=== PATIENT | female | born 1960 | race American Indian/Alaskan Native ===

== ENCOUNTER 2016-11-14 09:27 | Inpatient (IN) | payer BC, OTHER ==
--- NOTE | 2016-11-14 09:46 | Emergency Department Report ---
Addendum entered and electronically signed by RADHA BATISTA PA 11/14/16 10:12 : Blank Doc - Documentation Documentation: Vital Signs 11/14/16 09:53 Temperature 98.3 F Pulse Rate 102 H Respiratory 18 Rate Blood Pressure 227/137 O2 Sat by Pulse 100 Oximetry Original Note: Stated Complaint: BP/LT HAND HURT CHEST PAIN Time Seen by Provider: 11/14/16 09:40 - HPI History of Present Illness: Patient here reports that she's having left-sided chest pain radiating to her left arm and some shortness of breath. She has a history of coronary artery disease with stent placement. He she is also diabetic and she is on Plavix. He also has a history of angina and she's on Ranexa and BIDIL. She is on insulin for her diabetes as well as other medication. - ROS Review of Systems: All systems are negative unless stated in HPI above. - Exam Physical Exam: General: This is a 56-year-old female well-nourished well-developed in no acute distress. Cardiovascular: S1, S2. Regular rate and rhythm. MSE screening note: Focused history and physical exam performed. Due to findings the following was ordered:see mdm ED Medical Decision Making - Medical Decision Making Medical decision making: Patient seen by provider in triage area. Appropriate protocol activated and patient to main ED to be seen by physician. ED Disposition for MSE Condition: Stable
[2016-11-14] MEDS ORDERED: CATAPRES PO ONE (10:11)
[2016-11-14 10:32] LABS: Basophils % (Auto) 0.5 % (0.0-1.8); Eosinophils % (Auto) 3.3 % (0.0-4.3); Hematocrit 39.3 % (30.3-42.9); Mean Corpuscular HGB Conc 33 % (30-34); Mean Corpuscular Hemoglobin 28 pg (28-32); Mean Corpuscular Volume 85 fl (79-97); Platelet Count 246 K/mm3 (140-440); Red Blood Count 4.61 M/mm3 (3.65-5.03); Red Cell Distribution Width 13.3 % (13.2-15.2); White Blood Count 5.7 K/mm3 (4.5-11.0)
[2016-11-14 10:42] LABS: INR 0.9 (0.87-1.13); Partial Thromboplastin Time 27.4 Sec. (24.2-36.6)
[2016-11-14 10:54] LABS: Creatine Kinase MB 2.1 ng/mL (0.0-4.0)
[2016-11-14 10:55] LABS: Anion Gap 19 mmol/L; BUN/Creatinine Ratio 14.44; Blood Urea Nitrogen 13 mg/dL (7-17); Calcium 9.7 mg/dL (8.4-10.2); Carbon Dioxide 26 mmol/L (22-30); Chloride 98.6 mmol/L (98-107); Creatine Kinase 73 units/L (30-135); Glucose 247 mg/dL (65-100); Potassium 4.3 mmol/L (3.6-5.0); Sodium 139 mmol/L (137-145)
[2016-11-14] MEDS ORDERED: NITRO-BID 2% TP ONE (11:24)
[2016-11-14] MEDS ORDERED: ZOFRAN IV ONE (11:24)
[2016-11-14] MEDS ORDERED: MORPHINE IV ONE (11:24)
[2016-11-14] MEDS ORDERED: ASPIRIN PO ONE (11:25)
--- NOTE | 2016-11-14 11:29 | Admit Criteria Form ---
Admission Criteria Documentation: HYPERTENSION Clinical Indications for Admission to Inpatient Care ( Place "X" for any and all applicable criteria): Admission is indicated for ANY ONE of the following(1)(2)(3)(4): [ ]I. Hypertensive emergency, with evidence of acute and progressing target organ disease as indicated by ANY ONE of the following: [ ]a) Hypertensive encephalopathy (eg, confusion, altered mental status) [ ]b) Cerebral infarction [ ]c) Intracranial hemorrhage [ ]d) Myocardial ischemia or infarction [ ]e) Pulmonary edema [ ]f) Aortic dissection [ ]g) Seizure [ ]h) Acute renal insufficiency [ ]i) Papilledema [ ]j) Microangiopathic hemolytic anemia [ ]II. Adrenergic crisis (eg, severe hypertension due to pheochromocytoma crisis, cocaine or amphetamine intoxication, or clonidine withdrawal) [X ]III. Severe hypertension (SBP greater than 180 mmHg or DBP greater than 110 mmHg or greater than the 95th percentile for age, gender, and height in pediatric patients) that cannot be controlled (eg, to SBP less than 160 mmHg and DBP less than 100 mmHg in adults) by treatment with oral medication in emergency department or observation care Extended stay beyond goal length of stay may be needed for(11)(12)(13): [ ]a) Persistent hypertensive encephalopathy [ ]b) Continuation of pulmonary edema [ ]c) Recurring or persistent severe hypertension [ ]d) Target organ damage (eg, angina, stroke, aortic dissection) [ ]e) Associated renal insufficiency The original [employer] content created by [employer] has been revised. The portions of the content which have been revised are identified through the use of italic text or in bold, and [facility] has neither reviewed nor approved the modified material. All other unmodified content is copyright [employer] [email or web address]. Please see references footnoted in the original [employer] [email or web address] edition 2016 Admission Criteria Met: Yes
--- NOTE | 2016-11-14 11:30 | Emergency Department Report ---
HPI - General Chief Complaint: High BP Time Seen by Provider: 11/14/16 09:40 - HPI HPI: Room 3 The patient is a 56-year-old female presenting with a chief complaint of chest pain. Patient states her symptoms began last night after noticing her blood pressure was elevated. The patient states she developed left-sided chest pain described as pressure. The patient states her left upper extremity became heavy. She does admit to shortness of breath but denies nausea/vomiting or diaphoresis. The patient states she took her blood pressure medication as prescribed (clonidine, lisinopril, metoprolol, Norvasc) and went to sleep. The patient states when she awakened this morning she felt her blood pressure was still elevated and her chest pressure was persistent. Patient currently gives her chest pressure a score of 7/10. Patient believes her last cardiac catheterization occurred August 2015. The patient had a cardiac stent placed May 2015 Location: Left chest Duration: Constant since last night Quality: Pressure Severity: 7/10 Modifying factors: [see above] Context: [see above] Mode of transportation: Unknown ED Past Medical Hx - Past Medical History Previous Medical History?: Yes Hx Hypertension: Yes Hx Congestive Heart Failure: Yes Hx Diabetes: Yes Hx Asthma: Yes Additional medical history: high cholesterol. CAD. 2 Stents 05/2015 here - Surgical History Past Surgical History?: Yes Hx Coronary Stent: Yes Additional Surgical History: Hysterectomy. RIGHT KNEE SURGERY - Family History Family history: no significant - Social History Smoking Status: Never Smoker Substance Use Type: None (denies illicit drug use), Non Opiate Pain, Prescribed - Medications Home Medications: Home Medications Medication Instructions Recorded Confirmed Last Taken Type Nitroglycerin [Nitrostat] 0.4 mg SL .Q5MIN PRN #30 tab 06/16/15 04/21/16 1 Day Ago Rx Insulin NPH/Regular [NovoLIN 70/30] 30 units SQ QAM 09/01/15 04/21/16 1 Day Ago History AtorvaSTATin [Lipitor] 40 mg PO QHS #30 tablet 09/03/15 04/21/16 1 Day Ago Rx Insulin Aspart Prot/Aspart 30 units SQ QPM 12/09/15 04/21/16 1 Day Ago History [NovoLOG Mix 70/30 VIAL] Isosorb Dinit/Hydralazine HCl 1 tab PO BID 12/09/15 04/21/16 1 Day Ago History [Bidil Tablet] cloNIDine [Catapres] 0.1 mg PO TID 12/09/15 04/21/16 1 Day Ago History Aspirin EC [Aspirin Enteric Coated 81 mg PO QDAY #30 tablet 12/13/15 04/21/16 1 Day Ago Rx TAB] Clopidogrel [Plavix] 75 mg PO QDAY #30 tablet 12/13/15 04/21/16 1 Day Ago Rx Lisinopril [Zestril TAB] 40 mg PO QDAY #30 tablet 12/13/15 04/21/16 1 Day Ago Rx Metoprolol [Lopressor TAB] 50 mg PO BID #60 tablet 04/22/16 Unknown Rx Ranolazine [Ranexa] 1,000 mg PO BID #60 tab.er.12h 04/23/16 Unknown Rx ED Review of Systems ROS: Stated complaint: BP/LT HAND HURT CHEST PAIN Other details as noted in HPI Comment: All other systems reviewed and negative Constitutional: denies: chills, fever Eyes: denies: eye pain, eye discharge, vision change ENT: denies: ear pain, throat pain Respiratory: shortness of breath Cardiovascular: chest pain Endocrine: no symptoms reported Gastrointestinal: denies: abdominal pain, nausea, diarrhea Genitourinary: denies: urgency, dysuria, discharge Musculoskeletal: denies: back pain, joint swelling, arthralgia Skin: denies: rash, lesions Neurological: as per HPI Psychiatric: denies: anxiety, depression Hematological/Lymphatic: denies: easy bleeding, easy bruising Physical Exam - Physical Exam Vital Signs: Vital Signs 11/14/16 11/14/16 09:53 11:03 Temperature 98.3 F Pulse Rate 102 H 102 H Respiratory 18 Rate Blood Pressure 227/137 193/115 O2 Sat by Pulse 100 Oximetry Physical Exam: GENERAL: The patient is well-developed well-nourished female standing in room not appearing to be in acute distress. [] HEENT: Normocephalic. Atraumatic. Extraocular motions are intact. Patient has moist mucous membranes. NECK: Supple. Trachea midline CHEST/LUNGS: Clear to auscultation. There is no respiratory distress noted. HEART/CARDIOVASCULAR: Regular. There is no tachycardia. There is no gallop rub or murmur. ABDOMEN: Abdomen is soft, nontender. Patient has normal bowel sounds. There is no abdominal distention. SKIN: There is no rash. There is no diaphoresis. NEURO: The patient is awake, alert, and oriented. The patient is cooperative. The patient has normal speech MUSCULOSKELETAL: There is no evidence of acute injury. ED Course Vital Signs 11/14/16 11/14/16 09:53 11:03 Temperature 98.3 F Pulse Rate 102 H 102 H Respiratory 18 Rate Blood Pressure 227/137 193/115 O2 Sat by Pulse 100 Oximetry ED Medical Decision Making - Lab Data Result diagrams: 11/14/16 10:19 11/14/16 10:19 Laboratory Tests 11/14/16 11/14/16 11/14/16 10:19 10:19 10:19 WBC 5.7 RBC 4.61 Hgb 13.0 Hct 39.3 MCV 85 MCH 28 MCHC 33 RDW 13.3 Plt Count 246 Lymph % (Auto) 22.4 Ritchie % (Auto) 6.4 Eos % (Auto) 3.3 Baso % (Auto) 0.5 Lymph # 1.3 Ritchie # 0.4 Eos # 0.2 Baso # 0.0 Seg Neutrophils % 67.4 Seg Neutrophils # 3.9 PT 12.1 L INR 0.90 APTT 27.4 Sodium 139 Potassium 4.3 Chloride 98.6 Carbon Dioxide 26 Anion Gap 19 BUN 13 Creatinine 0.9 Estimated GFR > 60 BUN/Creatinine Ratio 14.44 Glucose 247 H Calcium 9.7 Total Creatine Kinase 73 CK-MB (CK-2) 2.1 CK-MB (CK-2) Rel Index 2.8 Troponin T < 0.010 - EKG Data -: EKG Interpreted by Vt EKG shows normal: sinus rhythm Rate: normal - EKG Data When compared to previous EKG there are: previous EKG unavailable Interpretation: normal EKG - Radiology Data Radiology results: image reviewed (chest x-ray) - Differential Diagnosis ACS, hypertensive urgency, pericarditis, GERD Critical care attestation.: If time is entered above; I have spent that time in minutes in the direct care of this critically ill patient, excluding procedure time. ED Disposition Clinical Impression: Chest pain, Hypertensive urgency Disposition: OP ADMITTED IP TO THIS HOSP Is pt being admited?: Yes Does the pt Need Aspirin: Yes Condition: Fair Instructions: Chest Pain (ED) Referrals: PRIMARY CARE, [Primary Care Provider] - 3-5 Days Time of Disposition: 12:16 (hospitalist notified)
--- NOTE | 2016-11-14 12:06 | XRay Report ---
PORTABLE CHEST INDICATION: Chest pain. COMPARISON: 04/21/2016 FINDINGS: Portable, frontal chest radiograph demonstrates stable cardiomediastinal silhouette and mild bibasilar scarring. No pleural effusions or CHF. EKG leads. Unremarkable bones. CONCLUSION: No acute chest process or significant interval change, as described. Thank you for the opportunity to participate in this patient's care.
[2016-11-14] MEDS ORDERED: SODIUM CHLORIDE FLUSH SYRINGE 10 ML IV PRN (13:31)
[2016-11-14] MEDS ORDERED: NITROSTAT SL PRN (13:31)
[2016-11-14] MEDS ORDERED: MORPHINE IV PRN (13:31)
--- NOTE | 2016-11-14 14:21 | History and Physical Report ---
History of Present Illness Date of examination: 11/14/16 Date of admission: 11/14/16 12:29 Chief complaint: chest pain since last night History of present illness: MIss Amaya is a 56 yo F who presented to the ER with LT sided chest pressure radiating down the LT arm; squeezing in nature; 6/10; sob with palpitations; nausea but no vomiting; Has h/o CAD with stent placed and completed 1 year of plavix Past History Past Medical History: CAD ( stent placed in 2014), diabetes, hypertension Past Surgical History: hysterectomy, Other (knee, rotator cuff sx) Social history: full code. denies: smoking, alcohol abuse, prescription drug abuse, IV drug use Family history: diabetes, hypertension Medications and Allergies Allergies Allergy/AdvReac Type Severity Reaction Status Date / Time No Known Allergies Allergy Verified 04/21/16 10:32 Home Medications Medication Instructions Recorded Confirmed Last Taken Type Nitroglycerin [Nitrostat] 0.4 mg SL .Q5MIN PRN #30 tab 06/16/15 11/14/16 1 Day Ago Rx Insulin NPH/Regular [NovoLIN 70/30] 30 units SQ QAM 09/01/15 11/14/16 1 Day Ago History Insulin Aspart Prot/Aspart 30 units SQ QPM 12/09/15 11/14/16 1 Day Ago History [NovoLOG Mix 70/30 VIAL] Aspirin EC [Aspirin Enteric Coated 81 mg PO QDAY #30 tablet 12/13/15 11/14/16 1 Day Ago Rx TAB] Clopidogrel [Plavix] 75 mg PO QDAY #30 tablet 12/13/15 11/14/16 1 Day Ago Rx Lisinopril [Zestril TAB] 40 mg PO QDAY #30 tablet 12/13/15 11/14/16 1 Day Ago Rx Metoprolol [Lopressor TAB] 50 mg PO BID #60 tablet 04/22/16 11/14/16 Unknown Rx Ranolazine [Ranexa] 1,000 mg PO BID #60 tab.er.12h 04/23/16 11/14/16 Unknown Rx Active Meds: Active Medications Aspirin (Ecotrin) 325 mg PO QDAY ROEL Atorvastatin Calcium (Lipitor) 40 mg PO QHS ROEL Clonidine HCl (Catapres) 0.1 mg PO TID ROEL Clopidogrel Bisulfate (Plavix) 75 mg PO QDAY ROEL Famotidine (Pepcid) 20 mg PO BID [facility] Insulin Human Isoph/Insulin Regular (Novolin 70/30) 30 unit SUB-Q QAMDIAB [facility] Isosorbide Dinitrate/Hydralazine (Bidil 20/37.5mg) 1 each PO BID [facility] Lisinopril (Zestril) 40 mg PO QDAY [facility] Metoprolol Tartrate (Lopressor) 50 mg PO BID [facility] Miscellaneous Medication (Insulin Aspart Prot/Aspart) 30 units SQ QPM [facility] Miscellaneous Medication (Ranolazine [Ranexa]) 1,000 mg PO BID [facility] Morphine Sulfate (Morphine) 2 mg IV Q5MIN PRN PRN Reason: Chest Pain Nitroglycerin (Nitrostat) 0.4 mg SL Q5M PRN PRN Reason: Chest Pain Ranolazine (Ranexa Er) 1,000 mg PO BID [facility] Sodium Chloride (Sodium Chloride Flush Syringe 10 Ml) 10 ml IV PRN PRN PRN Reason: LINE FLUSH Review of Systems All systems: negative Constitutional: no weight loss, no weight gain, no fever, no chills Ears, nose, mouth and throat: no ear pain, no ear discharge, no tinnitis, no decreased hearing Breasts: normal Cardiovascular: other (as in the [facility]) Respiratory: no cough, no cough with sputum, no excessive sputum, no hemoptysis Gastrointestinal: nausea, no abdominal pain, no vomiting, no diarrhea, no constipation Genitourinary Female: no dysuria, no urinary frequency, no urgency Rectal: no pain, no incontinence Musculoskeletal: no neck stiffness, no neck pain, no shooting arm pain Integumentary: no rash, no pruritis, no redness, no sores Neurological: no head injury, no transient paralysis, no paralysis, no weakness Psychiatric: no anxiety, no memory loss, no change in sleep habits, no sleep disturbances Endocrine: no cold intolerance, no heat intolerance, no polyphagia, no excessive thirst Hematologic/Lymphatic: no easy bruising, no easy bleeding Allergic/Immunologic: no urticaria, no allergic rhinitis Exam - Constitutional Vitals: Temp Pulse Resp BP Pulse Ox 98.3 F 76 12 93/63 93 11/14/16 09:53 11/14/16 13:00 11/14/16 13:00 11/14/16 13:00 11/14/16 12:27 General appearance: Present: no acute distress, well-nourished - EENT Eyes: Present: PERRL, EOM intact. Absent: scleral icterus, conjunctival injection ENT: hearing intact, clear oral mucosa, no oropharyngeal erythema, no poor dentition - Neck Neck: Present: supple, normal ROM. Absent: enlarged thyroid, masses or JVD - Respiratory Respiratory effort: normal, other (mild chest wall tenderness) Respiratory: bilateral: diminished, negative: rales, rhonchi, wheezing - Cardiovascular Rhythm: regular Heart Sounds: Present: S1 & S2. Absent: gallop - Extremities Extremities: no ischemia, pulses intact, pulses symmetrical, No edema Peripheral Pulses: within normal limits - Abdominal General gastrointestinal: Present: soft, non-tender, non-distended, normal bowel sounds Female genitourinary: Present: deferred - Rectal Rectal Exam: deferred - Musculoskeletal Musculoskeletal: strength equal bilaterally - Psychiatric Psychiatric: appropriate mood/affect, intact judgment & insight, cooperative - Neurologic Neurologic: CNII-XII intact, moves all extremities Results - Labs CBC & Chem 7: 11/14/16 10:19 11/14/16 10:19 - Imaging and Cardiology Chest x-ray: report reviewed (no abn ) Assessment and Plan 1. Atypical chest pain - possible angina with CAD post stent 2014- will admit as an inpatient as more than 2 MN are required for treatment; serial CE; lipid panel; ECHO; stress test in the a.m; consult cardiology; ASA; metoprolol; statin as per home meds 2. DM 2- cardiac consistent carb; monitor accuchecks; scale insulin 3. Benign hypertension-restart home medications, adjust as needed 4.DVT prophylaxis-Lovenox
[2016-11-14] MEDS ORDERED: NON-FORMULARY (Insulin Aspart Prot/Aspart 30 UNITS) SQ SCH (18:00)
[2016-11-14] MEDS ORDERED: LOPRESSOR PO SCH (22:00)
[2016-11-14] MEDS ORDERED: NON-FORMULARY (Ranolazine [Ranexa] 1,000 MG) PO SCH (22:00)
[2016-11-14] MEDS: CATAPRES PO SCH (22:10)
[2016-11-14] MEDS: RANEXA ER PO SCH (23:07)
[2016-11-14] MEDS: BIDIL 20/37.5MG PO SCH (23:08)
[2016-11-14] MEDS: LOPRESSOR PO SCH (23:08)
[2016-11-14] MEDS: PEPCID PO SCH (23:08)
[2016-11-15] MEDS: CATAPRES PO SCH ×2 (08:37→14:08)
[2016-11-15] MEDS ORDERED: PLAVIX PO SCH (10:00)
[2016-11-15] MEDS ORDERED: ZESTRIL PO SCH (10:00)
[2016-11-15] MEDS ORDERED: HALFPRIN EC PO SCH (10:00)
[2016-11-15] MEDS ORDERED: ECOTRIN PO SCH (10:00)
[2016-11-15] MEDS ORDERED: LEXISCAN IV ONE (10:52)
--- NOTE | 2016-11-15 12:28 | Discharge Summary ---
Providers - Providers Date of Admission: 11/14/16 12:29 Attending physician: ANKIT CALLAWAY MD 11/14/16 14:26 Consult to Physician [CONS] Routine Consulting Provider: HAIDER MARI Reason For Exam: chest pain; cad Place consult to:: georgette Notified:: yes Was contact made?: Yes Primary care physician: GUI DEVELOPER Hospitalization Condition: Fair Hospital course: 56F with pmh of CAD who presented with Chest pain, she went on to have nuclear stress test which was negative. her medications were optimized and she was found to have elevated LDL for which she was placed on a statin. She was continued on her chronic meds for htn, and DM, along with SSI while in hospital. DC Diagnosis 1. Chest Pain 2. CAD 3. Hyperlipidemia 4. DM 5. HTN Disposition: DISCHARGED TO HOME OR SELFCARE Time spent for discharge: 35 minutes Core Measure Documentation - Palliative Care Palliative Care/ Comfort Measures: Not Applicable - Core Measures Any of the following diagnoses?: none Exam - Constitutional Vitals: Temp Pulse Resp BP Pulse Ox 98.2 F 91 H 18 109/67 98 11/15/16 08:00 11/15/16 11:35 11/15/16 08:00 11/15/16 11:35 11/15/16 09:12 General appearance: Present: no acute distress, well-nourished - EENT Eyes: Present: PERRL ENT: hearing intact, clear oral mucosa - Neck Neck: Present: supple, normal ROM - Respiratory Respiratory effort: normal Respiratory: bilateral: CTA - Cardiovascular Heart Sounds: Present: S1 & S2. Absent: rub, click - Extremities Extremities: pulses symmetrical, No edema Peripheral Pulses: within normal limits - Abdominal General gastrointestinal: Present: soft, non-tender, non-distended, normal bowel sounds Female genitourinary: Present: normal - Integumentary Integumentary: Present: clear, warm, dry - Musculoskeletal Musculoskeletal: gait normal, strength equal bilaterally - Psychiatric Psychiatric: appropriate mood/affect, intact judgment & insight - Neurologic Neurologic: CNII-XII intact, moves all extremities Plan Follow up with: PRIMARY CARE, [Primary Care Provider] - 3-5 Days Prescriptions: Rosuvastatin Calcium [Crestor] 40 mg PO QHS #30 tablet Isosorb Dinit/Hydralazine [Bidil 20/37.5MG] 1 each PO BID #60 tablet cloNIDine [Catapres] 0.1 mg PO TID #90 tablet
[2016-11-15] MEDS: LOPRESSOR PO SCH (12:41)
[2016-11-15] MEDS: BIDIL 20/37.5MG PO SCH (12:41)
[2016-11-15] MEDS: PEPCID PO SCH (12:41)
[2016-11-15] MEDS: RANEXA ER PO SCH (12:41)
--- NOTE | 2016-11-15 13:13 | Echocardiography Report ---
Transthoracic Echocardiogram Indication: CHEST PAIN BP: 122/70 HR: 77 Findings Procedure Info: The study quality is fair. Left Ventricle: The left ventricular chamber size is normal. Moderate concentric left ventricular hypertrophy is observed. Global left ventricular systolic function is at the lower limits of normal. The estimated ejection fraction is 45-50%. Left Atrium: The left atrial chamber size is normal. Right Ventricle: The right ventricular cavity size is normal. The right ventricular global systolic function is normal. Right Atrium: The right atrial cavity size is normal. Aortic Valve: The aortic valve is trileaflet. The aortic valve leaflets are mildly thickened. There is no evidence of aortic regurgitation. There is no evidence of aortic stenosis. Mitral Valve: The mitral valve leaflets appear myxomatous. The mitral valve leaflets are mildly thickened. There is trace of mitral regurgitation. There is no evidence of mitral stenosis. Tricuspid Valve: The tricuspid valve is not well visualized. There is trace tricuspid regurgitation. No pulmonary hypertension is noted. Pulmonic Valve: The pulmonic valve is not well visualized. There is trace pulmonic regurgitation. There is no pulmonic stenosis. Pericardium: There is no pericardial effusion. No pleural effusion is present. Aorta: There is no dilatation of the ascending aorta. There is no dilatation of the aortic root. Pulmonary Artery: The main pulmonary artery is not well visualized. Measurements Chambers MM Name Value Normal Range IVSd (MM) 1.63 cm (0.6 - 1.1) LVPWd (MM) 1.21 cm (0.6 - 1.1) IVS:LVPW ratio 1.35 ratio - LVIDd (MM) 3.37 cm (3.7 - 5.6) LVIDs (MM) 2.72 cm (2 - 2.8) LV FS (Teichholz) (MM) 19.3 % - LV FS (cube) (MM) 19.3 % - EF Teichholz (MM) 40.7 % - Ao root diameter (MM) 2.6 cm (2 - 3.7) LA dimension (AP) MM 3.7 cm (1.9 - 4) LA:Ao ratio (MM) 1.42 ratio - AV cusp separation (MM) 1.4 cm (1.5 - 2.6) Chambers 2D Name Value Normal Range IVSd (2D) 1.36 cm (0.6 - 1.1) LVPWd (2D) 1.23 cm (0.6 - 1.1) IVS:LVPW ratio (2D) 1.11 ratio - LVIDd (2D) 3.1 cm (3.7 - 5.6) LVIDs (2D) 2.56 cm (2 - 3.8) LV FS (Teichholz) (2D) 17.4 % - LV FS (cube) (2D) 17.4 % - EF Teichholz (2D) 37.5 % - LA dimension 3 cm - Ao root diameter (2D) 2.7 cm (2 - 3.7) LA dimension (AP) 2D 3 cm (1.9 - 4) LA:Ao ratio (2D) 1.11 ratio - Volumes/Mass Name Value Normal Range LA ESV SP 4CH (MOD) 28 ml - LV EDV SP 4CH (MOD) 65 ml - LV ESV SP 4CH (MOD) 26 ml - EF SP 4CH (MOD) 60 % - LV EDV SP 2CH (MOD) 50 ml - LV ESV SP 2CH (MOD) 21 ml - EF SP 2CH (MOD) 58 % - LV EDV BP 58 ml - LV ESV BP 24 ml - BP EF (MOD) 59 % - Diastolic/Systolic Function Name Value Normal Range MV E-wave Vmax 0.9 m/sec - MV deceleration time 268 msec - MV A-wave Vmax 0.76 m/sec - MV E:A ratio 1.2 ratio - LV septal e' Vmax 0.06 m/sec - LV lateral e' Vmax 0.05 m/sec - LV E:e' septal ratio 15 ratio - LV E:e' lateral ratio 18.7 ratio - Aortic Valve Name Value Normal Range AV Vmax 1.48 m/sec - AV peak gradient 9 mmHg - LVOT diameter 1.9 cm - LVOT Vmax 0.82 m/sec - LVOT peak gradient 3 mmHg - VIDAL (continuity Vmax) 1.57 cm2 - Tricuspid Valve Name Value Normal Range TR Vmax 1.75 m/sec - TR peak gradient 12 mmHg - Pulmonic Valve/Qp:Qs Name Value Normal Range PV Vmax 0.52 m/sec - PV peak gradient 1 mmHg - AZ end-diastolic Vmax 0.81 m/sec - PV acceleration time 113 msec -
[2016-11-15 13:18] VITALS: BP 134/74
--- NOTE | 2016-11-15 13:51 | Consultation ---
History of Present Illness Consult date: 11/15/16 Consult reason: chest pain History of present illness: The patient's a 56-year-old woman who is admitted with nonexertional chest pain and uncontrolled hypertension. Blood pressure was 227 on presentation, and with medical therapy it is now within the normal range. Cardiac consultation was requested and a thallium stress test was ordered by the medical team. Patient has an extensive cardiac history of coronary artery disease. Her last cardiac catheterization was in November 2015, which revealed wide patency of the previous circumflex artery stent, with mild nonobstructive disease of the right coronary system. The LAD was without significant disease. Intravascular systolic function was normal, ejection fraction 50-55%. On her current presentation, her chest pain is atypical, ECG is normal, cardiac enzymes are normal. She underwent a Persantine thallium stress test, which was also normal. Echocardiogram report reports left ventricle systolic function at the lower limits of normal, ejection fraction 45-50%. Past History Past Medical History: CAD ( stent placed in 2014), diabetes, hypertension Past Surgical History: hysterectomy, Other (knee, rotator cuff sx) Social history: full code. denies: smoking, alcohol abuse, prescription drug abuse, IV drug use Family history: diabetes, hypertension Medications and Allergies Allergies Allergy/AdvReac Type Severity Reaction Status Date / Time No Known Allergies Allergy Verified 04/21/16 10:32 Home Medications Medication Instructions Recorded Confirmed Last Taken Type Nitroglycerin [Nitrostat] 0.4 mg SL .Q5MIN PRN #30 tab 06/16/15 11/14/16 1 Day Ago Rx Insulin NPH/Regular [NovoLIN 70/30] 30 units SQ QAM 09/01/15 11/14/16 1 Day Ago History Insulin Aspart Prot/Aspart 30 units SQ QPM 12/09/15 11/14/16 1 Day Ago History [NovoLOG Mix 70/30 VIAL] Aspirin EC [Aspirin Enteric Coated 81 mg PO QDAY #30 tablet 12/13/15 11/14/16 1 Day Ago Rx TAB] Clopidogrel [Plavix] 75 mg PO QDAY #30 tablet 12/13/15 11/14/16 1 Day Ago Rx Lisinopril [Zestril TAB] 40 mg PO QDAY #30 tablet 12/13/15 11/14/16 1 Day Ago Rx Metoprolol [Lopressor TAB] 50 mg PO BID #60 tablet 04/22/16 11/14/16 Unknown Rx Ranolazine [Ranexa] 1,000 mg PO BID #60 tab.er.12h 04/23/16 11/14/16 Unknown Rx Isosorb Dinit/Hydralazine [Bidil 1 each PO BID #60 tablet 11/15/16 Unknown Rx 20/37.5MG] Rosuvastatin Calcium [Crestor] 40 mg PO QHS #30 tablet 11/15/16 Unknown Rx cloNIDine [Catapres] 0.1 mg PO TID #90 tablet 11/15/16 Unknown Rx Active Meds: Active Medications Aspirin (Ecotrin) 325 mg PO QDAY [facility] Last Admin: 11/15/16 12:41 Dose: 325 mg Atorvastatin Calcium (Lipitor) 40 mg PO QHS [facility] Last Admin: 11/14/16 23:07 Dose: 40 mg Clonidine HCl (Catapres) 0.1 mg PO TID [facility] Last Admin: 11/15/16 08:37 Dose: Not Given Clopidogrel Bisulfate (Plavix) 75 mg PO QDAY [facility] Last Admin: 11/15/16 12:41 Dose: 75 mg Famotidine (Pepcid) 20 mg PO BID [facility] Last Admin: 11/15/16 12:41 Dose: 20 mg Insulin Human Isoph/Insulin Regular (Novolin 70/30) 30 unit SUB-Q QAMDIAB [facility] Last Admin: 11/15/16 08:37 Dose: Not Given Insulin Human Isoph/Insulin Regular (Novolin 70/30) 30 unit SUB-Q QPMDIAB [facility] Last Admin: 11/14/16 16:56 Dose: 30 unit Isosorbide Dinitrate/Hydralazine (Bidil 20/37.5mg) 1 each PO BID [facility] Last Admin: 11/15/16 12:41 Dose: 1 each Lisinopril (Zestril) 40 mg PO QDAY [facility] Last Admin: 11/15/16 12:41 Dose: 40 mg Metoprolol Tartrate (Lopressor) 50 mg PO BID [facility] Last Admin: 11/15/16 12:41 Dose: 50 mg Morphine Sulfate (Morphine) 2 mg IV Q5MIN PRN PRN Reason: Chest Pain Nitroglycerin (Nitrostat) 0.4 mg SL Q5M PRN PRN Reason: Chest Pain Ranolazine (Ranexa Er) 1,000 mg PO BID [facility] Last Admin: 11/15/16 12:41 Dose: 1,000 mg Sodium Chloride (Sodium Chloride Flush Syringe 10 Ml) 10 ml IV PRN PRN PRN Reason: LINE FLUSH Review of Systems Cardiovascular: chest pain, shortness of breath, no orthopnea, no palpitations, no rapid/irregular heart beat, no edema, no syncope, no lightheadedness Physical Examination Vital Signs Temp Pulse Resp BP Pulse Ox 98.3 F 102 H 18 227/137 100 11/14/16 09:53 11/14/16 09:53 11/14/16 09:53 11/14/16 09:53 11/14/16 09:53 General appearance: no acute distress HEENT: Positive: PERRL Neck: Positive: neck supple Cardiac: Positive: Reg Rate and Rhythm Lungs: Positive: clear to auscultation Neuro: Positive: Grossly Intact Abdomen: Positive: Soft Female genitourinary: deferred Skin: Positive: Clear Extremities: Absent: edema Results 11/14/16 10:19 11/14/16 10:19 Lipids 11/14/16 Range/Units 13:44 Triglycerides 122 (2-149) mg/dL Cholesterol 239 H (50-199) mg/dL HDL Cholesterol 34 L (40-59) mg/dL Cholesterol/HDL Ratio 7.02 % EKG interpretations - Telemetry EKG Rhythm: Sinus Rhythm Assessment and Plan - Patient Problems (1) Chest pain Current Visit: Yes Status: Acute Plan to address problem: On her current presentation, her chest pain is atypical, ECG is normal, cardiac enzymes are normal. She underwent a Persantine thallium stress test, which was also normal. Echocardiogram report reports left ventricle systolic function at the lower limits of normal, ejection fraction 45-50%. Cardiac status is stable for discharge, continue routine medical therapy and oral antiplatelet therapy for coronary artery disease. (2) Hypertensive urgency Current Visit: Yes Status: Acute Plan to address problem: Optimal medical therapy for hypertension. Salt restricted diet.
--- NOTE | 2016-11-15 14:07 | Treadmill Report ---
THALLIUM STRESS TEST LEFT VENTRICLE: Left ventricular chamber size is within normal. Perfusion study demonstrates homogeneous uptake of the tracer in all segments, no significant defects identified. Gated analysis demonstrates normal left ventricular systolic function, ejection fraction 59%. CONCLUSION: Normal myocardial perfusion study. JOB# [id number] CA/NTS
== END 2016-11-15 14:33 | disposition home or self-care (01) | DRG 313 ==
LOC: ED 09:27 → 4A 12:29
PROVIDERS: ADMIT Hospitalist; ATTEND Internal Medicine
PROC: 4A02XM4 Measurement of Cardiac Total Activity, External Approach (ICD-10-PCS; principal; 2016-11-14)
DX: R07.89 Other chest pain (principal); I25.10 Atherosclerotic heart disease of native coronary artery without angina pectoris; I10 Essential (primary) hypertension; E11.9 Type 2 diabetes mellitus without complications; I16.0 Hypertensive urgency; E78.5 Hyperlipidemia, unspecified; Z90.710 Acquired absence of both cervix and uterus; Z98.61 Coronary angioplasty status; Z83.3 Family history of diabetes mellitus; Z82.49 Family history of ischemic heart disease and other diseases of the circulatory system
CPT/HCPCS: 36415; 71010; 78452; 80048; 80061; 82550; 82553; 82962; 84484; 85025; 85610; 85730; 93005; 93010; 93017; 93306; 96372; 96374; 96375; A9270-GY; A9502; J1815; J2270; J2405; J2785

== ENCOUNTER 2017-10-10 11:13 | Emergency (ER) | payer SELFPAY ==
[2017-10-10] MEDS ORDERED: NITROSTAT SL ONE (11:56)
[2017-10-10] MEDS ORDERED: BABY ASPIRIN PO ONE (11:56)
--- NOTE | 2017-10-10 12:01 | Emergency Department Report ---
ED Chest Pain HPI - General Chief Complaint: Chest Pain Stated Complaint: CHEST PRESSURE/ABISAI Time Seen by Provider: 10/10/17 11:51 Source: patient Mode of arrival: Ambulatory Limitations: No Limitations - History of Present Illness Initial Comments: Patient is 57 years old female history of coronary artery disease, hypertension , diabetes, noncompliant with medication, presented to the ER with a chief complaint of left sided chest pain, pressure radiating to the left upper extremity associated with shortness of breath. Patient denied any cough or fever, no nausea no vomiting. Patient stated that she is out of all her medication for the last few month because she lost her insurance. MD Complaint: chest pain -: Last night Onset: during rest, during exertion Pain Location: left chest Pain Radiation: LUE Quality: pressure Consistency: constant - Related Data Home Medications Medication Instructions Recorded Confirmed Last Taken Insulin Aspart Prot/Aspart(Nf) 0 unit SC ACHS 10/10/17 10/10/17 Unknown [NovoLOG Mix 70/30 VIAL] Insulin Aspart Prot/Aspart(Nf) 35 units SC BID 10/10/17 10/10/17 Unknown [NovoLOG Mix 70/30 VIAL] Lisinopril [Zestril TAB] 40 mg PO QDAY 10/10/17 10/10/17 Unknown cloNIDine [Catapres] 0.2 mg PO QHS 10/10/17 10/10/17 Unknown Previous Rx's Medication Instructions Recorded Last Taken Type Insulin Aspart Prot/Aspart(Nf) 35 units SQ BID #1 vial 10/10/17 Unknown Rx [NovoLOG Mix 70/30 VIAL] Lisinopril [Zestril TAB] 40 mg PO QDAY #14 tablet 10/10/17 Unknown Rx cloNIDine [Catapres] 0.2 mg PO QHS #14 tablet 10/10/17 Unknown Rx Allergies Allergy/AdvReac Type Severity Reaction Status Date / Time No Known Allergies Allergy Verified 04/21/16 10:32 Heart Score - HEART Score History: Moderately suspicious EKG: Non-specific Age: 45-65 Risk factors: > 3 risk factors or hx of atherosclerotic disease Troponin: < normal limit HEART Score: 5 - Critical Actions Critical Actions: 4-6 pts:12-16.6% risk of adverse cardiac event. Should be admitted ED Review of Systems ROS: Stated complaint: CHEST PRESSURE/ABISAI Other details as noted in HPI Comment: All other systems reviewed and negative Constitutional: denies: chills, fever Respiratory: orthopnea, shortness of breath, SOB with exertion, SOB at rest. denies: cough, wheezing Cardiovascular: chest pain. denies: palpitations, dyspnea on exertion Gastrointestinal: denies: abdominal pain, nausea, vomiting, diarrhea, constipation, hematemesis, melena, hematochezia Genitourinary: denies: urgency, dysuria, frequency, hematuria Musculoskeletal: denies: back pain, joint swelling Neurological: denies: headache, weakness, numbness, paresthesias, confusion ED Past Medical Hx - Past Medical History Hx Hypertension: Yes Hx Heart Attack/AMI: Yes Hx Congestive Heart Failure: Yes Hx Diabetes: Yes Hx Asthma: No Hx COPD: No Additional medical history: high cholesterol. CAD. 2 Stents 05/2015 here - Surgical History Hx Coronary Stent: Yes Additional Surgical History: Hysterectomy. RIGHT KNEE SURGERY - Social History Smoking Status: Never Smoker - Medications Home Medications: Home Medications Medication Instructions Recorded Confirmed Last Taken Type Insulin Aspart Prot/Aspart(Nf) 0 unit SC ACHS 10/10/17 10/10/17 Unknown History [NovoLOG Mix 70/30 VIAL] Insulin Aspart Prot/Aspart(Nf) 35 units SC BID 10/10/17 10/10/17 Unknown History [NovoLOG Mix 70/30 VIAL] Insulin Aspart Prot/Aspart(Nf) 35 units SQ BID #1 vial 10/10/17 Unknown Rx [NovoLOG Mix 70/30 VIAL] Lisinopril [Zestril TAB] 40 mg PO QDAY 10/10/17 10/10/17 Unknown History Lisinopril [Zestril TAB] 40 mg PO QDAY #14 tablet 10/10/17 Unknown Rx cloNIDine [Catapres] 0.2 mg PO QHS 10/10/17 10/10/17 Unknown History cloNIDine [Catapres] 0.2 mg PO QHS #14 tablet 10/10/17 Unknown Rx ED Physical Exam - General Limitations: No Limitations General appearance: alert, in no apparent distress - Head Head exam: Present: atraumatic, normocephalic - Eye Eye exam: Present: normal appearance, PERRL - ENT ENT exam: Present: normal exam, normal orophraynx, mucous membranes moist - Neck Neck exam: Present: normal inspection, full ROM. Absent: meningismus, lymphadenopathy - Respiratory Respiratory exam: Present: normal lung sounds bilaterally. Absent: respiratory distress, wheezes, rales, rhonchi, chest wall tenderness, accessory muscle use, decreased breath sounds, prolonged expiratory - Cardiovascular Cardiovascular Exam: Present: regular rate, normal rhythm, normal heart sounds - GI/Abdominal GI/Abdominal exam: Present: soft, normal bowel sounds. Absent: distended, tenderness, guarding, rebound, rigid, organomegaly, mass, bruit, pulsatile mass , hernia - Back Exam Back exam: Present: normal inspection. Absent: CVA tenderness (R), CVA tenderness (L) - Neurological Exam Neurological exam: Present: alert, oriented X3, CN II-XII intact, normal gait - Skin Skin exam: Present: warm, intact, normal color. Absent: cyanosis, diaphoretic, erythema ED Course Vital Signs 10/10/17 10/10/17 10/10/17 11:26 11:35 12:10 Temperature 98.2 F Pulse Rate 106 H 97 H Respiratory 18 17 15 Rate Blood Pressure 228/126 Blood Pressure 231/132 [Left] O2 Sat by Pulse 95 99 99 Oximetry 10/10/17 10/10/17 10/10/17 12:40 12:45 13:00 Temperature Pulse Rate 97 H 102 H 98 H Respiratory 11 L 12 Rate Blood Pressure 231/132 149/91 153/97 Blood Pressure [Left] O2 Sat by Pulse 95 96 Oximetry 10/10/17 10/10/17 10/10/17 13:30 13:45 14:00 Temperature Pulse Rate 103 H 98 H 93 H Respiratory 13 9 L 11 L Rate Blood Pressure 183/114 153/103 163/100 Blood Pressure [Left] O2 Sat by Pulse 98 97 95 Oximetry 10/10/17 10/10/17 10/10/17 14:15 14:30 14:45 Temperature Pulse Rate 93 H 94 H 90 Respiratory 13 16 13 Rate Blood Pressure 186/117 180/112 202/118 Blood Pressure [Left] O2 Sat by Pulse 98 98 96 Oximetry 10/10/17 10/10/17 10/10/17 15:00 15:15 15:30 Temperature Pulse Rate 89 90 90 Respiratory 12 14 Rate Blood Pressure 199/120 215/126 215/126 Blood Pressure [Left] O2 Sat by Pulse 96 97 Oximetry 10/10/17 17:23 Temperature Pulse Rate 83 Respiratory 13 Rate Blood Pressure Blood Pressure 134/75 [Left] O2 Sat by Pulse 96 Oximetry DEVI score - Devi Score Age > 65: (0) No Aspirin use within the Past 7 Days: (0) No 3 or more CAD Risk Factors: (1) Yes 2 or more Angina events in past 24 hrs: (1) Yes Known CAD with more than 50% Stenosis: (0) No Elevated Cardiac Markers: (0) No ST Deviation Greater than 0.5mm: (0) No DEVI Score: 2 ED Medical Decision Making - Lab Data Result diagrams: 10/10/17 11:57 10/10/17 11:57 - EKG Data -: EKG Interpreted by Me EKG shows normal: sinus rhythm Rate: normal - EKG Data Interpretation: no acute changes - Radiology Data Radiology results: report reviewed Chest x-ray no acute findings - Medical Decision Making Discussed with Dr. Polanco, I presented the patient to him, he agreed to admit the patient to his service. Critical care attestation.: If time is entered above; I have spent that time in minutes in the direct care of this critically ill patient, excluding procedure time. ED Disposition Clinical Impression: Chest pain, Malignant hypertension, Hyperglycemia due to type 2 diabetes mellitus Disposition: OP ADMIT IP TO THIS HOSP Is pt being admited?: Yes Condition: Stable Instructions: Chest Pain (ED), Hypertension (ED), Diabetes Mellitus Type 2 in Adults (ED) Prescriptions: cloNIDine [Catapres] 0.2 mg PO QHS #14 tablet Insulin Aspart Prot/Aspart(Nf) [NovoLOG Mix 70/30 VIAL] 35 units SQ BID #1 vial Lisinopril [Zestril TAB] 40 mg PO QDAY #14 tablet Referrals: LYNNE AUGUSTINE MD [Primary Care Provider] - 3-5 Days Forms: Work/School Release Form(ED)
[2017-10-10 12:26] LABS: Basophils % (Auto) 0.7 % (0.0-1.8); Eosinophils % (Auto) 3.6 % (0.0-4.3); Hematocrit 42.8 % (30.3-42.9); Hemoglobin 14.4 gm/dl (10.1-14.3); Mean Corpuscular HGB Conc 34 % (30-34); Mean Corpuscular Hemoglobin 29 pg (28-32); Mean Corpuscular Volume 86 fl (79-97); Platelet Count 262 K/mm3 (140-440); Red Blood Count 4.99 M/mm3 (3.65-5.03); Red Cell Distribution Width 12.9 % (13.2-15.2); White Blood Count 5.6 K/mm3 (4.5-11.0)
--- NOTE | 2017-10-10 12:31 | XRay Report ---
AP CHEST: HISTORY: chest pain AP view of the chest demonstrates a normal mediastinal and cardiac contour with clear lungs and normal bony and soft tissue structures. IMPRESSION: Unremarkable AP chest.
[2017-10-10 12:43] LABS: Anion Gap 20 mmol/L; BUN/Creatinine Ratio 12; Blood Urea Nitrogen 13 mg/dL (7-17); Calcium 9.6 mg/dL (8.4-10.2); Carbon Dioxide 23 mmol/L (22-30); Chloride 100.3 mmol/L (98-107); Glucose 469 mg/dL (65-100); Potassium 3.8 mmol/L (3.6-5.0); Sodium 139 mmol/L (137-145)
[2017-10-10] MEDS ORDERED: CATAPRES PO ONE (15:18)
[2017-10-10] MEDS ORDERED: ZESTRIL PO ONE (15:18)
--- NOTE | 2017-10-10 17:16 | History and Physical Report ---
History of Present Illness Chief complaint: My chest hurt History of present illness: 57 YO Female with CAD, HTN, DM noncompliant with medication, presented to the ER with a chief complaint of left sided chest pain, pressure radiating to the left upper extremity associated with shortness of breath. Patient denied any cough or fever, no nausea no vomiting. Patient stated that she is out of all her medication for the last few month because she lost her insurance. Pt seen and evaluated in ED, cardiac enzymes, ekg, and telemetry monitoring, d dimer wore normal. Pt medically optimized and back to usual state of health. Pt discharged home and instructed to f/u pcp 1wk, cardiology prn for f/u care. Past History Past Medical History: CAD, diabetes, hypertension Past Surgical History: hysterectomy, Other (Knee surgery) Social history: single Family history: diabetes, hypertension Medications and Allergies Allergies Allergy/AdvReac Type Severity Reaction Status Date / Time No Known Allergies Allergy Verified 04/21/16 10:32 Home Medications Medication Instructions Recorded Confirmed Last Taken Type Insulin Aspart Prot/Aspart(Nf) 0 unit SC ACHS 10/10/17 10/10/17 Unknown History [NovoLOG Mix 70/30 VIAL] Insulin Aspart Prot/Aspart(Nf) 35 units SC BID 10/10/17 10/10/17 Unknown History [NovoLOG Mix 70/30 VIAL] Insulin Aspart Prot/Aspart(Nf) 35 units SQ BID #1 vial 10/10/17 Unknown Rx [NovoLOG Mix 70/30 VIAL] Lisinopril [Zestril TAB] 40 mg PO QDAY 10/10/17 10/10/17 Unknown History Lisinopril [Zestril TAB] 40 mg PO QDAY #14 tablet 10/10/17 Unknown Rx cloNIDine [Catapres] 0.2 mg PO QHS 10/10/17 10/10/17 Unknown History cloNIDine [Catapres] 0.2 mg PO QHS #14 tablet 10/10/17 Unknown Rx Review of Systems Constitutional: no weight loss, no weight gain, no fever Ears, nose, mouth and throat: no ear pain, no ear discharge, no tinnitis, no decreased hearing Breasts: no change in shape, no swelling, no mass Cardiovascular: chest pain, no orthopnea, no palpitations, no rapid/irregular heart beat Respiratory: no cough, no cough with sputum, no excessive sputum Gastrointestinal: no nausea, no vomiting, no diarrhea Genitourinary Female: no pelvic pain, no flank pain, no menorrhagia Rectal: no pain, no incontinence, no bleeding Musculoskeletal: no neck stiffness, no neck pain, no shooting arm pain, no arm numbness/tingling Integumentary: no rash, no pruritis, no redness, no sores Neurological: no paralysis, no weakness, no parathesias, no numbness Psychiatric: no memory loss, no change in sleep habits, no sleep disturbances, no insomnia Endocrine: no cold intolerance, no heat intolerance, no polyphagia, no excessive thirst Hematologic/Lymphatic: no easy bruising, no easy bleeding Allergic/Immunologic: no urticaria, no allergic rhinitis, no wheezing Exam - Constitutional Vitals: Temp Pulse Resp BP Pulse Ox 98.2 F 90 14 215/126 97 10/10/17 11:26 10/10/17 15:30 10/10/17 15:15 10/10/17 15:30 10/10/17 15:15 General appearance: Present: no acute distress, well-nourished - EENT Eyes: Present: PERRL ENT: hearing intact, clear oral mucosa - Neck Neck: Present: supple, normal ROM - Respiratory Respiratory effort: normal Respiratory: bilateral: CTA - Cardiovascular Heart Sounds: Present: S1 & S2. Absent: rub, click - Extremities Extremities: pulses symmetrical, No edema Peripheral Pulses: within normal limits - Abdominal General gastrointestinal: Present: soft, non-tender, non-distended, normal bowel sounds Female genitourinary: Present: normal - Integumentary Integumentary: Present: clear, warm, dry - Musculoskeletal Musculoskeletal: gait normal, strength equal bilaterally - Psychiatric Psychiatric: appropriate mood/affect, intact judgment & insight - Neurologic Neurologic: CNII-XII intact, moves all extremities Results - Labs CBC & Chem 7: 10/10/17 11:57 10/10/17 11:57 Labs: Abnormal lab results 10/10/17 10/10/17 10/10/17 Range/Units 11:37 11:57 11:57 Hgb 14.4 H (10.1-14.3) gm/dl RDW 12.9 L (13.2-15.2) % Glucose 469 H (65-100) mg/dL POC Glucose 441 H (70-105) 10/10/17 10/10/17 Range/Units 12:43 16:32 Hgb (10.1-14.3) gm/dl RDW (13.2-15.2) % Glucose (65-100) mg/dL POC Glucose 418 H 268 H (70-105) Assessment and Plan - Patient Problems (1) Atypical chest pain Status: Acute Plan to address problem: Cardiac workup negative. Pt acknowledges that her reason for ed visit was to get refill on her medication. PT denies chest pain. Pt counseled regarding medication noncompliance and instructed to f/u pcp 3-5 days with blood pressure and blood glucose log, and f/u cardiology prn. (2) Noncompliance Status: Acute Plan to address problem: Pt counseled.
[2017-10-10 17:24] VITALS: BP 134/75
== END 2017-10-10 17:45 | disposition admitted as inpatient to this hospital (09) ==
LOC: ED 11:13
DX: I11.0 Hypertensive heart disease with heart failure (principal); I50.9 Heart failure, unspecified; E11.65 Type 2 diabetes mellitus with hyperglycemia; I25.2 Old myocardial infarction; I25.10 Atherosclerotic heart disease of native coronary artery without angina pectoris; E78.00 Pure hypercholesterolemia, unspecified; Z91.040 Latex allergy status; Z95.818 Presence of other cardiac implants and grafts
CPT/HCPCS: 36415; 71010; 80048; 82805; 82962; 83880; 84484; 85025; 85379; 93005; 93010; 96374; J1815

== ENCOUNTER 2017-12-14 01:50 | Emergency (ER) | payer SELFPAY ==
[2017-12-14 03:22] VITALS: BP 212/100
[2017-12-14] MEDS ORDERED: ASPIRIN PO ONE (03:23)
[2017-12-14 04:07] LABS: Basophils # (Auto) 0.1 K/mm3 (0.0-0.1); Basophils % (Auto) 0.8 % (0.0-1.8); Eosinophils # (Auto) 0.3 K/mm3 (0.0-0.4); Eosinophils % (Auto) 4.2 % (0.0-4.3); Hematocrit 39.8 % (30.3-42.9); Hemoglobin 13.5 gm/dl (10.1-14.3); Lymphocytes # (Auto) 1.7 K/mm3 (1.2-5.4); Lymphocytes % (Auto) 26.8 % (13.4-35.0); Mean Corpuscular HGB Conc 34 % (30-34); Mean Corpuscular Hemoglobin 29 pg (28-32); Mean Corpuscular Volume 85 fl (79-97); Monocytes # (Auto) 0.4 K/mm3 (0.0-0.8); Monocytes % (Auto) 5.7 % (0.0-7.3); Platelet Count 257 K/mm3 (140-440); Red Blood Count 4.66 M/mm3 (3.65-5.03); Red Cell Distribution Width 13.6 % (13.2-15.2)
[2017-12-14 04:21] LABS: BUN/Creatinine Ratio 14; Blood Urea Nitrogen 17 mg/dL (7-17); Calcium 9.8 mg/dL (8.4-10.2); Hemolysis Index 4
== END 2017-12-14 03:43 | disposition left against medical advice (07) ==
LOC: ED 01:50
DX: R09.89 Other specified symptoms and signs involving the circulatory and respiratory systems (principal); E11.9 Type 2 diabetes mellitus without complications; Z53.21 Procedure and treatment not carried out due to patient leaving prior to being seen by health care provider
CPT/HCPCS: 36415; 80048; 82805; 82962; 84484; 85025; 93005; 93010

== ENCOUNTER 2018-01-23 23:49 | Inpatient (IN) | payer OTHER ==
[2018-01-24] MEDS ORDERED: LASIX IV ONE (01:27)
[2018-01-24] MEDS ORDERED: NORMODYNE IV ONE ×2 (01:27→03:48)
[2018-01-24 01:44] LABS: Bacteria,Urine 1+ /HPF (Negative); Bilirubin,Urine NEG (Negative); Blood,Urine NEG (Negative); Color,Urine Yellow (Yellow); Mucus,Urine FEW /HPF; Urobilinogen,Urine < 2.0 mg/dL (<2.0)
--- NOTE | 2018-01-24 01:55 | XRay Report ---
FINAL REPORT EXAM: XR CHEST 1V AP HISTORY: Dyspnea TECHNIQUE: Single AP portable radiograph of the chest was obtained. PRIORS: None. FINDINGS: There is moderate enlargement of the cardiac silhouette. Bibasilar opacities which are most significant involving the right lung base. Additional suggested mild blunting of the right costophrenic angle. The pulmonary vascularity appears prominent with suggested cephalization. Mild atherosclerotic vascular calcifications of the aortic arch. No acute osseous abnormality. IMPRESSION: 1. Bibasilar opacities, most significant involving the right lower lung. 2. Moderate cardiac enlargement, mild prominence of the central pulmonary vascularity and suggested small right pleural effusion. Alternatively, right basilar findings may represent atelectasis or alveolar edema with pulmonary venous congestion/congestive heart failure. NOTE: Correlation with clinical history is requested.
[2018-01-24 01:56] LABS: Basophils # (Auto) 0.1 K/mm3 (0.0-0.1); Basophils % (Auto) 0.9 % (0.0-1.8); Eosinophils # (Auto) 0.3 K/mm3 (0.0-0.4); Eosinophils % (Auto) 5.5 % (0.0-4.3); Hematocrit 36.4 % (30.3-42.9); Hemoglobin 12.6 gm/dl (10.1-14.3); Lymphocytes # (Auto) 1.7 K/mm3 (1.2-5.4); Lymphocytes % (Auto) 27.7 % (13.4-35.0); Mean Corpuscular HGB Conc 35 % (30-34); Mean Corpuscular Hemoglobin 30 pg (28-32); Mean Corpuscular Volume 86 fl (79-97); Monocytes # (Auto) 0.4 K/mm3 (0.0-0.8); Monocytes % (Auto) 6.4 % (0.0-7.3); Platelet Count 274 K/mm3 (140-440); Red Blood Count 4.25 M/mm3 (3.65-5.03); Red Cell Distribution Width 14.1 % (13.2-15.2)
[2018-01-24 01:58] LABS: Protein,Urine >500 mg/dL (Negative)
[2018-01-24 02:29] LABS: Alanine Aminotransferase 12 units/L (7-56); Albumin 3.7 g/dL (3.9-5); BUN/Creatinine Ratio 15; Blood Urea Nitrogen 16 mg/dL (7-17); Hemolysis Index 6
[2018-01-24] MEDS ORDERED: HEPARIN IV ONE (03:57)
[2018-01-24] MEDS ORDERED: HEPARIN 25,000 UNIT in D5W 497.5 ML IV SCH (04:00)
--- NOTE | 2018-01-24 04:05 | Emergency Department Report ---
ED Shortness of Breath HPI - General Chief Complaint: Abdominal Pain Stated Complaint: BILATERAL LEG EDEMA; SOB Time Seen by Provider: 01/24/18 01:20 Source: patient Mode of arrival: Ambulatory Limitations: No Limitations - History of Present Illness Initial Comments: Patient is a 57-year-old asthmatic female with a past medical history of hypertension diabetes and congestive heart failure who is presenting with shortness of breath and leg swelling. Patient states that for the past 2 days she's had some increased swelling in her legs and abdomen with shortness of breath. Patient states that when she is walking she states the shortness of breath gets worse. Patient states that some mild chest tightness as well associated with exertion. Patient states she's been taking her medications as prescribed. Patient takes Catapres and lisinopril for hypertension. Patient is denying any nausea vomiting diarrhea or abdominal pain at this time. Pain Scale: 4 Consistency: intermittent Associated Symptoms: chest pain - Related Data Home Medications Medication Instructions Recorded Confirmed Last Taken Insulin Aspart Prot/Aspart(Nf) 0 unit SC ACHS 10/10/17 10/10/17 Unknown [NovoLOG Mix 70/30 VIAL] Insulin Aspart Prot/Aspart(Nf) 35 units SC BID 10/10/17 10/10/17 Unknown [NovoLOG Mix 70/30 VIAL] Lisinopril [Zestril TAB] 40 mg PO QDAY 10/10/17 10/10/17 Unknown cloNIDine [Catapres] 0.2 mg PO QHS 10/10/17 10/10/17 Unknown Previous Rx's Medication Instructions Recorded Last Taken Type Insulin Aspart Prot/Aspart(Nf) 35 units SQ BID #1 vial 10/10/17 Unknown Rx [NovoLOG Mix 70/30 VIAL] Lisinopril [Zestril TAB] 40 mg PO QDAY #14 tablet 10/10/17 Unknown Rx cloNIDine [Catapres] 0.2 mg PO QHS #14 tablet 10/10/17 Unknown Rx Allergies Allergy/AdvReac Type Severity Reaction Status Date / Time No Known Allergies Allergy Verified 04/21/16 10:32 ED Review of Systems ROS: Stated complaint: BILATERAL LEG EDEMA; SOB Other details as noted in HPI Comment: All other systems reviewed and negative ED Past Medical Hx - Past Medical History Previous Medical History?: Yes Hx Hypertension: Yes Hx Heart Attack/AMI: Yes Hx Congestive Heart Failure: No Hx Diabetes: Yes (insulin dependent) Hx Asthma: No Hx COPD: No Additional medical history: high cholesterol. CAD. 2 Stents 05/2015 here - Surgical History Past Surgical History?: Yes Hx Coronary Stent: Yes (X1 in 2016) Additional Surgical History: Hysterectomy. RIGHT KNEE SURGERY - Social History Smoking Status: Never Smoker Substance Use Type: None - Medications Home Medications: Home Medications Medication Instructions Recorded Confirmed Last Taken Type Insulin Aspart Prot/Aspart(Nf) 0 unit SC ACHS 10/10/17 10/10/17 Unknown History [NovoLOG Mix 70/30 VIAL] Insulin Aspart Prot/Aspart(Nf) 35 units SC BID 10/10/17 10/10/17 Unknown History [NovoLOG Mix 70/30 VIAL] Insulin Aspart Prot/Aspart(Nf) 35 units SQ BID #1 vial 10/10/17 Unknown Rx [NovoLOG Mix 70/30 VIAL] Lisinopril [Zestril TAB] 40 mg PO QDAY 10/10/17 10/10/17 Unknown History Lisinopril [Zestril TAB] 40 mg PO QDAY #14 tablet 10/10/17 Unknown Rx cloNIDine [Catapres] 0.2 mg PO QHS 10/10/17 10/10/17 Unknown History cloNIDine [Catapres] 0.2 mg PO QHS #14 tablet 10/10/17 Unknown Rx ED Physical Exam - General Limitations: No Limitations General appearance: alert, in no apparent distress - Head Head exam: Present: atraumatic, normocephalic - Eye Eye exam: Present: normal appearance - ENT ENT exam: Present: mucous membranes moist - Neck Neck exam: Present: normal inspection - Respiratory Respiratory exam: Present: normal lung sounds bilaterally, rales (mild), other ( 1+ bilateral edema up to the level of the ankles). Absent: respiratory distress , wheezes, rhonchi, stridor - Cardiovascular Cardiovascular Exam: Present: regular rate, normal rhythm. Absent: systolic murmur, diastolic murmur, rubs, gallop - GI/Abdominal GI/Abdominal exam: Present: soft, normal bowel sounds. Absent: distended, tenderness, guarding, rebound - Extremities Exam Extremities exam: Present: normal inspection - Back Exam Back exam: Present: normal inspection - Neurological Exam Neurological exam: Present: alert, oriented X3 - Psychiatric Psychiatric exam: Present: normal affect, normal mood - Skin Skin exam: Present: warm, dry, intact, normal color. Absent: rash ED Course Vital Signs 01/24/18 01/24/18 01/24/18 00:58 01:40 01:50 Temperature 99.1 F Pulse Rate 99 H 84 Respiratory 18 16 18 Rate Blood Pressure 204/121 Blood Pressure 206/115 [Left] O2 Sat by Pulse 99 98 87 Oximetry 01/24/18 01/24/18 01/24/18 01:51 02:19 03:44 Temperature Pulse Rate 84 87 87 Respiratory 18 18 Rate Blood Pressure 206/115 Blood Pressure 147/86 181/100 [Left] O2 Sat by Pulse 97 100 Oximetry ED Medical Decision Making - Lab Data Result diagrams: 01/24/18 01:36 01/24/18 01:36 Lab Results 01/24/18 01/24/18 01/24/18 Range/Units 01:36 01:36 01:36 WBC 6.1 (4.5-11.0) K/mm3 RBC 4.25 (3.65-5.03) M/mm3 Hgb 12.6 (10.1-14.3) gm/dl Hct 36.4 (30.3-42.9) % MCV 86 (79-97) fl MCH 30 (28-32) pg MCHC 35 H (30-34) % RDW 14.1 (13.2-15.2) % Plt Count 274 (140-440) K/mm3 Lymph % (Auto) 27.7 (13.4-35.0) % Sibley % (Auto) 6.4 (0.0-7.3) % Eos % (Auto) 5.5 H (0.0-4.3) % Baso % (Auto) 0.9 (0.0-1.8) % Lymph # 1.7 (1.2-5.4) K/mm3 Sibley # 0.4 (0.0-0.8) K/mm3 Eos # 0.3 (0.0-0.4) K/mm3 Baso # 0.1 (0.0-0.1) K/mm3 Seg Neutrophils % 59.5 (40.0-70.0) % Seg Neutrophils # 3.6 (1.8-7.7) K/mm3 Sodium 138 (137-145) mmol/L Potassium 3.8 (3.6-5.0) mmol/L Chloride 100.6 (98-107) mmol/L Carbon Dioxide 25 (22-30) mmol/L Anion Gap 16 mmol/L BUN 16 (7-17) mg/dL Creatinine 1.1 (0.7-1.2) mg/dL Estimated GFR > 60 ml/min BUN/Creatinine Ratio 15 % Glucose 197 H (65-100) mg/dL Calcium 9.0 (8.4-10.2) mg/dL Total Bilirubin 0.20 (0.1-1.2) mg/dL AST 13 (5-40) units/L ALT 12 (7-56) units/L Alkaline Phosphatase 92 (35-129) units/L Troponin T < 0.010 (0.00-0.029) ng/mL NT-Pro-B Natriuret Pep 434.8 (0-900) pg/mL Total Protein 6.4 (6.3-8.2) g/dL Albumin 3.7 L (3.9-5) g/dL Albumin/Globulin Ratio 1.4 % Urine Color (Yellow) Urine Turbidity (Clear) Urine pH (5.0-7.0) Ur Specific Benton (1.003-1.030) Urine Protein (Negative) mg/dL Urine Glucose (UA) (Negative) mg/dL Urine Ketones (Negative) mg/dL Urine Blood (Negative) Urine Nitrite (Negative) Urine Bilirubin (Negative) Urine Urobilinogen (<2.0) mg/dL Ur Leukocyte Esterase (Negative) Urine WBC (Auto) (0.0-6.0) /HPF Urine RBC (Auto) (0.0-6.0) /HPF U Epithel Cells (Auto) (0-13.0) /HPF Urine Bacteria (Auto) (Negative) /HPF Ur Transition Epith Cell /HPF Urine Mucus /HPF 01/24/18 Range/Units Unknown WBC (4.5-11.0) K/mm3 RBC (3.65-5.03) M/mm3 Hgb (10.1-14.3) gm/dl Hct (30.3-42.9) % MCV (79-97) fl MCH (28-32) pg MCHC (30-34) % RDW (13.2-15.2) % Plt Count (140-440) K/mm3 Lymph % (Auto) (13.4-35.0) % Sibley % (Auto) (0.0-7.3) % Eos % (Auto) (0.0-4.3) % Baso % (Auto) (0.0-1.8) % Lymph # (1.2-5.4) K/mm3 Sibley # (0.0-0.8) K/mm3 Eos # (0.0-0.4) K/mm3 Baso # (0.0-0.1) K/mm3 Seg Neutrophils % (40.0-70.0) % Seg Neutrophils # (1.8-7.7) K/mm3 Sodium (137-145) mmol/L Potassium (3.6-5.0) mmol/L Chloride (98-107) mmol/L Carbon Dioxide (22-30) mmol/L Anion Gap mmol/L BUN (7-17) mg/dL Creatinine (0.7-1.2) mg/dL Estimated GFR ml/min BUN/Creatinine Ratio % Glucose (65-100) mg/dL Calcium (8.4-10.2) mg/dL Total Bilirubin (0.1-1.2) mg/dL AST (5-40) units/L ALT (7-56) units/L Alkaline Phosphatase (35-129) units/L Troponin T (0.00-0.029) ng/mL NT-Pro-B Natriuret Pep (0-900) pg/mL Total Protein (6.3-8.2) g/dL Albumin (3.9-5) g/dL Albumin/Globulin Ratio % Urine Color Yellow (Yellow) Urine Turbidity Clear (Clear) Urine pH 6.0 (5.0-7.0) Ur Specific Benton 1.019 (1.003-1.030) Urine Protein >500 (Negative) mg/dL Urine Glucose (UA) 150 (Negative) mg/dL Urine Ketones Neg (Negative) mg/dL Urine Blood Neg (Negative) Urine Nitrite Neg (Negative) Urine Bilirubin Neg (Negative) Urine Urobilinogen < 2.0 (<2.0) mg/dL Ur Leukocyte Esterase Mod (Negative) Urine WBC (Auto) 67.0 H (0.0-6.0) /HPF Urine RBC (Auto) 11.0 (0.0-6.0) /HPF U Epithel Cells (Auto) 17.0 H (0-13.0) /HPF Urine Bacteria (Auto) 1+ (Negative) /HPF Ur Transition Epith Cell 2 /HPF Urine Mucus Few /HPF - EKG Data -: EKG Interpreted by Me - EKG Data Interpretation: other (EKG shows sinus rhythm a rate 86 no axis normal intervals and no ST segment elevations or depressions interpretation is 338) - Radiology Data Radiology results: report reviewed Patient's chest x-ray shows cardiomegaly with right-sided pleural effusion and bilateral lower lobe infiltrate is also consistent with the edema - Medical Decision Making Patient is a 57-year-old black female who is presenting with dyspnea especially with exertion. Patient doesn't history of CHF. Patient's blood pressure is markedly elevated and was initially controlled with labetalol. His started to increase again. At time of admission the patient's blood pressure was 180 systolic. Patient does state that after Lasix and several episodes of diaphoresis or shortness of breath has improved however when walking to the bathroom she now has expressive and worsening chest pressure. The patient had EKG done that did not show any STEMI. First troponin was negative as well. 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 Pack and his partner was consult. They will see the patient in the morning. Patient will be admitted to the hospitalist service at this time. Critical Care Time: Yes Critical care time in (mins) excluding proc time.: 30 Critical care attestation.: If time is entered above; I have spent that time in minutes in the direct care of this critically ill patient, excluding procedure time. ED Disposition Clinical Impression: Hypertensive emergency, Unstable angina CHF (congestive heart failure) Qualifiers: Heart failure type: unspecified Heart failure chronicity: acute on chronic Qualified Code(s): I50.9 - Heart failure, unspecified Disposition: 09 OP ADMIT IP TO THIS HOSP Is pt being admited?: Yes Does the pt Need Aspirin: Yes Condition: Stable Instructions: Abdominal Pain (ED), Hypertension (ED), Angina (ED) Referrals: LYNNE AUGUSTINE MD [Primary Care Provider] - 3-5 Days Heart Score - HEART Score History: Moderately suspicious EKG: Non-specific Age: 45-65 Risk factors: > 3 risk factors or hx of atherosclerotic disease Troponin: < normal limit HEART Score: 5
[2018-01-24] MEDS ORDERED: ASPIRIN PO ONE (04:06)
[2018-01-24] MEDS ORDERED: TYLENOL ONE (05:44)
[2018-01-24] MEDS ORDERED: TYLENOL PO ONE (06:23)
[2018-01-24] MEDS ORDERED: D50W (25GM) Syringe IV PRN ×2 (09:01→09:03)
--- NOTE | 2018-01-24 09:12 | History and Physical Report ---
History of Present Illness Date of examination: 01/24/18 Date of admission: 01/24/18 04:07 Chief complaint: elevatd BP History of present illness: Patient is a 57-year-old asthmatic female with a past medical history of hypertension diabetes and congestive heart failure who is presenting with shortness of breath and leg swelling. Patient states that for the past 2 days she's had some increased swelling in her legs and abdomen with shortness of breath. Patient states that when she is walking she states the shortness of breath gets worse. Patient states that some mild chest tightness as well associated with exertion. Patient states she's been taking her medications as prescribed. Patient takes Catapres and lisinopril for hypertension. Patient is denying any nausea vomiting diarrhea or abdominal pain at this time. CXR showed vascular congestion, with atelectesis. Alexei were normal. UA showed evidence of UTI. admission was requsted Past History Past Medical History: diabetes, heart failure, hypertension Past Surgical History: No surgical history Social history: denies: smoking, alcohol abuse Medications and Allergies Allergies Allergy/AdvReac Type Severity Reaction Status Date / Time levofloxacin [From Levaquin] Allergy Angioedema Verified 01/25/18 00:59 Home Medications Medication Instructions Recorded Confirmed Last Taken Type Insulin Aspart Prot/Aspart(Nf) 35 units SQ BID #1 vial 10/10/17 01/24/18 Unknown Rx [NovoLOG Mix 70/30 VIAL] Lisinopril [Zestril TAB] 40 mg PO QDAY #14 tablet 10/10/17 01/24/18 Unknown Rx cloNIDine [Catapres] 0.2 mg PO QHS #14 tablet 10/10/17 01/24/18 Unknown Rx Active Meds: Active Medications Dextrose (D50w (25gm) Syringe) 0 ml IV PRN PRN PRN Reason: Hypoglycemia Dextrose (D50w (25gm) Syringe) 50 ml IV PRN PRN PRN Reason: Hypoglycemia Enoxaparin Sodium (Lovenox) 40 mg SUB-Q QDAY@2200 ROEL Famotidine (Pepcid) 20 mg IV QDAY ROEL Hydralazine HCl (Apresoline) 10 mg IV Q6H PRN PRN Reason: SBP >170 Heparin Sodium (Porcine) 25, (000 unit/ Dextrose) 500 mls @ 23 mls/hr IV TITR ROEL; Protocol Last Admin: 01/24/18 05:03 Dose: 1,150 units/hr, 23 mls/hr Insulin Human Lispro (Humalog) 0 unit SUB-Q ACHS ROEL; Protocol Lisinopril (Zestril) 40 mg PO BID ROEL Nifedipine (Procardia Xl) 60 mg PO QDAY ROEL Review of Systems Constitutional: no weight loss, no weight gain Exam - Constitutional Vitals: Temp Pulse Resp BP Pulse Ox 99.1 F 84 12 175/102 93 01/24/18 00:58 01/24/18 08:00 01/24/18 08:00 01/24/18 08:00 01/24/18 08:00 General appearance: Present: no acute distress, well-nourished - EENT Eyes: Present: PERRL - Neck Neck: Present: supple, normal ROM - Respiratory Respiratory effort: normal Respiratory: bilateral: diminished - Cardiovascular Heart Sounds: Present: S1 & S2. Absent: rub, click - Extremities Extremities: pulses symmetrical, No edema Peripheral Pulses: within normal limits - Abdominal General gastrointestinal: Present: soft, non-tender, non-distended, normal bowel sounds - Integumentary Integumentary: Present: clear, warm, dry - Musculoskeletal Musculoskeletal: gait normal, strength equal bilaterally - Psychiatric Psychiatric: appropriate mood/affect, intact judgment & insight - Neurologic Neurologic: CNII-XII intact, moves all extremities Results - Labs CBC & Chem 7: 01/25/18 05:36 01/25/18 05:36 Labs: Abnormal lab results 01/24/18 01/24/18 01/24/18 Range/Units 01:36 01:36 Unknown MCHC 35 H (30-34) % Eos % (Auto) 5.5 H (0.0-4.3) % Glucose 197 H (65-100) mg/dL Albumin 3.7 L (3.9-5) g/dL Urine WBC (Auto) 67.0 H (0.0-6.0) /HPF U Epithel Cells (Auto) 17.0 H (0-13.0) /HPF Assessment and Plan Assessment Hypertensive emergency DM-11 UTI Hyperlipidemia Urine Microalbumionemia Hypomagnesemia Plan Admit tele Commence pt on Lisinopril, Nifedipine and iv hydralazine SSI, Consitent CHO diet and diabetic education Statin and ACEI Urine cx iv Levaquin commence pt on Atorvastatin Supplement Mg level DVT with Lovenox and GI with Pepcid Spend 35 min during this admission process
[2018-01-24] MEDS ORDERED: APRESOLINE ONE (09:37)
[2018-01-24] MEDS: APRESOLINE IV PRN (09:43)
[2018-01-24] MEDS ORDERED: LEVAQUIN 750MG/150ML 750 MG/150 ML BAG IV SCH (10:00)
[2018-01-24] MEDS ORDERED: COREG PO SCH (10:00)
[2018-01-24 11:04] LABS: Creatinine,Urine 160.9 mg/dL (0.1-20.0)
[2018-01-24 11:20] LABS: Microalbumin/Creatinine Ratio 2033.5 ug/mg
[2018-01-24 12:07] LABS: Chol/HDL Ratio 6.8 %
[2018-01-24] MEDS: HumaLOG SUB-Q SCH ×3 (13:00→23:33)
[2018-01-24] MEDS: PLAVIX PO SCH (15:04)
[2018-01-24] MEDS: PROCARDIA XL PO SCH (15:05)
[2018-01-24] MEDS: ZESTRIL PO SCH ×2 (15:05→23:33)
[2018-01-24] MEDS: PEPCID IV SCH (15:06)
[2018-01-24] MEDS: LASIX IV SCH (18:31)
[2018-01-24] MEDS ORDERED: MAGNESIUM SULFATE 1 GM in NACL 0.9% 50 ML IV ONE (22:24)
[2018-01-24] MEDS: COREG PO SCH (23:34)
[2018-01-24] MEDS: LOVENOX SUB-Q SCH (23:35)
[2018-01-25] MEDS ORDERED: BENADRYL IV ONE (00:39)
[2018-01-25] MEDS ORDERED: PEPCID IV ONE (00:54)
[2018-01-25] MEDS: LANTUS SUB-Q SCH ×2 (01:08→22:24)
[2018-01-25 06:37] LABS: Hematocrit 34.7 % (30.3-42.9); Hemoglobin 11.8 gm/dl (10.1-14.3); Mean Corpuscular HGB Conc 34 % (30-34); Mean Corpuscular Hemoglobin 29 pg (28-32); Mean Corpuscular Volume 86 fl (79-97); Platelet Count 257 K/mm3 (140-440); Red Blood Count 4.06 M/mm3 (3.65-5.03); Red Cell Distribution Width 13.8 % (13.2-15.2)
[2018-01-25 07:01] LABS: Albumin 3.3 g/dL (3.9-5); Calcium 9.1 mg/dL (8.4-10.2)
[2018-01-25] MEDS: HumaLOG SUB-Q SCH ×4 (08:30→22:31)
[2018-01-25] MEDS: PROCARDIA XL PO SCH (10:28)
[2018-01-25] MEDS: PLAVIX PO SCH (10:28)
[2018-01-25] MEDS: PEPCID IV SCH (10:29)
[2018-01-25] MEDS: LASIX IV SCH (10:29)
[2018-01-25] MEDS: COREG PO SCH ×2 (10:29→22:23)
[2018-01-25] MEDS: ZESTRIL PO SCH ×2 (10:29→22:23)
--- NOTE | 2018-01-25 11:13 | Progress Note ---
Assessment and Plan Assessment Hypertensive emergency DM-11 UTI Hyperlipidemia Urine Microalbumionemia Hypomagnesemia h/o Heart failure DINA likely secodnary to diuresis Gen. abdomnail discomfro Plan Commence pt on Lisinopril, Nifedipine and iv hydralazine SSI, Consitent CHO diet and diabetic education Statin and ACEI Urine cx iv Levaquin commence pt on Atorvastatin Supplement Mg level Hold diuresis b/c DINA Abdominal US DVT with Lovenox and GI with Pepcid Subjective Date of service: 01/25/18 Principal diagnosis: Hypertensive emergency Interval history: Pt seen and examined. c/o abdominal full an discomfort. None specific. No N/V no fever or diarrhea Objective - Constitutional Vitals: Vital Signs - 12hr 01/24/18 01/24/18 01/25/18 23:33 23:34 08:32 Temperature 98.4 F Pulse Rate 95 H 95 H 90 Respiratory 20 Rate Blood Pressure 172/92 172/92 149/91 O2 Sat by Pulse 95 Oximetry General appearance: Present: no acute distress, well-nourished - EENT Eyes: PERRL, EOM intact Ears: bilateral: normal - Neck Neck: supple, normal ROM - Respiratory Respiratory effort: normal Respiratory: bilateral: CTA - Breasts Breasts: normal - Cardiovascular Rhythm: regular Heart Sounds: Present: S1 & S2. Absent: gallop, rub Extremities: pulses intact, No edema, normal color, Full ROM - Gastrointestinal General gastrointestinal: Present: soft, non-tender, non-distended, normal bowel sounds - Integumentary Integumentary: clear, warm, dry - Musculoskeletal Musculoskeletal: 1, strength equal bilaterally - Neurologic Neurologic: moves all extremities - Psychiatric Psychiatric: memory intact, appropriate mood/affect, intact judgment & insight - Labs CBC & Chem 7: 01/25/18 05:36 01/25/18 05:36 Labs: Abnormal lab results 01/24/18 01/24/18 01/24/18 Range/Units 01:36 04:25 12:09 Heparin Anti-Xa Level (0.3-0.7) U.I./ml BUN (7-17) mg/dL Creatinine (0.7-1.2) mg/dL Glucose (65-100) mg/dL POC Glucose 302 H (70-105) Hemoglobin A1c 10.8 H (4-6) % Magnesium 1.60 L (1.7-2.3) mg/dL Total Protein (6.3-8.2) g/dL Albumin (3.9-5) g/dL Triglycerides 204 H (2-149) mg/dL Cholesterol 347 H (50-199) mg/dL LDL Cholesterol Direct 255 H (50-130) mg/dL Urine Microalbumin (0.1-34.0) mg/dL 01/24/18 01/24/18 01/24/18 Range/Units 12:14 15:46 22:11 Heparin Anti-Xa Level < 0.10 L (0.3-0.7) U.I./ml BUN (7-17) mg/dL Creatinine (0.7-1.2) mg/dL Glucose (65-100) mg/dL POC Glucose 273 H 343 H (70-105) Hemoglobin A1c (4-6) % Magnesium (1.7-2.3) mg/dL Total Protein (6.3-8.2) g/dL Albumin (3.9-5) g/dL Triglycerides (2-149) mg/dL Cholesterol (50-199) mg/dL LDL Cholesterol Direct (50-130) mg/dL Urine Microalbumin (0.1-34.0) mg/dL 01/24/18 01/25/18 01/25/18 Range/Units Unknown 05:35 05:36 Heparin Anti-Xa Level (0.3-0.7) U.I./ml BUN 18 H (7-17) mg/dL Creatinine 1.4 H (0.7-1.2) mg/dL Glucose 333 H (65-100) mg/dL POC Glucose 305 H (70-105) Hemoglobin A1c (4-6) % Magnesium (1.7-2.3) mg/dL Total Protein 6.0 L (6.3-8.2) g/dL Albumin 3.3 L (3.9-5) g/dL Triglycerides (2-149) mg/dL Cholesterol (50-199) mg/dL LDL Cholesterol Direct (50-130) mg/dL Urine Microalbumin 327.2 H (0.1-34.0) mg/dL
[2018-01-25 11:24] LABS: Total Cells Counted 100
[2018-01-25 11:25] LABS: Anisocytosis 1+; Basophils % (Manual) 0 % (0.0-1.8); Eosinophils % (Manual) 0 % (0.0-4.3)
[2018-01-25 11:26] LABS: Platelet Estimate Consistent w Auto
--- NOTE | 2018-01-25 18:32 | Cat Scan Report ---
FINAL REPORT EXAM: CT ABDOMEN PELVIS WO CON HISTORY: abdominal distention, pain TECHNIQUE: Unenhanced CT of the abdomen and pelvis at 2.5 millimeter axial increments. Coronal and sagittal reconstruction was also performed. PRIORS: None. FINDINGS: There are numerous bilateral nonobstructing renal calculi. The largest is in the lower pole of the right kidney measuring 10.4 x 8.6 mm. No evidence for ureteral calculus, bladder calculus, or hydronephrosis is present. Otherwise, within the limits of a noncontrast exam, the liver, spleen, pancreas, gallbladder, and adrenal glands are unremarkable. The stomach is distended and filled with food debris. Depending on the patient's last time of eating, this could signify gastroparesis. No evidence for retroperitoneal or pelvic lymphadenopathy is seen. The bowel loops have normal caliber. No fluid collection, inflammatory change, or free air is seen within the abdomen or pelvis. The appendix is normal. Within the pelvis, the uterus has been surgically removed. There is a 1.1 x 1.5 cm rounded hyperdense focus along the right side of the vaginal cuff (axial image 146) which may be associated with the ovary, a possible hemorrhagic cyst. It could also be calcification possibly postsurgical. Images through the upper abdomen include the lung bases which demonstrate linear bibasilar atelectasis bilaterally. Bony structures show no focal abnormalities. IMPRESSION: 1. Numerous bilateral nonobstructing renal calculi. No evidence for renal obstruction. 2. Distended stomach filled with food debris. This can be associated with gastroparesis depending on when the patient last 8. 3. Rounded hyperdense focus along the right-sided vaginal cuff. Ultrasound is recommended. 4. Linear bibasilar atelectasis
[2018-01-25] MEDS: LOVENOX SUB-Q SCH (22:22)
[2018-01-26 06:43] LABS: Basophils % (Auto) 0.3 % (0.0-1.8); Eosinophils # (Auto) 0.1 K/mm3 (0.0-0.4); Eosinophils % (Auto) 0.6 % (0.0-4.3); Hematocrit 31.6 % (30.3-42.9); Lymphocytes # (Auto) 1.5 K/mm3 (1.2-5.4); Lymphocytes % (Auto) 17.6 % (13.4-35.0); Mean Corpuscular HGB Conc 35 % (30-34); Mean Corpuscular Hemoglobin 30 pg (28-32); Mean Corpuscular Volume 85 fl (79-97); Monocytes # (Auto) 0.6 K/mm3 (0.0-0.8); Platelet Count 244 K/mm3 (140-440); Red Blood Count 3.71 M/mm3 (3.65-5.03); Red Cell Distribution Width 13.8 % (13.2-15.2)
[2018-01-26] MEDS: HumaLOG SUB-Q SCH ×4 (09:22→21:53)
--- NOTE | 2018-01-26 09:34 | Ultrasound Report ---
ULTRASOUND ABDOMEN COMPLETE: TECHNIQUE: Transabdominal ultrasound with color Doppler interrogation. HISTORY: Generalized abdominal pain. COMPARISON: CT abdomen pelvis without contrast performed 01/25/18. FINDINGS: LIVER: Normal. BILIARY SYSTEM: Normal. PANCREAS: Normal. SPLEEN: Normal. KIDNEYS: Bilateral nonobstructing renal calyceal stones are identified. The largest stone measures 1.3 cm at the inferior pole the right kidney. A few scattered simple renal cysts are identified. AORTA/IVC: Normal. ASCITES: None. IMPRESSION: Bilateral nephrolithiasis, nonobstructing.
[2018-01-26 10:23] LABS: Basophils % (Auto) 0.4 % (0.0-1.8); Eosinophils # (Auto) 0.1 K/mm3 (0.0-0.4); Eosinophils % (Auto) 1.3 % (0.0-4.3); Hematocrit 34.3 % (30.3-42.9); Hemoglobin 11.5 gm/dl (10.1-14.3); Lymphocytes # (Auto) 1.7 K/mm3 (1.2-5.4); Lymphocytes % (Auto) 22.1 % (13.4-35.0); Mean Corpuscular HGB Conc 33 % (30-34); Mean Corpuscular Hemoglobin 29 pg (28-32); Mean Corpuscular Volume 87 fl (79-97); Monocytes # (Auto) 0.4 K/mm3 (0.0-0.8); Monocytes % (Auto) 5.6 % (0.0-7.3); Platelet Count 255 K/mm3 (140-440); Red Blood Count 3.93 M/mm3 (3.65-5.03); Red Cell Distribution Width 13.7 % (13.2-15.2)
[2018-01-26] MEDS: PROCARDIA XL PO SCH (11:15)
[2018-01-26] MEDS: COREG PO SCH ×2 (11:15→21:52)
[2018-01-26] MEDS: PEPCID PO SCH (11:15)
[2018-01-26] MEDS: PLAVIX PO SCH (11:15)
[2018-01-26] MEDS: ZESTRIL PO SCH (11:16)
[2018-01-26] MEDS ORDERED: HumuLIN R SUB-Q ONE (14:12)
[2018-01-26 15:16] LABS: Calcium 9.5 mg/dL (8.4-10.2)
[2018-01-26] MEDS ORDERED: NACL 0.9% 1000 ML 1,000 ML IV ONE (16:26)
[2018-01-26] MEDS: LOVENOX SUB-Q SCH (21:38)
[2018-01-26] MEDS: LANTUS SUB-Q SCH (21:54)
[2018-01-27 08:58] LABS: Basophils % (Auto) 0.6 % (0.0-1.8); Eosinophils # (Auto) 0.2 K/mm3 (0.0-0.4); Eosinophils % (Auto) 4.7 % (0.0-4.3); Lymphocytes # (Auto) 1.4 K/mm3 (1.2-5.4); Lymphocytes % (Auto) 31.6 % (13.4-35.0); Mean Corpuscular HGB Conc 34 % (30-34); Mean Corpuscular Hemoglobin 29 pg (28-32); Mean Corpuscular Volume 87 fl (79-97); Monocytes # (Auto) 0.3 K/mm3 (0.0-0.8); Monocytes % (Auto) 6.7 % (0.0-7.3); Platelet Count 184 K/mm3 (140-440); Red Blood Count 2.82 M/mm3 (3.65-5.03); Red Cell Distribution Width 13.6 % (13.2-15.2)
--- NOTE | 2018-01-27 08:58 | Progress Note ---
Assessment and Plan Lab Results 01/27/18 01/27/18 01/26/18 Range/Units 08:17 06:33 21:37 WBC 4.4 L (4.5-11.0) K/mm3 RBC 2.82 L (3.65-5.03) M/mm3 Hgb Pending (10.1-14.3) gm/dl Hct Pending (30.3-42.9) % MCV 87 (79-97) fl MCH 29 (28-32) pg MCHC 34 (30-34) % RDW 13.6 (13.2-15.2) % Plt Count 184 (140-440) K/mm3 Lymph % (Auto) 31.6 (13.4-35.0) % [place] % (Auto) 6.7 (0.0-7.3) % Eos % (Auto) 4.7 H (0.0-4.3) % Baso % (Auto) 0.6 (0.0-1.8) % Lymph # 1.4 (1.2-5.4) K/mm3 [place] # 0.3 (0.0-0.8) K/mm3 Eos # 0.2 (0.0-0.4) K/mm3 Baso # 0.0 (0.0-0.1) K/mm3 Seg Neutrophils % 56.4 (40.0-70.0) % Seg Neutrophils # 2.5 (1.8-7.7) K/mm3 Sodium (137-145) mmol/L Potassium (3.6-5.0) mmol/L Chloride (98-107) mmol/L Carbon Dioxide (22-30) mmol/L Anion Gap mmol/L BUN (7-17) mg/dL Creatinine (0.7-1.2) mg/dL Estimated GFR ml/min BUN/Creatinine Ratio % Glucose (65-100) mg/dL POC Glucose 218 H 164 H (70-105) Calcium (8.4-10.2) mg/dL 01/26/18 01/26/18 01/26/18 Range/Units 16:43 14:22 12:02 WBC (4.5-11.0) K/mm3 RBC (3.65-5.03) M/mm3 Hgb (10.1-14.3) gm/dl Hct (30.3-42.9) % MCV (79-97) fl MCH (28-32) pg MCHC (30-34) % RDW (13.2-15.2) % Plt Count (140-440) K/mm3 Lymph % (Auto) (13.4-35.0) % [place] % (Auto) (0.0-7.3) % Eos % (Auto) (0.0-4.3) % Baso % (Auto) (0.0-1.8) % Lymph # (1.2-5.4) K/mm3 [place] # (0.0-0.8) K/mm3 Eos # (0.0-0.4) K/mm3 Baso # (0.0-0.1) K/mm3 Seg Neutrophils % (40.0-70.0) % Seg Neutrophils # (1.8-7.7) K/mm3 Sodium 142 (137-145) mmol/L Potassium 4.0 (3.6-5.0) mmol/L Chloride 103.1 (98-107) mmol/L Carbon Dioxide 25 (22-30) mmol/L Anion Gap 18 mmol/L BUN 27 H (7-17) mg/dL Creatinine 1.5 H (0.7-1.2) mg/dL Estimated GFR 44 ml/min BUN/Creatinine Ratio 18 % Glucose 200 H (65-100) mg/dL POC Glucose 99 376 H (70-105) Calcium 9.5 (8.4-10.2) mg/dL 01/26/18 Range/Units 10:16 WBC 7.8 (4.5-11.0) K/mm3 RBC 3.93 (3.65-5.03) M/mm3 Hgb 11.5 (10.1-14.3) gm/dl Hct 34.3 (30.3-42.9) % MCV 87 (79-97) fl MCH 29 (28-32) pg MCHC 33 (30-34) % RDW 13.7 (13.2-15.2) % Plt Count 255 (140-440) K/mm3 Lymph % (Auto) 22.1 (13.4-35.0) % [place] % (Auto) 5.6 (0.0-7.3) % Eos % (Auto) 1.3 (0.0-4.3) % Baso % (Auto) 0.4 (0.0-1.8) % Lymph # 1.7 (1.2-5.4) K/mm3 [place] # 0.4 (0.0-0.8) K/mm3 Eos # 0.1 (0.0-0.4) K/mm3 Baso # 0.0 (0.0-0.1) K/mm3 Seg Neutrophils % 70.6 H (40.0-70.0) % Seg Neutrophils # 5.5 (1.8-7.7) K/mm3 Sodium (137-145) mmol/L Potassium (3.6-5.0) mmol/L Chloride (98-107) mmol/L Carbon Dioxide (22-30) mmol/L Anion Gap mmol/L BUN (7-17) mg/dL Creatinine (0.7-1.2) mg/dL Estimated GFR ml/min BUN/Creatinine Ratio % Glucose (65-100) mg/dL POC Glucose (70-105) Calcium (8.4-10.2) mg/dL Assessment Hypertensive emergency -controlled DM-11 UTI Hyperlipidemia Urine Microalbumionemia Hypomagnesemia h/o Heart failure DINA likely secodnary to diuresis - improved Gen. abdomnail discomfro Nephrolithiasis Plan D/c Lisinopril b/c DINA Continue with Nifedipine and prn Hydralazine SSI, Consitent CHO diet and diabetic education Statin and ACEI Urine cx d/c iv Levaquin commence pt on Atorvastatin Supplement Mg level Hold diuresis b/c DINA CT abdomen and pelvis without contrast showed nephrolithiasis Abdominal US - showed nephrolithiasis without obstruction DVT with Lovenox and GI with Pepcid Subjective Date of service: 01/26/18 Principal diagnosis: Hypertensive emergency Interval history: Pt seen and examined. c/o abdominal full an discomfort. None specific. No N/V, no fever or diarrhea Objective - Constitutional Vitals: Vital Signs - 12hr 01/26/18 01/26/18 01/26/18 21:52 22:00 22:58 Temperature 98.6 F Pulse Rate 80 82 Respiratory 18 18 Rate Blood Pressure 120/70 Blood Pressure 144/85 [Left] Blood Pressure [Right] O2 Sat by Pulse 97 Oximetry 01/27/18 04:00 Temperature 99.0 F Pulse Rate 81 Respiratory 18 Rate Blood Pressure Blood Pressure [Left] Blood Pressure 138/74 [Right] O2 Sat by Pulse 93 Oximetry General appearance: Present: no acute distress, well-nourished - EENT Eyes: PERRL, EOM intact - Neck Neck: supple, normal ROM - Respiratory Respiratory effort: normal Respiratory: bilateral: CTA - Cardiovascular Rhythm: regular Heart Sounds: Present: S1 & S2. Absent: gallop, rub Extremities: pulses intact, No edema, normal color, Full ROM - Gastrointestinal General gastrointestinal: Present: soft, non-tender, non-distended, normal bowel sounds - Integumentary Integumentary: clear, warm, dry - Musculoskeletal Musculoskeletal: 1, strength equal bilaterally - Neurologic Neurologic: moves all extremities - Psychiatric Psychiatric: memory intact, appropriate mood/affect, intact judgment & insight - Labs CBC & Chem 7: 01/27/18 13:45 01/28/18 06:09 Labs: Abnormal lab results 01/26/18 01/26/18 01/26/18 Range/Units 10:16 12:02 14:22 Seg Neutrophils % 70.6 H (40.0-70.0) % BUN 27 H (7-17) mg/dL Creatinine 1.5 H (0.7-1.2) mg/dL Glucose 200 H (65-100) mg/dL POC Glucose 376 H (70-105) 01/26/18 01/27/18 Range/Units 21:37 06:33 Seg Neutrophils % (40.0-70.0) % BUN (7-17) mg/dL Creatinine (0.7-1.2) mg/dL Glucose (65-100) mg/dL POC Glucose 164 H 218 H (70-105)
[2018-01-27] MEDS: HumaLOG SUB-Q SCH ×3 (09:04→17:02)
[2018-01-27 09:30] LABS: Hemoglobin TNR gm/dl (10.1-14.3)
[2018-01-27 09:31] LABS: Hematocrit TNR % (30.3-42.9)
[2018-01-27 10:10] LABS: Calcium 8.8 mg/dL (8.4-10.2)
[2018-01-27] MEDS: COREG PO SCH (10:57)
[2018-01-27] MEDS: PEPCID PO SCH (10:57)
[2018-01-27] MEDS: PLAVIX PO SCH (10:57)
[2018-01-27] MEDS: PROCARDIA XL PO SCH (10:58)
--- NOTE | 2018-01-27 12:17 | Consultation ---
History of Present Illness - Reason for Consult Consult date: 01/27/18 acute renal failure Requesting physician: ALEXSANDER GUADARRAMA - History of Present Illness This is a 57yo F with with a past medical history of long standing Type 2 DM > 10 years, on insulin, hypertension, congestive heart failure who initially presented with shortness of breath and leg swelling. Patient states that for 2 days [employer] she noticed worsening b/l LE and increased abdominal girth with shortness of breath and dyspnea on exertion. Patient states she's been taking her medications as prescribed. Patient takes Catapres and lisinopril for hypertension. Patient is denying any nausea vomiting diarrhea, fever, chills, dysuria, CP, palpitation, rash, or abdominal pain at this time. CXR showed pulmonary vascular congestion. UA showed evidence of UTI, glucosuria and signficant proteinuria >300. labs also showed worsening renal function with BUN/ C rising to 27/1.5mg/dl from admission BUN/Cr of 16/1.1mg/dl for which renal consult is requested. Past History Past Medical History: diabetes, heart failure, hypertension Past Surgical History: No surgical history Social history: denies: smoking, alcohol abuse Medications and Allergies Allergies Allergy/AdvReac Type Severity Reaction Status Date / Time levofloxacin [From Levaquin] Allergy Angioedema Verified 01/25/18 00:59 Home Medications Medication Instructions Recorded Confirmed Last Taken Type Insulin Aspart Prot/Aspart(Nf) 35 units SQ BID #1 vial 10/10/17 01/24/18 Unknown Rx [NovoLOG Mix 70/30 VIAL] Lisinopril [Zestril TAB] 40 mg PO QDAY #14 tablet 10/10/17 01/24/18 Unknown Rx cloNIDine [Catapres] 0.2 mg PO QHS #14 tablet 10/10/17 01/24/18 Unknown Rx Active Meds: Active Medications Atorvastatin Calcium (Lipitor) 40 mg PO QHS [facility] Last Admin: 01/26/18 21:51 Dose: 40 mg Carvedilol (Coreg) 25 mg PO BID [facility] Last Admin: 01/27/18 10:57 Dose: 25 mg Clopidogrel Bisulfate (Plavix) 75 mg PO QDAY [facility] Last Admin: 01/27/18 10:57 Dose: 75 mg Dextrose (D50w (25gm) Syringe) 0 ml IV PRN PRN PRN Reason: Hypoglycemia Enoxaparin Sodium (Lovenox) 40 mg SUB-Q QDAY@2200 [facility] Last Admin: 01/26/18 21:38 Dose: 40 mg Famotidine (Pepcid) 20 mg PO DAILY [facility] Last Admin: 01/27/18 10:57 Dose: 20 mg Hydralazine HCl (Apresoline) 10 mg IV Q6H PRN PRN Reason: SBP >170 Last Admin: 01/24/18 09:43 Dose: 10 mg Magnesium Sulfate 1 gm/ Sodium (Chloride) 52 mls @ 52 mls/hr IV ONCE ONE Stop: 01/27/18 13:59 Insulin Glargine (Lantus) 20 units SUB-Q QHS [facility] Last Admin: 01/26/18 21:54 Dose: 20 units Insulin Human Lispro (Humalog) 0 unit SUB-Q ACHS [facility]; Protocol Last Admin: 01/27/18 09:04 Dose: 4 unit Insulin Human Regular (Humulin R) 10 units SUB-Q TIDWM [facility] Nifedipine (Procardia Xl) 60 mg PO QDAY [facility] Last Admin: 01/27/18 10:58 Dose: 60 mg Review of Systems All systems: negative Constitutional: weakness Cardiovascular: shortness of breath, dyspnea on exertion, leg edema Exam - Vital Signs Vital signs: Vital Signs Temp Pulse Resp BP Pulse Ox 99.1 F 99 H 18 204/121 99 01/24/18 00:58 01/24/18 00:58 01/24/18 00:58 01/24/18 00:58 01/24/18 00:58 - General Appearance General appearance: well-developed, well-nourished, appears stated age EENT: ATNC, PERRL, mucous membranes moist Neck: Present: neck supple Respiratory: Decreased Breath Sounds Heart: regular, S1S2 Gastrointestinal: Present: normoactive bowel sounds, obese Integumentary: no rash, other (2+ b/l LE edema ) Neurologic: no focal deficit, alert and oriented x3, strength 5/5 Psychiatric: mood/affect appropriate, cooperative Results - Lab Results 01/27/18 13:45 01/27/18 09:40 Most recent lab results Calcium 8.8 mg/dL (8.4-10.2) 01/27/18 09:40 Phosphorus 3.70 mg/dL (2.5-4.5) 01/24/18 04:25 Magnesium 1.60 mg/dL (1.7-2.3) L 01/27/18 09:40 Urine Creatinine 160.9 mg/dL (0.1-20.0) H 01/24/18 Unknown Laboratory Tests 01/24/18 01/24/18 01/24/18 01:36 01:36 04:25 NT-Pro-B Natriuret Pep 434.8 Total Protein 6.4 Albumin 3.7 L Albumin/Globulin Ratio 1.4 Cholesterol 347 H LDL Cholesterol Direct 255 H HDL Cholesterol 51 Cholesterol/HDL Ratio 6.80 Urine Color Urine Turbidity Urine pH Ur Specific [place] Urine Protein Urine Glucose (UA) Urine Ketones Urine Blood Urine Nitrite Urine Bilirubin Urine Urobilinogen Ur Leukocyte Esterase Urine WBC (Auto) Urine RBC (Auto) Urine Bacteria (Auto) Ur Transition Epith Cell Urine Creatinine Urine Microalbumin Microalb/Creat Ratio 01/24/18 01/24/18 Unknown Unknown NT-Pro-B Natriuret Pep Total Protein Albumin Albumin/Globulin Ratio Cholesterol LDL Cholesterol Direct HDL Cholesterol Cholesterol/HDL Ratio Urine Color Yellow Urine Turbidity Clear Urine pH 6.0 Ur Specific [place] 1.019 Urine Protein >500 Urine Glucose (UA) 150 Urine Ketones Neg Urine Blood Neg Urine Nitrite Neg Urine Bilirubin Neg Urine Urobilinogen < 2.0 Ur Leukocyte Esterase Mod Urine WBC (Auto) 67.0 H Urine RBC (Auto) 11.0 Urine Bacteria (Auto) 1+ Ur Transition Epith Cell 2 Urine Creatinine 160.9 H Urine Microalbumin 327.2 H Microalb/Creat Ratio 2033.5 Assessment and Plan - Patient Problems (1) Acute kidney injury Current Visit: Yes Status: Acute Plan to address problem: acute kidney injury is most likely due to pre-renal azotemia in the setting of uncontrolled glucose, glucosuria leading to osmotic diuresis. pt s/p IV NS bolus. check urine protein/cr ratio, if significant nephrotic range proteinuria noted along with worsening renal function will need for consider renal biopsy. Supportive care for DINA avoid nephrotoxins, NSAIDs, IV contrast. will monitor lytes, renal fxn closely and make further recommendations. (2) Poorly controlled diabetes mellitus Current Visit: No Status: Chronic Plan to address problem: glucose control as per primary attending (3) Hyperglycemia Current Visit: No Status: Chronic Plan to address problem: glucose control as per primary attending (4) Proteinuria Current Visit: Yes Status: Chronic Plan to address problem: checl urine protein/cr ratio for quantification. if nephrotic range proteinuria seen along with worsening renal function, will consider renal biopsy (5) Essential (primary) hypertension Current Visit: Yes Status: Acute Plan to address problem: BP controlled. cont QUENTIN-I once renal function is in steady state
[2018-01-27] MEDS ORDERED: MAGNESIUM SULFATE 1 GM in NACL 0.9% 50 ML IV ONE (13:00)
[2018-01-27] MEDS: HumuLIN R SUB-Q SCH ×2 (13:18→17:02)
[2018-01-27 14:03] LABS: Hematocrit 34.1 % (30.3-42.9); Hemoglobin 11.2 gm/dl (10.1-14.3); Mean Corpuscular HGB Conc 33 % (30-34); Mean Corpuscular Hemoglobin 29 pg (28-32); Mean Corpuscular Volume 88 fl (79-97); Platelet Count 263 K/mm3 (140-440); Red Blood Count 3.86 M/mm3 (3.65-5.03); Red Cell Distribution Width 13.8 % (13.2-15.2)
--- NOTE | 2018-01-27 15:15 | Progress Note ---
Assessment and Plan Assessment and plan: Hypertensive emergency -Blood pressure currently controlled on meds IDDM-11 with Hyperglycemia -Insulin regimen adjusted. Possible UTI -Off antibiotic. Hypomagnesemia -We'll replete and monitor level. DINA -Creatinine level is improving, we'll monitor -CT abdomen and pelvis negative for hydronephrosis. -Nephrology following. Disposition: for possible discharge in 2448 hrs if clinically stable. History Interval history: Patient is a 57-year-old female admitted for hypertensive emergency and acute kidney injury. She has no new complaints today. Hospitalist Physical - Constitutional Vitals: Temp Pulse Resp BP Pulse Ox 97.8 F 82 20 117/63 94 01/27/18 07:30 01/27/18 10:57 01/27/18 07:30 01/27/18 10:57 01/27/18 07:30 General appearance: Present: no acute distress, well-nourished - EENT Eyes: Present: PERRL, EOM intact ENT: hearing intact - Neck Neck: Present: supple - Respiratory Respiratory effort: normal Respiratory: bilateral: CTA - Cardiovascular Rhythm: regular Heart Sounds: Present: S1 & S2 - Extremities Extremities: No edema - Abdominal General gastrointestinal: soft, non-tender, normal bowel sounds - Neurologic Neurologic: CNII-XII intact Results - Labs CBC & Chem 7: 01/27/18 13:45 01/27/18 09:40 Labs: Laboratory Last Values WBC 6.0 K/mm3 (4.5-11.0) 01/27/18 13:45 RBC 3.86 M/mm3 (3.65-5.03) 01/27/18 13:45 Hgb 11.2 gm/dl (10.1-14.3) 01/27/18 13:45 Hct 34.1 % (30.3-42.9) 01/27/18 13:45 MCV 88 fl (79-97) 01/27/18 13:45 MCH 29 pg (28-32) 01/27/18 13:45 MCHC 33 % (30-34) 01/27/18 13:45 RDW 13.8 % (13.2-15.2) 01/27/18 13:45 Plt Count 263 K/mm3 (140-440) 01/27/18 13:45 Lymph % (Auto) 31.6 % (13.4-35.0) 01/27/18 08:17 [place] % (Auto) 6.7 % (0.0-7.3) 01/27/18 08:17 Eos % (Auto) 4.7 % (0.0-4.3) H 01/27/18 08:17 Baso % (Auto) 0.6 % (0.0-1.8) 01/27/18 08:17 Lymph # 1.4 K/mm3 (1.2-5.4) 01/27/18 08:17 [place] # 0.3 K/mm3 (0.0-0.8) 01/27/18 08:17 Eos # 0.2 K/mm3 (0.0-0.4) 01/27/18 08:17 Baso # 0.0 K/mm3 (0.0-0.1) 01/27/18 08:17 Add Manual Diff Complete 01/25/18 05:36 Total Counted 100 01/25/18 05:36 Seg Neutrophils % 56.4 % (40.0-70.0) 01/27/18 08:17 Seg Neuts % (Manual) 91.0 % (40.0-70.0) H 01/25/18 05:36 Band Neutrophils % 0 % 01/25/18 05:36 Lymphocytes % (Manual) 8.0 % (13.4-35.0) L 01/25/18 05:36 Reactive Lymphs % (Man) 0 % 01/25/18 05:36 Monocytes % (Manual) 1.0 % (0.0-7.3) 01/25/18 05:36 Eosinophils % (Manual) 0 % (0.0-4.3) 01/25/18 05:36 Basophils % (Manual) 0 % (0.0-1.8) 01/25/18 05:36 Metamyelocytes % 0 % 01/25/18 05:36 Myelocytes % 0 % 01/25/18 05:36 Promyelocytes % 0 % 01/25/18 05:36 Blast Cells % 0 % 01/25/18 05:36 Nucleated RBC % Not Reportable 01/25/18 05:36 Seg Neutrophils # 2.5 K/mm3 (1.8-7.7) 01/27/18 08:17 Seg Neutrophils # Man 5.4 K/mm3 (1.8-7.7) 01/25/18 05:36 Band Neutrophils # 0.0 K/mm3 01/25/18 05:36 Lymphocytes # (Manual) 0.5 K/mm3 (1.2-5.4) L 01/25/18 05:36 Abs React Lymphs (Man) 0.0 K/mm3 01/25/18 05:36 Monocytes # (Manual) 0.1 K/mm3 (0.0-0.8) 01/25/18 05:36 Eosinophils # (Manual) 0.0 K/mm3 (0.0-0.4) 01/25/18 05:36 Basophils # (Manual) 0.0 K/mm3 (0.0-0.1) 01/25/18 05:36 Metamyelocytes # 0.0 K/mm3 01/25/18 05:36 Myelocytes # 0.0 K/mm3 01/25/18 05:36 Promyelocytes # 0.0 K/mm3 01/25/18 05:36 Blast Cells # 0.0 K/mm3 01/25/18 05:36 WBC Morphology Not Reportable 01/25/18 05:36 Hypersegmented Neuts Not Reportable 01/25/18 05:36 Hyposegmented Neuts Not Reportable 01/25/18 05:36 Hypogranular Neuts Not Reportable 01/25/18 05:36 Smudge Cells Not Reportable 01/25/18 05:36 Toxic Granulation Not Reportable 01/25/18 05:36 Toxic Vacuolation Not Reportable 01/25/18 05:36 Dohle Bodies Not Reportable 01/25/18 05:36 Pelger-Huet Anomaly Not Reportable 01/25/18 05:36 Franky Rods Not Reportable 01/25/18 05:36 Platelet Estimate Consistent w auto 01/25/18 05:36 Clumped Platelets Not Reportable 01/25/18 05:36 Plt Clumps, EDTA Not Reportable 01/25/18 05:36 Large Platelets Not Reportable 01/25/18 05:36 Giant Platelets Not Reportable 01/25/18 05:36 Platelet Satelliting Not Reportable 01/25/18 05:36 Plt Morphology Comment Not Reportable 01/25/18 05:36 RBC Morphology Not Reportable 01/25/18 05:36 Dimorphic RBCs Not Reportable 01/25/18 05:36 Polychromasia Not Reportable 01/25/18 05:36 Hypochromasia Not Reportable 01/25/18 05:36 Poikilocytosis Not Reportable 01/25/18 05:36 Anisocytosis 1+ 01/25/18 05:36 Microcytosis Not Reportable 01/25/18 05:36 Macrocytosis Not Reportable 01/25/18 05:36 Spherocytes Not Reportable 01/25/18 05:36 Pappenheimer Bodies Not Reportable 01/25/18 05:36 Sickle Cells Not Reportable 01/25/18 05:36 Target Cells Not Reportable 01/25/18 05:36 Tear Drop Cells Not Reportable 01/25/18 05:36 Ovalocytes Not Reportable 01/25/18 05:36 Helmet Cells Not Reportable 01/25/18 05:36 Sanchez-Orlovista Bodies Not Reportable 01/25/18 05:36 [place] Rings Not Reportable 01/25/18 05:36 [place] Cells Not Reportable 01/25/18 05:36 Bite Cells Not Reportable 01/25/18 05:36 Crenated Cell Not Reportable 01/25/18 05:36 Elliptocytes Not Reportable 01/25/18 05:36 Acanthocytes (Spur) Not Reportable 01/25/18 05:36 Rouleaux Not Reportable 01/25/18 05:36 Hemoglobin C Crystals Not Reportable 01/25/18 05:36 Schistocytes Not Reportable 01/25/18 05:36 Malaria parasites Not Reportable 01/25/18 05:36 Brian Bodies Not Reportable 01/25/18 05:36 Hem Pathologist Commnt No 01/25/18 05:36 Heparin Anti-Xa Level < 0.10 U.I./ml (0.3-0.7) L 01/24/18 12:14 Sodium 142 mmol/L (137-145) 01/27/18 09:40 Potassium 4.0 mmol/L (3.6-5.0) 01/27/18 09:40 Chloride 104.9 mmol/L (98-107) 01/27/18 09:40 Carbon Dioxide 25 mmol/L (22-30) 01/27/18 09:40 Anion Gap 16 mmol/L 01/27/18 09:40 BUN 24 mg/dL (7-17) H 01/27/18 09:40 Creatinine 1.3 mg/dL (0.7-1.2) H 01/27/18 09:40 Estimated GFR 51 ml/min 01/27/18 09:40 BUN/Creatinine Ratio 18 % 01/27/18 09:40 Glucose 296 mg/dL (65-100) H 01/27/18 09:40 POC Glucose 289 (70-105) H 01/27/18 14:52 Hemoglobin A1c 10.8 % (4-6) H 01/24/18 01:36 Calcium 8.8 mg/dL (8.4-10.2) 01/27/18 09:40 Phosphorus 3.70 mg/dL (2.5-4.5) 01/24/18 04:25 Magnesium 1.60 mg/dL (1.7-2.3) L 01/27/18 09:40 Total Bilirubin 0.30 mg/dL (0.1-1.2) 01/25/18 05:36 AST 12 units/L (5-40) 01/25/18 05:36 ALT 11 units/L (7-56) 01/25/18 05:36 Alkaline Phosphatase 80 units/L (35-129) 01/25/18 05:36 Troponin T < 0.010 ng/mL (0.00-0.029) 01/24/18 04:25 NT-Pro-B Natriuret Pep 434.8 pg/mL (0-900) 01/24/18 01:36 Total Protein 6.0 g/dL (6.3-8.2) L 01/25/18 05:36 Albumin 3.3 g/dL (3.9-5) L 01/25/18 05:36 Albumin/Globulin Ratio 1.2 % 01/25/18 05:36 Triglycerides 204 mg/dL (2-149) H 01/24/18 04:25 Cholesterol 347 mg/dL (50-199) H 01/24/18 04:25 LDL Cholesterol Direct 255 mg/dL (50-130) H 01/24/18 04:25 HDL Cholesterol 51 mg/dL (40-59) 01/24/18 04:25 Cholesterol/HDL Ratio 6.80 % 01/24/18 04:25 Urine Color Yellow (Yellow) 01/24/18 Unknown Urine Turbidity Clear (Clear) 01/24/18 Unknown Urine pH 6.0 (5.0-7.0) 01/24/18 Unknown Ur Specific [place] 1.019 (1.003-1.030) 01/24/18 Unknown Urine Protein >500 mg/dL (Negative) 01/24/18 Unknown Urine Glucose (UA) 150 mg/dL (Negative) 01/24/18 Unknown Urine Ketones Neg mg/dL (Negative) 01/24/18 Unknown Urine Blood Neg (Negative) 01/24/18 Unknown Urine Nitrite Neg (Negative) 01/24/18 Unknown Urine Bilirubin Neg (Negative) 01/24/18 Unknown Urine Urobilinogen < 2.0 mg/dL (<2.0) 01/24/18 Unknown Ur Leukocyte Esterase Mod (Negative) 01/24/18 Unknown Urine WBC (Auto) 67.0 /HPF (0.0-6.0) H 01/24/18 Unknown Urine RBC (Auto) 11.0 /HPF (0.0-6.0) 01/24/18 Unknown U Epithel Cells (Auto) 17.0 /HPF (0-13.0) H 01/24/18 Unknown Urine Bacteria (Auto) 1+ /HPF (Negative) 01/24/18 Unknown Ur Transition Epith Cell 2 /HPF 01/24/18 Unknown Urine Mucus Few /HPF 01/24/18 Unknown Urine Creatinine 160.9 mg/dL (0.1-20.0) H 01/24/18 Unknown Urine Microalbumin 327.2 mg/dL (0.1-34.0) H 01/24/18 Unknown Microalb/Creat Ratio 2033.5 ug/mg 01/24/18 Unknown
[2018-01-27] MEDS ORDERED: NACL 0.9% 1000 ML 1,000 ML IV SCH (21:00)
[2018-01-28] MEDS: COREG PO SCH ×3 (01:05→21:44)
[2018-01-28] MEDS: LANTUS SUB-Q SCH ×2 (01:07→21:50)
[2018-01-28] MEDS: LOVENOX SUB-Q SCH ×2 (01:08→21:52)
[2018-01-28 06:54] LABS: Alanine Aminotransferase 24 units/L (7-56); BUN/Creatinine Ratio 18; Blood Urea Nitrogen 24 mg/dL (7-17); Calcium 8.6 mg/dL (8.4-10.2); Hemolysis Index 7
--- NOTE | 2018-01-28 07:49 | Progress Note ---
Assessment and Plan Lab Results 01/27/18 01/27/18 01/26/18 Range/Units 08:17 06:33 21:37 WBC 4.4 L (4.5-11.0) K/mm3 RBC 2.82 L (3.65-5.03) M/mm3 Hgb Pending (10.1-14.3) gm/dl Hct Pending (30.3-42.9) % MCV 87 (79-97) fl MCH 29 (28-32) pg MCHC 34 (30-34) % RDW 13.6 (13.2-15.2) % Plt Count 184 (140-440) K/mm3 Lymph % (Auto) 31.6 (13.4-35.0) % [place] % (Auto) 6.7 (0.0-7.3) % Eos % (Auto) 4.7 H (0.0-4.3) % Baso % (Auto) 0.6 (0.0-1.8) % Lymph # 1.4 (1.2-5.4) K/mm3 [place] # 0.3 (0.0-0.8) K/mm3 Eos # 0.2 (0.0-0.4) K/mm3 Baso # 0.0 (0.0-0.1) K/mm3 Seg Neutrophils % 56.4 (40.0-70.0) % Seg Neutrophils # 2.5 (1.8-7.7) K/mm3 Sodium (137-145) mmol/L Potassium (3.6-5.0) mmol/L Chloride (98-107) mmol/L Carbon Dioxide (22-30) mmol/L Anion Gap mmol/L BUN (7-17) mg/dL Creatinine (0.7-1.2) mg/dL Estimated GFR ml/min BUN/Creatinine Ratio % Glucose (65-100) mg/dL POC Glucose 218 H 164 H (70-105) Calcium (8.4-10.2) mg/dL 01/26/18 01/26/18 01/26/18 Range/Units 16:43 14:22 12:02 WBC (4.5-11.0) K/mm3 RBC (3.65-5.03) M/mm3 Hgb (10.1-14.3) gm/dl Hct (30.3-42.9) % MCV (79-97) fl MCH (28-32) pg MCHC (30-34) % RDW (13.2-15.2) % Plt Count (140-440) K/mm3 Lymph % (Auto) (13.4-35.0) % [place] % (Auto) (0.0-7.3) % Eos % (Auto) (0.0-4.3) % Baso % (Auto) (0.0-1.8) % Lymph # (1.2-5.4) K/mm3 [place] # (0.0-0.8) K/mm3 Eos # (0.0-0.4) K/mm3 Baso # (0.0-0.1) K/mm3 Seg Neutrophils % (40.0-70.0) % Seg Neutrophils # (1.8-7.7) K/mm3 Sodium 142 (137-145) mmol/L Potassium 4.0 (3.6-5.0) mmol/L Chloride 103.1 (98-107) mmol/L Carbon Dioxide 25 (22-30) mmol/L Anion Gap 18 mmol/L BUN 27 H (7-17) mg/dL Creatinine 1.5 H (0.7-1.2) mg/dL Estimated GFR 44 ml/min BUN/Creatinine Ratio 18 % Glucose 200 H (65-100) mg/dL POC Glucose 99 376 H (70-105) Calcium 9.5 (8.4-10.2) mg/dL 01/26/18 Range/Units 10:16 WBC 7.8 (4.5-11.0) K/mm3 RBC 3.93 (3.65-5.03) M/mm3 Hgb 11.5 (10.1-14.3) gm/dl Hct 34.3 (30.3-42.9) % MCV 87 (79-97) fl MCH 29 (28-32) pg MCHC 33 (30-34) % RDW 13.7 (13.2-15.2) % Plt Count 255 (140-440) K/mm3 Lymph % (Auto) 22.1 (13.4-35.0) % [place] % (Auto) 5.6 (0.0-7.3) % Eos % (Auto) 1.3 (0.0-4.3) % Baso % (Auto) 0.4 (0.0-1.8) % Lymph # 1.7 (1.2-5.4) K/mm3 [place] # 0.4 (0.0-0.8) K/mm3 Eos # 0.1 (0.0-0.4) K/mm3 Baso # 0.0 (0.0-0.1) K/mm3 Seg Neutrophils % 70.6 H (40.0-70.0) % Seg Neutrophils # 5.5 (1.8-7.7) K/mm3 Sodium (137-145) mmol/L Potassium (3.6-5.0) mmol/L Chloride (98-107) mmol/L Carbon Dioxide (22-30) mmol/L Anion Gap mmol/L BUN (7-17) mg/dL Creatinine (0.7-1.2) mg/dL Estimated GFR ml/min BUN/Creatinine Ratio % Glucose (65-100) mg/dL POC Glucose (70-105) Calcium (8.4-10.2) mg/dL Assessment Hypertensive emergency -controlled DM-11 UTI Hyperlipidemia Urine Microalbumionemia Hypomagnesemia h/o Heart failure DINA likely secodnary to diabetic nephropathy - improving MIcroalbuninuria Gen. abdomnail discomfort Nephrolithiasis Plan D/c Lisinopril b/c DINA Continue with Nifedipine and prn Hydralazine SSI, Consitent CHO diet and diabetic education Statin and ACEI Urine cx d/c iv Levaquin b/c DINA iv hydration cautiously commence pt on Atorvastatin Supplement Mg level Hold diuresis b/c DINA CT abdomen and pelvis without contrast showed nephrolithiasis Abdominal US - showed nephrolithiasis without obstruction DVT with Lovenox and GI with Pepcid Subjective Date of service: 01/28/18 Principal diagnosis: Hypertensive emergency Interval history: Pt seen and examined. c/o abdominal fulness and discomfort that is resolving. None specific. No N/V, fever or diarrhea. Stillhas elevated BUN and creatinine from diabetic nephropathy Objective - Constitutional Vitals: Vital Signs - 12hr 01/27/18 01/28/18 01/28/18 20:00 01:05 01:59 Temperature 99.2 F 98.9 F Pulse Rate 80 80 82 Respiratory 18 18 Rate Blood Pressure 115/68 Blood Pressure 115/68 123/69 [Right] O2 Sat by Pulse 96 95 Oximetry 01/28/18 04:00 Temperature 98 F Pulse Rate 69 Respiratory 18 Rate Blood Pressure Blood Pressure 97/69 [Right] O2 Sat by Pulse 98 Oximetry General appearance: Present: no acute distress, well-nourished - EENT Eyes: PERRL, EOM intact - Neck Neck: supple, normal ROM - Respiratory Respiratory effort: normal Respiratory: bilateral: CTA - Cardiovascular Rhythm: regular Heart Sounds: Present: S1 & S2. Absent: gallop, rub Extremities: pulses intact, No edema, normal color, Full ROM - Gastrointestinal General gastrointestinal: Present: soft, non-tender, non-distended, normal bowel sounds - Integumentary Integumentary: clear, warm, dry - Musculoskeletal Musculoskeletal: 1, strength equal bilaterally - Neurologic Neurologic: moves all extremities - Psychiatric Psychiatric: memory intact, appropriate mood/affect, intact judgment & insight - Labs CBC & Chem 7: 01/27/18 13:45 01/28/18 06:09 Labs: Abnormal lab results 01/27/18 01/27/18 01/27/18 Range/Units 08:17 09:40 09:40 WBC 4.4 L (4.5-11.0) K/mm3 RBC 2.82 L (3.65-5.03) M/mm3 Eos % (Auto) 4.7 H (0.0-4.3) % [place] (98-107) mmol/L BUN 24 H (7-17) mg/dL Creatinine 1.3 H (0.7-1.2) mg/dL Glucose 296 H (65-100) mg/dL POC Glucose (70-105) Magnesium 1.60 L (1.7-2.3) mg/dL Total Protein (6.3-8.2) g/dL Albumin (3.9-5) g/dL 01/27/18 01/27/18 01/27/18 Range/Units 11:50 14:52 16:47 WBC (4.5-11.0) K/mm3 RBC (3.65-5.03) M/mm3 Eos % (Auto) (0.0-4.3) % [place]lor[place] (98-107) mmol/L BUN (7-17) mg/dL Creatinine (0.7-1.2) mg/dL Glucose (65-100) mg/dL POC Glucose 277 H 289 H 183 H (70-105) Magnesium (1.7-2.3) mg/dL Total Protein (6.3-8.2) g/dL Albumin (3.9-5) g/dL 01/27/18 01/28/18 01/28/18 Range/Units 21:33 06:05 06:09 WBC (4.5-11.0) K/mm3 RBC (3.65-5.03) M/mm3 Eos % (Auto) (0.0-4.3) % [place] 107.7 H (98-107) mmol/L BUN 24 H (7-17) mg/dL Creatinine 1.3 H (0.7-1.2) mg/dL Glucose 176 H (65-100) mg/dL POC Glucose 137 H 193 H (70-105) Magnesium (1.7-2.3) mg/dL Total Protein 5.5 L (6.3-8.2) g/dL Albumin 3.0 L (3.9-5) g/dL
[2018-01-28] MEDS: HumaLOG SUB-Q SCH ×5 (08:34→21:50)
[2018-01-28] MEDS: PROCARDIA XL PO SCH (09:08)
[2018-01-28] MEDS: PEPCID PO SCH (09:08)
[2018-01-28] MEDS: HumuLIN R SUB-Q SCH ×3 (09:08→18:15)
[2018-01-28] MEDS: PLAVIX PO SCH (09:08)
[2018-01-28 13:47] LABS: Creatinine,Urine 258.5 mg/dL (0.1-20.0)
--- NOTE | 2018-01-28 13:52 | Progress Note ---
Assessment and Plan - Patient Problems (1) Acute kidney injury Current Visit: Yes Status: Acute Plan to address problem: acute kidney injury is most likely due to pre-renal azotemia in the setting of uncontrolled glucose, glucosuria leading to osmotic diuresis. pt s/p IV NS bolus now with improved renal function check urine protein/cr ratio, if significant nephrotic range proteinuria noted along with worsening renal function will need to consider renal biopsy, which can be done as outpatient Supportive care for DINA avoid nephrotoxins, NSAIDs, IV contrast. will monitor lytes, renal fxn closely and make further recommendations. (2) Poorly controlled diabetes mellitus Current Visit: No Status: Chronic Plan to address problem: glucose control as per primary attending (3) Hyperglycemia Current Visit: No Status: Chronic Plan to address problem: glucose control as per primary attending (4) Proteinuria Current Visit: Yes Status: Chronic Plan to address problem: checl urine protein/cr ratio for quantification. if nephrotic range proteinuria seen along with worsening renal function, will consider renal biopsy (5) Essential (primary) hypertension Current Visit: Yes Status: Acute Plan to address problem: BP controlled. cont QUENTIN-I once renal function is in steady state Subjective Date of service: 01/28/18 Principal diagnosis: Hypertensive emergency Interval history: Patient awake, alert, in NAD Objective - Vital Signs Vital signs: Vital Signs - 12hr 01/28/18 01/28/18 01/28/18 01:59 04:00 08:00 Temperature 98.9 F 98 F 98.4 F Pulse Rate 82 69 77 Respiratory 18 18 18 Rate Blood Pressure Blood Pressure 123/69 97/69 125/74 [Right] O2 Sat by Pulse 95 98 97 Oximetry 01/28/18 01/28/18 09:08 12:00 Temperature 98.6 F Pulse Rate 79 Respiratory 18 Rate Blood Pressure 125/74 Blood Pressure 126/77 [Right] O2 Sat by Pulse 98 Oximetry - General Appearance General appearance: well-developed, well-nourished, appears stated age EENT: ATNC, PERRL, mucous membranes moist Neck: no JVD Respiratory: Present: Clear to Ascultation Cardiology: regular, S1S2 Gastrointestinal: normoactive bowel sounds Integumentary: no rash, other (trace edema b/l LE ) Neurologic: no focal deficit, alert and oriented x3, strength 5/5, CN 3-12 intact Psychiatric: mood/affect appropriate, cooperative - Lab 04/02/18 13:45 01/28/18 06:09 Most recent lab results Calcium 8.6 mg/dL (8.4-10.2) 01/28/18 06:09 Phosphorus 3.70 mg/dL (2.5-4.5) 01/24/18 04:25 Magnesium 1.80 mg/dL (1.7-2.3) 01/28/18 06:09 Urine Creatinine 258.5 mg/dL (0.1-20.0) H 01/28/18 Unknown
[2018-01-28] MEDS ORDERED: PERCOCET 5/325 PO PRN (22:13)
[2018-01-29 06:29] LABS: Calcium 8.7 mg/dL (8.4-10.2)
--- NOTE | 2018-01-29 10:05 | Progress Note ---
Assessment and Plan - Patient Problems (1) Acute kidney injury Current Visit: Yes Status: Acute Plan to address problem: acute kidney injury is most likely due to pre-renal azotemia in the setting of uncontrolled glucose, glucosuria leading to osmotic diuresis. pt s/p IV NS bolus now with improved renal function urine protein/cr ratio ~1g/g, stable renal function noted. no acute need for renal biopsy. Supportive care for DINA avoid nephrotoxins, NSAIDs, IV contrast. otherwise stable for discharge from renal stand point with outpatient follow up for CKD/diabetic nephropathy . (2) Poorly controlled diabetes mellitus Current Visit: No Status: Chronic Plan to address problem: glucose control as per primary attending (3) Hyperglycemia Current Visit: No Status: Chronic Plan to address problem: glucose control as per primary attending (4) Proteinuria Current Visit: Yes Status: Chronic Plan to address problem: moderate protein diet, will start Jarod-I/ARB once eGFR is in steady state as outpatient. (5) Essential (primary) hypertension Current Visit: Yes Status: Acute Plan to address problem: BP controlled. cont JAROD-I once renal function is in steady state Subjective Date of service: 01/29/18 Principal diagnosis: Hypertensive emergency Interval history: Patient awake, alert, in NAD Objective - Vital Signs Vital signs: Vital Signs - 12hr 01/29/18 01/29/18 01/29/18 00:01 01:05 04:41 Temperature 98.5 F 98.0 F Pulse Rate 89 76 Respiratory 18 20 16 Rate Blood Pressure 128/65 113/60 Blood Pressure [Right] O2 Sat by Pulse 97 96 Oximetry 01/29/18 01/29/18 07:42 08:38 Temperature 98.2 F 98.2 F Pulse Rate 78 78 Respiratory 20 19 Rate Blood Pressure 137/81 Blood Pressure 137/81 [Right] O2 Sat by Pulse 97 97 Oximetry - General Appearance General appearance: well-developed, well-nourished, appears stated age EENT: ATNC, PERRL, mucous membranes moist Neck: no JVD Respiratory: Present: Clear to Ascultation Cardiology: regular, S1S2 Gastrointestinal: normoactive bowel sounds Integumentary: no rash, other (no edema ) Neurologic: no focal deficit, alert and oriented x3, strength 5/5, CN 3-12 intact Psychiatric: mood/affect appropriate, cooperative - Lab 01/27/18 13:45 01/29/18 05:01 Most recent lab results Calcium 8.7 mg/dL (8.4-10.2) 01/29/18 05:01 Phosphorus 3.70 mg/dL (2.5-4.5) 01/24/18 04:25 Magnesium 1.80 mg/dL (1.7-2.3) 01/28/18 06:09 Urine Creatinine 258.5 mg/dL (0.1-20.0) H 01/28/18 Unknown Urine Total Protein 257 mg/dL (5-11.8) H 01/28/18 Unknown
[2018-01-29] MEDS: COREG PO SCH (10:25)
[2018-01-29] MEDS: HumaLOG SUB-Q SCH ×3 (10:26→16:40)
[2018-01-29] MEDS: PEPCID PO SCH (10:26)
[2018-01-29] MEDS: PLAVIX PO SCH (10:26)
[2018-01-29] MEDS: PROCARDIA XL PO SCH (10:26)
[2018-01-29] MEDS: HumuLIN R SUB-Q SCH ×3 (10:28→18:15)
--- NOTE | 2018-01-29 16:48 | Discharge Summary ---
Providers - Providers Date of Admission: 01/24/18 04:07 Date of discharge: 01/29/18 Attending physician: ALEXSANDER GUADARRAMA 01/24/18 09:01 Consult to Dietitian/Nutrition [CONS] Routine Physician Instructions: Reason For Exam: DKA Reason for Consult: Nutrition Recommendations Reason for Consult: Diet education 01/26/18 16:34 Consult to Physician [CONS] Routine Comment: Consulting Provider: AZIZA REECE Physician Instructions: Reason For Exam: DINA Primary care physician: LYNNE AUGUSTINE Hospitalization Reason for admission: Patient is a 57-year-old asthmatic female with a past medical history of hy Condition: Stable Pertinent studies: CT shows numerous bilateral non obstructing renal calculi. Bilateral non- obstructing nephrolithiasis confirmed by abd ultrasound. Procedures: none Hospital course: Patient is a 57-year-old asthmatic female with a past medical history of hypertension, diabetes and congestive heart failure who is presenting with shortness of breath and leg swelling. Patient reported that she's had some increased swelling in her legs and abdomen with shortness of breath for the past 2 days. and when she is walking, the shortness of breath gets worse. She's been taking her medications as prescribed per pt. On admission CXR showed vascular congestion with atelectesis. UA showed evidence of UTI. Abd CT showed numerous bilateral non obstructing renal calculi. Ultrasound was then obtained showed bilateral nephrolithiasis. Renal got consulted. Patient was commenced on Nifedipine, Iv hydralazine, statin, uc cx, and IV levaquin (later d/c recommendation from renal). Pt is afebrile, VS wnl, denies any pain, sob or nausea. Bilateral lower extremity edema has resolved. Pt is stable and is to be discharged home with outpatient follow up for CKD/diabetic nephropathy and PCP in 3-5 days. Disposition: - TO HOME OR SELFCARE Time spent for discharge: 33 mins - Discharge Diagnoses (1) Acute kidney injury Status: Acute (2) Essential (primary) hypertension Status: Chronic (3) Hypertensive emergency Status: Acute (4) Accelerated hypertension Status: Acute (5) Proteinuria Status: Chronic Core Measure Documentation - Palliative Care Palliative Care/ Comfort Measures: Not Applicable - Core Measures Any of the following diagnoses?: none Exam - Physical Exam Narrative exam: pt seen and examined. c/o abd fullness and discomfort that is resolving. Toño N /V/D. Still has elevated BUN and creatinine from diabetic nephropathy. - Constitutional Vitals: Temp Pulse Resp BP Pulse Ox 98.2 F 78 19 137/81 97 01/29/18 08:38 01/29/18 08:38 01/29/18 08:38 01/29/18 10:25 01/29/18 08:38 General appearance: Present: no acute distress - EENT Eyes: Present: PERRL, EOM intact ENT: hearing intact - Neck Neck: Present: supple, normal ROM - Respiratory Respiratory effort: normal Respiratory: bilateral: CTA - Cardiovascular Rhythm: regular - Extremities Extremities: No edema - Abdominal General gastrointestinal: Present: soft - Musculoskeletal Musculoskeletal: strength equal bilaterally - Psychiatric Psychiatric: appropriate mood/affect Plan Activity: no restrictions Weight Bearing Status: Weight Bear as Tolerated Diet: diabetic, renal Special Instructions: record blood sugar diary Follow up with: AZIZA REECE MD [Staff Physician] - 3 Days LYNNE AUGUSTINE MD [Primary Care Provider] - 10 Days Forms: Work/School Release Form Prescriptions: AtorvaSTATin [Lipitor] 40 mg PO QHS #30 tablet Carvedilol [Coreg] 25 mg PO BID #30 tablet Clopidogrel [Plavix] 75 mg PO QDAY #30 tablet Insulin Glargine [Lantus VIAL] 30 units SUB-Q QHS #1 units Lispro Insulin [Humalog] 4 unit SUB-Q ACHS #300 units NIFEdipine XL [Procardia Xl] 60 mg PO QDAY #30 tablet
[2018-01-29] MEDS: APRESOLINE IV PRN (18:14)
[2018-01-29 20:34] VITALS: BP 184/102
== END 2018-01-29 21:20 | disposition home or self-care (01) | DRG 689 ==
LOC: ED 23:49 → 4A 01-24 04:07 → 3A 01-24 09:33
PROVIDERS: ADMIT Internal Medicine Geriatric Medicine; ATTEND Family Medicine
DX: N39.0 Urinary tract infection, site not specified (principal); N17.0 Acute kidney failure with tubular necrosis; I16.1 Hypertensive emergency; I50.9 Heart failure, unspecified; I11.0 Hypertensive heart disease with heart failure; I25.10 Atherosclerotic heart disease of native coronary artery without angina pectoris; E83.42 Hypomagnesemia; N20.0 Calculus of kidney; E11.65 Type 2 diabetes mellitus with hyperglycemia; Z79.4 Long term (current) use of insulin; Z79.1 Long term (current) use of non-steroidal anti-inflammatories (NSAID); I25.2 Old myocardial infarction; Z90.710 Acquired absence of both cervix and uterus; Z95.818 Presence of other cardiac implants and grafts; Z88.1 Allergy status to other antibiotic agents
CPT/HCPCS: 36415; 71045; 74176; 76700; 80048; 80053; 80061; 81001; 82043; 82570; 82962; 83036; 83735; 83880; 84100; 84156; 84484; 85007; 85025; 85027; 85520; 87086; 93005; 93010; 99291; A9270-GY; J0360; J1200; J1644; J1650; J1815; J1940; J1956; J2930; J3475; J7030; J7060

== ENCOUNTER 2018-02-05 22:44 | Emergency (ER) | payer OTHER ==
[2018-02-05 23:36] LABS: Basophils % (Auto) 0.7 % (0.0-1.8); Eosinophils # (Auto) 0.3 K/mm3 (0.0-0.4); Eosinophils % (Auto) 4.9 % (0.0-4.3); Hematocrit 34.9 % (30.3-42.9); Hemoglobin 11.7 gm/dl (10.1-14.3); Lymphocytes # (Auto) 1.6 K/mm3 (1.2-5.4); Lymphocytes % (Auto) 24.6 % (13.4-35.0); Mean Corpuscular HGB Conc 34 % (30-34); Mean Corpuscular Hemoglobin 29 pg (28-32); Mean Corpuscular Volume 88 fl (79-97); Monocytes # (Auto) 0.5 K/mm3 (0.0-0.8); Monocytes % (Auto) 7.4 % (0.0-7.3); Platelet Count 307 K/mm3 (140-440); Red Blood Count 3.97 M/mm3 (3.65-5.03)
[2018-02-05 23:50] LABS: BUN/Creatinine Ratio 16; Blood Urea Nitrogen 24 mg/dL (7-17); Calcium 9.2 mg/dL (8.4-10.2); Hemolysis Index 7
--- NOTE | 2018-02-05 23:53 | XRay Report ---
FINAL REPORT PROCEDURE: XR CHEST ROUTINE 2V TECHNIQUE: PA and lateral chest radiographs were obtained. CPT 83784 HISTORY: Shortness of breath COMPARISON: 01/24/2018 FINDINGS: Subsegmental atelectatic changes are noted involving bilateral lower lungs. There are no mass lesions. Pleural spaces are clear. There is mild cardiomegaly. IMPRESSION: Subsegmental atelectatic changes are noted in bilateral lung bases. Any superimposed early infiltrates cannot be excluded. There are no obvious consolidations..
[2018-02-06] MEDS ORDERED: LASIX IV ONE (02:18)
--- NOTE | 2018-02-06 03:10 | Emergency Department Report ---
ED General Adult HPI - General Chief complaint: Dyspnea/Respdistress Stated complaint: SWELLING Time Seen by Provider: 02/06/18 02:11 Source: patient Mode of arrival: Ambulatory Limitations: No Limitations - History of Present Illness Initial comments: Patient is a 57-year-old female who is presenting with body swelling. Patient states that she's had some swelling in her legs with pitting edema for approximately a week. Patient was hospitalized last week for same. Patient was discharged home after swelling was decreased and told that she needed to follow-up with a attenuator. Patient states that she has mild shortness of breath and some abdominal distention as well. Patient is denying chest pain fevers chills nausea vomiting at this time. On review of the patient's urinalysis there was greater than 500 protein in her urine suggestive of possible nephrotic syndrome. Patient's creatinine on her last visit was 1.4. - Related Data Previous Rx's Medication Instructions Recorded Last Taken Type Insulin Aspart Prot/Aspart(Nf) 35 units SQ BID #1 vial 10/10/17 Unknown Rx [NovoLOG Mix 70/30 VIAL] Lisinopril [Zestril TAB] 40 mg PO QDAY #14 tablet 10/10/17 Unknown Rx cloNIDine [Catapres] 0.2 mg PO QHS #14 tablet 10/10/17 Unknown Rx AtorvaSTATin [Lipitor] 40 mg PO QHS #30 tablet 01/29/18 Unknown Rx Carvedilol [Coreg] 25 mg PO BID #30 tablet 01/29/18 Unknown Rx Clopidogrel [Plavix] 75 mg PO QDAY #30 tablet 01/29/18 Unknown Rx Insulin Glargine [Lantus VIAL] 30 units SUB-Q QHS #1 units 01/29/18 Unknown Rx Lispro Insulin [Humalog] 4 unit SUB-Q ACHS #300 units 01/29/18 Unknown Rx NIFEdipine XL [Procardia Xl] 60 mg PO QDAY #30 tablet 01/29/18 Unknown Rx Furosemide [Lasix] 20 mg PO QDAY #10 tablet 02/06/18 Unknown Rx Potassium Chloride [K-Dur] 10 meq PO QDAY #10 tablet 02/06/18 Unknown Rx Allergies Allergy/AdvReac Type Severity Reaction Status Date / Time levofloxacin [From Levaquin] Allergy Angioedema Verified 01/25/18 00:59 ED Review of Systems ROS: Stated complaint: SWELLING Other details as noted in HPI Comment: All other systems reviewed and negative ED Past Medical Hx - Past Medical History Hx Hypertension: Yes Hx Heart Attack/AMI: Yes Hx Congestive Heart Failure: Yes Hx Diabetes: Yes Hx Deep Vein Thrombosis: No Hx Renal Disease: Yes Hx Arthritis: Yes Hx Asthma: No Hx COPD: No Additional medical history: high cholesterol. CAD. 2 Stents 05/2015 here - Surgical History Hx Coronary Stent: Yes Additional Surgical History: Hysterectomy. RIGHT KNEE SURGERY - Social History Smoking Status: Never Smoker Substance Use Type: None - Medications Home Medications: Home Medications Medication Instructions Recorded Confirmed Last Taken Type Insulin Aspart Prot/Aspart(Nf) 35 units SQ BID #1 vial 10/10/17 01/24/18 Unknown Rx [NovoLOG Mix 70/30 VIAL] Lisinopril [Zestril TAB] 40 mg PO QDAY #14 tablet 10/10/17 01/24/18 Unknown Rx cloNIDine [Catapres] 0.2 mg PO QHS #14 tablet 10/10/17 01/24/18 Unknown Rx AtorvaSTATin [Lipitor] 40 mg PO QHS #30 tablet 01/29/18 Unknown Rx Carvedilol [Coreg] 25 mg PO BID #30 tablet 01/29/18 Unknown Rx Clopidogrel [Plavix] 75 mg PO QDAY #30 tablet 01/29/18 Unknown Rx Insulin Glargine [Lantus VIAL] 30 units SUB-Q QHS #1 units 01/29/18 Unknown Rx Lispro Insulin [Humalog] 4 unit SUB-Q ACHS #300 units 01/29/18 Unknown Rx NIFEdipine XL [Procardia Xl] 60 mg PO QDAY #30 tablet 01/29/18 Unknown Rx Furosemide [Lasix] 20 mg PO QDAY #10 tablet 02/06/18 Unknown Rx Potassium Chloride [K-Dur] 10 meq PO QDAY #10 tablet 02/06/18 Unknown Rx ED Physical Exam - General Limitations: No Limitations General appearance: alert, in no apparent distress - Head Head exam: Present: atraumatic, normocephalic - Eye Eye exam: Present: normal appearance - ENT ENT exam: Present: mucous membranes moist - Neck Neck exam: Present: normal inspection - Respiratory Respiratory exam: Present: normal lung sounds bilaterally. Absent: respiratory distress, wheezes, rales, rhonchi - Cardiovascular Cardiovascular Exam: Present: regular rate, normal rhythm. Absent: systolic murmur, diastolic murmur, rubs, gallop - GI/Abdominal GI/Abdominal exam: Present: soft, normal bowel sounds. Absent: distended, tenderness, guarding, rebound, rigid - Extremities Exam Extremities exam: Present: normal inspection, pedal edema (patient has 2+ edema to the bilateral lower extremities up to the midcalf) - Back Exam Back exam: Present: normal inspection - Neurological Exam Neurological exam: Present: alert, oriented X3 - Psychiatric Psychiatric exam: Present: normal affect, normal mood - Skin Skin exam: Present: warm, dry, intact, normal color. Absent: rash ED Course Vital Signs 02/05/18 02/06/18 02/06/18 22:57 02:16 02:33 Temperature 98.6 F Pulse Rate 93 H Respiratory 16 18 Rate Blood Pressure 140/83 177/93 O2 Sat by Pulse 95 94 99 Oximetry ED Medical Decision Making - Lab Data Result diagrams: 02/05/18 23:23 02/05/18 23:23 Lab Results 02/05/18 02/05/18 Range/Units 23:23 23:23 WBC 6.7 (4.5-11.0) K/mm3 RBC 3.97 (3.65-5.03) M/mm3 Hgb 11.7 (10.1-14.3) gm/dl Hct 34.9 (30.3-42.9) % MCV 88 (79-97) fl MCH 29 (28-32) pg MCHC 34 (30-34) % RDW 14.0 (13.2-15.2) % Plt Count 307 (140-440) K/mm3 Lymph % (Auto) 24.6 (13.4-35.0) % [place] % (Auto) 7.4 H (0.0-7.3) % Eos % (Auto) 4.9 H (0.0-4.3) % Baso % (Auto) 0.7 (0.0-1.8) % Lymph # 1.6 (1.2-5.4) K/mm3 [place] # 0.5 (0.0-0.8) K/mm3 Eos # 0.3 (0.0-0.4) K/mm3 Baso # 0.0 (0.0-0.1) K/mm3 Seg Neutrophils % 62.4 (40.0-70.0) % Seg Neutrophils # 4.2 (1.8-7.7) K/mm3 Sodium 146 H (137-145) mmol/L Potassium 4.5 (3.6-5.0) mmol/L Chloride 104.9 (98-107) mmol/L Carbon Dioxide 28 (22-30) mmol/L Anion Gap 18 mmol/L BUN 24 H (7-17) mg/dL Creatinine 1.5 H (0.7-1.2) mg/dL Estimated GFR 44 ml/min BUN/Creatinine Ratio 16 % Glucose 225 H (65-100) mg/dL Calcium 9.2 (8.4-10.2) mg/dL Troponin T < 0.010 (0.00-0.029) ng/mL NT-Pro-B Natriuret Pep 138.8 (0-900) pg/mL - EKG Data -: EKG Interpreted by Oh - EKG Data Interpretation: other (EKG shows sinus rhythm rate 88 normal axis normal intervals and no ST segment elevations or depressions time of dictation 2321 is interpreted as normal EKG) - Radiology Data Radiology results: report reviewed Chest x-ray shows bilateral atelectasis at the base - Medical Decision Making Patient 57-year-old female who is presenting with some swelling. Patient has been referred to nephrology for further testing. Patient possibly has a nephrotic syndrome. Patient has greater than 500 and her protein. Patient's BNP is within normal limits and there is no pulmonary edema her chest x-ray. The patient states when she received Lasix in the hospital on her last admission she did feel better but this was not continued to palpation. Patient given 40 Lasix U numbers department was given a low-dose of Lasix 20 mg daily to control her symptoms until she is able to see the attenuator. Critical care attestation.: If time is entered above; I have spent that time in minutes in the direct care of this critically ill patient, excluding procedure time. ED Disposition Clinical Impression: Edema Qualifiers: Edema type: unspecified Qualified Code(s): R60.9 - Edema, unspecified Proteinuria Qualifiers: Proteinuria type: unspecified Qualified Code(s): R80.9 - Proteinuria, unspecified Disposition: TO HOME OR SELFCARE Is pt being admited?: No Does the pt Need Aspirin: No Condition: Stable Instructions: Leg Edema (ED) Additional Instructions: Please ensure that she follow with the nephrologists. You may have a kidney issue that is causing her swelling Prescriptions: Furosemide [Lasix] 20 mg PO QDAY #10 tablet Potassium Chloride [K-Dur] 10 meq PO QDAY #10 tablet
[2018-02-06] MEDS ORDERED: MOTRIN ONE (03:27)
[2018-02-06 03:35] VITALS: BP 152/76
== END 2018-02-06 03:48 | disposition home or self-care (01) ==
LOC: ED 22:44
DX: R60.9 Edema, unspecified (principal); R80.9 Proteinuria, unspecified; I11.0 Hypertensive heart disease with heart failure; I50.9 Heart failure, unspecified; E11.9 Type 2 diabetes mellitus without complications; I25.2 Old myocardial infarction; M19.90 Unspecified osteoarthritis, unspecified site; Z90.710 Acquired absence of both cervix and uterus; Z79.4 Long term (current) use of insulin; Z88.1 Allergy status to other antibiotic agents
CPT/HCPCS: 36415; 71046; 80048; 83880; 84484; 85025; 93005; 93010; 96374; 99284; J1940

== ENCOUNTER 2018-05-04 10:33 | Inpatient (IN) | payer OTHER ==
--- NOTE | 2018-05-04 11:26 | Emergency Department Report ---
ED Chest Pain HPI - General Chief Complaint: Upper Respiratory Infection Stated Complaint: WALKING PNEUMONIA Time Seen by Provider: 05/04/18 11:09 Source: patient Mode of arrival: Ambulatory Limitations: No Limitations - History of Present Illness Initial Comments: 57-year-old female who presents to emergency room with chest pain and shortness of breath 1 day. Patient states she's had upper respiratory infection and cough and congestion for 2 weeks and has not seen anybody for it. Patient states that the sputum is a thick white sputum. Patient denies fever and chills. Patient denies abdominal pain and diaphoresis. MD Complaint: chest pain -: Sudden Onset: during rest, during exertion Pain Location: substernal, left chest Pain Radiation: none Severity: moderate Severity scale (0 -10): 5 Quality: heaviness Consistency: constant Improves With: rest Worsens With: inspiration, movement Context: recent illness re: dyspnea. denies: nausea, vomting, diaphoresis, sense of impending doom Other Symptoms: cough. denies: fever, syncope, rash, acid taste in mouth, leg swelling, palpitations, burping Treatments Prior to Arrival: none Aspirin use within the Past 7 Days: (1) Yes - Related Data On Oral Contraceptives: No Home Medications Medication Instructions Recorded Confirmed Last Taken Insulin Aspart [NovoLOG Flexpen] 0 units SQ AC 05/04/18 05/04/18 Unknown Insulin Degludec/Liraglutide 3 ml SQ QDAY 05/04/18 05/04/18 Unknown [Xultophy 100 Unit-3.6MG/ml Pen] Previous Rx's Medication Instructions Recorded Last Taken Type Lisinopril [Zestril TAB] 40 mg PO QDAY #14 tablet 10/10/17 Unknown Rx cloNIDine [Catapres] 0.2 mg PO QHS #14 tablet 10/10/17 Unknown Rx AtorvaSTATin [Lipitor] 40 mg PO QHS #30 tablet 01/29/18 Unknown Rx Carvedilol [Coreg] 25 mg PO BID #30 tablet 01/29/18 Unknown Rx Clopidogrel [Plavix] 75 mg PO QDAY #30 tablet 01/29/18 Unknown Rx Lispro Insulin [Humalog] 4 unit SUB-Q ACHS #300 units 01/29/18 Unknown Rx NIFEdipine XL [Procardia Xl] 60 mg PO QDAY #30 tablet 01/29/18 Unknown Rx Furosemide [Lasix] 20 mg PO QDAY #10 tablet 02/06/18 Unknown Rx Potassium Chloride [K-Dur] 10 meq PO QDAY #10 tablet 02/06/18 Unknown Rx Allergies Allergy/AdvReac Type Severity Reaction Status Date / Time levofloxacin [From Levaquin] Allergy Angioedema Verified 05/04/18 10:33 Heart Score - HEART Score History: Slightly suspicious EKG: Non-specific Age: 45-65 Risk factors: > 3 risk factors or hx of atherosclerotic disease Troponin: < normal limit HEART Score: 4 ED Review of Systems ROS: Stated complaint: WALKING PNEUMONIA Other details as noted in HPI Constitutional: denies: chills, fever Eyes: denies: eye pain, eye discharge, vision change ENT: denies: ear pain, throat pain Respiratory: cough, shortness of breath. denies: wheezing Cardiovascular: chest pain. denies: palpitations Endocrine: no symptoms reported Gastrointestinal: denies: abdominal pain, nausea, diarrhea Genitourinary: denies: urgency, dysuria, discharge Musculoskeletal: denies: back pain, joint swelling, arthralgia Skin: denies: rash, lesions Neurological: denies: headache, weakness, paresthesias Psychiatric: denies: anxiety, depression Hematological/Lymphatic: denies: easy bleeding, easy bruising ED Past Medical Hx - Past Medical History Previous Medical History?: Yes Hx Hypertension: Yes Hx Heart Attack/AMI: Yes Hx Congestive Heart Failure: Yes Hx Diabetes: Yes Hx Deep Vein Thrombosis: No Hx Renal Disease: Yes Hx Arthritis: Yes Hx Asthma: No Hx COPD: No Additional medical history: high cholesterol. CAD. 2 Stents 05/2015 here - Surgical History Past Surgical History?: Yes Hx Coronary Stent: Yes Additional Surgical History: Hysterectomy. RIGHT KNEE SURGERY - Family History Family history: hypertension - Social History Smoking Status: Never Smoker Substance Use Type: None - Medications Home Medications: Home Medications Medication Instructions Recorded Confirmed Last Taken Type Lisinopril [Zestril TAB] 40 mg PO QDAY #14 tablet 10/10/17 05/04/18 Unknown Rx cloNIDine [Catapres] 0.2 mg PO QHS #14 tablet 10/10/17 05/04/18 Unknown Rx AtorvaSTATin [Lipitor] 40 mg PO QHS #30 tablet 01/29/18 05/04/18 Unknown Rx Carvedilol [Coreg] 25 mg PO BID #30 tablet 01/29/18 05/04/18 Unknown Rx Clopidogrel [Plavix] 75 mg PO QDAY #30 tablet 01/29/18 05/04/18 Unknown Rx Lispro Insulin [Humalog] 4 unit SUB-Q ACHS #300 units 01/29/18 05/04/18 Unknown Rx NIFEdipine XL [Procardia Xl] 60 mg PO QDAY #30 tablet 01/29/18 05/04/18 Unknown Rx Furosemide [Lasix] 20 mg PO QDAY #10 tablet 02/06/18 05/04/18 Unknown Rx Potassium Chloride [K-Dur] 10 meq PO QDAY #10 tablet 02/06/18 05/04/18 Unknown Rx Insulin Aspart [NovoLOG Flexpen] 0 units SQ AC 05/04/18 05/04/18 Unknown History Insulin Degludec/Liraglutide 3 ml SQ QDAY 05/04/18 05/04/18 Unknown History [Xultophy 100 Unit-3.6MG/ml Pen] ED Physical Exam - General Limitations: No Limitations General appearance: alert, in no apparent distress - Head Head exam: Present: atraumatic, normocephalic - Eye Eye exam: Present: normal appearance - ENT ENT exam: Present: mucous membranes moist - Neck Neck exam: Present: normal inspection - Respiratory Respiratory exam: Present: normal lung sounds bilaterally. Absent: respiratory distress - Cardiovascular Cardiovascular Exam: Present: regular rate, normal rhythm. Absent: systolic murmur, diastolic murmur, rubs, gallop - GI/Abdominal GI/Abdominal exam: Present: soft, normal bowel sounds - Extremities Exam Extremities exam: Present: normal inspection - Back Exam Back exam: Present: normal inspection - Neurological Exam Neurological exam: Present: alert, oriented X3 - Psychiatric Psychiatric exam: Present: normal affect, normal mood - Skin Skin exam: Present: warm, dry, intact, normal color. Absent: rash ED Course Vital Signs 05/04/18 05/04/18 05/04/18 10:33 11:26 12:00 Temperature 98.1 F Pulse Rate 89 84 84 Respiratory 16 16 Rate Blood Pressure 234/120 205/102 Blood Pressure 223/126 [Left] O2 Sat by Pulse 100 99 Oximetry 05/04/18 05/04/18 05/04/18 12:15 12:30 12:45 Temperature Pulse Rate 78 77 81 Respiratory 12 11 L 13 Rate Blood Pressure 202/98 205/103 199/96 Blood Pressure [Left] O2 Sat by Pulse 99 98 97 Oximetry 05/04/18 05/04/18 05/04/18 13:00 13:15 13:43 Temperature Pulse Rate 76 78 79 Respiratory 13 11 L Rate Blood Pressure 194/93 195/96 198/99 Blood Pressure [Left] O2 Sat by Pulse 97 99 Oximetry 05/04/18 05/04/18 13:45 14:00 Temperature Pulse Rate 83 84 Respiratory 13 13 Rate Blood Pressure 162/79 Blood Pressure 169/81 [Left] O2 Sat by Pulse 100 100 Oximetry DEVI score - Devi Score Age > 65: (0) No Aspirin use within the Past 7 Days: (1) Yes 3 or more CAD Risk Factors: (1) Yes 2 or more Angina events in past 24 hrs: (1) Yes Known CAD with more than 50% Stenosis: (0) No Elevated Cardiac Markers: (0) No ST Deviation Greater than 0.5mm: (0) No DEVI Score: 3 ED Medical Decision Making - Lab Data Result diagrams: 05/04/18 11:55 05/04/18 11:55 - EKG Data -: EKG Interpreted by Ms EKG shows normal: sinus rhythm, axis, intervals, QRS complexes Rate: normal - EKG Data Interpretation: nonspecific ST-T wave rosmery, LVH - Radiology Data Radiology results: report reviewed - Medical Decision Making Patient is a 57-year-old female that presents emergency room with chest pain and shortness of breath. - Differential Diagnosis cp. sob. uri. chf. acs. Critical care attestation.: If time is entered above; I have spent that time in minutes in the direct care of this critically ill patient, excluding procedure time. ED Disposition Clinical Impression: Hyperglycemia, Shortness of breath, Hypertensive urgency Chest pain Qualifiers: Chest pain type: unspecified Qualified Code(s): R07.9 - Chest pain, unspecified Hypertension Qualifiers: Hypertension type: essential hypertension Qualified Code(s): I10 - Essential ( primary) hypertension Disposition: OP ADMIT IP TO THIS HOSP Is pt being admited?: Yes Does the pt Need Aspirin: No Condition: Serious Time of Disposition: 14:23
[2018-05-04] MEDS ORDERED: LOPRESSOR IV ONE ×2 (11:29→12:50)
[2018-05-04] MEDS ORDERED: ASPIRIN PO ONE (11:29)
[2018-05-04 12:18] LABS: Basophils # (Auto) 0.1 K/mm3 (0.0-0.1); Eosinophils # (Auto) 0.3 K/mm3 (0.0-0.4); Eosinophils % (Auto) 5.5 % (0.0-4.3); Hematocrit 34.5 % (30.3-42.9); Hemoglobin 11.9 gm/dl (10.1-14.3); Lymphocytes # (Auto) 1.5 K/mm3 (1.2-5.4); Lymphocytes % (Auto) 26.2 % (13.4-35.0); Mean Corpuscular HGB Conc 35 % (30-34); Mean Corpuscular Hemoglobin 29 pg (28-32); Mean Corpuscular Volume 85 fl (79-97); Monocytes # (Auto) 0.3 K/mm3 (0.0-0.8); Monocytes % (Auto) 4.7 % (0.0-7.3); Platelet Count 248 K/mm3 (140-440); Red Blood Count 4.05 M/mm3 (3.65-5.03); Red Cell Distribution Width 13.4 % (13.2-15.2)
[2018-05-04 12:34] LABS: Alanine Aminotransferase 15 units/L (7-56); Albumin 4.4 g/dL (3.9-5); BUN/Creatinine Ratio 20; Blood Urea Nitrogen 28 mg/dL (7-17); Hemolysis Index 4
--- NOTE | 2018-05-04 12:34 | XRay Report ---
FINAL REPORT EXAM: XR CHEST ROUTINE 2V HISTORY: Chest Pain TECHNIQUE: Two views of the chest Comparison: 02/05/2018, 01/24/2018 FINDINGS: Heart size is upper limits normal. There is improved subsegmental bilateral basal atelectasis with mild residual left basal scar or atelectasis and slight increased density projecting over the left posterior 8th and 9th ribs in the left lateral lung base. No pleural effusion. IMPRESSION: Improved aeration of the lung bases with mild persistent left basal scar or atelectasis. Heart size upper limits normal. Stable mild increased density projecting over the lateral left lung base 8th and 9th ribs. There may be scar in this location.
[2018-05-04] MEDS ORDERED: APRESOLINE IV ONE (12:52)
[2018-05-04] MEDS ORDERED: TYLENOL PO PRN (18:00)
[2018-05-04] MEDS ORDERED: MORPHINE IV PRN (18:00)
[2018-05-04] MEDS ORDERED: ZOFRAN IV PRN (18:00)
[2018-05-04] MEDS ORDERED: D50W (25GM) Syringe IV PRN (18:00)
[2018-05-04] MEDS ORDERED: SODIUM CHLORIDE FLUSH SYRINGE 10 ML IV PRN (18:00)
[2018-05-04] MEDS: PERCOCET 5/325 PO PRN (18:09)
--- NOTE | 2018-05-04 18:13 | History and Physical Report ---
History of Present Illness Date of examination: 05/04/18 Date of admission: 05/04/18 Chief complaint: CC Chest pain for 1 day Increasing SOB for 1 day Couigh for 2 weeks History of present illness: History of Present Illness: 57-year-old female with pmh of HTN HLD IDDM and chf presents to emergency room with chest pain and shortness of breath 1 day. Patient states she's had upper respiratory infection and cough and congestion for 2 weeks and has not seen anybody for it.Has been coughing a lot and feels that it is chest soreness from coughing . Patient states that the sputum is a thick white sputum. Patient denies fever and chills. Patient denies abdominal pain and diaphoresis. Cough is the exacerbating factor.Relieved by not coughing. Chest pian is anterior and 5/10.No diaphoresis or palpitations. Moved from [place] 2 months ago. Past Medical History Previous Medical History?: Yes Hx Hypertension: Yes Hx Heart Attack/AMI: Yes Hx Congestive Heart Failure: Yes Hx Diabetes: Yes Hx Renal Disease: Yes Hx Arthritis: Yes Additional medical history: high cholesterol. CAD. 2 Stents 05/2015 here Surgical History Past Surgical History?: Yes Hx Coronary Stent: Yes Additional Surgical History: Hysterectomy. RIGHT KNEE SURGERY Family History Family history: hypertension Social History Smoking Status: Never Smoker Substance Use Type: None Medications Home Medications: Home Medications Medication Instructions Recorded Confirmed Last Taken Type Lisinopril [Zestril TAB] 40 mg PO QDAY #14 tablet 10/10/17 05/04/18 Unknown Rx cloNIDine [Catapres] 0.2 mg PO QHS #14 tablet 10/10/17 05/04/18 Unknown Rx AtorvaSTATin [Lipitor] 40 mg PO QHS #30 tablet 01/29/18 05/04/18 Unknown Rx Carvedilol [Coreg] 25 mg PO BID #30 tablet 01/29/18 05/04/18 Unknown Rx Clopidogrel [Plavix] 75 mg PO QDAY #30 tablet 01/29/18 05/04/18 Unknown Rx Lispro Insulin [Humalog] 4 unit SUB-Q ACHS #300 units 01/29/18 05/04/18 Unknown Rx NIFEdipine XL [Procardia Xl] 60 mg PO QDAY #30 tablet 01/29/18 05/04/18 Unknown Rx Furosemide [Lasix] 20 mg PO QDAY #10 tablet 02/06/18 05/04/18 Unknown Rx Potassium Chloride [K-Dur] 10 meq PO QDAY #10 tablet 02/06/18 05/04/18 Unknown Rx Insulin Aspart [NovoLOG Flexpen] 0 units SQ AC 05/04/18 05/04/18 Unknown History Insulin Degludec/Liraglutide 3 ml SQ QDAY 05/04/18 05/04/18 Unknown History [Xultophy 100 Unit-3.6MG/ml Pen] Review of Systems ROS: Stated complaint: WALKING PNEUMONIA Other details as noted in HPI Constitutional: denies: chills, fever Eyes: denies: eye pain, eye discharge, vision change ENT: denies: ear pain, throat pain Respiratory: cough, shortness of breath. denies: wheezing Cardiovascular: chest pain. denies: palpitations Endocrine: no symptoms reported Gastrointestinal: denies: abdominal pain, nausea, diarrhea Genitourinary: denies: urgency, dysuria, discharge Musculoskeletal: denies: back pain, joint swelling, arthralgia Skin: denies: rash, lesions Neurological: denies: headache, weakness, paresthesias Psychiatric: denies: anxiety, depression Hematological/Lymphatic: denies: easy bleeding, easy bruising Medications and Allergies Allergies Allergy/AdvReac Type Severity Reaction Status Date / Time levofloxacin [From Levuin] Allergy Angioedema Verified 05/04/18 10:33 Home Medications Medication Instructions Recorded Confirmed Last Taken Type Lisinopril [Zestril TAB] 40 mg PO QDAY #14 tablet 10/10/17 05/04/18 Unknown Rx cloNIDine [Catapres] 0.2 mg PO QHS #14 tablet 10/10/17 05/04/18 Unknown Rx AtorvaSTATin [Lipitor] 40 mg PO QHS #30 tablet 01/29/18 05/04/18 Unknown Rx Carvedilol [Coreg] 25 mg PO BID #30 tablet 01/29/18 05/04/18 Unknown Rx Clopidogrel [Plavix] 75 mg PO QDAY #30 tablet 01/29/18 05/04/18 Unknown Rx Lispro Insulin [Humalog] 4 unit SUB-Q ACHS #300 units 01/29/18 05/04/18 Unknown Rx NIFEdipine XL [Procardia Xl] 60 mg PO QDAY #30 tablet 01/29/18 05/04/18 Unknown Rx Furosemide [Lasix] 20 mg PO QDAY #10 tablet 02/06/18 05/04/18 Unknown Rx Potassium Chloride [K-Dur] 10 meq PO QDAY #10 tablet 02/06/18 05/04/18 Unknown Rx Insulin Aspart [NovoLOG Flexpen] 0 units SQ AC 05/04/18 05/04/18 Unknown History Insulin Degludec/Liraglutide 3 ml SQ QDAY 05/04/18 05/04/18 Unknown History [Xultophy 100 Unit-3.6MG/ml Pen] Active Meds: Active Medications Acetaminophen (Tylenol) 650 mg PO Q4H PRN PRN Reason: Pain MILD(1-3)/Fever >100.5/CARVAJAL Atorvastatin Calcium (Lipitor) 40 mg PO QHS ROEL Carvedilol (Coreg) 25 mg PO BID ROEL Clonidine HCl (Catapres) 0.2 mg PO QHS ROEL Clopidogrel Bisulfate (Plavix) 75 mg PO QDAY [facility] Dextrose (D50w (25gm) Syringe) 50 ml IV PRN PRN PRN Reason: Hypoglycemia Enoxaparin Sodium (Lovenox) 40 mg SUB-Q QDAY@2200 ROEL Famotidine (Pepcid) 20 mg PO BID ROEL Furosemide (Lasix) 20 mg PO QDAY ROEL Insulin Human Lispro (Humalog) 0 unit SUB-Q ONCE ONE; Protocol Stop: 05/04/18 18:05 Lisinopril (Zestril) 40 mg PO QDAY [facility] Miscellaneous Medication (Insulin Aspart [Novolog Flexpen]) 5 units SQ AC [facility] Morphine Sulfate (Morphine) 2 mg IV Q4H PRN PRN Reason: Pain, Moderate (4-6) IF NPO Nifedipine (Procardia Xl) 60 mg PO QDAY ROEL Ondansetron HCl (Zofran) 4 mg IV Q8H PRN PRN Reason: Nausea And Vomiting Oxycodone/Acetaminophen (Percocet 5/325) 1 tab PO Q6H PRN PRN Reason: Pain, Moderate (4-6) Last Admin: 05/04/18 18:09 Dose: 1 tab Potassium Chloride (K-Dur) 10 meq PO QDAY ROEL Sodium Chloride (Sodium Chloride Flush Syringe 10 Ml) 10 ml IV BID ROEL Sodium Chloride (Sodium Chloride Flush Syringe 10 Ml) 10 ml IV PRN PRN PRN Reason: LINE FLUSH Zolpidem Tartrate (Ambien) 5 mg PO QHS PRN PRN Reason: Insomnia Exam - Physical Exam Narrative exam: Lying in bed comfortably - Constitutional Vitals: Temp Pulse Resp BP Pulse Ox 98.1 F 91 H 12 164/93 99 05/04/18 10:33 05/04/18 17:00 05/04/18 17:00 05/04/18 17:00 05/04/18 17:00 General appearance: Present: no acute distress, well-nourished - EENT Eyes: Present: PERRL ENT: hearing intact, clear oral mucosa - Neck Neck: Present: supple, normal ROM - Respiratory Respiratory effort: normal Respiratory: bilateral: CTA - Cardiovascular Heart rate: 80 Rhythm: regular Heart Sounds: Present: S1 & S2. Absent: rub, click - Extremities Extremities: no ischemia, pulses intact, pulses symmetrical, No edema Peripheral Pulses: within normal limits - Abdominal General gastrointestinal: Present: soft, non-tender, non-distended, normal bowel sounds Female genitourinary: Present: normal - Integumentary Integumentary: Present: clear, warm, dry - Musculoskeletal Musculoskeletal: gait normal, strength equal bilaterally - Psychiatric Psychiatric: appropriate mood/affect, intact judgment & insight - Neurologic Neurologic: CNII-XII intact, moves all extremities Results - Labs CBC & Chem 7: 05/05/18 04:41 05/05/18 04:41 Labs: Laboratory Last Values WBC 5.7 K/mm3 (4.5-11.0) 05/04/18 11:55 RBC 4.05 M/mm3 (3.65-5.03) 05/04/18 11:55 Hgb 11.9 gm/dl (10.1-14.3) 05/04/18 11:55 Hct 34.5 % (30.3-42.9) 05/04/18 11:55 MCV 85 fl (79-97) 05/04/18 11:55 MCH 29 pg (28-32) 05/04/18 11:55 MCHC 35 % (30-34) H 05/04/18 11:55 RDW 13.4 % (13.2-15.2) 05/04/18 11:55 Plt Count 248 K/mm3 (140-440) 05/04/18 11:55 Lymph % (Auto) 26.2 % (13.4-35.0) 05/04/18 11:55 Wright % (Auto) 4.7 % (0.0-7.3) 05/04/18 11:55 Eos % (Auto) 5.5 % (0.0-4.3) H 05/04/18 11:55 Baso % (Auto) 1.0 % (0.0-1.8) 05/04/18 11:55 Lymph # 1.5 K/mm3 (1.2-5.4) 05/04/18 11:55 Wright # 0.3 K/mm3 (0.0-0.8) 05/04/18 11:55 Eos # 0.3 K/mm3 (0.0-0.4) 05/04/18 11:55 Baso # 0.1 K/mm3 (0.0-0.1) 05/04/18 11:55 Seg Neutrophils % 62.6 % (40.0-70.0) 05/04/18 11:55 Seg Neutrophils # 3.6 K/mm3 (1.8-7.7) 05/04/18 11:55 Sodium 139 mmol/L (137-145) 05/04/18 11:55 Potassium 4.2 mmol/L (3.6-5.0) 05/04/18 11:55 Chloride 101.6 mmol/L (98-107) 05/04/18 11:55 Carbon Dioxide 26 mmol/L (22-30) 05/04/18 11:55 Anion Gap 16 mmol/L 05/04/18 11:55 BUN 28 mg/dL (7-17) H 05/04/18 11:55 Creatinine 1.4 mg/dL (0.7-1.2) H 05/04/18 11:55 Estimated GFR 47 ml/min 05/04/18 11:55 BUN/Creatinine Ratio 20 % 05/04/18 11:55 Glucose 339 mg/dL (65-100) H 05/04/18 11:55 Calcium 10.0 mg/dL (8.4-10.2) 05/04/18 11:55 Total Bilirubin 0.30 mg/dL (0.1-1.2) 05/04/18 11:55 AST 19 units/L (5-40) 05/04/18 11:55 ALT 15 units/L (7-56) 05/04/18 11:55 Alkaline Phosphatase 109 units/L (35-129) 05/04/18 11:55 Troponin T < 0.010 ng/mL (0.00-0.029) 05/04/18 11:55 NT-Pro-B Natriuret Pep 78.15 pg/mL (0-900) 05/04/18 11:55 Total Protein 7.5 g/dL (6.3-8.2) 05/04/18 11:55 Albumin 4.4 g/dL (3.9-5) 05/04/18 11:55 Albumin/Globulin Ratio 1.4 % 05/04/18 11:55 - Imaging and Cardiology EKG: report reviewed (NSR 81/min) Imaging and Cardiology: CXR IMPRESSION: Improved aeration of the lung bases with mild persistent left basal scar or atelectasis. Heart size upper limits normal. Stable mild increased density projecting over the lateral left lung base 8th and 9th ribs. There may be scar in this location. Assessment and Plan Advance Directives: Yes (Full code) VTE prophylaxis?: Chemical Plan of care discussed with patient/family: Yes - Patient Problems (1) Hypertensive urgency Current Visit: Yes Status: Acute Plan to address problem: Initial BP 230/120 Trending down with meds Noncompliance?? (2) Chest pain Current Visit: Yes Status: Acute Qualifiers: Chest pain type: unspecified Qualified Code(s): R07.9 - Chest pain, unspecified Plan to address problem: Chest pain w/u Lexiscan and serial troonins Cough causing Chest wall pain in differential diagnosis (3) CHF (congestive heart failure) Current Visit: Yes Status: Acute (4) Acute kidney injury Current Visit: No Status: Acute Plan to address problem: Nephrology consulted (5) CHF (congestive heart failure) Current Visit: No Status: Chronic Qualifiers: Heart failure type: combined systolic and diastolic Heart failure chronicity: acute on chronic Qualified Code(s): I50.43 - Acute on chronic combined systolic (congestive) and diastolic (congestive) heart failure Plan to address problem: Mild Cont po Lasix (6) CAD (coronary artery disease) Current Visit: No Status: Chronic Qualifiers: Coronary Disease-Associated Artery/Lesion type: [place] artery [place] vs. transplanted heart: [place] heart Associated angina: without angina Qualified Code(s): I25.10 - Atherosclerotic heart disease of [place] coronary artery without angina pectoris Plan to address problem: Had stents in the past Cont Plavix (7) Hyperlipidemia Current Visit: No Status: Chronic Qualifiers: Hyperlipidemia type: mixed hyperlipidemia Qualified Code(s): E78.2 - Mixed hyperlipidemia Plan to address problem: Cont statins (8) Poorly controlled diabetes mellitus Current Visit: No Status: Chronic Plan to address problem: Adjust Dosages Check A1c (9) Bronchitis Current Visit: Yes Status: Acute Plan to address problem: IVlevaquin to be transitione to po Levaquin (10) DVT prophylaxis Current Visit: No Status: Chronic Plan to address problem: On Lovenox
[2018-05-04] MEDS: HumaLOG SUB-Q ONE ×2 (18:28→18:59)
[2018-05-04] MEDS ORDERED: PROCARDIA XL PO SCH (19:00)
[2018-05-04] MEDS: PLAVIX PO SCH (19:06)
[2018-05-04] MEDS: LASIX PO SCH (19:06)
[2018-05-04] MEDS: PROCARDIA XL PO SCH (19:06)
[2018-05-04] MEDS: ZESTRIL PO SCH (19:06)
[2018-05-04] MEDS ORDERED: AMBIEN PO PRN (22:00)
[2018-05-04] MEDS: LANTUS SUB-Q SCH (22:01)
[2018-05-04] MEDS: CATAPRES PO SCH (22:01)
[2018-05-04] MEDS: LOVENOX SUB-Q SCH (22:01)
[2018-05-04] MEDS: PEPCID PO SCH (22:02)
[2018-05-04] MEDS: COREG PO SCH (22:02)
[2018-05-04] MEDS: SODIUM CHLORIDE FLUSH SYRINGE 10 ML IV SCH (22:10)
[2018-05-05 05:49] LABS: Basophils % (Auto) 0.6 % (0.0-1.8); Eosinophils # (Auto) 0.3 K/mm3 (0.0-0.4); Eosinophils % (Auto) 7.2 % (0.0-4.3); Hematocrit 29.9 % (30.3-42.9); Hemoglobin 10.4 gm/dl (10.1-14.3); Lymphocytes # (Auto) 1.4 K/mm3 (1.2-5.4); Lymphocytes % (Auto) 29.9 % (13.4-35.0); Mean Corpuscular HGB Conc 35 % (30-34); Mean Corpuscular Hemoglobin 30 pg (28-32); Mean Corpuscular Volume 85 fl (79-97); Monocytes # (Auto) 0.3 K/mm3 (0.0-0.8); Monocytes % (Auto) 6.9 % (0.0-7.3); Platelet Count 250 K/mm3 (140-440); Red Cell Distribution Width 13.4 % (13.2-15.2)
[2018-05-05 06:17] LABS: Albumin 3.4 g/dL (3.9-5); Calcium 9.7 mg/dL (8.4-10.2)
[2018-05-05] MEDS ORDERED: LEVAQUIN 750MG/150ML 750 MG/150 ML BAG IV SCH (07:29)
[2018-05-05] MEDS ORDERED: NON-FORMULARY (Insulin Aspart [Novolog Flexpen] 5 UNITS) SQ SCH (07:30)
--- NOTE | 2018-05-05 07:57 | Discharge Summary ---
Providers - Providers Date of Admission: 05/04/18 14:22 Attending physician: ANKIT CALLAWAY MD 05/04/18 18:00 Consult to Physician [CONS] Routine Comment: Consulting Provider: HAIDER MARI Physician Instructions: Reason For Exam: CHF/Cp 05/05/18 07:30 Consult to Physician [CONS] Routine Comment: Consulting Provider: ARSLAN BALL Physician Instructions: Reason For Exam: DINA Primary care physician: POLLUTION CONTROL TECHNICIAN Hospitalization Condition: Serious Hospital course: 57-year-old female with pmh of HTN HLD IDDM and chf presents to emergency room with chest pain and shortness of breath 1 day. Patient states she's had upper respiratory infection and cough and congestion for 2 weeks and has not seen anybody for it.Has been coughing a lot and feels that it is chest soreness from coughing . Patient states that the sputum is a thick white sputum. Patient denies fever and chills. Patient denies abdominal pain and diaphoresis. Cough is the exacerbating factor.Relieved by not coughing. Chest pian is anterior and 5/10.No diaphoresis or palpitations. Moved from [place] 2 months ago. Past Medical History; htn, cad sp sp and stents, chf, dm, ckd, OA, hld, Hypertensive urgency: Initial BP 230/120 Trending down with meds Noncompliance?? Chest pain Lexiscan and serial troonins Cough causing Chest wall pain in differential diagnosis CHF (congestive heart failure) Current Visit: Yes Status: Acute Acute kidney injury ruled out, cr is at baseline CKD avoid nephrotoxins Nephrology consulted CHF (congestive heart failure) Mild Cont po Lasix CAD (coronary artery disease) Had stents in the past Cont Plavix Hyperlipidemia Cont statins Poorly controlled diabetes mellitus Adjust Dosages Check A1c I am not convinced of Bronchitis, obtain CT chest and PFTs -monitor off abx for now DVT prophylaxis On Lovenox Exam - Constitutional Vitals: Temp Pulse Resp BP Pulse Ox 97.8 F 73 18 96/57 96 05/05/18 05:19 05/05/18 05:19 05/05/18 05:19 05/05/18 05:19 05/05/18 05:19 Plan Follow up with: LEOBARDO CARDONA MD [Primary Care Provider] - 3-5 Days
[2018-05-05] MEDS: HumaLOG SUB-Q SCH ×6 (08:06→17:42)
--- NOTE | 2018-05-05 08:46 | Progress Note ---
Subjective Date of service: 05/05/18 Interval history: CONSULT DICTATED Objective Vital Signs Temp Pulse Resp BP BP Pulse Ox 05/05/18 07:14 97.9 F 74 18 122/68 93 05/05/18 05:19 97.8 F 73 18 96/57 96 05/05/18 04:05 74 96/57 98 05/05/18 00:36 98.6 F 81 20 155/89 99 05/04/18 22:02 78 155/84 05/04/18 22:01 78 155/84 05/04/18 21:04 78 155/84 99 05/04/18 20:30 80 13 154/87 99 05/04/18 20:16 80 12 154/87 100 05/04/18 20:00 81 11 L 154/87 98 05/04/18 19:46 80 12 158/91 99 05/04/18 19:30 85 14 158/91 99 05/04/18 19:16 81 16 158/91 100 05/04/18 19:00 97.9 F 84 10 L 158/91 158/91 99 05/04/18 18:46 86 10 L 156/88 99 05/04/18 18:30 86 15 156/88 99 05/04/18 18:16 88 11 L 156/88 99 05/04/18 18:00 87 13 156/88 98 05/04/18 17:46 90 17 164/93 99 05/04/18 17:30 88 13 164/93 100 05/04/18 17:16 89 13 164/93 100 05/04/18 17:00 91 H 12 164/93 164/93 99 05/04/18 16:46 90 13 162/85 100 05/04/18 16:30 92 H 18 162/85 98 05/04/18 16:16 90 11 L 162/85 99 05/04/18 16:00 90 14 162/85 99 05/04/18 15:46 88 13 151/92 100 05/04/18 15:30 93 H 17 163/86 99 05/04/18 15:16 92 H 15 163/86 100 05/04/18 15:00 89 14 151/92 99 05/04/18 14:15 85 13 163/86 100 05/04/18 14:00 84 13 162/79 100 05/04/18 13:45 83 13 169/81 100 05/04/18 13:43 79 198/99 05/04/18 13:15 78 11 L 195/96 99 05/04/18 13:00 76 13 194/93 97 05/04/18 12:45 81 13 199/96 97 05/04/18 12:30 77 11 L 205/103 98 05/04/18 12:15 78 12 202/98 99 05/04/18 12:00 84 205/102 05/04/18 11:26 84 16 223/126 99 05/04/18 10:33 98.1 F 89 16 234/120 100 - Labs and Meds Cardiac Enzymes 05/04/18 05/05/18 Range/Units 11:55 04:41 AST 19 13 (5-40) units/L CBC 05/04/18 05/05/18 Range/Units 11:55 04:41 WBC 5.7 4.8 (4.5-11.0) K/mm3 RBC 4.05 3.50 L (3.65-5.03) M/mm3 Hgb 11.9 10.4 (10.1-14.3) gm/dl Hct 34.5 29.9 L (30.3-42.9) % Plt Count 248 250 (140-440) K/mm3 Lymph # 1.5 1.4 (1.2-5.4) K/mm3 Pershing # 0.3 0.3 (0.0-0.8) K/mm3 Eos # 0.3 0.3 (0.0-0.4) K/mm3 Baso # 0.1 0.0 (0.0-0.1) K/mm3 Comprehensive Metabolic Panel 05/04/18 05/05/18 Range/Units 11:55 04:41 Sodium 139 140 (137-145) mmol/L Potassium 4.2 4.0 (3.6-5.0) mmol/L Chloride 101.6 102.7 (98-107) mmol/L Carbon Dioxide 26 24 (22-30) mmol/L BUN 28 H 29 H (7-17) mg/dL Creatinine 1.4 H 1.5 H (0.7-1.2) mg/dL Glucose 339 H 254 H (65-100) mg/dL Calcium 10.0 9.7 (8.4-10.2) mg/dL AST 19 13 (5-40) units/L ALT 15 12 (7-56) units/L Alkaline Phosphatase 109 87 (35-129) units/L Total Protein 7.5 6.0 L (6.3-8.2) g/dL Albumin 4.4 3.4 L (3.9-5) g/dL - Imaging and Cardiology EKG: report reviewed (NSR 81/min)
--- NOTE | 2018-05-05 09:37 | Cat Scan Report ---
CT chest without contrast: Chest pain, cough. Transverse images are obtained through the chest with coronal and sagittal 2-D reformatted images. High resolution images also included. There is no significant hilar or mediastinal adenopathy although there are some calcifications identified in what appear to be normal size lymph nodes of the posterior mediastinum and left hilum. The central airways are unremarkable with no endobronchial findings. The heart appears normal in size however there are coronary vascular calcifications. There appears to be some type of contrast in the esophagus possibly related to recent medication or food ingestion. The lungs are well aerated and fully expanded. Minimal patchy changes are identified in the periphery of the right middle lobe as well as both lower lobes being moderately worse on the left than right. There is no obvious bronchiectasis. A single small calcification is noted in the left lower lobe. There are no nodules. No pleural thickening. Impressions: 1. The clinicity of the bilateral pulmonary findings is unclear. Atelectasis as well as scarring are considerations. 2. Evidence of prior granulomatous infection.
[2018-05-05] MEDS: PEPCID PO SCH ×2 (10:13→21:40)
[2018-05-05] MEDS: COREG PO SCH ×2 (10:13→21:40)
[2018-05-05] MEDS: PLAVIX PO SCH (10:13)
[2018-05-05] MEDS: K-DUR PO SCH (10:14)
[2018-05-05] MEDS: LASIX PO SCH (10:14)
[2018-05-05] MEDS: ZESTRIL PO SCH (10:26)
[2018-05-05] MEDS: PROCARDIA XL PO SCH (10:26)
[2018-05-05] MEDS: SODIUM CHLORIDE FLUSH SYRINGE 10 ML IV SCH ×2 (10:26→21:46)
--- NOTE | 2018-05-05 10:57 | Consultation ---
HISTORY OF PRESENT ILLNESS: The patient is a 57-year-old female who has been sick for a number of weeks with symptoms that include coughing, sputum production, chest discomfort associated with coughing, which is tight and pressure like. There has been no ankle edema or angina. She does have chronic dyspnea on exertion. There is no history of smoking or lung disease. There is a history of congestive heart failure 5-6 years ago. She does not know her ejection fraction. She is known to Dr. Pack and has a history of coronary disease with stents a number of years ago. She said that she had a stress test not long ago at this hospital and has had an echo in the office. She is compliant with medications, but her blood pressure has been difficult to control. She walks fair amount at work. She follows a healthy diet. There has been no fever or chills. There has been nausea and vomiting with this illness. She did not give any history of GI disorders. There has been no strokes. Her initial blood pressure was 234/120. PAST MEDICAL HISTORY: MEDICATIONS: See the nurse's list. ALLERGIES: LEVAQUIN. SOCIAL HISTORY: Smoking: None. Alcohol: No heavy use. OPERATIONS: Hysterectomy, right knee surgery, coronary stents. FAMILY HISTORY: Hypertension. REVIEW OF SYSTEMS: She did not describe any significant GI, , dermatologic, or arthritic problems. She takes extra clonidine, sometimes for elevated blood pressures. PHYSICAL EXAMINATION: GENERAL: Well-developed, well-nourished, no acute distress. Alert, oriented and cooperative. Mental status normal. EYES, NOSE and THROAT: Remarkable for a small thyroid cyst on the anterior neck exam. NECK: Reveals no JVD or bruits. Neck is supple, no masses. LUNGS: Coarse breath sounds. No rales, rhonchi or labored respirations. HEART: Regular rhythm, S4 gallop. Grade 2 systolic murmur at the left sternal border. ABDOMEN: Soft, nontender, no masses. EXTREMITIES: No cyanosis, clubbing, edema. Peripheral pulses are intact. NEUROLOGICAL: Symmetrical. SKIN: Clear. LABORATORY DATA: EKG unremarkable. IMPRESSION: 1. Symptoms suggestive of bronchitis versus pneumonia. The chest x-ray is abnormal, this may represent scar tissue or atelectasis. 2. History of congestive heart failure: BNP is normal. Findings are so far not suggestive of congestive heart failure. The previous echocardiogram will be reviewed. 3. Probable chest wall pain secondary to extensive coughing. The patient does not describe angina, although there is a history of coronary artery disease. Previous stress test will be reviewed. 4. Accelerated hypertension: Improved. 5. Hyperlipidemia. 6. Diabetes. 7. Possible chronic kidney disease at an early stage. PLAN: Continue current therapy. Followup CAT scan that was ordered for today. JOB# [id number] GIL/NTS
--- NOTE | 2018-05-05 11:09 | Event Note ---
Date: 05/05/18 Patient is followed by .
[2018-05-05] MEDS: ZITHROMAX PO SCH (15:04)
--- NOTE | 2018-05-05 17:25 | Progress Note ---
Assessment and Plan Assessment and plan: 57-year-old female with pmh of HTN HLD IDDM and chf presents to emergency room with chest pain and shortness of breath 1 day. Patient states she's had upper respiratory infection and cough and congestion for 2 weeks and has not seen anybody for it.Has been coughing a lot and feels that it is chest soreness from coughing . Patient states that the sputum is a thick white sputum. Patient denies fever and chills. Patient denies abdominal pain and diaphoresis. Cough is the exacerbating factor.Relieved by not coughing. Chest pian is anterior and 5/10.No diaphoresis or palpitations. Moved from [place] 2 months ago. Past Medical History; htn, cad sp sp and stents, chf, dm, ckd, OA, hld, post nasal drip likely cause of the cough and choking sensation -start flonase, afrin and ocean nasal spray Hypertensive urgency: Initial BP 230/120 Trending down with meds Noncompliance?? Chest pain Lexiscan and serial troonins Cough causing Chest wall pain in differential diagnosis Acute kidney injury ruled out, cr is at baseline CKD avoid nephrotoxins Nephrology consulted CHF (congestive heart failure), systolic CHF 45% Mild Cont po Lasix CAD (coronary artery disease) Had stents in the past Cont Plavix Hyperlipidemia Cont statins Poorly controlled diabetes mellitus Adjust Dosages Check A1c I am not convinced of Bronchitis, obtain CT chest and PFTs -azithromycin DVT prophylaxis On Lovenox History Interval history: She still complaining of cough and choking-like sensation she feels like phlegm pulls up in her throat and he seems to be dripping from her sinuses Review of systems Constitutional: No fevers, no malaise, no joint pains CVS: No chest pain, no orthopnea, no dyspnea on exertion, no pedal edema GI: No abdominal pain, no diarrhea, no vomiting, no constipation Respiratory: No shortness of breath, no wheezing, complaining of cough productive of scant sputum Hospitalist Physical - Physical exam Narrative exam: General.: Appears well, no distress, nontoxic HEENT: Moist mucous membranes, extraocular muscles intact, no lymphadenopathy Neck: supple Cardiac: S1-S2 heard Lungs: clear to auscultation bilaterally Abdomen: soft , nontender, nondistended, bowel sounds positive Extremities: no edema clubbing or cyanosis Skin: no rash or lesions Neurologic: no gross focal deficits Psych: appropriate behavior, appropriate mood, corporative, judgment intact - Constitutional Vitals: Temp Pulse Resp BP Pulse Ox 98.0 F 77 20 103/59 97 05/05/18 16:01 05/05/18 16:01 05/05/18 16:01 05/05/18 16:01 05/05/18 16:01 General appearance: Present: no acute distress, well-nourished Results - Labs CBC & Chem 7: 05/05/18 04:41 05/05/18 04:41 Labs: Laboratory Last Values WBC 4.8 K/mm3 (4.5-11.0) 05/05/18 04:41 RBC 3.50 M/mm3 (3.65-5.03) L 05/05/18 04:41 Hgb 10.4 gm/dl (10.1-14.3) 05/05/18 04:41 Hct 29.9 % (30.3-42.9) L 05/05/18 04:41 MCV 85 fl (79-97) 05/05/18 04:41 MCH 30 pg (28-32) 05/05/18 04:41 MCHC 35 % (30-34) H 05/05/18 04:41 RDW 13.4 % (13.2-15.2) 05/05/18 04:41 Plt Count 250 K/mm3 (140-440) 05/05/18 04:41 Lymph % (Auto) 29.9 % (13.4-35.0) 05/05/18 04:41 Harper % (Auto) 6.9 % (0.0-7.3) 05/05/18 04:41 Eos % (Auto) 7.2 % (0.0-4.3) H 05/05/18 04:41 Baso % (Auto) 0.6 % (0.0-1.8) 05/05/18 04:41 Lymph # 1.4 K/mm3 (1.2-5.4) 05/05/18 04:41 Harper # 0.3 K/mm3 (0.0-0.8) 05/05/18 04:41 Eos # 0.3 K/mm3 (0.0-0.4) 05/05/18 04:41 Baso # 0.0 K/mm3 (0.0-0.1) 05/05/18 04:41 Seg Neutrophils % 55.4 % (40.0-70.0) 05/05/18 04:41 Seg Neutrophils # 2.7 K/mm3 (1.8-7.7) 05/05/18 04:41 Sodium 140 mmol/L (137-145) 05/05/18 04:41 Potassium 4.0 mmol/L (3.6-5.0) 05/05/18 04:41 Chloride 102.7 mmol/L (98-107) 05/05/18 04:41 Carbon Dioxide 24 mmol/L (22-30) 05/05/18 04:41 Anion Gap 17 mmol/L 05/05/18 04:41 BUN 29 mg/dL (7-17) H 05/05/18 04:41 Creatinine 1.5 mg/dL (0.7-1.2) H 05/05/18 04:41 Estimated GFR 44 ml/min 05/05/18 04:41 BUN/Creatinine Ratio 19 % 05/05/18 04:41 Glucose 254 mg/dL (65-100) H 05/05/18 04:41 POC Glucose 220 (70-105) H 05/05/18 16:14 Hemoglobin A1c 8.7 % (4-6) H 05/04/18 11:55 Calcium 9.7 mg/dL (8.4-10.2) 05/05/18 04:41 Total Bilirubin 0.20 mg/dL (0.1-1.2) 05/05/18 04:41 AST 13 units/L (5-40) 05/05/18 04:41 ALT 12 units/L (7-56) 05/05/18 04:41 Alkaline Phosphatase 87 units/L (35-129) 05/05/18 04:41 Troponin T < 0.010 ng/mL (0.00-0.029) 05/05/18 04:41 NT-Pro-B Natriuret Pep 78.15 pg/mL (0-900) 05/04/18 11:55 Total Protein 6.0 g/dL (6.3-8.2) L 05/05/18 04:41 Albumin 3.4 g/dL (3.9-5) L 05/05/18 04:41 Albumin/Globulin Ratio 1.3 % 05/05/18 04:41
[2018-05-05] MEDS: DEEP SEA NS SCH ×2 (21:14→21:38)
[2018-05-05] MEDS: FLONASE NS SCH (21:37)
[2018-05-05] MEDS: AFRIN NS SCH (21:37)
[2018-05-05] MEDS: LOVENOX SUB-Q SCH (21:39)
[2018-05-05] MEDS: LANTUS SUB-Q SCH (21:40)
[2018-05-05] MEDS: CATAPRES PO SCH (21:40)
--- NOTE | 2018-05-05 22:03 | Consultation ---
History of Present Illness - Reason for Consult Consult date: 05/05/18 chronic renal failure Requesting physician: ANKIT CALLAWAY - History of Present Illness 57-year-old lady who is well-known to our service followed by Dr. Sepulveda for stage III chronic kidney disease. This is presumably secondary to diabetic nephropathy/hypertensive nephrosclerosis. Patient was admitted on account of 1 day history of chest pain and shortness of breath. She has been having cough and congestion for 2 weeks. Cough is productive of thick whitish sputum. She feels something trickling down her throat and then sometimes this makes her vomit. She had chills at the onset but it's resolved now. No fever. She admits to a frontal headache which she describes as throbbing. The account of the symptoms which were unrelenting she came to the hospital for evaluation. Blood pressure was initially 230/120 mmHg. BUN/creatinine 29/1.5 mg/dL. Baseline creatinine is about 1.3-1.5 mg/dl. She denies any voiding difficulties except for frequency and nocturia. No urgency, dysuria or hematuria. 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 denies: smoking, alcohol abuse, prescription drug abuse, IV drug use Family history: CAD, diabetes, hypertension, stroke (mother of pneumonia she had diabetes, hypertension, heart disease and had a stroke. Father was killed in a motor vehicle accident at a young age) Medications and Allergies Allergies Allergy/AdvReac Type Severity Reaction Status Date / Time levofloxacin [From Levaquin] Allergy Angioedema Verified 05/04/18 10:33 Home Medications Medication Instructions Recorded Confirmed Last Taken Type Lisinopril [Zestril TAB] 40 mg PO QDAY #14 tablet 10/10/17 05/04/18 Unknown Rx cloNIDine [Catapres] 0.2 mg PO QHS #14 tablet 10/10/17 05/04/18 Unknown Rx AtorvaSTATin [Lipitor] 40 mg PO QHS #30 tablet 01/29/18 05/04/18 Unknown Rx Carvedilol [Coreg] 25 mg PO BID #30 tablet 01/29/18 05/04/18 Unknown Rx Clopidogrel [Plavix] 75 mg PO QDAY #30 tablet 01/29/18 05/04/18 Unknown Rx Lispro Insulin [Humalog] 4 unit SUB-Q ACHS #300 units 01/29/18 05/04/18 Unknown Rx NIFEdipine XL [Procardia Xl] 60 mg PO QDAY #30 tablet 01/29/18 05/04/18 Unknown Rx Furosemide [Lasix] 20 mg PO QDAY #10 tablet 02/06/18 05/04/18 Unknown Rx Potassium Chloride [K-Dur] 10 meq PO QDAY #10 tablet 02/06/18 05/04/18 Unknown Rx Insulin Aspart [NovoLOG Flexpen] 0 units SQ AC 05/04/18 05/04/18 Unknown History Insulin Degludec/Liraglutide 3 ml SQ QDAY 05/04/18 05/04/18 Unknown History [Xultophy 100 Unit-3.6MG/ml Pen] Active Meds: Active Medications Acetaminophen (Tylenol) 650 mg PO Q4H PRN PRN Reason: Pain MILD(1-3)/Fever >100.5/CARVAJAL Last Admin: 05/05/18 12:26 Dose: 650 mg Atorvastatin Calcium (Lipitor) 40 mg PO QHS [facility] Last Admin: 05/05/18 21:40 Dose: 40 mg Azithromycin (Zithromax) 500 mg PO QDAY [facility] Last Admin: 05/05/18 15:04 Dose: 500 mg Carvedilol (Coreg) 25 mg PO BID [facility] Last Admin: 05/05/18 21:40 Dose: 25 mg Clonidine HCl (Catapres) 0.2 mg PO QHS [facility] Last Admin: 05/05/18 21:40 Dose: 0.2 mg Clopidogrel Bisulfate (Plavix) 75 mg PO QDAY [facility] Last Admin: 05/05/18 10:13 Dose: 75 mg Dextrose (D50w (25gm) Syringe) 50 ml IV PRN PRN PRN Reason: Hypoglycemia Enoxaparin Sodium (Lovenox) 40 mg SUB-Q QDAY@2200 [facility] Last Admin: 05/05/18 21:39 Dose: 40 mg Famotidine (Pepcid) 20 mg PO BID [facility] Last Admin: 05/05/18 21:40 Dose: 20 mg Fluticasone Propionate (Flonase) 200 mcg NS QDAY [facility] Last Admin: 05/05/18 21:37 Dose: 200 mcg Furosemide (Lasix) 20 mg PO QDAY [facility] Last Admin: 05/05/18 10:14 Dose: 20 mg Insulin Glargine (Lantus) 16 units SUB-Q QHS [facility] Last Admin: 05/05/18 21:40 Dose: 16 units Insulin Human Lispro (Humalog) 5 unit SUB-Q [facility] Last Admin: 05/05/18 17:42 Dose: 5 unit Insulin Human Lispro (Humalog) 0 unit SUB-Q AC [facility]; Protocol Last Admin: 05/05/18 17:42 Dose: 3 unit Lisinopril (Zestril) 40 mg PO QDAY [facility] Last Admin: 05/05/18 10:26 Dose: Not Given Morphine Sulfate (Morphine) 2 mg IV Q4H PRN PRN Reason: Pain, Moderate (4-6) IF NPO Nifedipine (Procardia Xl) 60 mg PO QDAY [facility] Last Admin: 05/05/18 10:26 Dose: Not Given Ondansetron HCl (Zofran) 4 mg IV Q8H PRN PRN Reason: Nausea And Vomiting Last Admin: 05/05/18 17:49 Dose: 4 mg Oxycodone/Acetaminophen (Percocet 5/325) 1 tab PO Q6H PRN PRN Reason: Pain, Moderate (4-6) Last Admin: 05/04/18 18:09 Dose: 1 tab Oxymetazoline HCl (Afrin) 2 spray NS Q12H [facility] Last Admin: 05/05/18 21:37 Dose: 2 spray Potassium Chloride (K-Dur) 10 meq PO QDAY [facility] Last Admin: 05/05/18 10:14 Dose: 10 meq Sodium Chloride (Sodium Chloride Flush Syringe 10 Ml) 10 ml IV BID [facility] Last Admin: 05/05/18 21:46 Dose: 10 ml Sodium Chloride (Sodium Chloride Flush Syringe 10 Ml) 10 ml IV PRN PRN PRN Reason: LINE FLUSH Sodium Chloride (Deep Sea) 1 spray NS QID [facility] Last Admin: 05/05/18 21:38 Dose: 1 spray Zolpidem Tartrate (Ambien) 5 mg PO QHS PRN PRN Reason: Insomnia Review of Systems All systems: negative (Constitutional: no fever but she had chills. Appetite has been poor. No weight loss. HEENT: No sore throat but admits to sinus drainage no hearing or vision impairment . Cardiovascular: See history of present illness. No, palpitations, lower extremity swelling or dizziness. Respiratory: See history of present illness. No hemoptysis or wheezing. Gastrointestinal: No nausea, vomiting, diarrhea, abdominal pain, hematemesis or melena. Genitourinary: No urgency dysuria or hematuria. But admits to frequency and nocturia hematologic: No abnormal bleeding or bruising. Integumentary: Admits to itching but no rash. Neurological: Admits to left- sided headache no focal weakness or numbness, no syncope or seizures. Has numbness and tingling in her feet. Endocrine: Blood sugars being high in the 200s since she became sick Musculoskeletal: No joint pains but has stiffness in her legs and feet. Psychiatry: no anxiety or depression) Exam - Vital Signs Vital signs: Vital Signs Temp Pulse Resp BP Pulse Ox 98.1 F 89 16 234/120 100 05/04/18 10:33 05/04/18 10:33 05/04/18 10:33 05/04/18 10:33 05/04/18 10:33 - Physical Exam Narrative exam: Middle-aged -[place] female lying in bed in no acute distress HEENT: NCAT, pink oral mucous membrane Neck: Supple, no venous distention CVS: S1S2 RRR with no murmur, rub or gallop Chest: Clear to auscultation Abdomen: Protuberant, soft, nontender, no organomegaly, bowel sounds are present Extremities: No edema, no clubbing Skin: warm and dry, no rash Genitourinary deferred. Neuro: Awake, alert no focal deficits Results - Lab Results 05/05/18 04:41 05/05/18 04:41 Most recent lab results Calcium 9.7 mg/dL (8.4-10.2) 05/05/18 04:41 Assessment and Plan - Patient Problems (1) Chronic kidney disease, stage III (moderate) Current Visit: Yes Status: Acute Plan to address problem: Chronic kidney disease presumably secondary to diabetic nephropathy/ hypertensive nephrosclerosis. Kidney function is close to baseline just marginally worse. Get urine studies. Avoid potential nephrotoxins including radiocontrast and NSAIDs. Follow-up electrolytes and renal function. (2) Type 2 diabetes mellitus with diabetic nephropathy Current Visit: Yes Status: Acute Plan to address problem: Blood sugar management by primary attending. (3) Hypertensive chronic kidney disease with stage 1 through stage 4 chronic kidney disease, or unspecified chronic kidney disease Current Visit: Yes Status: Acute Plan to address problem: Blood Pressure was accelerated on presentation but has now improved. Follow blood pressure on current medications (4) Acute sinusitis Current Visit: Yes Status: Acute Plan to address problem: Management by primary attending. (5) Anemia Current Visit: Yes Status: Acute Plan to address problem: Follow-up hemoglobin. Consider anemia workup if hemoglobin decreases further
[2018-05-06] MEDS: AFRIN NS SCH (05:38)
[2018-05-06] MEDS: HumaLOG SUB-Q SCH ×4 (09:05→13:27)
[2018-05-06] MEDS: PERCOCET 5/325 PO PRN ×2 (09:35→13:33)
[2018-05-06] MEDS ORDERED: LEXISCAN IV ONE (10:00)
[2018-05-06 12:42] VITALS: BP 141/80
--- NOTE | 2018-05-06 12:53 | Progress Note ---
Assessment and Plan 1. Type 2 Diabetes Mellitus, poorly controlled Patient needs better blood glucose control, her most recent A1c was > 11 2. Hyperlipidemia, Unspecified on lipitor 3. Essential (primary) hypertension 4. Atherosclerotic Heart Disease Of [place] Coronary Artery s/p PCI to Cx with TED 05/2015 Repeat heart cath 11/2015 showing patent Cx stent with borderline disease in the RCA recommended for medical therapy 5. Chest pain, atypical Normal lexiscan MPI this admission Normal LVEF this admission Small pericardial effusion on echo without tamponade 6. Chronic renal failure Recommendations: No further cardiac work-up is needed We will sign off PLease call back if needed Subjective Date of service: 05/06/18 Principal diagnosis: Chest Pain Interval history: Patient underwent a lexiscan today without complications Objective Vital Signs Temp Pulse Resp BP BP Pulse Ox 05/06/18 12:32 81 18 141/80 98 05/06/18 12:00 98.2 F 05/06/18 10:28 89 136/71 05/06/18 10:27 88 134/72 05/06/18 10:26 90 130/69 05/06/18 10:25 89 130/71 05/06/18 10:24 89 126/67 05/06/18 10:23 87 119/69 05/06/18 10:15 75 147/83 05/06/18 08:00 97.8 F 74 18 105/65 97 05/06/18 05:16 98.2 F 74 18 129/59 97 05/06/18 04:00 82 05/06/18 00:07 98.3 F 78 18 130/67 96 05/05/18 20:57 18 05/05/18 20:00 98.5 F 83 18 123/65 98 05/05/18 16:01 98.0 F 77 20 103/59 97 - Physical Examination General: Appears Well Neck: Positive: neck supple Cardiac: Positive: Reg Rate and Rhythm Lungs: Positive: Normal Exam Abdomen: Positive: Soft Extremities: Absent: edema - Imaging and Cardiology EKG: report reviewed (NSR 81/min)
[2018-05-06] MEDS: PLAVIX PO SCH (13:26)
[2018-05-06] MEDS: PEPCID PO SCH (13:26)
[2018-05-06] MEDS: ZITHROMAX PO SCH (13:27)
[2018-05-06] MEDS: ZESTRIL PO SCH (13:27)
[2018-05-06] MEDS: COREG PO SCH (13:28)
[2018-05-06] MEDS: PROCARDIA XL PO SCH (13:28)
[2018-05-06] MEDS: LASIX PO SCH (13:28)
[2018-05-06] MEDS: DEEP SEA NS SCH ×2 (13:30→13:35)
[2018-05-06] MEDS: K-DUR PO SCH (13:30)
[2018-05-06] MEDS: FLONASE NS SCH (13:31)
[2018-05-06] MEDS: SODIUM CHLORIDE FLUSH SYRINGE 10 ML IV SCH (13:34)
--- NOTE | 2018-05-06 14:50 | Discharge Summary ---
Providers - Providers Date of Admission: 05/04/18 14:22 Attending physician: ANKIT CALLAWAY MD 05/05/18 07:30 Consult to Physician [CONS] Routine Comment: Consulting Provider: ARSLAN BALL Physician Instructions: Reason For Exam: DINA 05/05/18 17:01 Consult to Physician [CONS] Routine Comment: Consulting Provider: AZIZA REECE Physician Instructions: Reason For Exam: ckd Primary care physician: CARDROOM DRAWING RUNNER Hospitalization Condition: Serious Hospital course: 57-year-old female with pmh of HTN HLD IDDM and chf presents to emergency room with chest pain and shortness of breath 1 day. Patient states she's had upper respiratory infection and cough and congestion for 2 weeks and has not seen anybody for it.Has been coughing a lot and feels that it is chest soreness from coughing . Patient states that the sputum is a thick white sputum. She was complaining of postnasal drip which was causing her hacking cough. The postnasal drip she was giving nasal sprays with some improvement. She did have some patchy disease in her lungs, they were not consistent with pneumonia, but post nasal drip associated pneumonitis. She was given antibiotics to cover for possible pneumonitis followed by nasal drip. She had hypertensive urgency. Medications were optimized. Given chest pain and history of CAD she went on to have serial troponins that were negative, she also went on to have a stress test was negative. Creatinine was at baseline, patient was euvolemic, and not in acute heart failure. Chest pain was most likely due to chest wall pain from coughing, she also had pulmonary function tests and a bedside which only showed very mild restriction. Diagnoses post nasal drip Hypertensive urgency: Chest pain due to musculoskeletal pain from coughing CKD, DINA ruled out chronic CHF (congestive heart failure), systolic CHF 45% CAD (coronary artery disease) Hyperlipidemia Type 2 DM Allergic rhinitis/Sinusitis Pneumonitis Disposition: - TO HOME OR SELFCARE Time spent for discharge: 33 minutes Core Measure Documentation - Palliative Care Palliative Care/ Comfort Measures: Not Applicable - Core Measures Any of the following diagnoses?: none Exam - Constitutional Vitals: Temp Pulse Resp BP Pulse Ox 98.2 F 81 18 141/80 98 05/06/18 12:00 05/06/18 12:32 05/06/18 12:32 05/06/18 12:32 05/06/18 12:32 General appearance: Present: no acute distress, well-nourished - EENT Eyes: Present: PERRL ENT: hearing intact, clear oral mucosa - Neck Neck: Present: supple, normal ROM - Respiratory Respiratory effort: normal Respiratory: bilateral: CTA - Cardiovascular Heart Sounds: Present: S1 & S2. Absent: rub, click - Extremities Extremities: pulses symmetrical, No edema Peripheral Pulses: within normal limits - Abdominal General gastrointestinal: Present: soft, non-tender, non-distended, normal bowel sounds Female genitourinary: Present: normal - Integumentary Integumentary: Present: clear, warm, dry - Musculoskeletal Musculoskeletal: gait normal, strength equal bilaterally - Psychiatric Psychiatric: appropriate mood/affect, intact judgment & insight - Neurologic Neurologic: CNII-XII intact, moves all extremities Plan Follow up with: ELAINE RASHEED MD [Referring] - 7 Days PRIMARY CARE, [Primary Care Provider] - 3-5 Days Forms: Work/School Release Form Prescriptions: Azithromycin [Zithromax Z-OPAL] 0 mg PO DAILY #1 pack Carvedilol [Coreg] 25 mg PO BID #60 tablet Fluticasone [Flonase] 200 mcg NS QDAY #1 bottle Loratadine/Pseudoephedrine [Claritin-D 24Hr] 1 tab PO DAILY #30 tablet NIFEdipine XL [Procardia Xl] 60 mg PO QDAY #60 tablet Oxymetazoline 0.05% [Afrin] 2 spray NS Q12H #1 bottle Sodium Chloride 0.65% Nasal [Deep Sea NASAL SPRAY] 1 spray NS QID #1 bottle
--- NOTE | 2018-05-06 23:58 | Treadmill Report ---
INDICATION: Chest pain. ORDERING PHYSICIAN: Dr. Quiroz. FINDINGS: There is no scintigraphic evidence of myocardial ischemia. The left ventricle is normal in size and systolic function. The left ventricular ejection fraction is measured at 61%. There is normal wall motion and wall thickening. CONCLUSION: Normal perfusion scan. JOB# [id number] ESHA/BENNY
== END 2018-05-06 16:35 | disposition home or self-care (01) | DRG 152 ==
LOC: ED 10:33 → 4A 14:22
PROVIDERS: ADMIT Internal Medicine; ATTEND Internal Medicine
DX: J01.90 Acute sinusitis, unspecified (principal); J18.9 Pneumonia, unspecified organism; I50.22 Chronic systolic (congestive) heart failure; I13.0 Hypertensive heart and chronic kidney disease with heart failure and stage 1 through stage 4 chronic kidney disease, or unspecified chronic kidney disease; R09.82 Postnasal drip; I25.10 Atherosclerotic heart disease of native coronary artery without angina pectoris; J40 Bronchitis, not specified as acute or chronic; I16.0 Hypertensive urgency; E11.22 Type 2 diabetes mellitus with diabetic chronic kidney disease; E78.5 Hyperlipidemia, unspecified; J30.9 Allergic rhinitis, unspecified; N18.3 Chronic kidney disease, stage 3 (moderate); E11.21 Type 2 diabetes mellitus with diabetic nephropathy; D64.9 Anemia, unspecified; M19.90 Unspecified osteoarthritis, unspecified site; E11.65 Type 2 diabetes mellitus with hyperglycemia; Z90.710 Acquired absence of both cervix and uterus; Z95.5 Presence of coronary angioplasty implant and graft; Z82.49 Family history of ischemic heart disease and other diseases of the circulatory system; Z83.3 Family history of diabetes mellitus; Z82.3 Family history of stroke; Z79.4 Long term (current) use of insulin; Z79.899 Other long term (current) drug therapy; I25.2 Old myocardial infarction
CPT/HCPCS: 36415; 71046; 71250; 78452; 80053; 82962; 83036; 83880; 84484; 85025; 93005; 93010; 93017; 93306; 94010; 96374; 96375; A9270-GY; A9502; J0360; J1650; J1815; J2405; J2785

== ENCOUNTER 2018-06-18 11:25 | Emergency (ER) | payer OTHER ==
[2018-06-18] MEDS ORDERED: ASPIRIN PO ONE (11:34)
[2018-06-18 11:59] LABS: Basophils % (Auto) 0.5 % (0.0-1.8); Eosinophils # (Auto) 0.1 K/mm3 (0.0-0.4); Eosinophils % (Auto) 1.6 % (0.0-4.3); Hematocrit 36.5 % (30.3-42.9); Hemoglobin 12.3 gm/dl (10.1-14.3); Lymphocytes # (Auto) 0.9 K/mm3 (1.2-5.4); Lymphocytes % (Auto) 22.2 % (13.4-35.0); Mean Corpuscular HGB Conc 34 % (30-34); Mean Corpuscular Hemoglobin 30 pg (28-32); Mean Corpuscular Volume 88 fl (79-97); Monocytes # (Auto) 0.5 K/mm3 (0.0-0.8); Monocytes % (Auto) 12.8 % (0.0-7.3); Platelet Count 263 K/mm3 (140-440); Red Blood Count 4.17 M/mm3 (3.65-5.03); Red Cell Distribution Width 13.2 % (13.2-15.2)
[2018-06-18 12:35] LABS: Bacteria,Urine 1+ /HPF (Negative); Bilirubin,Urine NEG (Negative); Blood,Urine SM (Negative); Color,Urine Yellow (Yellow); Hyaline Casts,Urine 1 /LPF; Mucus,Urine FEW /HPF; Urobilinogen,Urine < 2.0 mg/dL (<2.0)
[2018-06-18 12:36] LABS: Protein,Urine >500 mg/dL (Negative)
[2018-06-18 13:04] LABS: BUN/Creatinine Ratio 12; Blood Urea Nitrogen 18 mg/dL (7-17); Calcium 9.6 mg/dL (8.4-10.2); Hemolysis Index 5
[2018-06-18 14:01] VITALS: BP 169/110
== END 2018-06-18 19:45 | disposition left against medical advice (07) ==
LOC: ED 11:25
DX: R50.9 Fever, unspecified (principal); Z53.21 Procedure and treatment not carried out due to patient leaving prior to being seen by health care provider
CPT/HCPCS: 36415; 80048; 81001; 84484; 85025; 93005; 93010

== ENCOUNTER 2018-07-17 15:27 | Inpatient (IN) | payer OTHER ==
[2018-07-17 19:11] LABS: Basophils # (Auto) 0.1 K/mm3 (0.0-0.1); Eosinophils # (Auto) 0.4 K/mm3 (0.0-0.4); Eosinophils % (Auto) 6.5 % (0.0-4.3); Hematocrit 36.2 % (30.3-42.9); Hemoglobin 12.3 gm/dl (10.1-14.3); Lymphocytes # (Auto) 1.7 K/mm3 (1.2-5.4); Lymphocytes % (Auto) 30.2 % (13.4-35.0); Mean Corpuscular HGB Conc 34 % (30-34); Mean Corpuscular Hemoglobin 30 pg (28-32); Mean Corpuscular Volume 88 fl (79-97); Monocytes # (Auto) 0.4 K/mm3 (0.0-0.8); Monocytes % (Auto) 6.5 % (0.0-7.3); Platelet Count 283 K/mm3 (140-440); Red Cell Distribution Width 13.5 % (13.2-15.2)
[2018-07-17 19:24] LABS: Calcium 9.6 mg/dL (8.4-10.2)
--- NOTE | 2018-07-17 22:59 | Emergency Department Report ---
ED Shortness of Breath HPI - General Chief Complaint: Dyspnea/Respdistress Stated Complaint: SOB/HYPERGLYCEMIA Time Seen by Provider: 07/17/18 22:40 Source: patient Mode of arrival: Ambulatory Limitations: No Limitations - History of Present Illness Initial Comments: Patient is a 57-year-old female presents emergency room with complaints of shortness of breath and dyspnea on exertion and fatigue 24 hours. Patient states that she also got bilateral lower extremity edema that has been going on for about 3 days. Patient has multiple cardiac issues. Patient states her blood sugar is running high. Patient states that the shortness of breath is worse with exertion and better with rest. Patient states that her fatigue is worsening. Patient denies chest pain or chest pressure. Patient denies abdominal pain. MD Complaint: shortness of breath -: Sudden Severity: severe Consistency: constant Improves With: rest Worsens With: lying flat, exertion Known History Of: congestive heart failure, diabetes Associated Symptoms: lower abdominal swelling, palpitations Treatments Prior to Arrival: none - Related Data Home Oxygen Therapy: No Home Medications Medication Instructions Recorded Confirmed Last Taken Insulin Aspart [NovoLOG Flexpen] 0 units SQ AC 05/04/18 05/04/18 Unknown Insulin Degludec/Liraglutide 3 ml SQ QDAY 05/04/18 05/04/18 Unknown [Xultophy 100 Unit-3.6MG/ml Pen] Previous Rx's Medication Instructions Recorded Last Taken Type Lisinopril [Zestril TAB] 40 mg PO QDAY #14 tablet 10/10/17 Unknown Rx cloNIDine [Catapres] 0.2 mg PO QHS #14 tablet 10/10/17 Unknown Rx AtorvaSTATin [Lipitor] 40 mg PO QHS #30 tablet 01/29/18 Unknown Rx Clopidogrel [Plavix] 75 mg PO QDAY #30 tablet 01/29/18 Unknown Rx Lispro Insulin [Humalog] 4 unit SUB-Q ACHS #300 units 01/29/18 Unknown Rx NIFEdipine XL [Procardia Xl] 60 mg PO QDAY #30 tablet 01/29/18 Unknown Rx Furosemide [Lasix TAB] 20 mg PO QDAY #10 tablet 02/06/18 Unknown Rx Potassium Chloride [K-Dur] 10 meq PO QDAY #10 tablet 02/06/18 Unknown Rx Azithromycin [Zithromax Z-OPAL] 0 mg PO DAILY #1 pack 05/06/18 Unknown Rx Carvedilol [Coreg] 25 mg PO BID #60 tablet 05/06/18 Unknown Rx Fluticasone [Flonase] 200 mcg NS QDAY #1 bottle 05/06/18 Unknown Rx Loratadine/Pseudoephedrine 1 tab PO DAILY #30 tablet 05/06/18 Unknown Rx [Claritin-D 24Hr] NIFEdipine XL [Procardia Xl] 60 mg PO QDAY #60 tablet 05/06/18 Unknown Rx Oxymetazoline 0.05% [Afrin] 2 spray NS Q12H #1 bottle 05/06/18 Unknown Rx Sodium Chloride 0.65% Nasal [Deep 1 spray NS QID #1 bottle 05/06/18 Unknown Rx Sea NASAL SPRAY] Allergies Allergy/AdvReac Type Severity Reaction Status Date / Time levofloxacin [From Levaquin] Allergy Angioedema Verified 05/04/18 10:33 ED Review of Systems ROS: Stated complaint: SOB/HYPERGLYCEMIA Other details as noted in HPI Constitutional: malaise. denies: chills, fever Eyes: denies: eye pain, eye discharge, vision change ENT: denies: ear pain, throat pain Respiratory: shortness of breath, SOB with exertion. denies: cough, wheezing Cardiovascular: denies: chest pain, palpitations Endocrine: no symptoms reported Gastrointestinal: denies: abdominal pain, nausea, diarrhea Genitourinary: denies: urgency, dysuria, discharge Musculoskeletal: denies: back pain, joint swelling, arthralgia Skin: denies: rash, lesions Neurological: denies: headache, weakness, paresthesias Psychiatric: denies: anxiety, depression Hematological/Lymphatic: denies: easy bleeding, easy bruising ED Past Medical Hx - Past Medical History Previous Medical History?: Yes Hx Hypertension: Yes Hx Heart Attack/AMI: Yes Hx Congestive Heart Failure: Yes Hx Diabetes: Yes Hx Deep Vein Thrombosis: No Hx Renal Disease: Yes Hx Arthritis: Yes Hx Asthma: No Hx COPD: No Additional medical history: high cholesterol. CAD. 2 Stents 05/2015 here - Surgical History Past Surgical History?: Yes Hx Coronary Stent: Yes Additional Surgical History: Hysterectomy. RIGHT KNEE SURGERY - Family History Family history: no significant - Social History Smoking Status: Never Smoker Substance Use Type: None - Medications Home Medications: Home Medications Medication Instructions Recorded Confirmed Last Taken Type Lisinopril [Zestril TAB] 40 mg PO QDAY #14 tablet 10/10/17 05/04/18 Unknown Rx cloNIDine [Catapres] 0.2 mg PO QHS #14 tablet 10/10/17 05/04/18 Unknown Rx AtorvaSTATin [Lipitor] 40 mg PO QHS #30 tablet 01/29/18 05/04/18 Unknown Rx Clopidogrel [Plavix] 75 mg PO QDAY #30 tablet 01/29/18 05/04/18 Unknown Rx Lispro Insulin [Humalog] 4 unit SUB-Q ACHS #300 units 01/29/18 05/04/18 Unknown Rx NIFEdipine XL [Procardia Xl] 60 mg PO QDAY #30 tablet 01/29/18 05/04/18 Unknown Rx Furosemide [Lasix TAB] 20 mg PO QDAY #10 tablet 02/06/18 05/04/18 Unknown Rx Potassium Chloride [K-Dur] 10 meq PO QDAY #10 tablet 02/06/18 05/04/18 Unknown Rx Insulin Aspart [NovoLOG Flexpen] 0 units SQ AC 05/04/18 05/04/18 Unknown History Insulin Degludec/Liraglutide 3 ml SQ QDAY 05/04/18 05/04/18 Unknown History [Xultophy 100 Unit-3.6MG/ml Pen] Azithromycin [Zithromax Z-OPAL] 0 mg PO DAILY #1 pack 05/06/18 Unknown Rx Carvedilol [Coreg] 25 mg PO BID #60 tablet 05/06/18 Unknown Rx Fluticasone [Flonase] 200 mcg NS QDAY #1 bottle 05/06/18 Unknown Rx Loratadine/Pseudoephedrine 1 tab PO DAILY #30 tablet 05/06/18 Unknown Rx [Claritin-D 24Hr] NIFEdipine XL [Procardia Xl] 60 mg PO QDAY #60 tablet 05/06/18 Unknown Rx Oxymetazoline 0.05% [Afrin] 2 spray NS Q12H #1 bottle 05/06/18 Unknown Rx Sodium Chloride 0.65% Nasal [Deep 1 spray NS QID #1 bottle 05/06/18 Unknown Rx Sea NASAL SPRAY] ED Physical Exam - General Limitations: No Limitations General appearance: alert, in no apparent distress - Head Head exam: Present: atraumatic, normocephalic - Eye Eye exam: Present: normal appearance - ENT ENT exam: Present: mucous membranes moist - Neck Neck exam: Present: normal inspection - Respiratory Respiratory exam: Present: rales, decreased breath sounds - Cardiovascular Cardiovascular Exam: Present: regular rate, normal rhythm. Absent: systolic murmur, diastolic murmur, rubs, gallop - GI/Abdominal GI/Abdominal exam: Present: soft, normal bowel sounds - Extremities Exam Extremities exam: Present: pedal edema. Absent: tenderness - Back Exam Back exam: Present: normal inspection - Neurological Exam Neurological exam: Present: alert, oriented X3 - Psychiatric Psychiatric exam: Present: normal affect, normal mood - Skin Skin exam: Present: warm, dry, intact, normal color. Absent: rash ED Course Vital Signs 07/17/18 07/17/18 07/17/18 15:42 22:55 23:00 Temperature 99.5 F Pulse Rate 95 H 86 Respiratory 18 17 Rate Blood Pressure 184/100 185/125 O2 Sat by Pulse 97 99 96 Oximetry 07/17/18 07/17/18 07/17/18 23:15 23:30 23:45 Temperature Pulse Rate 85 86 88 Respiratory 15 14 19 Rate Blood Pressure 146/105 209/110 199/108 O2 Sat by Pulse 99 95 96 Oximetry 07/18/18 07/18/18 07/18/18 00:01 00:15 00:28 Temperature Pulse Rate 86 85 70 Respiratory 15 13 Rate Blood Pressure 199/108 220/119 220/110 O2 Sat by Pulse 98 96 Oximetry - Reevaluation(s) Reevaluation #1: Patient's blood pressure is elevated. We'll give patient hydralazine 10 mg and Lasix due to the fact that the patient's lung sound wet. Patient appears to be volume overload and a CHF exacerbation. Discuss results with the patient. Discussed wound care measures with patient. Patient agrees to admission. 07/18/18 00:22 Patient's current blood pressure is 180/101. We'll continue to monitor blood pressure. Patient admitted to the hospital for further evaluation and treatment. 07/18/18 01:57 - Consultations Consultation #1: Hospitalist was consulted for admission. Hospitalist to admit and assume care of patient. Full report given to Dr. Chandra 07/18/18 00:46 ED Medical Decision Making - Lab Data Result diagrams: 07/17/18 18:58 07/17/18 18:58 - EKG Data -: EKG Interpreted by Me EKG shows normal: sinus rhythm, axis, intervals, QRS complexes, ST-T waves Rate: normal - Radiology Data Radiology results: image reviewed interpreted by me: nl cxr. FINAL REPORT EXAM: XR CHEST 1V AP HISTORY: sob. TECHNIQUE: AP portable view of the chest. PRIORS: None. FINDINGS: The cardiac silhouette is moderately enlarged without change. Pulmonary vascularity appears normal. The lungs are clear. The bones and soft tissues are unremarkable. IMPRESSION: Stable [id number] cardiomegaly Transcribed By: MLG Dictated By: JEFF POSADA MD Electronically Authenticated By: JEFF POSADA MD Signed Date/Time: 07/18/18 005 - Medical Decision Making She is a 57-year-old female presents to emergency room with shortness of breath and lower extremity edema. Patient has complained of dyspnea on exertion and fatigue. Patient's blood pressure was found to be normal upon arrival and admission into the ER but elevated up to 220/110. Patient was treated with hydralazine and Lasix. On exam patient was found to have crackles in bilateral lung payne and decreased breath sounds. Chest x-ray was normal. Patient will be admitted to the hospitalist service for further evaluation/treatment. - Differential Diagnosis sob. chf. volume overload. acs. ckd. Critical care attestation.: If time is entered above; I have spent that time in minutes in the direct care of this critically ill patient, excluding procedure time. ED Disposition Clinical Impression: Hyperglycemia, Hypertensive emergency, Chronic kidney disease, stage III ( moderate), SOB (shortness of breath), DHILLON (dyspnea on exertion) Hypertension Qualifiers: Hypertension type: essential hypertension Qualified Code(s): I10 - Essential ( primary) hypertension CHF (congestive heart failure) Qualifiers: Heart failure type: unspecified Heart failure chronicity: acute Qualified Code( s): I50.9 - Heart failure, unspecified CAD (coronary artery disease) Qualifiers: Coronary Disease-Associated Artery/Lesion type: unspecified vessel or lesion type [place] vs. transplanted heart: craig heart Associated angina: without angina Qualified Code(s): I25.10 - Atherosclerotic heart disease of craig coronary artery without angina pectoris Disposition: OP ADMIT IP TO THIS HOSP Is pt being admited?: Yes Does the pt Need Aspirin: No Condition: Serious Time of Disposition: 00:49
[2018-07-17 23:53] LABS: Creatine Kinase MB 2.1 ng/mL (0.0-4.0)
[2018-07-18] MEDS ORDERED: APRESOLINE IV ONE (00:20)
[2018-07-18] MEDS ORDERED: LASIX IV ONE (00:21)
--- NOTE | 2018-07-18 00:58 | XRay Report ---
FINAL REPORT EXAM: XR CHEST 1V AP HISTORY: sob. TECHNIQUE: AP portable view of the chest. PRIORS: None. FINDINGS: The cardiac silhouette is moderately enlarged without change. Pulmonary vascularity appears normal. The lungs are clear. The bones and soft tissues are unremarkable. IMPRESSION: Stable [id number] cardiomegaly
[2018-07-18 01:48] LABS: Bacteria,Urine 1+ /HPF (Negative); Bilirubin,Urine NEG (Negative); Blood,Urine NEG (Negative); Color,Urine Yellow (Yellow); Urobilinogen,Urine < 2.0 mg/dL (<2.0)
[2018-07-18 01:51] LABS: Protein,Urine >500 mg/dL (Negative)
--- NOTE | 2018-07-18 02:05 | History and Physical Report ---
History of Present Illness Date of examination: 07/18/18 Date of admission: 07/18/18 01:22 History of present illness: 57-year-old woman with a history of hypertension, diabetes, coronary artery disease, CHF, hyperlipidemia comes to the emergency room but complains of shortness of breath, swelling in her feet, orthopnea, dyspnea on exertion, no PND. Also complaining of chest pain in the epigastric area which she describes a pressure-like sensation, intermittent every 20 minutes, intensity 5/10, no radiation, cannot identify exacerbating or relieving factor. She had a stress test one month ago Review of systems Constitutional: no weight loss, chills, fever Ears, eyes, nose, mouth and throat: no nasal congestion, no nasal discharge, no sinus pressure, no vision change, no red eye. Neck: No neck pain or rigidity. Cardiovascular: no , palpitations, diaphoresis Respiratory: no cough Gastrointestinal: no abdominal pain hematochezia Genitourinary : no frequency , no hematuria Musculoskeletal: no joint swelling or muscle ache Integumentary: no rash, no pruritis Neurological: no parathesias, no numbness, no focal weakness Endocrine: no cold or heat intolerance, no polyuria or polydipsia Hematologic/Lymphatic: no easy bruising, no easy bleeding, no gland swelling Allergic/Immunologic: no urticaria, no angioedema. PAST MEDICAL HISTORY: hypertension, diabetes, coronary artery disease, CHF, hyperlipidemia PAST SURGICAL HISTORY: Hysterectomy, right knee SOCIAL HISTORY: No alcohol, no drugs, tobacco FAMILY HISTORY: Hypertension Medications and Allergies Allergies Allergy/AdvReac Type Severity Reaction Status Date / Time levofloxacin [From Levaquin] Allergy Angioedema Verified 05/04/18 10:33 Home Medications Medication Instructions Recorded Confirmed Last Taken Type Lisinopril [Zestril TAB] 40 mg PO QDAY #14 tablet 10/10/17 05/04/18 Unknown Rx cloNIDine [Catapres] 0.2 mg PO QHS #14 tablet 10/10/17 05/04/18 Unknown Rx AtorvaSTATin [Lipitor] 40 mg PO QHS #30 tablet 01/29/18 05/04/18 Unknown Rx Clopidogrel [Plavix] 75 mg PO QDAY #30 tablet 01/29/18 05/04/18 Unknown Rx Lispro Insulin [Humalog] 4 unit SUB-Q ACHS #300 units 01/29/18 05/04/18 Unknown Rx NIFEdipine XL [Procardia Xl] 60 mg PO QDAY #30 tablet 01/29/18 05/04/18 Unknown Rx Furosemide [Lasix TAB] 20 mg PO QDAY #10 tablet 02/06/18 05/04/18 Unknown Rx Potassium Chloride [K-Dur] 10 meq PO QDAY #10 tablet 02/06/18 05/04/18 Unknown Rx Insulin Aspart [NovoLOG Flexpen] 0 units SQ AC 05/04/18 05/04/18 Unknown History Insulin Degludec/Liraglutide 3 ml SQ QDAY 05/04/18 05/04/18 Unknown History [Xultophy 100 Unit-3.6MG/ml Pen] Azithromycin [Zithromax Z-OPAL] 0 mg PO DAILY #1 pack 05/06/18 Unknown Rx Carvedilol [Coreg] 25 mg PO BID #60 tablet 05/06/18 Unknown Rx Fluticasone [Flonase] 200 mcg NS QDAY #1 bottle 05/06/18 Unknown Rx Loratadine/Pseudoephedrine 1 tab PO DAILY #30 tablet 05/06/18 Unknown Rx [Claritin-D 24Hr] NIFEdipine XL [Procardia Xl] 60 mg PO QDAY #60 tablet 05/06/18 Unknown Rx Oxymetazoline 0.05% [Afrin] 2 spray NS Q12H #1 bottle 05/06/18 Unknown Rx Sodium Chloride 0.65% Nasal [Deep 1 spray NS QID #1 bottle 05/06/18 Unknown Rx Sea NASAL SPRAY] Active Meds: Active Medications Enoxaparin Sodium (Lovenox) 40 mg SUB-Q QDAY ROEL Exam - Physical Exam Narrative exam: Gen. appearance: Patient lying in bed, no apparent distress HEENT: Normocephalic, atraumatic, pupils equally round and reactive to light, extraocular movement intact, and no sclericterus,. No JVD or thyromegaly or nodule,neck supple, no carotid bruit ,mucous membranes moist, no exudate or erythema Heart: S1, S2, regular rate and rhythm Lungs: Crackles bilaterally, breathing comfortable Abdomen: Positive bowel sounds, non-tender, nondistended, no organomegaly Extremity:+edema no cyanosis, clubbing Skin: no rash, dry, warm Neuro: Oriented 3, cranial nerves II-12 intact, speech is fluent, motor and sensory intact - Constitutional Vitals: Temp Pulse Resp BP Pulse Ox 99.5 F 70 13 220/110 96 07/17/18 15:42 07/18/18 00:28 07/18/18 00:15 07/18/18 00:28 07/18/18 00:15 Results - Labs CBC & Chem 7: 07/17/18 18:58 07/17/18 18:58 Labs: Abnormal lab results 07/17/18 07/17/18 07/17/18 Range/Units 01:09 15:34 18:58 Eos % (Auto) 6.5 H (0.0-4.3) % BUN (7-17) mg/dL Creatinine (0.7-1.2) mg/dL Glucose (65-100) mg/dL POC Glucose 283 H (70-105) Urine WBC (Auto) 22.0 H (0.0-6.0) /HPF U Epithel Cells (Auto) 14.0 H (0-13.0) /HPF 07/17/18 Range/Units 18:58 Eos % (Auto) (0.0-4.3) % BUN 18 H (7-17) mg/dL Creatinine 1.5 H (0.7-1.2) mg/dL Glucose 350 H (65-100) mg/dL POC Glucose (70-105) Urine WBC (Auto) (0.0-6.0) /HPF U Epithel Cells (Auto) (0-13.0) /HPF - Imaging and Cardiology EKG: image reviewed Chest x-ray: image reviewed Assessment and Plan Assessment CHF exacerbation, diastolic dysfunction acute on chronic Unstable angina hypertension diabetes coronary artery disease hyperlipidemia Plan Admit to medicine Diurese with IV Lasix Monitor I's and O's, daily weights Check cardiac enzymes, echo Consult cardiology Continue beta erik, aspirin, QUENTIN inhibitor Check fingersticks and initiate insulin sliding scale VT prophylaxis
[2018-07-18] MEDS ORDERED: SODIUM CHLORIDE FLUSH SYRINGE 10 ML IV PRN (03:47)
[2018-07-18] MEDS ORDERED: D50W (25GM) Syringe IV PRN ×2 (03:47→05:52)
[2018-07-18] MEDS ORDERED: ZOFRAN IV PRN (03:47)
[2018-07-18] MEDS: TYLENOL PO PRN ×2 (05:53→11:55)
[2018-07-18] MEDS: LASIX IV SCH ×2 (05:53→18:42)
[2018-07-18 06:59] LABS: Creatine Kinase MB 1.7 ng/mL (0.0-4.0)
[2018-07-18] MEDS ORDERED: APRESOLINE IV PRN (08:37)
[2018-07-18] MEDS: HumaLOG SUB-Q SCH ×4 (08:44→22:38)
[2018-07-18] MEDS: LOVENOX SUB-Q SCH (09:30)
[2018-07-18] MEDS: COREG PO SCH ×2 (09:31→22:38)
[2018-07-18] MEDS: PLAVIX PO SCH (09:31)
[2018-07-18] MEDS: ZESTRIL PO SCH (09:31)
[2018-07-18] MEDS: SODIUM CHLORIDE FLUSH SYRINGE 10 ML IV SCH ×2 (09:32→22:55)
[2018-07-18 10:44] LABS: Creatine Kinase MB 1.9 ng/mL (0.0-4.0)
--- NOTE | 2018-07-18 11:22 | Consultation ---
History of Present Illness Consult date: 07/18/18 Consult reason: shortness of breath History of present illness: 57 year old female presenting with fluid retention, uncontrolled hypertension and shortness of breath with exertion. She also has a history of uncontrolled DM. She reports compliance with medical therapy. She takes coreg, lisinopril and once a day clonidine at home. ECG showing no ischemic changes and troponin is negative x 3. Past History Past Medical History: CAD, diabetes, hypertension, hyperlipidemia, renal failure Past Surgical History: hysterectomy, Other (knee surgery) Social history: no significant social history Family history: diabetes, hypertension Medications and Allergies Allergies Allergy/AdvReac Type Severity Reaction Status Date / Time levofloxacin [From Levaquin] Allergy Angioedema Verified 05/04/18 10:33 Home Medications Medication Instructions Recorded Confirmed Last Taken Type Lisinopril [Zestril TAB] 40 mg PO QDAY #14 tablet 10/10/17 07/18/18 Unknown Rx cloNIDine [Catapres] 0.2 mg PO QHS #14 tablet 10/10/17 07/18/18 Unknown Rx AtorvaSTATin [Lipitor] 40 mg PO QHS #30 tablet 01/29/18 07/18/18 Unknown Rx Clopidogrel [Plavix] 75 mg PO QDAY #30 tablet 01/29/18 07/18/18 Unknown Rx Furosemide [Lasix TAB] 20 mg PO QDAY #10 tablet 02/06/18 07/18/18 Unknown Rx Potassium Chloride [K-Dur] 10 meq PO QDAY #10 tablet 02/06/18 07/18/18 Unknown Rx Carvedilol [Coreg] 25 mg PO BID #60 tablet 05/06/18 07/18/18 Unknown Rx Fluticasone [Flonase] 200 mcg NS QDAY #1 bottle 05/06/18 07/18/18 Unknown Rx NIFEdipine XL [Procardia Xl] 60 mg PO QDAY #60 tablet 05/06/18 07/18/18 Unknown Rx Oxymetazoline 0.05% [Afrin] 2 spray NS Q12H #1 bottle 05/06/18 07/18/18 Unknown Rx Sodium Chloride 0.65% Nasal [Deep 1 spray NS QID #1 bottle 05/06/18 07/18/18 Unknown Rx Sea NASAL SPRAY] Insulin Glargine/Lixisenatide 3 ml SQ BID 07/18/18 07/18/18 Unknown History [Soliqua 100 Unit-33 Mcg/ml Pen] Active Meds: Active Medications Acetaminophen (Tylenol) 650 mg PO Q4H PRN PRN Reason: Pain MILD(1-3)/Fever >100.5/CARVAJAL Last Admin: 07/18/18 05:53 Dose: 650 mg Atorvastatin Calcium (Lipitor) 40 mg PO QHS [facility] Carvedilol (Coreg) 25 mg PO BID [facility] Last Admin: 07/18/18 09:31 Dose: 25 mg Clopidogrel Bisulfate (Plavix) 75 mg PO QDAY [facility] Last Admin: 07/18/18 09:31 Dose: 75 mg Dextrose (D50w (25gm) Syringe) 50 ml IV PRN PRN PRN Reason: Hypoglycemia Dextrose (D50w (25gm) Syringe) 50 ml IV PRN PRN PRN Reason: Hypoglycemia Enoxaparin Sodium (Lovenox) 40 mg SUB-Q QDAY [facility] Last Admin: 07/18/18 09:30 Dose: 40 mg Furosemide (Lasix) 40 mg IV BID@0600,1800 [facility] Last Admin: 07/18/18 05:53 Dose: 40 mg Hydralazine HCl (Apresoline) 10 mg IV Q4HR PRN PRN Reason: Hypertension Insulin Human Lispro (Humalog) 0 unit SUB-Q [facility]; Protocol Last Admin: 07/18/18 08:44 Dose: 8 unit Lisinopril (Zestril) 40 mg PO QDAY [facility] Last Admin: 07/18/18 09:31 Dose: 40 mg Ondansetron HCl (Zofran) 4 mg IV Q8H PRN PRN Reason: Nausea And Vomiting Sodium Chloride (Sodium Chloride Flush Syringe 10 Ml) 10 ml IV BID [facility] Last Admin: 07/18/18 09:32 Dose: 10 ml Sodium Chloride (Sodium Chloride Flush Syringe 10 Ml) 10 ml IV PRN PRN PRN Reason: LINE FLUSH Review of Systems All systems: negative Physical Examination Vital Signs Temp Pulse Resp BP Pulse Ox 99.5 F 95 H 18 184/100 97 07/17/18 15:42 07/17/18 15:42 07/17/18 15:42 07/17/18 15:42 07/17/18 15:42 General appearance: no acute distress HEENT: Positive: PERRL Neck: Positive: neck supple Cardiac: Positive: Reg Rate and Rhythm Lungs: Positive: Normal Exam Neuro: Positive: Grossly Intact Abdomen: Positive: Soft Extremities: Present: normal. Absent: edema Results 07/17/18 18:58 07/17/18 18:58 Cardiac Enzymes 07/17/18 07/18/18 07/18/18 Range/Units 22:58 04:59 10:08 CK-MB (CK-2) 2.1 1.7 1.9 (0.0-4.0) ng/mL CBC 07/17/18 Range/Units 18:58 WBC 5.8 (4.5-11.0) K/mm3 RBC 4.10 (3.65-5.03) M/mm3 Hgb 12.3 (10.1-14.3) gm/dl Hct 36.2 (30.3-42.9) % Plt Count 283 (140-440) K/mm3 Lymph # 1.7 (1.2-5.4) K/mm3 [facility] # 0.4 (0.0-0.8) K/mm3 Eos # 0.4 (0.0-0.4) K/mm3 Baso # 0.1 (0.0-0.1) K/mm3 Comprehensive Metabolic Panel 07/17/18 Range/Units 18:58 Sodium 142 (137-145) mmol/L Potassium 4.3 (3.6-5.0) mmol/L Chloride 102.9 (98-107) mmol/L Carbon Dioxide 27 (22-30) mmol/L BUN 18 H (7-17) mg/dL Creatinine 1.5 H (0.7-1.2) mg/dL Glucose 350 H (65-100) mg/dL Calcium 9.6 (8.4-10.2) mg/dL - EKG Interpretation EKG: sinus rhythm EKG interpretations - Telemetry EKG Rhythm: Sinus Rhythm Assessment and Plan 1. Type 2 Diabetes Mellitus, poorly controlled Patient needs better blood glucose control 2. Hyperlipidemia, Unspecified on lipitor 3. Essential (primary) hypertension - uncontrolled 4. 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 Shortness of breath with exertion Normal lexiscan MPI 04/2018 Normal LVEF 04/2018 Small pericardial effusion on echo without tamponade 04/2018 ECG this admission - no ECG changes Troponin negative x 3 6. Chronic renal failure Cr 1.5 this admission 7. Edema Recommendations: Shortness of breath most likely secondary to hypertensive urgency Add hydralazine for blood pressure control Resume clonidine 0.2 mg po at bedtime Gentle IV diuresis Limited echo to evaluate pericardial effusion
[2018-07-18] MEDS ORDERED: MORPHINE IV ONE (12:59)
[2018-07-18] MEDS: APRESOLINE PO SCH ×2 (14:00→22:39)
[2018-07-18 17:56] LABS: Bacteria,Urine 1+ /HPF (Negative); Bilirubin,Urine NEG (Negative); Blood,Urine NEG (Negative); Color,Urine Yellow (Yellow); Hyaline Casts,Urine 3 /LPF; Mucus,Urine FEW /HPF; Urobilinogen,Urine < 2.0 mg/dL (<2.0)
--- NOTE | 2018-07-18 18:04 | Event Note ---
Date: 07/18/18 Patient seen and examined, remains stable. although continues to complain of pain in the leg, reports chronically elevated Blood glucose in the 300 range at home. Risk factors discussed in detail about associated poor BG control
[2018-07-18] MEDS ORDERED: CATAPRES PO SCH (22:00)
[2018-07-18] MEDS ORDERED: LANTUS SUB-Q SCH (22:00)
[2018-07-19 04:38] LABS: Basophils % (Auto) 0.7 % (0.0-1.8); Eosinophils # (Auto) 0.3 K/mm3 (0.0-0.4); Eosinophils % (Auto) 7.3 % (0.0-4.3); Hematocrit 32.3 % (30.3-42.9); Hemoglobin 11.5 gm/dl (10.1-14.3); Lymphocytes # (Auto) 1.3 K/mm3 (1.2-5.4); Lymphocytes % (Auto) 30.4 % (13.4-35.0); Mean Corpuscular HGB Conc 36 % (30-34); Mean Corpuscular Hemoglobin 31 pg (28-32); Mean Corpuscular Volume 87 fl (79-97); Monocytes # (Auto) 0.3 K/mm3 (0.0-0.8); Monocytes % (Auto) 8.1 % (0.0-7.3); Platelet Count 281 K/mm3 (140-440); Red Cell Distribution Width 13.6 % (13.2-15.2)
[2018-07-19 05:06] LABS: Calcium 9.3 mg/dL (8.4-10.2)
[2018-07-19] MEDS: LASIX IV SCH (06:46)
[2018-07-19] MEDS: APRESOLINE PO SCH (06:46)
[2018-07-19] MEDS: HumaLOG SUB-Q SCH ×2 (08:24→13:14)
--- NOTE | 2018-07-19 09:23 | Discharge Summary ---
Providers - Providers Date of Admission: 07/18/18 01:22 Attending physician: MEG DAVIS MD 07/18/18 03:47 Consult to Physician [CONS] Routine Comment: Consulting Provider: CANDIDA MEMBRENO Physician Instructions: Reason For Exam: chf, cp Primary care physician: LEOBARDO CARDONA MD Hospitalization Condition: Serious Hospital course: [facility] CARDIOLOGY Disposition: DC-01 TO HOME OR SELFCARE Time spent for discharge: 35 MINS Exam - Constitutional Vitals: Temp Pulse Resp BP Pulse Ox 97.9 F 75 18 107/68 100 07/19/18 08:08 07/19/18 08:08 07/19/18 08:08 07/19/18 08:08 07/19/18 08:08 Plan Activity: advance as tolerated, fall precautions Diet: low salt Special Instructions: record daily BP diary Follow up with: LEOBARDO CARDONA MD [Primary Care Provider] - 3-5 Days CHARLI PAYNE DO [Staff Physician] - 7 Days HAIDER MARI MD [Staff Physician] - 7 Days Prescriptions: hydrALAZINE [Apresoline TAB] 50 mg PO Q8HR #90 tablet Insulin Glargine/Lixisenatide [Soliqua 100 Unit-33 Mcg/ml Pen] 3 ml SQ BID 30 Days insuln.pen traMADol [Ultram] 50 mg PO Q6HR PRN #14 tablet PRN Reason: Pain
--- NOTE | 2018-07-19 09:25 | Progress Note ---
Assessment and Plan 1. Type 2 Diabetes Mellitus, poorly controlled Patient needs better blood glucose control 2. Hyperlipidemia, Unspecified on lipitor 3. Essential (primary) hypertension - uncontrolled 4. Atherosclerotic Heart Disease Of [place] Coronary Artery s/p PCI to Cx with TED 05/2015 Repeat heart cath 11/2015 showing patent Cx stent with borderline disease in the RCA recommended for medical therapy 5. Shortness of breath with exertion Normal lexiscan MPI 04/2018 Normal LVEF 04/2018 Small pericardial effusion on echo without tamponade 04/2018 ECG this admission - no ECG changes Troponin negative x 3 6. Chronic renal failure Cr 1.5 this admission 7. Edema Recommendations: BP is better controlled Instructed patient not to take hydralazine if SBP less than or equal to 110 Follow-up with me in clinic in 1 week Subjective Date of service: 07/19/18 Principal diagnosis: Chest pain Interval history: Patient is doing well She denies chest pain or shortness of breath No events on tele Objective Vital Signs Temp Pulse Resp Resp BP Pulse Ox 07/19/18 08:08 97.9 F 75 18 107/68 100 07/19/18 06:46 76 95/56 07/19/18 04:42 97.5 F L 76 20 95/56 96 07/19/18 00:01 97.9 F 86 20 133/73 91 07/18/18 22:39 90 145/69 07/18/18 22:38 90 145/69 07/18/18 22:35 18 98 07/18/18 22:00 90 07/18/18 19:49 98.4 F 90 18 145/69 98 07/18/18 16:31 98.0 F 86 20 129/84 96 07/18/18 14:00 89 20 149/93 07/18/18 13:33 98 07/18/18 11:55 20 07/18/18 11:22 98.2 F 89 18 149/93 98 07/18/18 10:00 102 H 20 20 98 07/18/18 09:31 83 194/103 - Physical Examination HEENT: Positive: PERRL Neck: Positive: neck supple Cardiac: Positive: Reg Rate and Rhythm Lungs: Positive: Normal Exam Neuro: Positive: Grossly Intact Abdomen: Positive: Soft Extremities: Present: normal. Absent: edema - Labs and Meds Cardiac Enzymes 07/18/18 Range/Units 10:08 CK-MB (CK-2) 1.9 (0.0-4.0) ng/mL CBC 07/19/18 Range/Units 03:33 WBC 4.2 L (4.5-11.0) K/mm3 RBC 3.70 (3.65-5.03) M/mm3 Hgb 11.5 (10.1-14.3) gm/dl Hct 32.3 (30.3-42.9) % Plt Count 281 (140-440) K/mm3 Lymph # 1.3 (1.2-5.4) K/mm3 [place] # 0.3 (0.0-0.8) K/mm3 Eos # 0.3 (0.0-0.4) K/mm3 Baso # 0.0 (0.0-0.1) K/mm3 Comprehensive Metabolic Panel 07/19/18 Range/Units 03:33 Sodium 144 (137-145) mmol/L Potassium 4.0 (3.6-5.0) mmol/L Chloride 102.2 (98-107) mmol/L Carbon Dioxide 30 (22-30) mmol/L BUN 26 H (7-17) mg/dL Creatinine 1.8 H (0.7-1.2) mg/dL Glucose 199 H (65-100) mg/dL Calcium 9.3 (8.4-10.2) mg/dL - Imaging and Cardiology EKG: image reviewed
[2018-07-19] MEDS: PLAVIX PO SCH (09:47)
[2018-07-19] MEDS: LOVENOX SUB-Q SCH (09:47)
[2018-07-19] MEDS: COREG PO SCH (09:49)
[2018-07-19 09:50] VITALS: BP 127/79
[2018-07-19] MEDS: ZESTRIL PO SCH (09:50)
[2018-07-19] MEDS: SODIUM CHLORIDE FLUSH SYRINGE 10 ML IV SCH (09:50)
== END 2018-07-19 15:55 | disposition home or self-care (01) | DRG 291 ==
LOC: ED 15:27 → 4A 07-18 01:22
PROVIDERS: ADMIT Internal Medicine; ATTEND Internal Medicine
DX: I13.0 Hypertensive heart and chronic kidney disease with heart failure and stage 1 through stage 4 chronic kidney disease, or unspecified chronic kidney disease (principal); I50.33 Acute on chronic diastolic (congestive) heart failure; I16.1 Hypertensive emergency; I25.110 Atherosclerotic heart disease of native coronary artery with unstable angina pectoris; E78.5 Hyperlipidemia, unspecified; E11.65 Type 2 diabetes mellitus with hyperglycemia; E11.22 Type 2 diabetes mellitus with diabetic chronic kidney disease; R60.9 Edema, unspecified; M19.90 Unspecified osteoarthritis, unspecified site; N18.3 Chronic kidney disease, stage 3 (moderate); Z95.5 Presence of coronary angioplasty implant and graft; Z90.710 Acquired absence of both cervix and uterus; Z83.3 Family history of diabetes mellitus; Z82.49 Family history of ischemic heart disease and other diseases of the circulatory system; Z88.1 Allergy status to other antibiotic agents; Z79.899 Other long term (current) drug therapy; Z79.4 Long term (current) use of insulin; I25.2 Old myocardial infarction
CPT/HCPCS: 36415; 71045; 80048; 81001; 82550; 82553; 82805; 82962; 83880; 84484; 85025; 85379; 87116; 93005; 93010; 96374; 96375; A9270-GY; J0360; J1650; J1815; J1940; J2270

== ENCOUNTER 2019-07-13 17:33 | Emergency (ER) | payer SELFPAY ==
--- NOTE | 2019-07-13 17:51 | Event Note ---
ED Screening Note ED Screening Note: SOB chest tightness since yesterday worse with exertion PMHx CHF -on lasix, CKD, HTN, DM cardiac stents This initial assessment/diagnostic orders/clinical plan/treatment(s) is/are subject to change based on patients health status, clinical progression and re- assessment by fellow clinical providers in the ED. Further treatment and workup at subsequent clinical providers discretion. Patient/guardian urged not to elope from the ED as their condition may be serious if not clinically assessed and ma nagmaryellen. Initial orders include: CP/sob protocol
--- NOTE | 2019-07-13 18:22 | XRay Report ---
CHEST 2 VIEWS INDICATION: CP/SOB, hx of CHF. COMPARISON: 01/19/2019. FINDINGS: Support devices: None. Heart: Stable mild cardiomegaly. Lungs/Pleura: No acute air space or interstitial disease. Small left effusion. IMPRESSION: 1. Stable cardiomegaly. 2. Small left effusion. Signer Name: Osito Zelaya MD Signed: 07/13/2019 6:18 PM Workstation Name: [id number]
[2019-07-13 18:43] LABS: Hematocrit 33.7 % (30.3-42.9); Hemoglobin 11.3 gm/dl (10.1-14.3); Mean Corpuscular HGB Conc 33 % (30-34); Mean Corpuscular Volume 87 fl (79-97); Platelet Count 288 K/mm3 (140-440); Red Blood Count 3.89 M/mm3 (3.65-5.03); Red Cell Distribution Width 14.4 % (13.2-15.2)
[2019-07-13 19:09] LABS: Alanine Aminotransferase 17 units/L (7-56); Albumin 3.6 g/dL (3.9-5); BUN/Creatinine Ratio 15; Blood Urea Nitrogen 31 mg/dL (7-17); Calcium 9.4 mg/dL (8.4-10.2); Hemolysis Index 3
[2019-07-13] MEDS ORDERED: NORMODYNE IV ONE (21:12)
[2019-07-13] MEDS ORDERED: LASIX IV ONE (21:12)
[2019-07-13 21:14] LABS: Basophils % (Manual) 0 % (0.0-1.8); Ovalocytes Few; Total Cells Counted 100
[2019-07-13 21:15] LABS: Giant Platelets Few; Hypochromasia 1+
--- NOTE | 2019-07-13 21:24 | Emergency Department Report ---
ED Shortness of Breath HPI - General Chief Complaint: Chest Pain Stated Complaint: CHEST TIGHT/ABISAI/LEG/FEET Time Seen by Provider: 07/13/19 17:50 Source: patient Mode of arrival: Ambulatory Limitations: No Limitations - History of Present Illness Initial Comments: Mrs. Smith is a 58-year-old female with past medical history of CKD, CAD, CHF, "bronchitis", diabetes mellitus, TIA, dyslipidemia, who presents with shortness of breath at rest and exertion. Also has lower leg swelling. She is now under the care medical care of a new primary care physician. Restarted on furosemide. Denies chest pain. But has chest fullness due to shortness of breath. Hx of PCI with cardiac stent [employer] Dr. Osvaldo LIVE Complaint: shortness of breath, "asthma attack" -: Gradual, days(s) (2) Severity: moderate Quality: other (chest "fullness") Consistency: constant Improves With: rest Worsens With: lying flat, exertion Known History Of: congestive heart failure, other (CAD and "bronchitis") Associated Symptoms: other (BLE swelling) Treatments Prior to Arrival: none - Related Data Previous Rx's Medication Instructions Recorded Last Taken Type Lisinopril [Zestril TAB] 40 mg PO QDAY #14 tablet 10/10/17 Unknown Rx cloNIDine [Catapres] 0.2 mg PO QHS #14 tablet 10/10/17 Unknown Rx AtorvaSTATin [Lipitor] 40 mg PO QHS #30 tablet 01/29/18 Unknown Rx Clopidogrel [Plavix] 75 mg PO QDAY #30 tablet 01/29/18 Unknown Rx Furosemide [Lasix TAB] 20 mg PO QDAY #10 tablet 02/06/18 Unknown Rx Potassium Chloride [K-Dur] 10 meq PO QDAY #10 tablet 02/06/18 Unknown Rx Fluticasone [Flonase] 200 mcg NS QDAY #1 bottle 05/06/18 Unknown Rx NIFEdipine XL [Procardia Xl] 60 mg PO QDAY #60 tablet 05/06/18 Unknown Rx Oxymetazoline 0.05% [Vicks Sinex] 2 spray NS Q12H #1 bottle 05/06/18 Unknown Rx Insulin Glargine/Lixisenatide 3 ml SQ BID 30 Days insuln.pen 07/19/18 Unknown Rx [Soliqua 100 Unit-33 Mcg/ml Pen] hydrALAZINE [Apresoline TAB] 50 mg PO Q8HR #90 tablet 07/19/18 Unknown Rx traMADol [Ultram 50 MG tab] 50 mg PO Q6HR PRN #14 tablet 07/19/18 Unknown Rx Carvedilol [Coreg] 25 mg PO BID #60 tablet 09/15/18 Unknown Rx Pantoprazole [Protonix] 40 mg PO QDAY #30 tablet 09/15/18 Unknown Rx Azithromycin [Zithromax Z-OPAL] 250 mg PO DAILY 1 Days tab 01/19/19 Unknown Rx Ondansetron [Zofran Odt] 4 mg PO Q8HR PRN #14 tab.rapdis 01/19/19 Unknown Rx traMADol [Ultram 50 MG tab] 50 mg PO Q4HR PRN #14 tablet 01/19/19 Unknown Rx Allergies Allergy/AdvReac Type Severity Reaction Status Date / Time levofloxacin [From Levaquin] Allergy Angioedema Verified 05/04/18 10:33 ED Review of Systems ROS: Stated complaint: CHEST TIGHT/ABISAI/LEG/FEET Other details as noted in HPI Comment: All other systems reviewed and negative Constitutional: denies: fever, malaise Respiratory: shortness of breath Cardiovascular: chest pain, edema Neurological: denies: headache ED Past Medical Hx - Past Medical History Previous Medical History?: Yes Hx Hypertension: Yes Hx Heart Attack/AMI: Yes Hx Congestive Heart Failure: Yes Hx Diabetes: Yes Hx Deep Vein Thrombosis: No Hx Renal Disease: Yes Hx Arthritis: Yes Hx Kidney Stones: Yes Hx Asthma: No Hx COPD: No Additional medical history: high cholesterol. CAD. 2 Stents 05/2015 here - Surgical History Past Surgical History?: Yes Hx Coronary Stent: Yes Additional Surgical History: Hysterectomy. RIGHT KNEE SURGERY - Social History Smoking Status: Never Smoker Substance Use Type: None - Medications Home Medications: Home Medications Medication Instructions Recorded Confirmed Last Taken Type Lisinopril [Zestril TAB] 40 mg PO QDAY #14 tablet 10/10/17 07/18/18 Unknown Rx cloNIDine [Catapres] 0.2 mg PO QHS #14 tablet 10/10/17 07/18/18 Unknown Rx AtorvaSTATin [Lipitor] 40 mg PO QHS #30 tablet 01/29/18 07/18/18 Unknown Rx Clopidogrel [Plavix] 75 mg PO QDAY #30 tablet 01/29/18 07/18/18 Unknown Rx Furosemide [Lasix TAB] 20 mg PO QDAY #10 tablet 02/06/18 07/18/18 Unknown Rx Potassium Chloride [K-Dur] 10 meq PO QDAY #10 tablet 02/06/18 07/18/18 Unknown Rx Fluticasone [Flonase] 200 mcg NS QDAY #1 bottle 05/06/18 07/18/18 Unknown Rx NIFEdipine XL [Procardia Xl] 60 mg PO QDAY #60 tablet 05/06/18 07/18/18 Unknown Rx Oxymetazoline 0.05% [Vicks Sinex] 2 spray NS Q12H #1 bottle 05/06/18 07/18/18 Unknown Rx Insulin Glargine/Lixisenatide 3 ml SQ BID 30 Days insuln.pen 07/19/18 Unknown Rx [Soliqua 100 Unit-33 Mcg/ml Pen] hydrALAZINE [Apresoline TAB] 50 mg PO Q8HR #90 tablet 07/19/18 Unknown Rx traMADol [Ultram 50 MG tab] 50 mg PO Q6HR PRN #14 tablet 07/19/18 Unknown Rx Carvedilol [Coreg] 25 mg PO BID #60 tablet 09/15/18 Unknown Rx Pantoprazole [Protonix] 40 mg PO QDAY #30 tablet 09/15/18 Unknown Rx Azithromycin [Zithromax Z-OPAL] 250 mg PO DAILY 1 Days tab 01/19/19 Unknown Rx Ondansetron [Zofran Odt] 4 mg PO Q8HR PRN #14 tab.rapdis 01/19/19 Unknown Rx traMADol [Ultram 50 MG tab] 50 mg PO Q4HR PRN #14 tablet 01/19/19 Unknown Rx ED Physical Exam - General Limitations: No Limitations General appearance: alert, in no apparent distress, other (appears comfortable, no work of breathing) - Head Head exam: Present: atraumatic, normocephalic - Eye Eye exam: Present: normal appearance - ENT ENT exam: Present: mucous membranes moist - Neck Neck exam: Present: normal inspection, full ROM - Respiratory Respiratory exam: Present: rales. Absent: respiratory distress, wheezes, rhonchi, accessory muscle use, decreased breath sounds, prolonged expiratory - Cardiovascular Cardiovascular Exam: Present: regular rate, normal rhythm, normal heart sounds. Absent: systolic murmur, diastolic murmur, rubs, gallop - GI/Abdominal GI/Abdominal exam: Present: soft, normal bowel sounds. Absent: distended, tenderness, guarding, rebound - Extremities Exam Extremities exam: Present: pedal edema, other (2+ pitting edema) - Back Exam Back exam: Present: normal inspection, full ROM. Absent: tenderness, CVA tenderness (R), CVA tenderness (L) - Neurological Exam Neurological exam: Present: alert, oriented X3 - Psychiatric Psychiatric exam: Present: normal affect, normal mood - Skin Skin exam: Present: warm, dry, intact, normal color. Absent: rash ED Course Vital Signs 07/13/19 07/13/19 07/13/19 17:52 21:09 21:27 Temperature 98.3 F 98.2 F Pulse Rate 102 H 91 H 90 Respiratory 20 18 Rate Blood Pressure 190/101 214/116 Blood Pressure 216/116 [Left] O2 Sat by Pulse 95 97 Oximetry 07/13/19 07/13/19 07/13/19 21:43 22:28 23:04 Temperature Pulse Rate 87 84 Respiratory Rate Blood Pressure 193/107 199/108 Blood Pressure 182/96 [Left] O2 Sat by Pulse Oximetry 07/13/19 07/13/19 23:18 23:30 Temperature Pulse Rate 85 Respiratory Rate Blood Pressure 186/106 Blood Pressure 190/103 [Left] O2 Sat by Pulse Oximetry ED Medical Decision Making - Lab Data Result diagrams: 07/13/19 18:24 07/13/19 18:24 Laboratory Results - last 24 hr 07/13/19 07/13/19 07/13/19 18:24 18:24 18:24 WBC 7.9 RBC 3.89 Hgb 11.3 Hct 33.7 MCV 87 MCH 29 MCHC 33 RDW 14.4 Plt Count 288 Add Manual Diff Complete Total Counted 100 Seg Neuts % (Manual) 66.0 Band Neutrophils % 0 Lymphocytes % (Manual) 23.0 Reactive Lymphs % (Man) 0 Monocytes % (Manual) 9.0 H Eosinophils % (Manual) 2.0 Basophils % (Manual) 0 Metamyelocytes % 0 Myelocytes % 0 Promyelocytes % 0 Blast Cells % 0 Nucleated RBC % Not Reportable Seg Neutrophils # Man 5.2 Band Neutrophils # 0.0 Lymphocytes # (Manual) 1.8 Abs React Lymphs (Man) 0.0 Monocytes # (Manual) 0.7 Eosinophils # (Manual) 0.2 Basophils # (Manual) 0.0 Metamyelocytes # 0.0 Myelocytes # 0.0 Promyelocytes # 0.0 Blast Cells # 0.0 WBC Morphology Not Reportable Hypersegmented Neuts Not Reportable Hyposegmented Neuts Not Reportable Hypogranular Neuts Not Reportable Smudge Cells Not Reportable Toxic Granulation Not Reportable Toxic Vacuolation Not Reportable Dohle Bodies Not Reportable Pelger-Huet Anomaly Not Reportable Franky Rods Not Reportable Platelet Estimate Appears normal Clumped Platelets Not Reportable Plt Clumps, EDTA Not Reportable Large Platelets Not Reportable Giant Platelets Few Platelet Satelliting Not Reportable Plt Morphology Comment Not Reportable RBC Morphology Not Reportable Dimorphic RBCs Not Reportable Polychromasia Not Reportable Hypochromasia 1+ Poikilocytosis Not Reportable Anisocytosis Not Reportable Microcytosis Not Reportable Macrocytosis Not Reportable Spherocytes Not Reportable Pappenheimer Bodies Not Reportable Sickle Cells Not Reportable Target Cells Not Reportable Tear Drop Cells Not Reportable Ovalocytes Few Helmet Cells Not Reportable [place] Bodies Not Reportable [place] Rings Not Reportable [place] Cells Not Reportable Bite Cells Not Reportable Crenated Cell Not Reportable Elliptocytes Not Reportable Acanthocytes (Spur) Not Reportable Rouleaux Not Reportable Hemoglobin C Crystals Not Reportable Schistocytes Not Reportable Malaria parasites Not Reportable Brian Bodies Not Reportable Hem Pathologist Commnt No Sodium 144 Potassium 4.3 Chloride 106.0 Carbon Dioxide 25 Anion Gap 17 BUN 31 H Creatinine 2.1 H Estimated GFR 29 BUN/Creatinine Ratio 15 Glucose 299 H Calcium 9.4 Total Bilirubin < 0.20 AST 14 ALT 17 Alkaline Phosphatase 88 Troponin T 0.033 H NT-Pro-B Natriuret Pep 907.0 H Total Protein 6.3 Albumin 3.6 L Albumin/Globulin Ratio 1.3 07/13/19 07/13/19 20:16 21:46 WBC RBC Hgb Hct MCV MCH MCHC RDW Plt Count Add Manual Diff Total Counted Seg Neuts % (Manual) Band Neutrophils % Lymphocytes % (Manual) Reactive Lymphs % (Man) Monocytes % (Manual) Eosinophils % (Manual) Basophils % (Manual) Metamyelocytes % Myelocytes % Promyelocytes % Blast Cells % Nucleated RBC % Seg Neutrophils # Man Band Neutrophils # Lymphocytes # (Manual) Abs React Lymphs (Man) Monocytes # (Manual) Eosinophils # (Manual) Basophils # (Manual) Metamyelocytes # Myelocytes # Promyelocytes # Blast Cells # WBC Morphology Hypersegmented Neuts Hyposegmented Neuts Hypogranular Neuts Smudge Cells Toxic Granulation Toxic Vacuolation Dohle Bodies Pelger-Huet Anomaly Franky Rods Platelet Estimate Clumped Platelets Plt Clumps, EDTA Large Platelets Giant Platelets Platelet Satelliting Plt Morphology Comment RBC Morphology Dimorphic RBCs Polychromasia Hypochromasia Poikilocytosis Anisocytosis Microcytosis Macrocytosis Spherocytes Pappenheimer Bodies Sickle Cells Target Cells Tear Drop Cells Ovalocytes Helmet Cells Sanchez-[place] Bodies [place] Rings [place] Cells Bite Cells Crenated Cell Elliptocytes Acanthocytes (Spur) Rouleaux Hemoglobin C Crystals Schistocytes Malaria parasites Brian Bodies Hem Pathologist Commnt Sodium Potassium Chloride Carbon Dioxide Anion Gap BUN Creatinine Estimated GFR BUN/Creatinine Ratio Glucose Calcium Total Bilirubin AST ALT Alkaline Phosphatase Troponin T 0.026 0.023 NT-Pro-B Natriuret Pep Total Protein Albumin Albumin/Globulin Ratio - EKG Data 07/13/19 21:24 Sinus tachycardia rate 100 beats a minute normal axis normal intervals elevation nonspecific T wave pattern positive LVH - Radiology Data Radiology results: report reviewed AP CXR: small left pleural effusion - Medical Decision Making 1. hypertensive urgency: unclear why BP not controlled, new PCP, will need BP managed outpatient 2. Acute CHF exacerbation Improved with diuresis in the ED, BP control with Clonidine and IV labetalol 3. chest pain atypical for ACS downtrending troponin values x 3 Mrs. Smith desires discharge home. She is laying comfortable in semisupine position at this time. 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 ED Disposition Clinical Impression: Hypertensive urgency, Acute exacerbation of CHF (congestive heart failure), CKD (chronic kidney disease), Chest pain Disposition: DC TO HOME OR SELFCARE Is pt being admited?: No Does the pt Need Aspirin: No Condition: Stable Instructions: Chest Pain (ED), Hypertension (ED), Heart Failure (ED) Referrals: PRIMARY CARE, [Primary Care Provider] - 3-5 Days HAIDER MARI MD [Staff Physician] - 3-5 Days Forms: Work/School Release Form(ED)
[2019-07-13] MEDS ORDERED: CATAPRES PO ONE (23:01)
[2019-07-14 00:13] VITALS: BP 147/84
== END 2019-07-14 00:15 | disposition home or self-care (01) ==
LOC: ED 17:33
DX: I16.0 Hypertensive urgency (principal); I13.0 Hypertensive heart and chronic kidney disease with heart failure and stage 1 through stage 4 chronic kidney disease, or unspecified chronic kidney disease; N18.9 Chronic kidney disease, unspecified; I50.9 Heart failure, unspecified; E11.9 Type 2 diabetes mellitus without complications; M19.90 Unspecified osteoarthritis, unspecified site; E78.00 Pure hypercholesterolemia, unspecified; Z90.710 Acquired absence of both cervix and uterus; Z98.890 Other specified postprocedural states; Z95.5 Presence of coronary angioplasty implant and graft; Z79.899 Other long term (current) drug therapy; Z88.1 Allergy status to other antibiotic agents
CPT/HCPCS: 36415; 71046; 80053; 83880; 84484; 85007; 85025; 93005; 93010; 96374; 96375; 99284; J1940

== ENCOUNTER 2019-08-03 09:27 | Emergency (ER) | payer OTHER ==
[2019-08-03] MEDS ORDERED: NITROGLYCERIN 0.4 MG TAB SUBL SL ONE (10:10)
--- NOTE | 2019-08-03 10:14 | Event Note ---
Date of service: 08/03/19 Face to Face: This is a 58-year-old female, history of ischemic heart disease, typically follows with Dr. Zuhair Glasgow, presenting with shortness of breath, posttussive emesis, orthopnea, JVD, hypoxia, crackles. Suspect CHF versus cardiorenal syndrome. We will treat her symptoms, placed on supplemental oxygen, obtain screening laboratory studies, discussed with her drosser, and admitted to the medical service. Vital Signs 08/03/19 08/03/19 09:37 09:59 Temperature 98.5 F 98.7 F Pulse Rate 107 H 107 H Respiratory 16 18 Rate Blood Pressure 191/108 Blood Pressure 207/119 [Left] O2 Sat by Pulse 86 95 Oximetry
--- NOTE | 2019-08-03 10:27 | Emergency Department Report ---
<MIRIAM HAYES - Last Filed: 08/03/19 13:58> ED Shortness of Breath HPI - General Chief Complaint: Dyspnea/Respdistress Stated Complaint: ABISAI/VOMITING/CHEST PAIN/WEAKNESS IN LEGS Time Seen by Provider: 08/03/19 09:55 Source: patient Mode of arrival: Ambulatory Limitations: No Limitations - History of Present Illness Initial Comments: Pt is a 58-year-old female presents to emergency room with complaint of shortness of breath began yesterday. Has associated cough, left-sided chest pain, posttussive emesis. She states that her shortness of breath is worse with laying flat and worse with exertion. She is only able to take about 4-5 steps before she feels short of breath. She denies any unilateral leg swelling, hormone use, recent surgery, recent immobilization. She states he has past medical history of DM, hypertension, stage III kidney disease, CHF, cardiac stent placement. she takes approximately 20 mg of Lasix a day but states she feels like it is not working. She had a cardiac cath on [id number] which showed mild pulmonary hypertension, 2 vessel CAD, ejection fraction of 50-55% - Related Data Home Medications Medication Instructions Recorded Confirmed Last Taken Aspirin [Aspirin BABY CHEW TAB] 81 mg PO QDAY 08/03/19 08/03/19 08/02/19 Previous Rx's Medication Instructions Recorded Last Taken Type Lisinopril [Zestril TAB] 40 mg PO QDAY #14 tablet 10/10/17 08/02/19 Rx AtorvaSTATin [Lipitor] 40 mg PO QHS #30 tablet 01/29/18 08/02/19 Rx Furosemide [Lasix TAB] 20 mg PO QDAY #10 tablet 02/06/18 08/02/19 Rx Fluticasone [Flonase] 200 mcg NS QDAY #1 bottle 05/06/18 08/02/19 Rx NIFEdipine XL [Procardia Xl] 60 mg PO QDAY #60 tablet 05/06/18 08/02/19 Rx Insulin Glargine/Lixisenatide 3 ml SQ BID 30 Days insuln.pen 07/19/18 08/02/19 Rx [Soliqua 100 Unit-33 Mcg/ml Pen] hydrALAZINE [Apresoline TAB] 50 mg PO Q8HR #90 tablet 07/19/18 08/02/19 Rx Carvedilol [Coreg] 25 mg PO BID #60 tablet 09/15/18 08/02/19 Rx Azithromycin [Zithromax TAB] 500 mg PO QDAY #6 tablet 08/03/19 Unknown Rx Allergies Allergy/AdvReac Type Severity Reaction Status Date / Time levofloxacin [From Levaquin] Allergy Angioedema Verified 05/04/18 10:33 ED Review of Systems Comment: All other systems reviewed and negative ED Past Medical Hx - Past Medical History Previous Medical History?: No Hx Hypertension: Yes Hx Heart Attack/AMI: Yes Hx Congestive Heart Failure: Yes Hx Diabetes: Yes Hx Deep Vein Thrombosis: No Hx Renal Disease: Yes Hx Arthritis: Yes Hx Kidney Stones: Yes Hx Asthma: No Hx COPD: No Additional medical history: high cholesterol. CAD. 2 Stents 05/2015 here - Surgical History Past Surgical History?: No Hx Coronary Stent: Yes Additional Surgical History: Hysterectomy. RIGHT KNEE SURGERY - Social History Smoking Status: Never Smoker Substance Use Type: None - Medications Home Medications: Home Medications Medication Instructions Recorded Confirmed Last Taken Type Lisinopril [Zestril TAB] 40 mg PO QDAY #14 tablet 10/10/17 08/03/19 08/02/19 Rx AtorvaSTATin [Lipitor] 40 mg PO QHS #30 tablet 01/29/18 08/03/19 08/02/19 Rx Furosemide [Lasix TAB] 20 mg PO QDAY #10 tablet 02/06/18 08/03/19 08/02/19 Rx Fluticasone [Flonase] 200 mcg NS QDAY #1 bottle 05/06/18 08/03/19 08/02/19 Rx NIFEdipine XL [Procardia Xl] 60 mg PO QDAY #60 tablet 05/06/18 08/03/19 08/02/19 Rx Insulin Glargine/Lixisenatide 3 ml SQ BID 30 Days insuln.pen 07/19/18 08/03/19 08/02/19 Rx [Soliqua 100 Unit-33 Mcg/ml Pen] hydrALAZINE [Apresoline TAB] 50 mg PO Q8HR #90 tablet 07/19/18 08/03/19 08/02/19 Rx Carvedilol [Coreg] 25 mg PO BID #60 tablet 09/15/18 08/03/19 08/02/19 Rx Aspirin [Aspirin BABY CHEW TAB] 81 mg PO QDAY 08/03/19 08/03/19 08/02/19 History Azithromycin [Zithromax TAB] 500 mg PO QDAY #6 tablet 08/03/19 Unknown Rx ED Physical Exam - General Limitations: No Limitations General appearance: alert - Head Head exam: Present: atraumatic, normocephalic - Eye Eye exam: Present: normal appearance - ENT ENT exam: Present: mucous membranes moist - Respiratory Respiratory exam: Present: respiratory distress (moderate), rales (bilateral bases worse on the right ). Absent: wheezes, rhonchi, stridor, accessory muscle use, decreased breath sounds, prolonged expiratory - Cardiovascular Cardiovascular Exam: Present: normal rhythm, tachycardia, normal heart sounds. Absent: systolic murmur, diastolic murmur, rubs, gallop - Extremities Exam Extremities exam: Absent: pedal edema - Neurological Exam Neurological exam: Present: alert, oriented X3 - Psychiatric Psychiatric exam: Present: normal affect, normal mood - Skin Skin exam: Present: warm, dry, intact ED Course - Consultations Consultation #1: 08/03/19 12:[address] Hester, cardiology who will consult on patient Consultation #2: 08/03/19 13:[address] Polanco, who will accept and resume care of pt will admit pt to the hospital ED Medical Decision Making - Lab Data Result diagrams: 08/03/19 10:17 08/03/19 10:17 - EKG Data EKG shows normal: sinus rhythm, axis Rate: tachycardia - EKG Data 08/03/19 13:49 LVH mildly prolonged qtc at 483 LVH seems slightly more pronounced when compared to prior on 07/13/19, otherwise no change from prior 08/03/19 13:51 - Radiology Data CHEST 2 VIEWS INDICATION: Chest pain and shortness of breath. COMPARISON: 07/13/2019 FINDINGS: Support devices: None. Heart: Borderline heart size Lungs/pleura: Mild pulmonary venous congestion and trace bilateral pleural effusions have developed. No infiltrate or pneumothorax is appreciated. The bony structures are intact. Additional findings: None. IMPRESSION: Mild CHF. Signer Name: Michael Lagunas Jr, MD Signed: 08/03/2019 10:24 AM Workstation Name: [id number] Transcribed By: TTR Dictated By: MICHAEL LAGUNAS JR, MD Electronically Authenticated By: MICHAEL LAGUNAS JR, MD Signed Date/Time: 08/03/19 1024 ED Disposition Clinical Impression: Hypertensive urgency, Hypoxia, Hyperglycemia, Elevated troponin CHF exacerbation Qualifiers: Heart failure type: unspecified Qualified Code(s): I50.9 - Heart failure, unspecified CKD (chronic kidney disease) Qualifiers: Chronic kidney disease stage: unspecified stage Qualified Code(s): N18.9 - Chronic kidney disease, unspecified Disposition: -09 OP ADMIT IP TO THIS HOSP Is pt being admited?: Yes Does the pt Need Aspirin: Yes (given) Condition: Good Prescriptions: Azithromycin [Zithromax TAB] 500 mg PO QDAY #6 tablet Referrals: PRIMARY CAREMD [Primary Care Provider] - 3-5 Days Forms: Work/School Release Form(ED) <LYNNE ROSALES - Last Filed: 08/04/19 07:15> ED Review of Systems ROS: Stated complaint: ABISAI/VOMITING/CHEST PAIN/WEAKNESS IN LEGS Other details as noted in HPI ED Course Vital Signs 08/03/19 08/03/19 08/03/19 09:37 09:59 10:23 Temperature 98.5 F 98.7 F Pulse Rate 107 H 107 H 105 H Respiratory 16 18 Rate Blood Pressure 191/108 207/119 Blood Pressure 207/119 [Left] O2 Sat by Pulse 86 95 Oximetry 08/03/19 08/03/19 08/03/19 10:33 10:45 11:18 Temperature Pulse Rate 102 H 103 H Respiratory Rate Blood Pressure 173/107 189/110 Blood Pressure 173/107 [Left] O2 Sat by Pulse Oximetry 08/03/19 08/03/19 08/03/19 11:42 13:03 13:38 Temperature Pulse Rate 98 H Respiratory Rate Blood Pressure 208/111 Blood Pressure 177/102 208/122 [Left] O2 Sat by Pulse 98 Oximetry 08/03/19 08/03/19 08/03/19 14:02 14:35 15:09 Temperature Pulse Rate Respiratory Rate Blood Pressure Blood Pressure 179/100 204/114 186/93 [Left] O2 Sat by Pulse Oximetry 08/03/19 08/03/19 08/03/19 15:36 16:06 16:25 Temperature Pulse Rate Respiratory Rate Blood Pressure 188/100 Blood Pressure 184/99 163/91 [Left] O2 Sat by Pulse Oximetry 08/03/19 08/03/19 08/03/19 16:55 18:00 18:21 Temperature Pulse Rate 97 H Respiratory 20 Rate Blood Pressure 200/106 Blood Pressure 169/95 200/106 [Left] O2 Sat by Pulse 96 Oximetry 08/03/19 08/03/19 08/03/19 18:53 19:03 19:15 Temperature 98.8 F Pulse Rate 89 85 Respiratory 18 19 Rate Blood Pressure 201/106 Blood Pressure 129/69 100/57 [Left] O2 Sat by Pulse 94 93 Oximetry 08/03/19 08/03/19 08/03/19 19:31 20:01 20:31 Temperature Pulse Rate Respiratory 17 18 18 Rate Blood Pressure 104/56 128/71 111/67 Blood Pressure [Left] O2 Sat by Pulse 90 93 91 Oximetry 08/03/19 08/03/19 08/03/19 20:45 21:01 21:15 Temperature Pulse Rate Respiratory 16 18 17 Rate Blood Pressure 114/73 101/60 121/70 Blood Pressure [Left] O2 Sat by Pulse 94 97 95 Oximetry ED Medical Decision Making - Lab Data Result diagrams: 08/03/19 10:17 08/03/19 10:17 Vital Signs 08/03/19 08/03/19 08/03/19 09:37 09:59 10:23 Temperature 98.5 F 98.7 F Pulse Rate 107 H 107 H 105 H Respiratory 16 18 Rate Blood Pressure 191/108 207/119 Blood Pressure 207/119 [Left] O2 Sat by Pulse 86 95 Oximetry 08/03/19 10:33 Temperature Pulse Rate 102 H Respiratory Rate Blood Pressure Blood Pressure 173/107 [Left] O2 Sat by Pulse Oximetry Lab Results 08/03/19 Range/Units 10:17 WBC 12.2 H (4.5-11.0) K/mm3 RBC 4.43 (3.65-5.03) M/mm3 Hgb 12.5 (10.1-14.3) gm/dl Hct 38.1 (30.3-42.9) % MCV 86 (79-97) fl MCH 28 (28-32) pg MCHC 33 (30-34) % RDW 14.2 (13.2-15.2) % Plt Count 297 (140-440) K/mm3 Lymph % (Auto) 7.0 L (13.4-35.0) % [place] % (Auto) 4.5 (0.0-7.3) % Eos % (Auto) 1.1 (0.0-4.3) % Baso % (Auto) 0.7 (0.0-1.8) % Lymph # 0.9 L (1.2-5.4) K/mm3 [place] # 0.5 (0.0-0.8) K/mm3 Eos # 0.1 (0.0-0.4) K/mm3 Baso # 0.1 (0.0-0.1) K/mm3 Seg Neutrophils % 86.7 H (40.0-70.0) % Seg Neutrophils # 10.5 H (1.8-7.7) K/mm3 - EKG Data -: EKG Interpreted by Ok EKG shows normal: sinus rhythm Rate: tachycardia - Radiology Data Radiology results: report reviewed, image reviewed Print Report Referring Physician: MIRIAM HAYES Patient Name: MARQUIS NAVARRETE Date of : 1960 Sex: Female Report Date: 2019-08-03 Report Status: Finalized Findings [facility] [address] [place] [address] XRay Report Signed Patient: MARQUIS NAVARRETE MR#: [id number] : 1960 Acct:[id number] Age/Sex: 58 / F ADM Date: 08/03/19 Loc: ED Attending Dr: Ordering Physician: ADNI GRANT Date of Service: 08/03/19 Procedure(s): XR chest 1V ap Accession Number(s): [id number] cc: ADIN GRANT Fluoro Time In Minutes: CHEST 2 VIEWS INDICATION: Chest pain and shortness of breath. COMPARISON: 07/13/2019 FINDINGS: Support devices: None. Heart: Borderline heart size Lungs/pleura: Mild pulmonary venous congestion and trace bilateral pleural effusions have developed. No infiltrate or pneumothorax is appreciated. The bony structures are intact. Additional findings: None. IMPRESSION: Mild CHF. Signer Name: Michael Lagunas Jr, MD Signed: 08/03/2019 10:24 AM Workstation Name: [id number] Transcribed By: TTR Dictated By: MICHAEL LAGUNAS JR, MD Electronically Authenticated By: MICHAEL LAGUNAS JR, MD Signed Date/Time: 08/03/19 [facility] Critical care attestation.: If time is entered above; I have spent that time in minutes in the direct care of this critically ill patient, excluding procedure time.
[2019-08-03 10:31] LABS: Basophils # (Auto) 0.1 K/mm3 (0.0-0.1); Basophils % (Auto) 0.7 % (0.0-1.8); Eosinophils # (Auto) 0.1 K/mm3 (0.0-0.4); Eosinophils % (Auto) 1.1 % (0.0-4.3); Hematocrit 38.1 % (30.3-42.9); Hemoglobin 12.5 gm/dl (10.1-14.3); Lymphocytes # (Auto) 0.9 K/mm3 (1.2-5.4); Mean Corpuscular HGB Conc 33 % (30-34); Mean Corpuscular Volume 86 fl (79-97); Monocytes # (Auto) 0.5 K/mm3 (0.0-0.8); Monocytes % (Auto) 4.5 % (0.0-7.3); Platelet Count 297 K/mm3 (140-440); Red Blood Count 4.43 M/mm3 (3.65-5.03); Red Cell Distribution Width 14.2 % (13.2-15.2)
[2019-08-03] MEDS: NITROGLYCERIN 0.4 MG TAB SUBL SL PRN ×2 (10:45→11:18)
[2019-08-03 10:51] LABS: INR 1.02 (0.87-1.13)
[2019-08-03 10:52] LABS: Partial Thromboplastin Time 26.9 Sec. (24.2-36.6)
[2019-08-03 12:12] LABS: Albumin 3.5 g/dL (3.9-5); Calcium 9.3 mg/dL (8.4-10.2)
[2019-08-03] MEDS ORDERED: ASPIRIN 325 MG TAB PO ONE (12:17)
[2019-08-03] MEDS ORDERED: FUROSEMIDE 40 MG/4 ML INJ IV ONE (12:17)
[2019-08-03 12:45] LABS: Chol/HDL Ratio 8.21 %
[2019-08-03] MEDS ORDERED: hydrALAZINE 20 MG/1 ML INJ IV ONE ×2 (13:19→18:16)
[2019-08-03] MEDS ORDERED: NIFEdipine XL 60 MG TAB PO ONE (14:31)
[2019-08-03] MEDS ORDERED: LISINOPRIL 20 MG TAB PO ONE (15:56)
[2019-08-03] MEDS ORDERED: hydrALAZINE 20 MG/1 ML INJ IV PRN (15:57)
--- NOTE | 2019-08-03 17:19 | Consultation ---
History of Present Illness Consult date: 08/03/19 Consult reason: chest pain Medications and Allergies Allergies Allergy/AdvReac Type Severity Reaction Status Date / Time levofloxacin [From Levaquin] Allergy Angioedema Verified 05/04/18 10:33 Home Medications Medication Instructions Recorded Confirmed Last Taken Type Lisinopril [Zestril TAB] 40 mg PO QDAY #14 tablet 10/10/17 08/03/19 08/02/19 Rx AtorvaSTATin [Lipitor] 40 mg PO QHS #30 tablet 01/29/18 08/03/19 08/02/19 Rx Furosemide [Lasix TAB] 20 mg PO QDAY #10 tablet 02/06/18 08/03/19 08/02/19 Rx Fluticasone [Flonase] 200 mcg NS QDAY #1 bottle 05/06/18 08/03/19 08/02/19 Rx NIFEdipine XL [Procardia Xl] 60 mg PO QDAY #60 tablet 05/06/18 08/03/19 08/02/19 Rx Insulin Glargine/Lixisenatide 3 ml SQ BID 30 Days insuln.pen 07/19/18 08/03/19 08/02/19 Rx [Soliqua 100 Unit-33 Mcg/ml Pen] hydrALAZINE [Apresoline TAB] 50 mg PO Q8HR #90 tablet 07/19/18 08/03/19 08/02/19 Rx Carvedilol [Coreg] 25 mg PO BID #60 tablet 09/15/18 08/03/19 08/02/19 Rx Aspirin [Aspirin BABY CHEW TAB] 81 mg PO QDAY 08/03/19 08/03/19 08/02/19 History Active Meds: Active Medications Hydralazine HCl (Apresoline) 10 mg IV ONCE PRN PRN Reason: Hypertension Last Admin: 08/03/19 16:06 Dose: 10 mg Documented by: Nitroglycerin (Nitrostat) 0.4 mg SL .Q5MIN PRN PRN Reason: Chest Pain Last Admin: 08/03/19 11:18 Dose: 0.4 mg Documented by: Physical Examination Vital Signs Temp Pulse Resp BP Pulse Ox 98.5 F 107 H 16 191/108 86 08/03/19 09:37 08/03/19 09:37 08/03/19 09:37 08/03/19 09:37 08/03/19 09:37 Results 08/03/19 10:17 08/03/19 10:17 Cardiac Enzymes 08/03/19 Range/Units 10:17 AST 16 (5-40) units/L Coagulation 08/03/19 Range/Units 10:17 PT 13.1 (12.2-14.9) Sec. INR 1.02 (0.87-1.13) APTT 26.9 (24.2-36.6) Sec. Lipids 08/03/19 Range/Units 10:17 Triglycerides 222 H (2-149) mg/dL Cholesterol 386 H (50-199) mg/dL HDL Cholesterol 47 (40-59) mg/dL Cholesterol/HDL Ratio 8.21 % CBC 08/03/19 Range/Units 10:17 WBC 12.2 H (4.5-11.0) K/mm3 RBC 4.43 (3.65-5.03) M/mm3 Hgb 12.5 (10.1-14.3) gm/dl Hct 38.1 (30.3-42.9) % Plt Count 297 (140-440) K/mm3 Lymph # 0.9 L (1.2-5.4) K/mm3 [place] # 0.5 (0.0-0.8) K/mm3 Eos # 0.1 (0.0-0.4) K/mm3 Baso # 0.1 (0.0-0.1) K/mm3 Comprehensive Metabolic Panel 08/03/19 Range/Units 10:17 Sodium 142 (137-145) mmol/L Potassium 4.0 (3.6-5.0) mmol/L Chloride 107.6 H (98-107) mmol/L Carbon Dioxide 22 (22-30) mmol/L BUN 27 H (7-17) mg/dL Creatinine 1.9 H (0.7-1.2) mg/dL Glucose 281 H (65-100) mg/dL Calcium 9.3 (8.4-10.2) mg/dL AST 16 (5-40) units/L ALT 19 (7-56) units/L Alkaline Phosphatase 85 (35-129) units/L Total Protein 6.6 (6.3-8.2) g/dL Albumin 3.5 L (3.9-5) g/dL
--- NOTE | 2019-08-03 17:52 | Event Note ---
Date: 08/03/19 58 YO Female presents to ED for evaluation. Pt seen and evaluated in ED and found to have fluid overload secondary to noncompliance with outpatient medication, cardiac diet, as low sodium diet. Pt treated with diuresis, supportive care, and resumption of prehospital medication with resolution of symptoms. Pt medically optimized and back to usual state of health. Pt discharged home and instructed to F/U pcp 3-5 days, Cardiology 3-5 days, and to have age appropriate medical screenings. - General Limitations: No Limitations General appearance: alert - Head Head exam: Present: atraumatic, normocephalic - Eye Eye exam: Present: normal appearance - ENT ENT exam: Present: mucous membranes moist - Respiratory Respiratory exam: Present:CTA Bilaterally. Absent: wheezes, rhonchi, stridor, accessory muscle use, decreased breath sounds, prolonged expiratory - Cardiovascular Cardiovascular Exam: Present: normal rhythm, tachycardia, normal heart sounds. Absent: systolic murmur, diastolic murmur, rubs, gallop - Extremities Exam Extremities exam: Absent: pedal edema - Neurological Exam Neurological exam: Present: alert, oriented X3 - Psychiatric Psychiatric exam: Present: normal affect, normal mood - Skin Skin exam: Present: warm, dry, intact
[2019-08-03] MEDS ORDERED: carvediloL 6.25 MG TAB PO ONE (18:00)
[2019-08-03] MEDS ORDERED: INSULIN REGULAR, HUMAN 100 UNITS/1 ML IV ONE (18:09)
[2019-08-03] MEDS ORDERED: MORPHINE 2 MG/1 ML INJ IV ONE (18:16)
[2019-08-03 19:11] LABS: Amphetamine Screen,Urine PRESUMPTIVE NEGATIVE; Benzodiazepines Screen,Urine PRESUMPTIVE NEGATIVE; Cannabinoid Screen,Urine PRESUMPTIVE NEGATIVE; Cocaine Screen,Urine PRESUMPTIVE NEGATIVE; Methadone Screen,Urine PRESUMPTIVE NEGATIVE; Opiate Screen,Urine PRESUMPTIVE NEGATIVE
[2019-08-03] MEDS ORDERED: SODIUM CHLORIDE 0.9% 500 ML 500 ML IV ONE (19:38)
[2019-08-03 21:40] VITALS: BP 121/70
== END 2019-08-03 21:25 | disposition admitted as inpatient to this hospital (09) ==
LOC: ED 09:27
DX: I16.0 Hypertensive urgency (principal); I13.0 Hypertensive heart and chronic kidney disease with heart failure and stage 1 through stage 4 chronic kidney disease, or unspecified chronic kidney disease; I50.9 Heart failure, unspecified; E11.22 Type 2 diabetes mellitus with diabetic chronic kidney disease; N18.9 Chronic kidney disease, unspecified; I25.2 Old myocardial infarction; M19.90 Unspecified osteoarthritis, unspecified site; E78.00 Pure hypercholesterolemia, unspecified; I25.10 Atherosclerotic heart disease of native coronary artery without angina pectoris; Z95.5 Presence of coronary angioplasty implant and graft; Z90.710 Acquired absence of both cervix and uterus; Z79.899 Other long term (current) drug therapy; Z88.8 Allergy status to other drugs, medicaments and biological substances
CPT/HCPCS: 36415; 71045; 80053; 80061; 80307; 82550; 82962; 83735; 83880; 84100; 84484; 85025; 85610; 85730; 93005; 93010; 96374; 96375; 96376; 99285; J0360; J1940; J2270; J7040; J1815

== ENCOUNTER 2019-08-28 19:57 | Emergency (ER) | payer SELFPAY ==
[2019-08-28] MEDS ORDERED: ONDANSETRON 4 MG/2 ML INJ ONE (20:08)
[2019-08-28] MEDS ORDERED: ONDANSETRON 4 MG/2 ML INJ IV ONE (20:11)
[2019-08-28] MEDS ORDERED: SODIUM CHLORIDE 0.9% 1000 ML 1,000 ML IV ONE (21:12)
[2019-08-28] MEDS ORDERED: METOCLOPRAMIDE 10 MG/2 ML INJ IV ONE (21:12)
[2019-08-28] MEDS ORDERED: hydrALAZINE 20 MG/1 ML INJ IV ONE (21:12)
[2019-08-28] MEDS ORDERED: diphenhydrAMINE 50 MG/ML VIAL IV ONE (21:12)
[2019-08-28 21:35] LABS: Basophils # (Auto) 0.1 K/mm3 (0.0-0.1); Basophils % (Auto) 0.6 % (0.0-1.8); Eosinophils # (Auto) 0.1 K/mm3 (0.0-0.4); Eosinophils % (Auto) 0.5 % (0.0-4.3); Hemoglobin 12.3 gm/dl (10.1-14.3); Lymphocytes # (Auto) 0.8 K/mm3 (1.2-5.4); Mean Corpuscular HGB Conc 33 % (30-34); Mean Corpuscular Volume 86 fl (79-97); Monocytes # (Auto) 0.4 K/mm3 (0.0-0.8); Monocytes % (Auto) 2.9 % (0.0-7.3); Platelet Count 278 K/mm3 (140-440); Red Blood Count 4.29 M/mm3 (3.65-5.03)
[2019-08-28 21:54] LABS: Albumin 3.7 g/dL (3.9-5); Calcium 9.6 mg/dL (8.4-10.2)
--- NOTE | 2019-08-28 22:11 | Emergency Department Report ---
ED General Adult HPI - General Chief complaint: Nausea/Vomiting/Diarrhea Stated complaint: N/V Time Seen by Provider: 08/28/19 20:21 Source: patient, EMS Mode of arrival: Stretcher Limitations: No Limitations, Other - History of Present Illness Initial comments: Patient presents to the emergency department with the chief complaint nausea, vomiting, diarrhea that started this morning. Patient states that she is unsure sick contacts but she is not able to keep anything down including medications for hypertension. Patient endorses abdominal cramping but denies tunde abdominal pain. -: Sudden Location: abdomen Severity scale (0 -10): 1 Quality: other (cramping) Consistency: constant Improves with: none Worsens with: none Associated Symptoms: denies other symptoms Treatments Prior to Arrival: none - Related Data Home Medications Medication Instructions Recorded Confirmed Last Taken Aspirin [Aspirin BABY CHEW TAB] 81 mg PO QDAY 08/03/19 08/03/19 08/02/19 Previous Rx's Medication Instructions Recorded Last Taken Type Lisinopril [Zestril TAB] 40 mg PO QDAY #14 tablet 10/10/17 08/02/19 Rx AtorvaSTATin [Lipitor] 40 mg PO QHS #30 tablet 01/29/18 08/02/19 Rx Furosemide [Lasix TAB] 20 mg PO QDAY #10 tablet 02/06/18 08/02/19 Rx Fluticasone [Flonase] 200 mcg NS QDAY #1 bottle 05/06/18 08/02/19 Rx NIFEdipine XL [Procardia Xl] 60 mg PO QDAY #60 tablet 05/06/18 08/02/19 Rx Insulin Glargine/Lixisenatide 3 ml SQ BID 30 Days insuln.pen 07/19/18 08/02/19 Rx [Soliqua 100 Unit-33 Mcg/ml Pen] hydrALAZINE [Apresoline TAB] 50 mg PO Q8HR #90 tablet 07/19/18 08/02/19 Rx Carvedilol [Coreg] 25 mg PO BID #60 tablet 09/15/18 08/02/19 Rx Azithromycin [Zithromax TAB] 500 mg PO QDAY #6 tablet 08/03/19 Unknown Rx Ondansetron [Zofran Odt] 4 mg PO Q4HR PRN #20 tab.rapdis 08/28/19 Unknown Rx Promethazine [Phenergan TAB] 25 mg PO Q6HR PRN #20 tab 08/28/19 Unknown Rx Allergies Allergy/AdvReac Type Severity Reaction Status Date / Time levofloxacin [From Levaquin] Allergy Angioedema Verified 05/04/18 10:33 ED Review of Systems ROS: Stated complaint: N/V Other details as noted in HPI Comment: All other systems reviewed and negative Constitutional: denies: chills, fever Eyes: denies: eye pain, eye discharge, vision change ENT: denies: ear pain, throat pain Respiratory: denies: cough, shortness of breath, wheezing Cardiovascular: denies: chest pain, palpitations Endocrine: no symptoms reported Gastrointestinal: nausea, vomiting, diarrhea. denies: abdominal pain Genitourinary: denies: urgency, dysuria, discharge Musculoskeletal: denies: back pain, joint swelling, arthralgia Skin: denies: rash, lesions Neurological: denies: headache, weakness, paresthesias Psychiatric: denies: anxiety, depression Hematological/Lymphatic: denies: easy bleeding, easy bruising ED Past Medical Hx - Past Medical History Previous Medical History?: Yes Hx Hypertension: Yes Hx Heart Attack/AMI: Yes Hx Congestive Heart Failure: Yes Hx Diabetes: Yes Hx Deep Vein Thrombosis: No Hx Renal Disease: Yes Hx Arthritis: Yes Hx Kidney Stones: Yes Hx Asthma: No Hx COPD: No Additional medical history: high cholesterol. CAD. 2 Stents 05/2015 here - Surgical History Past Surgical History?: Yes Hx Coronary Stent: Yes Additional Surgical History: Hysterectomy. RIGHT KNEE SURGERY - Social History Smoking Status: Never Smoker Substance Use Type: None - Medications Home Medications: Home Medications Medication Instructions Recorded Confirmed Last Taken Type Lisinopril [Zestril TAB] 40 mg PO QDAY #14 tablet 10/10/17 08/03/19 08/02/19 Rx AtorvaSTATin [Lipitor] 40 mg PO QHS #30 tablet 01/29/18 08/03/19 08/02/19 Rx Furosemide [Lasix TAB] 20 mg PO QDAY #10 tablet 02/06/18 08/03/19 08/02/19 Rx Fluticasone [Flonase] 200 mcg NS QDAY #1 bottle 05/06/18 08/03/19 08/02/19 Rx NIFEdipine XL [Procardia Xl] 60 mg PO QDAY #60 tablet 07/08/1408/03/19 08/02/19 Rx Insulin Glargine/Lixisenatide 3 ml SQ BID 30 Days insuln.pen 07/19/18 08/03/19 08/02/19 Rx [Soliqua 100 Unit-33 Mcg/ml Pen] hydrALAZINE [Apresoline TAB] 50 mg PO Q8HR #90 tablet 07/19/18 08/03/19 08/02/19 Rx Carvedilol [Coreg] 25 mg PO BID #60 tablet 09/15/18 08/03/19 08/02/19 Rx Aspirin [Aspirin BABY CHEW TAB] 81 mg PO QDAY 08/03/19 08/03/19 08/02/19 History Azithromycin [Zithromax TAB] 500 mg PO QDAY #6 tablet 08/03/19 Unknown Rx Ondansetron [Zofran Odt] 4 mg PO Q4HR PRN #20 tab.rapdis 08/28/19 Unknown Rx Promethazine [Phenergan TAB] 25 mg PO Q6HR PRN #20 tab 08/28/19 Unknown Rx ED Physical Exam - General Limitations: No Limitations, Other General appearance: alert, in no apparent distress - Head Head exam: Present: atraumatic, normocephalic - Eye Eye exam: Present: normal appearance, PERRL, EOMI - ENT ENT exam: Present: mucous membranes dry - Neck Neck exam: Present: normal inspection - Respiratory Respiratory exam: Present: normal lung sounds bilaterally. Absent: respiratory distress - Cardiovascular Cardiovascular Exam: Present: normal rhythm, tachycardia. Absent: systolic murmur, diastolic murmur, rubs, gallop - GI/Abdominal GI/Abdominal exam: Present: soft, normal bowel sounds - Extremities Exam Extremities exam: Present: normal inspection - Back Exam Back exam: Present: normal inspection - Neurological Exam Neurological exam: Present: alert, oriented X3, CN II-XII intact. Absent: motor sensory deficit - Psychiatric Psychiatric exam: Present: normal affect, normal mood - Skin Skin exam: Present: warm, dry, intact, normal color. Absent: rash ED Course Vital Signs 08/28/19 08/28/19 21:16 21:35 Pulse Rate 98 H Respiratory 18 Rate Blood Pressure 244/146 O2 Sat by Pulse 97 Oximetry ED Medical Decision Making - Lab Data Result diagrams: 08/28/19 21:15 08/28/19 21:15 Lab Results 08/28/19 08/28/19 Range/Units 21:15 21:15 WBC 13.0 H (4.5-11.0) K/mm3 RBC 4.29 (3.65-5.03) M/mm3 Hgb 12.3 (10.1-14.3) gm/dl Hct 37.0 (30.3-42.9) % MCV 86 (79-97) fl MCH 29 (28-32) pg MCHC 33 (30-34) % RDW 14.0 (13.2-15.2) % Plt Count 278 (140-440) K/mm3 Lymph % (Auto) 6.0 L (13.4-35.0) % [place] % (Auto) 2.9 (0.0-7.3) % Eos % (Auto) 0.5 (0.0-4.3) % Baso % (Auto) 0.6 (0.0-1.8) % Lymph # 0.8 L (1.2-5.4) K/mm3 [place] # 0.4 (0.0-0.8) K/mm3 Eos # 0.1 (0.0-0.4) K/mm3 Baso # 0.1 (0.0-0.1) K/mm3 Seg Neutrophils % 90.0 H (40.0-70.0) % Seg Neutrophils # 11.7 H (1.8-7.7) K/mm3 Sodium 139 (137-145) mmol/L Potassium 3.8 (3.6-5.0) mmol/L Chloride 105.1 (98-107) mmol/L Carbon Dioxide 20 L (22-30) mmol/L Anion Gap 18 mmol/L BUN 29 H (7-17) mg/dL Creatinine 2.0 H (0.7-1.2) mg/dL Estimated GFR 31 ml/min BUN/Creatinine Ratio 15 % Glucose 330 H (65-100) mg/dL Calcium 9.6 (8.4-10.2) mg/dL Total Bilirubin 0.20 (0.1-1.2) mg/dL AST 18 (5-40) units/L ALT 18 (7-56) units/L Alkaline Phosphatase 100 (35-129) units/L Total Protein 7.3 (6.3-8.2) g/dL Albumin 3.7 L (3.9-5) g/dL Albumin/Globulin Ratio 1.0 % Lipase 28 (13-60) units/L - Medical Decision Making Discussed results with patient elevated white count likely secondary to acute stress reaction patient is aware of kidney fxn and follows dr. cowan for it Critical care attestation.: If time is entered above; I have spent that time in minutes in the direct care of this critically ill patient, excluding procedure time. ED Disposition Clinical Impression: Nausea & vomiting Disposition: DC-01 TO HOME OR SELFCARE Is pt being admited?: No Does the pt Need Aspirin: No Condition: Stable Instructions: Acute Nausea and Vomiting (ED) Additional Instructions: return if worse Referrals: [facility] [Provider Group] - 3-5 Days [facility] [Provider Group] - 3-5 Days Time of Disposition: 22:45
[2019-08-29 01:08] VITALS: BP 160/100
== END 2019-08-29 00:30 | disposition home or self-care (01) ==
LOC: ED 19:57
DX: R11.2 Nausea with vomiting, unspecified (principal); R19.7 Diarrhea, unspecified; I11.0 Hypertensive heart disease with heart failure; I50.9 Heart failure, unspecified; I25.2 Old myocardial infarction; E11.9 Type 2 diabetes mellitus without complications; M19.90 Unspecified osteoarthritis, unspecified site; Z95.5 Presence of coronary angioplasty implant and graft; Z98.890 Other specified postprocedural states; Z79.899 Other long term (current) drug therapy; Z88.1 Allergy status to other antibiotic agents; Z79.4 Long term (current) use of insulin
CPT/HCPCS: 36415; 80053; 83690; 85025; 93005; 93010; J0360; J1200; J2405; J2765; J7030; 96361; 96374; 96375

== ENCOUNTER 2020-03-06 04:22 | Observation (INO) | payer OTHER ==
[2020-03-06 04:55] LABS: Basophils # (Auto) 0.1 K/mm3 (0.0-0.1); Basophils % (Auto) 0.9 % (0.0-1.8); Eosinophils # (Auto) 0.5 K/mm3 (0.0-0.4); Eosinophils % (Auto) 8.9 % (0.0-4.3); Hematocrit 28.7 % (30.3-42.9); Hemoglobin 10.2 gm/dl (10.1-14.3); Lymphocytes # (Auto) 1.7 K/mm3 (1.2-5.4); Lymphocytes % (Auto) 28.4 % (13.4-35.0); Mean Corpuscular HGB Conc 36 % (30-34); Mean Corpuscular Volume 87 fl (79-97); Monocytes # (Auto) 0.5 K/mm3 (0.0-0.8); Monocytes % (Auto) 8.4 % (0.0-7.3); Platelet Count 271 K/mm3 (140-440); Red Blood Count 3.31 M/mm3 (3.65-5.03); Red Cell Distribution Width 13.4 % (13.2-15.2)
[2020-03-06 05:17] LABS: Calcium 9.5 mg/dL (8.4-10.2)
[2020-03-06] MEDS ORDERED: FAMOTIDINE 20 MG TAB PO ONE (05:18)
[2020-03-06] MEDS ORDERED: ACETAMINOPHEN 325 MG TAB PO ONE (05:18)
--- NOTE | 2020-03-06 05:19 | Event Note ---
Date: 03/06/20 Cardiology: Dr Zuhair Riley Nephrology: Dr. Sepulveda past medical history: Hypertension, renal insufficiency, CHF, heart disease, stent 59-year-old female, recently had antihypertensive therapy changed by Dr. Sepulveda, presenting to the ER with a complaint of nonspecific chest pain, dizziness, weakness, malaise and fatigue. Blood pressure 104/65 at this time. She is in no significant distress at this time. We will treat her symptoms, chest pain protocol was initiated. Vital Signs 03/06/20 03/06/20 03/06/20 04:35 04:51 04:55 Temperature 97.5 F L Pulse Rate 62 Respiratory 18 18 Rate Blood Pressure 96/56 111/62 Blood Pressure [Left] O2 Sat by Pulse 100 100 Oximetry 03/06/20 03/06/20 05:00 05:15 Temperature Pulse Rate 60 57 L Respiratory 13 12 Rate Blood Pressure 109/60 104/58 Blood Pressure 109/60 [Left] O2 Sat by Pulse 100 99 Oximetry Lab Results 03/06/20 03/06/20 Range/Units 04:44 04:44 WBC 5.8 (4.5-11.0) K/mm3 RBC 3.31 L (3.65-5.03) M/mm3 Hgb 10.2 (10.1-14.3) gm/dl Hct 28.7 L (30.3-42.9) % MCV 87 (79-97) fl MCH 31 (28-32) pg MCHC 36 H (30-34) % RDW 13.4 (13.2-15.2) % Plt Count 271 (140-440) K/mm3 Lymph % (Auto) 28.4 (13.4-35.0) % [place] % (Auto) 8.4 H (0.0-7.3) % Eos % (Auto) 8.9 H (0.0-4.3) % Baso % (Auto) 0.9 (0.0-1.8) % Lymph # 1.7 (1.2-5.4) K/mm3 [place] # 0.5 (0.0-0.8) K/mm3 Eos # 0.5 H (0.0-0.4) K/mm3 Baso # 0.1 (0.0-0.1) K/mm3 Seg Neutrophils % 53.4 (40.0-70.0) % Seg Neutrophils # 3.1 (1.8-7.7) K/mm3 Sodium 139 (137-145) mmol/L Potassium 4.2 (3.6-5.0) mmol/L Chloride 104.1 (98-107) mmol/L Carbon Dioxide 22 (22-30) mmol/L Anion Gap 17 mmol/L BUN 43 H (7-17) mg/dL Creatinine 2.9 H (0.7-1.2) mg/dL Estimated GFR 20 ml/min BUN/Creatinine Ratio 15 % Glucose 157 H (65-100) mg/dL Calcium 9.5 (8.4-10.2) mg/dL
--- NOTE | 2020-03-06 05:20 | XRay Report ---
CHEST 1 VIEW INDICATION: Chest Pain. COMPARISON: Chest x-ray from 08/03/19 FINDINGS: Support devices: None. Heart: Within normal limits. Lungs/Pleura: Clear lungs. Additional findings: None. IMPRESSION: 1. No acute findings. Signer Name: Freddy Mistry MD Signed: 03/06/2020 5:15 AM Workstation Name: [id number]
[2020-03-06 05:58] LABS: INR 0.92 (0.87-1.13)
[2020-03-06 06:11] LABS: Chol/HDL Ratio 7.86 %
--- NOTE | 2020-03-06 07:20 | Emergency Department Report ---
ED Chest Pain HPI - General Chief Complaint: Chest Pain Stated Complaint: LOW BLOOD PRESSURE, CHEST AND BACK PAIN, DIZZY Time Seen by Provider: 03/06/20 06:15 Source: patient Mode of arrival: Ambulatory Limitations: No Limitations - History of Present Illness Initial Comments: This is a 59-year-old female who states that she was awoken by substernal and precordial chest pressure which did not radiate. It is mildly ongoing. She states that she has been doing well with regards to her chest but admits to prior emergency department visits. She states that she has 2 stents. She denies nausea, vomiting, pain radiation or pleuritic pain. She has not been short of breath. She also complains of discomfort in her epigastric area which she states is due to "gastritis". She states that she has had previous endoscopy but no prior transfusion for upper GI bleeding. He states that she was given Tylenol and Pepcid prior to my arrival. She denies any change in her stool/dark stool or signs of GI bleeding. She has not been vomiting at all. She states that she is to be scheduled for colonoscopy but has not had one prior. She has a history of renal insufficiency. She does take Lasix. She denies any leg pain or swelling. She states that she has had no recent travel. Patient stated that when she awoke she took her blood pressure and found her systolic to be in the 80s. MD Complaint: chest pain -: Gradual, hour(s) Onset: during rest Pain Location: substernal Severity: moderate Severity scale (0 -10): 8 Quality: tightness, heaviness Consistency: constant Improves With: nothing Worsens With: nothing Context: other (History of CAD) re: denies: nausea, vomting, diaphoresis Other Symptoms: denies: cough, fever, syncope Treatments Prior to Arrival: none Aspirin use within the Past 7 Days: (1) Yes - Related Data Home Medications Medication Instructions Recorded Confirmed Last Taken Aspirin [Aspirin BABY CHEW TAB] 81 mg PO QDAY 08/03/19 08/03/19 08/02/19 Previous Rx's Medication Instructions Recorded Last Taken Type lisinopriL [Zestril TAB] 40 mg PO QDAY #14 tablet 10/10/17 08/02/19 Rx AtorvaSTATin [Lipitor] 40 mg PO QHS #30 tablet 01/29/18 08/02/19 Rx Furosemide [Lasix TAB] 20 mg PO QDAY #10 tablet 02/06/18 08/02/19 Rx Fluticasone [Flonase] 200 mcg NS QDAY #1 bottle 05/06/18 08/02/19 Rx NIFEdipine XL [Procardia Xl] 60 mg PO QDAY #60 tablet 05/06/18 08/02/19 Rx Insulin Glargine/Lixisenatide 3 ml SQ BID 30 Days insuln.pen 07/19/18 08/02/19 Rx [Sol[place]a 100 Unit-33 Mcg/ml Pen] hydrALAZINE [Apresoline TAB] 50 mg PO Q8HR #90 tablet 07/19/18 08/02/19 Rx carvediloL [Coreg] 25 mg PO BID #60 tablet 09/15/18 08/02/19 Rx Azithromycin [Zithromax TAB] 500 mg PO QDAY #6 tablet 08/03/19 Unknown Rx Ondansetron [Zofran Odt] 4 mg PO Q4HR PRN #20 tab.rapdis 08/28/19 Unknown Rx Promethazine [Phenergan TAB] 25 mg PO Q6HR PRN #20 tab 08/28/19 Unknown Rx Allergies Allergy/AdvReac Type Severity Reaction Status Date / Time levofloxacin [From Levaquin] Allergy Angioedema Verified 05/04/18 10:33 Heart Score - HEART Score History: Moderately suspicious EKG: Significant ST-depression Age: 45-65 Risk factors: > 3 risk factors or hx of atherosclerotic disease Troponin: 1-3x normal limit HEART Score: 7 - Critical Actions Critical Actions: >7 pts:50-65% risk of adverse cardiac event. Early invasive measures ED Review of Systems ROS: Stated complaint: LOW BLOOD PRESSURE, CHEST AND BACK PAIN, DIZZY Other details as noted in HPI Constitutional: denies: chills, fever Eyes: denies: eye pain, eye discharge, vision change ENT: denies: ear pain, throat pain Respiratory: denies: cough, shortness of breath, wheezing Cardiovascular: chest pain. denies: palpitations Endocrine: no symptoms reported Gastrointestinal: abdominal pain. denies: nausea, diarrhea Genitourinary: denies: urgency, dysuria, discharge Musculoskeletal: denies: back pain, joint swelling, arthralgia Skin: denies: rash, lesions Neurological: denies: headache, weakness, paresthesias Psychiatric: denies: anxiety, depression Hematological/Lymphatic: denies: easy bleeding, easy bruising ED Past Medical Hx - Past Medical History Previous Medical History?: Yes Hx Hypertension: Yes Hx Heart Attack/AMI: Yes Hx Congestive Heart Failure: Yes Hx Diabetes: Yes Hx Deep Vein Thrombosis: No Hx Renal Disease: Yes Hx Arthritis: Yes Hx Kidney Stones: Yes Hx Asthma: No Hx COPD: No Additional medical history: high cholesterol. CAD. 2 Stents 05/2015 here - Surgical History Past Surgical History?: Yes Hx Coronary Stent: Yes Additional Surgical History: Hysterectomy. RIGHT KNEE SURGERY - Social History Smoking Status: Never Smoker Substance Use Type: None - Medications Home Medications: Home Medications Medication Instructions Recorded Confirmed Last Taken Type lisinopriL [Zestril TAB] 40 mg PO QDAY #14 tablet 10/10/17 08/03/19 08/02/19 Rx AtorvaSTATin [Lipitor] 40 mg PO QHS #30 tablet 01/29/18 08/03/19 08/02/19 Rx Furosemide [Lasix TAB] 20 mg PO QDAY #10 tablet 02/06/18 08/03/19 08/02/19 Rx Fluticasone [Flonase] 200 mcg NS QDAY #1 bottle 05/06/18 08/03/19 08/02/19 Rx NIFEdipine XL [Procardia Xl] 60 mg PO QDAY #60 tablet 05/06/18 08/03/19 08/02/19 Rx Insulin Glargine/Lixisenatide 3 ml SQ BID 30 Days insuln.pen 07/19/18 08/03/19 08/02/19 Rx [Soliqua 100 Unit-33 Mcg/ml Pen] hydrALAZINE [Apresoline TAB] 50 mg PO Q8HR #90 tablet 07/19/18 08/03/19 08/02/19 Rx carvediloL [Coreg] 25 mg PO BID #60 tablet 09/15/18 08/03/19 08/02/19 Rx Aspirin [Aspirin BABY CHEW TAB] 81 mg PO QDAY 08/03/19 08/03/19 08/02/19 History Azithromycin [Zithromax TAB] 500 mg PO QDAY #6 tablet 08/03/19 Unknown Rx Ondansetron [Zofran Odt] 4 mg PO Q4HR PRN #20 tab.rapdis 08/28/19 Unknown Rx Promethazine [Phenergan TAB] 25 mg PO Q6HR PRN #20 tab 08/28/19 Unknown Rx ED Physical Exam - General Limitations: No Limitations General appearance: alert, in no apparent distress - Head Head exam: Present: atraumatic, normocephalic - Eye Eye exam: Present: normal appearance. Absent: scleral icterus - ENT ENT exam: Present: mucous membranes moist - Neck Neck exam: Present: normal inspection. Absent: tenderness, meningismus - Respiratory Respiratory exam: Present: normal lung sounds bilaterally. Absent: respiratory distress - Cardiovascular Cardiovascular Exam: Present: regular rate, normal rhythm. Absent: systolic murmur, diastolic murmur, rubs, gallop - GI/Abdominal GI/Abdominal exam: Present: soft, normal bowel sounds. Absent: distended, tenderness, guarding, rebound, rigid - Extremities Exam Extremities exam: Present: normal inspection, normal capillary refill. Absent: pedal edema, joint swelling, calf tenderness - Back Exam Back exam: Present: normal inspection - Neurological Exam Neurological exam: Present: alert, oriented X3, CN II-XII intact. Absent: motor sensory deficit - Psychiatric Psychiatric exam: Present: normal affect, normal mood - Skin Skin exam: Present: warm, dry, intact, normal color. Absent: rash ED Course Vital Signs 03/06/20 03/06/20 03/06/20 04:35 04:51 04:55 Temperature 97.5 F L Pulse Rate 62 Respiratory 18 18 Rate Blood Pressure 96/56 111/62 Blood Pressure [Left] O2 Sat by Pulse 100 100 Oximetry 03/06/20 03/06/20 03/06/20 05:00 05:15 05:30 Temperature Pulse Rate 60 57 L 57 L Respiratory 13 12 12 Rate Blood Pressure 109/60 104/58 100/60 Blood Pressure 109/60 [Left] O2 Sat by Pulse 100 99 99 Oximetry 03/06/20 03/06/20 03/06/20 05:45 06:00 06:15 Temperature Pulse Rate 56 L 57 L 56 L Respiratory 14 12 14 Rate Blood Pressure 106/60 91/47 94/47 Blood Pressure [Left] O2 Sat by Pulse 98 99 96 Oximetry 03/06/20 03/06/20 06:30 07:22 Temperature Pulse Rate 57 L 58 L Respiratory 13 16 Rate Blood Pressure 100/60 Blood Pressure 100/53 [Left] O2 Sat by Pulse 99 98 Oximetry - Reevaluation(s) Reevaluation #1: Patient is substantially prerenal in comparison to prior BUN. Her creatinine is gone up from 2.0-2.1 with a BUN of 43 now. Her hemoglobin has dropped a few points. Her hematocrit is now 28. I will give her Protonix. I will start some very slow IV fluid. She will require admission for further evaluation/cardiology evaluation. She is hemodynamically stable but I would avoid nitrates at this juncture due to her lower blood pressure.. 03/06/20 07:27 Reevaluation #2: We will check a d-dimer considering the patient's lower blood pressure and chest pain. However her history is not consistent with pulmonary embolism. Her lower blood pressure is probably secondary to volume contraction. I will also check a lipase. Patient was given IV Protonix. 03/06/20 07:29 Reevaluation #3: Discussed with hospitalist. Admit Dr. Manisha george. I will consult cardiology. 03/06/20 07:36 EDVI score - Devi Score Age > 65: (0) No Aspirin use within the Past 7 Days: (1) Yes 3 or more CAD Risk Factors: (1) Yes 2 or more Angina events in past 24 hrs: (0) No Known CAD with more than 50% Stenosis: (0) No Elevated Cardiac Markers: (0) No ST Deviation Greater than 0.5mm: (0) No DEVI Score: 2 ED Medical Decision Making - Lab Data Result diagrams: 03/06/20 04:44 03/06/20 04:44 Laboratory Results - last 24 hr 03/06/20 03/06/20 03/06/20 04:44 04:44 05:18 WBC 5.8 RBC 3.31 L Hgb 10.2 Hct 28.7 L MCV 87 MCH 31 MCHC 36 H RDW 13.4 Plt Count 271 Lymph % (Auto) 28.4 [place] % (Auto) 8.4 H Eos % (Auto) 8.9 H Baso % (Auto) 0.9 Lymph # 1.7 [place] # 0.5 Eos # 0.5 H Baso # 0.1 Seg Neutrophils % 53.4 Seg Neutrophils # 3.1 PT 12.2 INR 0.92 Sodium 139 Potassium 4.2 Chloride 104.1 Carbon Dioxide 22 Anion Gap 17 BUN 43 H Creatinine 2.9 H Estimated GFR 20 BUN/Creatinine Ratio 15 Glucose 157 H Calcium 9.5 Magnesium Total Creatine Kinase Troponin T 0.068 H NT-Pro-B Natriuret Pep Triglycerides 224 H Cholesterol 283 H LDL Cholesterol Direct 218 H HDL Cholesterol 36 L Cholesterol/HDL Ratio 7.86 1020 05:18 WBC RBC Hgb Hct MCV MCH MCHC RDW Plt Count Lymph % (Auto) [place] % (Auto) Eos % (Auto) Baso % (Auto) Lymph # [place] # Eos # Baso # Seg Neutrophils % Seg Neutrophils # PT INR Sodium Potassium Chloride Carbon Dioxide Anion Gap BUN Creatinine Estimated GFR BUN/Creatinine Ratio Glucose Calcium Magnesium 1.80 Total Creatine Kinase 322 H Troponin T NT-Pro-B Natriuret Pep 1654 H Triglycerides Cholesterol LDL Cholesterol Direct HDL Cholesterol Cholesterol/HDL Ratio - EKG Data -: EKG Interpreted by Me EKG shows normal: sinus rhythm, axis, intervals Rate: normal - EKG Data When compared to previous EKG there are: changes noted Interpretation: LVH (LVH and associated changes, consider ischemia) - Radiology Data Radiology results: image reviewed (Cardiomegaly/CHF mild) Critical care attestation.: If time is entered above; I have spent that time in minutes in the direct care of this critically ill patient, excluding procedure time. 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
[2020-03-06] MEDS ORDERED: ASPIRIN 81 MG TAB CHEW PO ONE (07:23)
[2020-03-06] MEDS ORDERED: SODIUM CHLORIDE 0.9% 1000 ML 1,000 ML IV ONE (07:23)
[2020-03-06] MEDS ORDERED: PANTOPRAZOLE 40 MG INJ IV ONE (07:23)
[2020-03-06] MEDS ORDERED: HYDROcodone/ACETAMINOPHEN 5-325 MG TAB PO ONE (07:26)
[2020-03-06 08:10] LABS: Alanine Aminotransferase 40 units/L (7-56); Albumin 3.5 g/dL (3.9-5)
[2020-03-06 08:11] LABS: Bilirubin,Direct < 0.2 mg/dL (0-0.2)
[2020-03-06] MEDS ORDERED: NON-FORMULARY EACH (Cholecalciferol (Vitamin D3) [Vitamin D3 50,000unit Cap] 50,000 UNIT) PO SCH (23:30)
[2020-03-06] MEDS ORDERED: INSULIN DETEMIR 20 UNIT SQ SCH (23:30)
[2020-03-06] MEDS ORDERED: ACETAMINOPHEN 325 MG TAB PO PRN (23:34)
[2020-03-06] MEDS ORDERED: HYDROmorphone 1 MG/1 ML INJ IV PRN (23:34)
[2020-03-06] MEDS ORDERED: ONDANSETRON 4 MG/2 ML INJ IV PRN (23:34)
[2020-03-06] MEDS ORDERED: oxyCODONE /ACETAMINOPHEN 5-325MG TAB PO PRN (23:34)
[2020-03-06] MEDS: INSULIN GLARGINE 100 UNITS/ML SUB-Q SCH (23:55)
[2020-03-06] MEDS: carvediloL 25 MG TAB PO SCH (23:55)
[2020-03-07 04:43] LABS: Basophils % (Auto) 0.5 % (0.0-1.8); Eosinophils # (Auto) 0.4 K/mm3 (0.0-0.4); Eosinophils % (Auto) 7.3 % (0.0-4.3); Hematocrit 30.2 % (30.3-42.9); Hemoglobin 10.2 gm/dl (10.1-14.3); Lymphocytes # (Auto) 1.4 K/mm3 (1.2-5.4); Lymphocytes % (Auto) 24.1 % (13.4-35.0); Mean Corpuscular HGB Conc 34 % (30-34); Mean Corpuscular Volume 88 fl (79-97); Monocytes # (Auto) 0.4 K/mm3 (0.0-0.8); Monocytes % (Auto) 7.5 % (0.0-7.3); Platelet Count 266 K/mm3 (140-440); Red Blood Count 3.44 M/mm3 (3.65-5.03); Red Cell Distribution Width 13.9 % (13.2-15.2)
[2020-03-07 05:06] LABS: Albumin 3.2 g/dL (3.9-5); Calcium 9.1 mg/dL (8.4-10.2)
--- NOTE | 2020-03-07 05:40 | History and Physical Report ---
History of Present Illness Date of examination: 03/06/20 Date of admission: 03/06/20 07:38 Chief complaint: Chest pain since morning History of present illness: 59-year-old AA female with history Htn,T2DM ,CAD and HLD and CKD presents with substernal and precordial chest pain since am.pain is 6 on scale of 1 to 10. Non radiating.No diaphoresis or palpitations or SOB.Inntermittent in nature .Patient had 2 stents in the past.No nausea or vomiting. No fever or chills.No exposure to [place] virus.No recent travel. No exacerbating or relieving factors.Schedulled for her first cololoscopy this coming week.No Melena or Anemis. Chest pain is dull in character. Past Medical History Previous Medical History?: Yes Hypertension: Yes Heart Attack/AMI: Yes Congestive Heart Failure: Yes Diabetes: Yes Renal Disease: Yes Arthritis: Yes Kidney Stones: Yes Additional medical history: high cholesterol. CAD. 2 Stents 05/2015 here - Surgical History Past Surgical History?: Yes Coronary Stent X 2 Additional Surgical History: Hysterectomy. RIGHT KNEE SURGERY - Social History Smoking Status: Never Smoker Substance Use Type: None Family history Htn - Medications Home Medications: Home Medications Medication Instructions Recorded Confirmed Last Taken Type lisinopriL [Zestril TAB] 40 mg PO QDAY #14 tablet 10/10/17 08/03/19 08/02/19 Rx AtorvaSTATin [Lipitor] 40 mg PO QHS #30 tablet 01/29/18 08/03/19 08/02/19 Rx Furosemide [Lasix TAB] 20 mg PO QDAY #10 tablet 02/06/18 08/03/19 08/02/19 Rx Fluticasone [Flonase] 200 mcg NS QDAY #1 bottle 05/06/18 08/03/19 08/02/19 Rx NIFEdipine XL [Procardia Xl] 60 mg PO QDAY #60 tablet 05/06/18 08/03/19 08/02/19 Rx Insulin Glargine/Lixisenatide 3 ml SQ BID 30 Days insuln.pen 07/19/18 08/03/19 08/02/19 Rx [[place] 100 Unit-33 Mcg/ml Pen] hydrALAZINE [Apresoline TAB] 50 mg PO Q8HR #90 tablet 0908/03/19 08/02/19 Rx carvediloL [Coreg] 25 mg PO BID #60 tablet 09/15/18 08/03/19 08/02/19 Rx Aspirin [Aspirin BABY CHEW TAB] 81 mg PO QDAY 08/03/19 08/03/19 08/02/19 History Azithromycin [Zithromax TAB] 500 mg PO QDAY #6 tablet 08/03/19 Unknown Rx Ondansetron [Zofran Odt] 4 mg PO Q4HR PRN #20 tab.rapdis 08/28/19 Unknown Rx Promethazine [Phenergan TAB] 25 mg PO Q6HR PRN #20 tab 08/28/19 Unknown Rx Review of Systems ROS: Stated complaint: LOW BLOOD PRESSURE, CHEST AND BACK PAIN, DIZZY Other details as noted in HPI Constitutional: denies: chills, fever Eyes: denies: eye pain, eye discharge, vision change ENT: denies: ear pain, throat pain Respiratory: denies: cough, shortness of breath, wheezing Cardiovascular: chest pain. denies: palpitations Endocrine: no symptoms reported Gastrointestinal: abdominal pain. denies: nausea, diarrhea Genitourinary: denies: urgency, dysuria, discharge Musculoskeletal: denies: back pain, joint swelling, arthralgia Skin: denies: rash, lesions Neurological: denies: headache, weakness, paresthesias Psychiatric: denies: anxiety, depression Hematological/Lymphatic: denies: easy bleeding, easy bruising Medications and Allergies Allergies Allergy/AdvReac Type Severity Reaction Status Date / Time levofloxacin [From Levaquin] Allergy Angioedema Verified 05/04/18 10:33 Home Medications Medication Instructions Recorded Confirmed Last Taken Type lisinopriL [Zestril TAB] 40 mg PO QDAY #14 tablet 10/10/17 03/06/20 03/05/20 09:00 Rx AtorvaSTATin [Lipitor] 40 mg PO QHS #30 tablet 01/29/18 03/06/20 03/05/20 18:00 Rx carvediloL [Coreg] 25 mg PO BID #60 tablet 09/15/18 03/06/20 03/05/20 18:00 Rx Aspirin [Aspirin BABY CHEW TAB] 81 mg PO QDAY 08/03/19 03/06/20 03/05/20 09:00 History Cholecalciferol (Vitamin D3) 50,000 unit PO 1XW 03/06/20 03/06/20 Unknown History [Vitamin D3 50,000UNIT CAP] Furosemide [Lasix TAB] 40 mg PO QDAY 03/06/20 03/06/20 03/05/20 09:00 History Insulin Aspart (Nf) [NovoLOG 100 8 units SQ BID 03/06/20 03/06/20 Unknown History UNITS/ML VIAL] Insulin Detemir [Levemir VIAL] 20 unit SQ Q12HR 03/06/20 03/06/20 03/05/20 18:00 History NIFEdipine XL [Procardia Xl] 90 mg PO QDAY 03/06/20 03/06/20 03/05/20 09:00 History Active Meds: Active Medications Acetaminophen (Tylenol) 650 mg PO Q4H PRN PRN Reason: Pain MILD(1-3)/Fever >100.5/CARVAJAL Aspirin (Baby Aspirin) 81 mg PO QDAY [facility] Atorvastatin Calcium (Lipitor) 40 mg PO QHS [facility] Carvedilol (Coreg) 25 mg PO BID [facility] Last Admin: 03/06/20 23:55 Dose: Not Given Documented by: Ergocalciferol (Vitamin D2) 50,000 unit PO Fr [facility]EL Famotidine (Pepcid) 10 mg IV BID [facility] Furosemide (Lasix) 40 mg PO QDAY [facility] Hydromorphone HCl (Dilaudid) 0.5 mg IV Q3H PRN PRN Reason: Pain , Severe (7-10) Insulin Glargine (Lantus) 20 units SUB-Q Q12HR [facility] Last Admin: 03/06/20 23:55 Dose: Not Given Documented by: Insulin Human Lispro (Humalog) 0 unit SUB-Q [facility]; Protocol Lisinopril (Zestril) 40 mg PO QDAY [facility] Nifedipine (Procardia Xl) 90 mg PO QDAY [facility] Ondansetron HCl (Zofran) 4 mg IV Q8H PRN PRN Reason: Nausea And Vomiting Oxycodone/Acetaminophen (Percocet 5/325) 1 tab PO Q6H PRN PRN Reason: Pain, Moderate (4-6) Sodium Chloride (Sodium Chloride Flush Syringe 10 Ml) 10 ml IV BID [facility] Sodium Chloride (Sodium Chloride Flush Syringe 10 Ml) 10 ml IV PRN PRN PRN Reason: LINE FLUSH Exam - Constitutional Vitals: Temp Pulse Resp BP Pulse Ox 97.8 F 79 16 178/83 98 03/06/20 19:38 03/06/20 19:38 03/06/20 19:38 03/06/20 19:38 03/06/20 19:38 General appearance: Present: no acute distress, well-nourished - EENT Eyes: Present: PERRL ENT: hearing intact, clear oral mucosa - Neck Neck: Present: supple, normal ROM - Respiratory Respiratory effort: normal Respiratory: bilateral: CTA - Cardiovascular Heart rate: 78 Rhythm: regular Heart Sounds: Present: S1 & S2. Absent: rub, click - Extremities Extremities: no ischemia, pulses intact, pulses symmetrical, No edema Peripheral Pulses: within normal limits - Abdominal General gastrointestinal: Present: soft, non-tender, non-distended, normal bowel sounds Female genitourinary: Present: normal - Rectal Rectal Exam: deferred - Integumentary Integumentary: Present: clear, warm, dry - Musculoskeletal Musculoskeletal: gait normal, strength equal bilaterally - Psychiatric Psychiatric: appropriate mood/affect, intact judgment & insight - Neurologic Neurologic: CNII-XII intact, moves all extremities - Allied Health Allied health notes reviewed: nursing, case management DEVI score - Devi Score Age > 65: (0) No Aspirin use within the Past 7 Days: (1) Yes 3 or more CAD Risk Factors: (1) Yes 2 or more Angina events in past 24 hrs: (1) Yes Known CAD with more than 50% Stenosis: (1) Yes Elevated Cardiac Markers: (1) Yes ST Deviation Greater than 0.5mm: (0) No DEVI Score: 5 Results - Labs CBC & Chem 7: 03/07/20 03:41 03/07/20 03:41 Labs: Laboratory Last Values WBC 6.0 K/mm3 (4.5-11.0) 03/07/20 03:41 RBC 3.44 M/mm3 (3.65-5.03) L 03/07/20 03:41 Hgb 10.2 gm/dl (10.1-14.3) 03/07/20 03:41 Hct 30.2 % (30.3-42.9) L 03/07/20 03:41 MCV 88 fl (79-97) 03/07/20 03:41 MCH 30 pg (28-32) 03/07/20 03:41 MCHC 34 % (30-34) 03/07/20 03:41 RDW 13.9 % (13.2-15.2) 03/07/20 03:41 Plt Count 266 K/mm3 (140-440) 03/07/20 03:41 Lymph % (Auto) 24.1 % (13.4-35.0) 03/07/20 03:41 [place] % (Auto) 7.5 % (0.0-7.3) H 03/07/20 03:41 Eos % (Auto) 7.3 % (0.0-4.3) H 03/07/20 03:41 Baso % (Auto) 0.5 % (0.0-1.8) 03/07/20 03:41 Lymph # 1.4 K/mm3 (1.2-5.4) 03/07/20 03:41 [place] # 0.4 K/mm3 (0.0-0.8) 03/07/20 03:41 Eos # 0.4 K/mm3 (0.0-0.4) 03/07/20 03:41 Baso # 0.0 K/mm3 (0.0-0.1) 03/07/20 03:41 Seg Neutrophils % 60.6 % (40.0-70.0) 03/07/20 03:41 Seg Neutrophils # 3.6 K/mm3 (1.8-7.7) 03/07/20 03:41 PT 12.2 Sec. (12.2-14.9) 03/06/20 05:18 INR 0.92 (0.87-1.13) 03/06/20 05:18 D-Dimer 233.75 ng/mlDDU (0-234) 03/06/20 07:33 Sodium 140 mmol/L (137-145) 03/07/20 03:41 Potassium 4.5 mmol/L (3.6-5.0) 03/07/20 03:41 Chloride 106.0 mmol/L (98-107) 03/07/20 03:41 Carbon Dioxide 23 mmol/L (22-30) 03/07/20 03:41 Anion Gap 16 mmol/L 03/07/20 03:41 BUN 36 mg/dL (7-17) H 03/07/20 03:41 Creatinine 2.6 mg/dL (0.7-1.2) H 03/07/20 03:41 Estimated GFR 23 ml/min 03/07/20 03:41 BUN/Creatinine Ratio 14 % 03/07/20 03:41 Glucose 242 mg/dL (65-100) H 03/07/20 03:41 POC Glucose 198 (70-105) H 03/06/20 19:52 Hemoglobin A1c 10.1 % (4-6) H 03/06/20 Unknown Calcium 9.1 mg/dL (8.4-10.2) 03/07/20 03:41 Magnesium 1.90 mg/dL (1.7-2.3) 03/06/20 07:33 Total Bilirubin 0.20 mg/dL (0.1-1.2) 03/07/20 03:41 Direct Bilirubin < 0.2 mg/dL (0-0.2) 03/06/20 07:33 AST 19 units/L (5-40) 03/07/20 03:41 ALT 26 units/L (7-56) 03/07/20 03:41 Alkaline Phosphatase 92 units/L (35-129) 03/07/20 03:41 Total Creatine Kinase 322 units/L (30-135) H 03/06/20 05:18 Troponin T 0.059 ng/mL (0.00-0.029) H 03/06/20 10:39 NT-Pro-B Natriuret Pep 1654 pg/mL (0-900) H 03/06/20 05:18 Total Protein 6.0 g/dL (6.3-8.2) L 03/07/20 03:41 Albumin 3.2 g/dL (3.9-5) L 03/07/20 03:41 Albumin/Globulin Ratio 1.1 % 03/07/20 03:41 Triglycerides 224 mg/dL (2-149) H 03/06/20 04:44 Cholesterol 283 mg/dL (50-199) H 03/06/20 04:44 LDL Cholesterol Direct 218 mg/dL (50-130) H 03/06/20 04:44 HDL Cholesterol 36 mg/dL (40-59) L 03/06/20 04:44 Cholesterol/HDL Ratio 7.86 % 03/06/20 04:44 Lipase 28 units/L (13-60) 03/06/20 07:33 Blood Type B POSITIVE 03/06/20 07:41 Antibody Screen Negative 03/06/20 07:41 Short CBC 03/07/20 Range/Units 03:41 WBC 6.0 (4.5-11.0) K/mm3 Hgb 10.2 (10.1-14.3) gm/dl Hct 30.2 L (30.3-42.9) % Plt Count 266 (140-440) K/mm3 BMP 03/06/20 03/07/20 04:44 03:41 Sodium 139 140 Potassium 4.2 4.5 Chloride 104.1 106.0 Carbon Dioxide 22 23 BUN 43 H 36 H Creatinine 2.9 H 2.6 H Glucose 157 H 242 H Calcium 9.5 9.1 Cardiac Enzymes 03/06/20 03/06/20 03/06/20 Range/Units 04:44 05:18 07:33 Total Creatine Kinase 322 H (30-135) units/L Troponin T 0.068 H 0.071 H (0.00-0.029) ng/mL 03/06/20 Range/Units 10:39 Total Creatine Kinase (30-135) units/L Troponin T 0.059 H (0.00-0.029) ng/mL Liver Function 03/06/20 03/07/20 Range/Units 07:33 03:41 Total Bilirubin < 0.20 0.20 (0.1-1.2) mg/dL Direct Bilirubin < 0.2 (0-0.2) mg/dL AST 53 H 19 (5-40) units/L ALT 40 26 (7-56) units/L Alkaline Phosphatase 110 92 (35-129) units/L Albumin 3.5 L 3.2 L (3.9-5) g/dL - Imaging and Cardiology EKG: report reviewed Chest x-ray: report reviewed (NAF) Imaging and Cardiology: EKG - EKG Data -: EKG Interpreted by [facility] EKG shows normal: sinus rhythm, axis, intervals Rate: normal - EKG Data When compared to previous EKG there are: changes noted Interpretation: LVH (LVH and associated changes, consider ischemia) [place]/IV: Voiding Method Toilet IV Catheter Type [Left INT / Saline Lock Antecubital] Assessment and Plan Advance Directives: Yes (Full code) VTE prophylaxis?: Chemical Plan of care discussed with patient/family: Yes - Patient Problems (1) Chest pain Current Visit: Yes Status: Acute Qualifiers: Chest pain type: unspecified Qualified Code(s): R07.9 - Chest pain, unspecified Plan to address problem: Chest pain protocol Serial troponins Elevated troponin sec to CKD Lexiscan in AM (2) Non-ST elevation VT (NSTEMI) Current Visit: Yes Status: Chronic Plan to address problem: Type 2 sec to ckd Lexiscan in AM (3) Chronic kidney disease, stage III (moderate) Current Visit: Yes Status: Chronic Plan to address problem: Stable (4) Type 2 diabetes mellitus with diabetic nephropathy Current Visit: Yes Status: Chronic Plan to address problem: Cont hypoglycemics and coverage Check A1c (5) CAD (coronary artery disease) Current Visit: No Status: Chronic Qualifiers: Coronary Disease-Associated Artery/Lesion type: unspecified vessel or lesion type [place] vs. transplanted heart: [place] heart Associated angina: without angina Qualified Code(s): I25.10 - Atherosclerotic heart disease of [place] coronary artery without angina pectoris Plan to address problem: Cont ASA and Isosorbide mononitrate (6) Hyperlipidemia Current Visit: No Status: Chronic Qualifiers: Hyperlipidemia type: mixed hyperlipidemia Qualified Code(s): E78.2 - Mixed hyperlipidemia Plan to address problem: On Stains (7) Hypertension Current Visit: No Status: Chronic Qualifiers: Hypertension type: essential hypertension Qualified Code(s): I10 - Essential (primary) hypertension Plan to address problem: Cont antihyupertensives and adjust meds as necessary (8) DVT prophylaxis Current Visit: No Status: Acute Plan to address problem: On Heparin and GI prophylaxis
[2020-03-07] MEDS ORDERED: REGADENOSON 0.4 MG/5 ML INJ IV ONE ×3 (07:09→08:43)
[2020-03-07] MEDS ORDERED: NIFEdipine XL 90 MG TAB PO ONE (07:57)
[2020-03-07] MEDS ORDERED: LISINOPRIL 40 MG TAB ONE (07:57)
[2020-03-07] MEDS: LISINOPRIL 40 MG TAB PO SCH ×2 (08:00→11:25)
[2020-03-07] MEDS: NIFEdipine XL 90 MG TAB PO SCH ×2 (08:01→11:58)
[2020-03-07] MEDS: INSULIN LISPRO 100 UNIT/ML SUB-Q SCH ×2 (08:02→14:11)
[2020-03-07] MEDS ORDERED: ASPIRIN 81 MG TAB CHEW PO SCH (10:00)
[2020-03-07] MEDS ORDERED: FAMOTIDINE 20 MG/2 ML INJ IV SCH ×2 (10:00)
[2020-03-07] MEDS ORDERED: FUROSEMIDE 40 MG TAB PO SCH (10:00)
--- NOTE | 2020-03-07 10:38 | Consultation ---
History of Present Illness Consult date: 03/07/20 Consult reason: chest pain History of present illness: The patient is a 59-year-old woman with coronary artery disease, chronic hype rtension, chronic kidney disease and diabetes. In 2016, a cardiac catheterization at this hospital showed widely patent prior circumflex artery stent, and nonobstructive disease of the right coronary artery. Left ventricular ejection fraction was 55%. In 2018, an echocardiogram confirmed well-preserved left ventricular systolic function with ejection fraction estimated at that time to be 60 to 65%. She is admitted to the hospital at this time with chest pain. Chest pain is poorly characterized, nonexertional and has no associated factors. She also reports easy fatigability and chronic shortness of breath. There is no lower extremity edema. Her compliance with her medical therapy and dietary restrictions is questionable. EKG is normal sinus rhythm, left ventricle hypertrophy with associated repolarization abnormalities of LVH. Troponin level is 0.06, mildly elevated, but consistent on 3 separate measurements. This is in the setting of chronic kidney disease with a creatinine of 2.6. Chest x-ray shows mild to moderate cardiomegaly, but clear lungs with no evidence of significant interstitial edema. Today, she underwent a Lexiscan thallium stress test, ordered by the medical service. The results are pending. Past History Past Medical History: CAD, diabetes, hypertension, renal failure Medications and Allergies Allergies Allergy/AdvReac Type Severity Reaction Status Date / Time levofloxacin [From Levaquin] Allergy Angioedema Verified 05/04/18 10:33 Home Medications Medication Instructions Recorded Confirmed Last Taken Type lisinopriL [Zestril TAB] 40 mg PO QDAY #14 tablet 10/10/17 03/06/20 03/05/20 09:00 Rx AtorvaSTATin [Lipitor] 40 mg PO QHS #30 tablet 01/29/18 03/06/20 03/05/20 18:00 Rx carvediloL [Coreg] 25 mg PO BID #60 tablet 09/15/18 03/06/20 03/05/20 18:00 Rx Aspirin [Aspirin BABY CHEW TAB] 81 mg PO QDAY 08/03/19 03/06/20 03/05/20 09:00 History Cholecalciferol (Vitamin D3) 50,000 unit PO 1XW 03/06/20 03/06/20 Unknown History [Vitamin D3 50,000UNIT CAP] Furosemide [Lasix TAB] 40 mg PO QDAY 03/06/20 03/06/20 03/05/20 09:00 History Insulin Aspart (Nf) [NovoLOG 100 8 units SQ BID 03/06/20 03/06/20 Unknown History UNITS/ML VIAL] Insulin Detemir [Levemir VIAL] 20 unit SQ Q12HR 03/06/20 03/06/20 03/05/20 18:00 History NIFEdipine XL [Procardia Xl] 90 mg PO QDAY 03/06/20 03/06/20 03/05/20 09:00 History Active Meds: Active Medications Acetaminophen (Tylenol) 650 mg PO Q4H PRN PRN Reason: Pain MILD(1-3)/Fever >100.5/CARVAJAL Aspirin (Baby Aspirin) 81 mg PO QDAY [facility] Atorvastatin Calcium (Lipitor) 40 mg PO QHS [facility] Carvedilol (Coreg) 25 mg PO BID [facility] Last Admin: 03/06/20 23:55 Dose: Not Given Documented by: Ergocalciferol (Vitamin D2) 50,000 unit PO Fr [facility] Famotidine (Pepcid) 10 mg IV BID [facility] Furosemide (Lasix) 40 mg PO QDAY [facility] Hydromorphone HCl (Dilaudid) 0.5 mg IV Q3H PRN PRN Reason: Pain , Severe (7-10) Insulin Glargine (Lantus) 20 units SUB-Q Q12HR [facility] Last Admin: 03/06/20 23:55 Dose: Not Given Documented by: Insulin Human Lispro (Humalog) 0 unit SUB-Q [facility]; Protocol Last Admin: 03/07/20 08:02 Dose: 4 unit Documented by: Lisinopril (Zestril) 40 mg PO QDAY [facility] Last Admin: 03/07/20 08:00 Dose: 40 mg Documented by: Nifedipine (Procardia Xl) 90 mg PO QDAY [facility] Last Admin: 03/07/20 08:01 Dose: 90 mg Documented by: Ondansetron HCl (Zofran) 4 mg IV Q8H PRN PRN Reason: Nausea And Vomiting Last Admin: 03/07/20 06:20 Dose: 4 mg Documented by: Oxycodone/Acetaminophen (Percocet 5/325) 1 tab PO Q6H PRN PRN Reason: Pain, Moderate (4-6) Sodium Chloride (Sodium Chloride Flush Syringe 10 Ml) 10 ml IV BID [facility] Sodium Chloride (Sodium Chloride Flush Syringe 10 Ml) 10 ml IV PRN PRN PRN Reason: LINE FLUSH Review of Systems Cardiovascular: chest pain, shortness of breath, no orthopnea, no palpitations, no rapid/irregular heart beat, no edema, no syncope, no lightheadedness Physical Examination Vital Signs Temp Pulse Resp BP Pulse Ox 97.5 F L 62 18 96/56 100 03/06/20 04:35 03/06/20 04:35 03/06/20 04:35 03/06/20 04:35 03/06/20 04:35 General appearance: no acute distress HEENT: Positive: PERRL Neck: Positive: neck supple Cardiac: Positive: Reg Rate and Rhythm Lungs: Positive: Decreased Breath Sounds Neuro: Positive: Grossly Intact Abdomen: Positive: Soft Female genitourinary: deferred Skin: Positive: Clear Extremities: Absent: edema Results 03/07/20 03:41 03/07/20 03:41 Cardiac Enzymes 03/07/20 Range/Units 03:41 AST 19 (5-40) units/L Lipids 03/06/20 Range/Units 04:44 Triglycerides 224 H (2-149) mg/dL Cholesterol 283 H (50-199) mg/dL HDL Cholesterol 36 L (40-59) mg/dL Cholesterol/HDL Ratio 7.86 % CBC 03/07/20 Range/Units 03:41 WBC 6.0 (4.5-11.0) K/mm3 RBC 3.44 L (3.65-5.03) M/mm3 Hgb 10.2 (10.1-14.3) gm/dl Hct 30.2 L (30.3-42.9) % Plt Count 266 (140-440) K/mm3 Lymph # 1.4 (1.2-5.4) K/mm3 [place] # 0.4 (0.0-0.8) K/mm3 Eos # 0.4 (0.0-0.4) K/mm3 Baso # 0.0 (0.0-0.1) K/mm3 Comprehensive Metabolic Panel 03/06/20 03/07/20 Range/Units 04:44 03:41 Sodium 139 140 (137-145) mmol/L Potassium 4.2 4.5 (3.6-5.0) mmol/L Chloride 104.1 106.0 (98-107) mmol/L Carbon Dioxide 22 23 (22-30) mmol/L BUN 43 H 36 H (7-17) mg/dL Creatinine 2.9 H 2.6 H (0.7-1.2) mg/dL Glucose 157 H 242 H (65-100) mg/dL Calcium 9.5 9.1 (8.4-10.2) mg/dL AST 19 (5-40) units/L ALT 26 (7-56) units/L Alkaline Phosphatase 92 (35-129) units/L Total Protein 6.0 L (6.3-8.2) g/dL Albumin 3.2 L (3.9-5) g/dL EKG interpretations - Telemetry EKG Rhythm: Sinus Rhythm Assessment and Plan - Patient Problems (1) Chest pain Current Visit: Yes Status: Acute Qualifiers: Chest pain type: unspecified Qualified Code(s): R07.9 - Chest pain, unspecified Plan to address problem: Chest pain is atypical, troponin level measurements nonspecific in the setting of chronic kidney disease. The patient has completed a Lexiscan thallium stress test, results are pending. We will order an echocardiogram for further assessment of chronic shortness of breath, and follow-up of the patient's history of pericardial effusion.
[2020-03-07] MEDS: INSULIN GLARGINE 100 UNITS/ML SUB-Q SCH (11:20)
[2020-03-07] MEDS: carvediloL 25 MG TAB PO SCH (11:21)
[2020-03-07] MEDS ORDERED: hydrALAZINE 20 MG/1 ML INJ IV PRN (12:35)
--- NOTE | 2020-03-07 14:21 | Discharge Summary ---
Providers - Providers Date of Admission: 03/06/20 07:38 Attending physician: MEG DAVIS MD 03/06/20 07:37 Consult to Physician [CONS] Urgent Comment: Consulting Provider: VERONICA CROUCH Physician Instructions: Reason For Exam: Chest pain, history of stents 03/07/20 11:36 Consult to Physician [CONS] Routine Comment: Consulting Provider: AZIZA REECE Physician Instructions: Reason For Exam: DINA Primary care physician: CIGARETTE MACHINE FILLER Hospitalization Reason for admission: Chest pain Condition: Stable Hospital course: 59-year-old AA female with history Htn,T2DM ,CAD and HLD and CKD presents with substernal and precordial chest pain since am, pain is 6 on scale of 1 to 10. Non radiating. No diaphoresis or palpitations or SOB. Intermittent in nature. Patient had 2 stents in the past.No nausea or vomiting. No fever or chills. No exposure to López virus. No recent travel. No exacerbating or relieving factors. Scheduled for her first cololoscopy this coming week. No Melena or Anemis. Chest pain is dull in character. Patient was seen and evaluated by cardiology with noted In 2016, a cardiac catheterization at this hospital showed widely patent prior circumflex artery stent, and nonobstructive disease of the right coronary artery. Left ventricular ejection fraction was 55%. In 2018, an echocardiogram confirmed well-preserved left ventricular systolic function with ejection fraction estimated at that time to be 60 to 65%. She is admitted to the hospital at this time with chest pain. Chest pain is poorly characterized, nonexertional and has no associated factors. She also reports easy fatigability and chronic shortness of breath. There is no lower extremity edema. Her compliance with her medical therapy and dietary restrictions is questionable. EKG is normal sinus rhythm, left ventricle hypertrophy with associated repolarization abnormalities of LVH. Troponin level is 0.06, mildly elevated, but consistent on 3 separate measurements. This is in the setting of chronic kidney disease with a creatinine of 2.6. Chest x-ray shows mild to moderate cardiomegaly, but clear lungs with no evidence of significant interstitial edema. Today, she underwent a Lexiscan thallium stress test, ordered by the medical service. The results are pending. Patient following stress test reports complete resolution of chest pain. Blood pressure is improved following getting her medications. She of note stated that her doctor made some changes to her blood pressure medicines but we do not have those changes at this time. She has been advised to keep a record of her blood pressure 3 times a day and have her cap sizer reviewed this with her I also discussed the changes in her renal function from her baseline and she is aware and follows closely with cap sizer. She will continue current therapy but follow-up with nephrology in 3 to 5 days due to changes in renal function she still continues to have good urine output. - Patient Problems (1) atypical chest pain likely secondary to costochondritis Current Visit: Yes Status: Acute Qualifiers: Chest pain type: unspecified Qualified Code(s): R07.9 - Chest pain, unspecified Plan to address problem: (2) Non-ST elevation MD (NSTEMI) type II secondary to CKD Current Visit: Yes Status: Chronic Plan to address problem: Type 2 sec to ckd (3) acute kidney injury on chronic kidney disease, stage III (moderate) Current Visit: Yes Status: Chronic Plan to address problem: Stable (4) Type 2 diabetes mellitus with diabetic nephropathy Current Visit: Yes Status: Chronic Plan to address problem: Cont hypoglycemics and coverage Counseling provided (5) CAD (coronary artery disease) Current Visit: No Status: Chronic Qualifiers: Coronary Disease-Associated Artery/Lesion type: unspecified vessel or lesion type [place] vs. transplanted heart: [place] heart Associated angina: without angina Qualified Code(s): I25.10 - Atherosclerotic heart disease of [place] coronary artery without angina pectoris Plan to address problem: Cont ASA and Isosorbide mononitrate (6) Hyperlipidemia Current Visit: No Status: Chronic Qualifiers: Hyperlipidemia type: mixed hyperlipidemia Qualified Code(s): E78.2 - Mixed hyperlipidemia Plan to address problem: On Stains (7) Hypertension Current Visit: No Status: Chronic Qualifiers: Hypertension type: essential hypertension Qualified Code(s): I10 - Essential (primary) hypertension Plan to address problem: Cont antihyupertensives and adjust meds as necessary (8) pleural effusion Follow-up echocardiogram pending Time spent for discharge: 35-minute Core Measure Documentation - Palliative Care Palliative Care/ Comfort Measures: Not Applicable - Core Measures Any of the following diagnoses?: none Exam - Physical Exam Narrative exam: VITAL SIGNS: Reviewed. GENERAL: The patient appears normally developed, Vital signs as documented. HEAD: No signs of head trauma. EYES: Pupils are equal. Extraocular motions intact. EARS: Hearing grossly intact. MOUTH: Oropharynx is normal. NECK: No adenopathy, no JVD. CHEST: Chest with clear breath sounds bilaterally. No wheezes, rales, or rhonchi. CARDIAC: Regular rate and rhythm. S1 and S2, without murmurs, gallops, or rubs. VASCULAR: No Edema. Peripheral pulses normal and equal in all extremities. ABDOMEN: Soft, non tender and non distended. No rebound or guarding, and no masses palpated. Bowel Sounds normal. MUSCULOSKELETAL: Good range of motion of all major joints. Extremities without clubbing, cyanosis or edema. NEUROLOGIC EXAM: Alert and oriented x 3 No focal sensory or strength deficits. Speech normal. Follows commands. PSYCHIATRIC: Mood normal. SKIN: detial exam as documented in skin assessment - Constitutional Vitals: Temp Pulse Resp BP Pulse Ox 98.9 F 83 18 168/90 97 03/07/20 08:02 03/07/20 11:52 03/07/20 11:00 03/07/20 13:57 03/07/20 08:02 Plan Activity: advance as tolerated, fall precautions Diet: low salt, diabetic Special Instructions: record daily BP diary, record blood sugar diary Follow up with: PRIMARY CAREMD [Primary Care Provider] - 3-5 Days VERONICA CROUCH MD [Staff Physician] - 7 Days AZIZA REECE MD [Staff Physician] - 7 Days Prescriptions: traMADoL [Ultram] 50 mg PO Q6HR PRN #14 tablet PRN Reason: Pain
--- NOTE | 2020-03-07 15:03 | Treadmill Report ---
THALLIUM STRESS TEST LEFT VENTRICLE: Left ventricular chamber size is within normal spread. Perfusion study demonstrates evidence of mild breast attenuation artifact, otherwise fairly homogeneous uptake of the tracer in all segments. Gated analysis is suboptimal for left ventricular function assessment. CONCLUSION: Suboptimal study, with no demonstrable ischemia. Recommend clinical correlation and echocardiographic reassessment of left ventricular function. JOB# [id number] CA/NTS
[2020-03-08 12:25] VITALS: BP 168/90
[2020-03-11] MEDS ORDERED: ERGOCALCIFEROL (VIT D2) 50,000 UNIT CAP PO SCH (10:00)
== END 2020-03-07 17:30 | disposition home or self-care (01) ==
LOC: ED 04:22 → INTOOBSV 07:38 → 4A 07:38
PROVIDERS: ADMIT Internal Medicine; ATTEND Internal Medicine
DX: R07.89 Other chest pain (principal); I21.A1 Myocardial infarction type 2; I13.0 Hypertensive heart and chronic kidney disease with heart failure and stage 1 through stage 4 chronic kidney disease, or unspecified chronic kidney disease; E11.22 Type 2 diabetes mellitus with diabetic chronic kidney disease; E11.21 Type 2 diabetes mellitus with diabetic nephropathy; I50.9 Heart failure, unspecified; N18.3 Chronic kidney disease, stage 3 (moderate); I25.10 Atherosclerotic heart disease of native coronary artery without angina pectoris; E78.2 Mixed hyperlipidemia; I25.2 Old myocardial infarction; M19.90 Unspecified osteoarthritis, unspecified site; E78.00 Pure hypercholesterolemia, unspecified; N17.9 Acute kidney failure, unspecified; J90 Pleural effusion, not elsewhere classified; D64.9 Anemia, unspecified; R79.89 Other specified abnormal findings of blood chemistry; Z95.5 Presence of coronary angioplasty implant and graft; Z90.710 Acquired absence of both cervix and uterus; Z79.82 Long term (current) use of aspirin; Z79.4 Long term (current) use of insulin; Z79.899 Other long term (current) drug therapy; Z88.1 Allergy status to other antibiotic agents
CPT/HCPCS: 36415; 71045; 78452; 80048; 80053; 80061; 80076; 82550; 82962; 83036; 83690; 83735; 83880; 84484; 85025; 85379; 85610; 86850; 86900; 86901; 93005; 93017; 93306; 96372; 96374; 96375; 99285; A9502; C9113; G0378; J0360; J2405; J2785; J7030; J1815

== ENCOUNTER 2020-06-29 10:11 | Outpatient (CLI) | payer OTHER ==
--- NOTE | 2020-06-29 12:25 | Mammography Report ---
DIGITAL SCREENING MAMMOGRAM WITH CAD, 06/29/2020 INDICATION: Routine screening mammography. TECHNIQUE: Digital bilateral 2D mammography was obtained in the craniocaudal and mediolateral obliq ue projections. This examination was interpreted with the benefit of Computer-Aided Detection analysi s. COMPARISON: 03/13/2011 FINDINGS: Breast Density: The breasts are heterogeneously dense, which may obscure small masses. There is no evidence of dominant mass, suspicious calcifications or architectural distortion in eithe r breast. No interval change. IMPRESSION: No evidence of malignancy. Follow up recommendation: Routine yearly BI-RADS Category 1: Negative. A "normal" or negative report should not discourage follow up or biopsy of a clinically significant f inding. A written summary of these findings will be mailed to the patient. The patient will be entered into a mammography reporting system which will generate a reminder letter for the patient's next appointmen t at the appropriate interval. The [employer] recommends yearly mammograms starting at age 40 and continuing as l betsey as a woman is in good health. Breast MRI is recommended for women with an approximate 20-25% or greater lifetime risk of breast cancer, including women with a strong family history of breast or ova cydney cancer or who have been treated for Hodgkin's disease. Signer Name: Chhaya Fairbanks MD Signed: 06/29/2020 12:20 PM Workstation Name: [id number]
== END 2020-06-29 10:12 | disposition home or self-care (01) ==
LOC: MAMMO 10:11
PROVIDERS: ATTEND Internal Medicine Hematology & Oncology
DX: Z12.31 Encounter for screening mammogram for malignant neoplasm of breast (principal); N64.89 Other specified disorders of breast
CPT/HCPCS: 77067

== ENCOUNTER 2020-09-13 15:51 | Observation (INO) | payer OTHER ==
--- NOTE | 2020-09-13 17:15 | XRay Report ---
CHEST 2 VIEWS INDICATION: Shortness of breath.. COMPARISON: 07/06/2020. FINDINGS: Support devices: None. Heart: Stable mild cardiomegaly. Lungs/Pleura: Mild opacity is now seen at both lung bases. The mid and upper zones are clear. No si gnificant pleural effusion. IMPRESSION: Suspect mild worsening basilar pneumonia. Signer Name: Osito Zelaya MD Signed: 09/13/2020 5:15 PM Workstation Name: [id number]
[2020-09-13 17:40] LABS: Basophils % (Auto) 0.8 % (0.0-1.8); Eosinophils # (Auto) 0.3 K/mm3 (0.0-0.4); Eosinophils % (Auto) 5.3 % (0.0-4.3); Hematocrit 30.5 % (30.3-42.9); Hemoglobin 10.3 gm/dl (10.1-14.3); Lymphocytes # (Auto) 1.4 K/mm3 (1.2-5.4); Lymphocytes % (Auto) 22.2 % (13.4-35.0); Mean Corpuscular HGB Conc 34 % (30-34); Mean Corpuscular Volume 87 fl (79-97); Monocytes # (Auto) 0.3 K/mm3 (0.0-0.8); Monocytes % (Auto) 5.4 % (0.0-7.3); Platelet Count 271 K/mm3 (140-440); Red Blood Count 3.51 M/mm3 (3.65-5.03); Red Cell Distribution Width 14.6 % (13.2-15.2)
[2020-09-13 18:07] LABS: Albumin 3.6 g/dL (3.9-5); Calcium 9.1 mg/dL (8.4-10.2)
[2020-09-13 19:05] LABS: Chol/HDL Ratio 5.27 %
[2020-09-13] MEDS ORDERED: FUROSEMIDE 20 MG/2 ML INJ IV ONE (23:28)
[2020-09-13] MEDS ORDERED: NITROGLYCERIN 2% OINT 1 GM TP ONE ×2 (23:28→23:41)
[2020-09-13] MEDS ORDERED: FUROSEMIDE 100 MG/10 ML INJ IV ONE (23:42)
[2020-09-14] MEDS ORDERED: FUROSEMIDE 40 MG/4 ML INJ ONE (01:10)
[2020-09-14] MEDS ORDERED: hydrALAZINE 20 MG/1 ML INJ IV ONE (01:30)
[2020-09-14] MEDS ORDERED: hydrALAZINE 20 MG/1 ML INJ ONE (01:41)
[2020-09-14] MEDS ORDERED: ASPIRIN 81 MG TAB CHEW PO ONE (03:18)
--- NOTE | 2020-09-14 03:18 | Emergency Department Report ---
ED Shortness of Breath HPI - General Chief Complaint: Dyspnea/Respdistress Stated Complaint: DIZZY/SHORT OF BREATH Time Seen by Provider: 09/13/20 16:15 Source: patient Mode of arrival: Ambulatory Limitations: No Limitations - Related Data Home Medications Medication Instructions Recorded Confirmed Last Taken Cholecalciferol (Vitamin D3) 50,000 unit PO 1XW 03/06/20 04/27/20 Unknown [Vitamin D3 50,000UNIT CAP] Insulin Aspart (Nf) [NovoLOG 100 8 units SQ BID 03/06/20 04/27/20 Unknown UNITS/ML VIAL] Insulin Detemir [Levemir VIAL] 20 unit SQ Q12HR 03/06/20 04/27/20 03/05/20 18:00 Previous Rx's Medication Instructions Recorded Last Taken Type Hyoscyamine Subl [Levsin Sl 0.125 0.125 mg SL Q6HR PRN #20 tab 05/26/20 Unknown Rx TAB] Ondansetron [Zofran Odt] 4 mg PO Q8HR #20 tab.rapdis 05/26/20 Unknown Rx Aspirin [Aspirin BABY CHEW TAB] 81 mg PO QDAY #30 07/09/20 Unknown Rx AtorvaSTATin [Lipitor] 40 mg PO QHS #30 tablet 07/09/20 Unknown Rx Cholecalciferol (Vitamin D3) 50,000 unit PO 1XW #4 07/09/20 Unknown Rx [Vitamin D3 50,000UNIT CAP] Furosemide [Lasix TAB] 40 mg PO QDAY #30 tablet 07/09/20 Unknown Rx Insulin Aspart (Nf) 8 units SQ BID #5 pen 07/09/20 Unknown Rx Insulin Detemir [Levemir VIAL] 20 unit SQ Q12HR 30 Days #5 pen 07/09/20 Unknown Rx NIFEdipine XL [Procardia Xl] 90 mg PO QDAY #30 tablet 07/09/20 Unknown Rx Potassium Chloride [K-Dur] 10 meq PO QDAY #30 tablet 07/09/20 Unknown Rx carvediloL [Coreg] 25 mg PO BID@0800,1700 #60 tablet 07/09/20 Unknown Rx hydrALAZINE [Apresoline TAB] 50 mg PO Q8HR #90 tablet 07/09/20 Unknown Rx traMADoL [Ultram 50 MG tab] 50 mg PO Q6H PRN #30 tablet 07/09/20 Unknown Rx Allergies Allergy/AdvReac Type Severity Reaction Status Date / Time levofloxacin [From Levaquin] Allergy Angioedema Verified 05/04/18 10:33 ED Review of Systems ROS: Stated complaint: DIZZY/SHORT OF BREATH Other details as noted in HPI ED Past Medical Hx - Past Medical History Previous Medical History?: Yes Hx Hypertension: Yes Hx Heart Attack/AMI: Yes Hx Congestive Heart Failure: Yes Hx Diabetes: Yes Hx Renal Disease: Yes Hx Arthritis: Yes Hx Kidney Stones: Yes Hx Asthma: No Hx COPD: No Additional medical history: high cholesterol. CAD. 2 Stents 05/2015 here - Surgical History Past Surgical History?: Yes Hx Coronary Stent: Yes Additional Surgical History: Hysterectomy. RIGHT KNEE SURGERY - Social History Smoking Status: Unknown if ever smoked Substance Use Type: Other - Medications Home Medications: Home Medications Medication Instructions Recorded Confirmed Last Taken Type Cholecalciferol (Vitamin D3) 50,000 unit PO 1XW 03/06/20 04/27/20 Unknown History [Vitamin D3 50,000UNIT CAP] Insulin Aspart (Nf) [NovoLOG 100 8 units SQ BID 03/06/20 04/27/20 Unknown History UNITS/ML VIAL] Insulin Detemir [Levemir VIAL] 20 unit SQ Q12HR 03/06/20 04/27/20 03/05/20 18:00 History Hyoscyamine Subl [Levsin Sl 0.125 0.125 mg SL Q6HR PRN #20 tab 05/26/20 Unknown Rx TAB] Ondansetron [Zofran Odt] 4 mg PO Q8HR #20 tab.rapdis 05/26/20 Unknown Rx Aspirin [Aspirin BABY CHEW TAB] 81 mg PO QDAY #30 07/09/20 Unknown Rx AtorvaSTATin [Lipitor] 40 mg PO QHS #30 tablet 07/09/20 Unknown Rx Cholecalciferol (Vitamin D3) 50,000 unit PO 1XW #4 07/09/20 Unknown Rx [Vitamin D3 50,000UNIT CAP] Furosemide [Lasix TAB] 40 mg PO QDAY #30 tablet 07/09/20 Unknown Rx Insulin Aspart (Nf) 8 units SQ BID #5 pen 07/09/20 Unknown Rx Insulin Detemir [Levemir VIAL] 20 unit SQ Q12HR 30 Days #5 pen 07/09/20 Unknown Rx NIFEdipine XL [Procardia Xl] 90 mg PO QDAY #30 tablet 07/09/20 Unknown Rx Potassium Chloride [K-Dur] 10 meq PO QDAY #30 tablet 07/09/20 Unknown Rx carvediloL [Coreg] 25 mg PO BID@0800,1700 #60 tablet 07/09/20 Unknown Rx hydrALAZINE [Apresoline TAB] 50 mg PO Q8HR #90 tablet 07/09/20 Unknown Rx traMADoL [Ultram 50 MG tab] 50 mg PO Q6H PRN #30 tablet 07/09/20 Unknown Rx ED Physical Exam - General Limitations: No Limitations ED Course Vital Signs 09/13/20 16:05 Temperature 98.1 F Pulse Rate 85 Respiratory 18 Rate Blood Pressure 261/134 [Right] O2 Sat by Pulse 98 Oximetry ED Medical Decision Making - Lab Data Result diagrams: 09/13/20 17:09 09/13/20 17:09 Critical care attestation.: If time is entered above; I have spent that time in minutes in the direct care of this critically ill patient, excluding procedure time. ED Disposition Clinical Impression: Shortness of breath CHF (congestive heart failure) Qualifiers: Heart failure type: systolic Heart failure chronicity: acute on chronic Qualified Code(s): I50.23 - Acute on chronic systolic (congestive) heart failure Disposition: OP ADMIT IP TO THIS HOSP Is pt being admited?: Yes Does the pt Need Aspirin: Yes Condition: Stable Referrals: CHARLI PAYNE DO [Primary Care Provider] - 3-5 Days
[2020-09-14] MEDS ORDERED: ACETAMINOPHEN 325 MG TAB PO PRN (05:03)
[2020-09-14] MEDS ORDERED: ALBUTEROL 2.5 MG/3 ML NEBU IH PRN (05:06)
--- NOTE | 2020-09-14 06:36 | History and Physical Report ---
History of Present Illness Date of examination: 09/14/20 Date of admission: 09/14/20 04:49 Chief complaint: Shortness of breath History of present illness: History of presenting illness, patient is a 60-year-old female who has been having shortness of breath going on for some days associated with pleuritic chest pain and wheezing, there is history of ankle edema and there is history of associated nonproductive cough. Patient denied history of nausea and vomiting and denied history of fever, patient had 2D echo done about 2 months ago and also had stress test done in another hospital in the last 48 to 72 hours with result pending. Past History Past Medical History: CAD, diabetes, heart failure, hypertension, hyperlip idemia, renal failure Past Surgical History: hysterectomy, Other (CARDIAC STENT) Social history: no significant social history Family history: no significant family history Medications and Allergies Allergies Allergy/AdvReac Type Severity Reaction Status Date / Time levofloxacin [From Levaquin] Allergy Angioedema Verified 05/04/18 10:33 Home Medications Medication Instructions Recorded Confirmed Last Taken Type Cholecalciferol (Vitamin D3) 50,000 unit PO 1XW 03/06/20 04/27/20 Unknown History [Vitamin D3 50,000UNIT CAP] Insulin Aspart (Nf) [NovoLOG 100 8 units SQ BID 03/06/20 04/27/20 Unknown History UNITS/ML VIAL] Insulin Detemir [Levemir VIAL] 20 unit SQ Q12HR 03/06/20 04/27/20 03/05/20 18:00 History Hyoscyamine Subl [Levsin Sl 0.125 0.125 mg SL Q6HR PRN #20 tab 05/26/20 Unknown Rx TAB] Ondansetron [Zofran Odt] 4 mg PO Q8HR #20 tab.rapdis 05/26/20 Unknown Rx Aspirin [Aspirin BABY CHEW TAB] 81 mg PO QDAY #30 07/09/20 Unknown Rx AtorvaSTATin [Lipitor] 40 mg PO QHS #30 tablet 07/09/20 Unknown Rx Cholecalciferol (Vitamin D3) 50,000 unit PO 1XW #4 07/09/20 Unknown Rx [Vitamin D3 50,000UNIT CAP] Furosemide [Lasix TAB] 40 mg PO QDAY #30 tablet 07/09/20 Unknown Rx Insulin Aspart (Nf) 8 units SQ BID #5 pen 07/09/20 Unknown Rx Insulin Detemir [Levemir VIAL] 20 unit SQ Q12HR 30 Days #5 pen 07/09/20 Unknown Rx NIFEdipine XL [Procardia Xl] 90 mg PO QDAY #30 tablet 07/09/20 Unknown Rx Potassium Chloride [K-Dur] 10 meq PO QDAY #30 tablet 07/09/20 Unknown Rx carvediloL [Coreg] 25 mg PO BID@0800,1700 #60 tablet 07/09/20 Unknown Rx hydrALAZINE [Apresoline TAB] 50 mg PO Q8HR #90 tablet 07/09/20 Unknown Rx traMADoL [Ultram 50 MG tab] 50 mg PO Q6H PRN #30 tablet 07/09/20 Unknown Rx Active Meds: Active Medications Acetaminophen (Tylenol) 650 mg PO Q4H PRN PRN Reason: Fever >101 Albuterol (Proventil) 2.5 mg IH Q6HRT PRN PRN Reason: Shortness Of Breath Furosemide (Lasix) 40 mg IV QDAY ROEL Heparin Sodium (Porcine) (Heparin) 5,000 unit SUB-Q Q12HR ROEL Azithromycin 500 mg/ Sodium (Chloride) 250 mls @ 250 mls/hr IV Q24HR ROEL; Protocol Ceftriaxone Sodium (Rocephin/Ns 2 Gm/100 Ml) 2 gm in 100 mls @ 200 mls/hr IV Q24HR ROEL; Protocol Review of Systems Constitutional: no fever, no chills, no sweats, no fatigue, no weakness, no malaise, no lethargy Eyes: bilateral: other (NO BILATERAL EYE SYMPTOMS) Ears, nose, mouth and throat: no ear pain Breasts: deferred Cardiovascular: edema, shortness of breath, no chest pain, no orthopnea, no palpitations, no rapid/irregular heart beat, no syncope, no lightheadedness Respiratory: cough, shortness of breath, dyspnea on exertion, wheezing, no cough with sputum, no excessive sputum, no hemoptysis, no congestion Gastrointestinal: no abdominal pain, no nausea, no vomiting, no diarrhea, no c onstipation, no change in bowel habits, no melena, no hematochezia, no loss of appetite Genitourinary Female: dyspareunia Musculoskeletal: no neck stiffness, no neck pain, no low back pain, no muscle weakness Integumentary: no rash, no pruritis Neurological: no weakness Psychiatric: no anxiety, no insomnia, no depression Endocrine: no polyphagia, no polydipsia, no polyuria, no nocturia, no flushing Hematologic/Lymphatic: no easy bruising, no easy bleeding, no lymphadenopathy Allergic/Immunologic: no urticaria Exam - Constitutional Vitals: Temp Pulse Resp BP Pulse Ox 98.1 F 85 18 261/134 98 09/13/20 16:05 09/13/20 16:05 09/13/20 16:05 09/13/20 16:05 09/13/20 16:05 General appearance: Present: mild distress - EENT Eyes: Present: PERRL, EOM intact ENT: hearing intact, clear oral mucosa - Neck Neck: Present: supple, normal ROM - Respiratory Respiratory effort: normal - Cardiovascular Rhythm: regular Heart Sounds: Present: S1 & S2. Absent: gallop, systolic murmur, diastolic murmur, click - Extremities Extremity abnormal: edema Peripheral Pulses: within normal limits - Abdominal General gastrointestinal: Present: soft, non-tender, non-distended. Absent: tender, distended, rigid, hepatomegaly, splenomegaly, mass, hernia Female genitourinary: Present: deferred - Rectal Rectal Exam: deferred - Integumentary Integumentary: Present: clear, warm, dry - Musculoskeletal Musculoskeletal: strength equal bilaterally - Psychiatric Psychiatric: appropriate mood/affect HEART Score - HEART Score Risk factors: > 3 risk factors or hx of atherosclerotic disease Troponin: Troponin T 0.070 ng/mL (0.00-0.029) H 09/13/20 17:09 Troponin: < normal limit - Critical Actions Critical Actions: 4-6 pts:12-16.6% risk of adverse cardiac event. Should be admitted Results - Labs CBC & Chem 7: 09/13/20 17:09 09/13/20 17:09 Labs: Laboratory Last Values WBC 6.3 K/mm3 (4.5-11.0) 09/13/20 17:09 RBC 3.51 M/mm3 (3.65-5.03) L 09/13/20 17:09 Hgb 10.3 gm/dl (10.1-14.3) 09/13/20 17:09 Hct 30.5 % (30.3-42.9) 09/13/20 17:09 MCV 87 fl (79-97) 09/13/20 17:09 MCH 30 pg (28-32) 09/13/20 17:09 MCHC 34 % (30-34) 09/13/20 17:09 RDW 14.6 % (13.2-15.2) 09/13/20 17:09 Plt Count 271 K/mm3 (140-440) 09/13/20 17:09 Lymph % (Auto) 22.2 % (13.4-35.0) 09/13/20 17:09 [place] % (Auto) 5.4 % (0.0-7.3) 09/13/20 17:09 Eos % (Auto) 5.3 % (0.0-4.3) H 09/13/20 17:09 Baso % (Auto) 0.8 % (0.0-1.8) 09/13/20 17:09 Lymph # (Auto) 1.4 K/mm3 (1.2-5.4) 09/13/20 17:09 [place] # (Auto) 0.3 K/mm3 (0.0-0.8) 09/13/20 17:09 Eos # (Auto) 0.3 K/mm3 (0.0-0.4) 09/13/20 17:09 Baso # (Auto) 0.0 K/mm3 (0.0-0.1) 09/13/20 17:09 Seg Neutrophils % 66.3 % (40.0-70.0) 09/13/20 17:09 Seg Neutrophils # 4.2 K/mm3 (1.8-7.7) 09/13/20 17:09 Sodium 143 mmol/L (137-145) 09/13/20 17:09 Potassium 4.0 mmol/L (3.6-5.0) 09/13/20 17:09 Chloride 111.7 mmol/L (98-107) H 09/13/20 17:09 Carbon Dioxide 20 mmol/L (22-30) L 09/13/20 17:09 Anion Gap 15 mmol/L 09/13/20 17:09 BUN 34 mg/dL (7-17) H 09/13/20 17:09 Creatinine 3.1 mg/dL (0.6-1.2) H 09/13/20 17:09 Estimated GFR 19 ml/min 11/17/20 17:09 BUN/Creatinine Ratio 11 % 09/13/20 17:09 Glucose 117 mg/dL (65-100) H 09/13/20 17:09 Calcium 9.1 mg/dL (8.4-10.2) 09/13/20 17:09 Total Bilirubin 0.20 mg/dL (0.1-1.2) 09/13/20 17:09 AST 17 units/L (5-40) 09/13/20 17:09 ALT 16 units/L (7-56) 09/13/20 17:09 Alkaline Phosphatase 95 units/L (35-129) 09/13/20 17:09 Troponin T 0.070 ng/mL (0.00-0.029) H 09/13/20 17:09 NT-Pro-B Natriuret Pep 7448 pg/mL (0-900) H 09/13/20 17:09 Total Protein 6.6 g/dL (6.3-8.2) 09/13/20 17:09 Albumin 3.6 g/dL (3.9-5) L 09/13/20 17:09 Albumin/Globulin Ratio 1.2 % 09/13/20 17:09 Triglycerides 174 mg/dL (2-149) H 09/13/20 17:09 Cholesterol 227 mg/dL (50-199) H 09/13/20 17:09 LDL Cholesterol Direct 149 mg/dL (50-130) H 09/13/20 17:09 HDL Cholesterol 43 mg/dL (40-59) 09/13/20 17:09 Cholesterol/HDL Ratio 5.27 % 09/13/20 17:09 Assessment and Plan - Patient Problems (1) Pneumonia Current Visit: Yes Status: Acute Plan to address problem: 1. I.V ZITHROMAX ANTIBIOTIC 2. I.V ROCEPHIN ANTIBIOTIC 3. TYLENOL PO FOR FEVER 4. ROBITUSSIN FOR COUGH (2) CHF exacerbation Current Visit: Yes Status: Acute Plan to address problem: 1. I.V LASIX 2. CARDIOLOGY CONSULT 3. NITROPASTE 4. ASPIRIN PO (3) Elevated troponin Current Visit: Yes Status: Acute Plan to address problem: 1. SERIAL CARDIAC ENZYME 2. CARDIOLOGY CONSULT
[2020-09-14] MEDS ORDERED: ASPIRIN 325 MG TAB ONE (07:35)
[2020-09-14] MEDS: FUROSEMIDE 40 MG/4 ML INJ IV SCH (09:15)
[2020-09-14] MEDS ORDERED: AZITHROMYCIN 500 MG in SODIUM CHLORIDE 0.9% 250ML 250 ML IV SCH (10:00)
--- NOTE | 2020-09-14 10:38 | Consultation ---
History of Present Illness - Reason for Consult Consult date: 09/14/20 chronic renal failure Requesting physician: JUAREZ FRASER - History of Present Illness 60-year-old lady with history of diabetes mellitus, hypertension congestive heart failure who sees Dr. Sepulveda my colleague in the office for chronic kidney disease stage IV. Patient's GFR was down to 19 mls per minute on her last visit in May 2020. She was referred and had dialysis/kidney transplant education class. She was also referred for kidney transplant evaluation. Patient presents on account of a 3-day history of worsening shortness of breath with orthopnea and paroxysmal nocturnal dyspnea. She also admits to wheezing and nonproductive cough. She has had swelling of both legs but denies any fever or chills. No nausea or vomiting. She admits to easy fatigability. On presentation blood pressure was quite elevated with systolic more than 200. I am consulted to assist in managing the renal failure. BUN/creatinine are 34/3.1 mg/dL. Patient denies any voiding difficulties: No frequency, urgency, dysuria or hematuria. Does admit to a decrease in urine output. She admits that she did eat a high salt intake diet regular for her before this episode symptoms started. She states that she has been taking her medications including her diuretics regularly. 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 denies: smoking, prescription drug abuse, IV drug use Family history: no significant family history, diabetes (Mother, sister and brother), hypertension (Mother, sister and brother), other (Mother of complications of pneumonia.) Medications and Allergies Allergies Allergy/AdvReac Type Severity Reaction Status Date / Time levofloxacin [From Levaquin] Allergy Angioedema Verified 05/04/18 10:33 Home Medications Medication Instructions Recorded Confirmed Last Taken Type Cholecalciferol (Vitamin D3) 50,000 unit PO 1XW 03/06/20 04/27/20 Unknown History [Vitamin D3 50,000UNIT CAP] Insulin Aspart (Nf) [NovoLOG 100 8 units SQ BID 05/10/20 07/01/20 Unknown History UNITS/ML VIAL] Insulin Detemir [Levemir VIAL] 20 unit SQ Q12HR 03/06/20 04/27/20 03/05/20 18:00 History Hyoscyamine Subl [Levsin Sl 0.125 0.125 mg SL Q6HR PRN #20 tab 05/26/20 Unknown Rx TAB] Ondansetron [Zofran Odt] 4 mg PO Q8HR #20 tab.rapdis 05/26/20 Unknown Rx Aspirin [Aspirin BABY CHEW TAB] 81 mg PO QDAY #30 07/09/20 Unknown Rx AtorvaSTATin [Lipitor] 40 mg PO QHS #30 tablet 07/09/20 Unknown Rx Cholecalciferol (Vitamin D3) 50,000 unit PO 1XW #4 07/09/20 Unknown Rx [Vitamin D3 50,000UNIT CAP] Furosemide [Lasix TAB] 40 mg PO QDAY #30 tablet 07/09/20 Unknown Rx Insulin Aspart (Nf) 8 units SQ BID #5 pen 07/09/20 Unknown Rx Insulin Detemir [Levemir VIAL] 20 unit SQ Q12HR 30 Days #5 pen 07/09/20 Unknown Rx NIFEdipine XL [Procardia Xl] 90 mg PO QDAY #30 tablet 07/09/20 Unknown Rx Potassium Chloride [K-Dur] 10 meq PO QDAY #30 tablet 07/09/20 Unknown Rx carvediloL [Coreg] 25 mg PO BID@0800,1700 #60 tablet 07/09/20 Unknown Rx hydrALAZINE [Apresoline TAB] 50 mg PO Q8HR #90 tablet 07/09/20 Unknown Rx traMADoL [Ultram 50 MG tab] 50 mg PO Q6H PRN #30 tablet 07/09/20 Unknown Rx Active Meds: Active Medications Acetaminophen (Tylenol) 650 mg PO Q4H PRN PRN Reason: Fever >101 Last Admin: 09/14/20 09:14 Dose: 650 mg Documented by: Albuterol (Proventil) 2.5 mg IH Q6HRT PRN PRN Reason: Shortness Of Breath Aspirin (Aspirin) 81 mg PO QDAY ROEL Atorvastatin Calcium (Lipitor) 40 mg PO QHS ROEL Carvedilol (Coreg) 12.5 mg PO BID ROEL Furosemide (Lasix) 40 mg IV QDAY ROEL Last Admin: 09/14/20 09:15 Dose: 40 mg Documented by: Heparin Sodium (Porcine) (Heparin) 5,000 unit SUB-Q Q12HR ROEL Hydralazine HCl (Apresoline) 50 mg PO Q8HR ROEL Azithromycin 500 mg/ Sodium (Chloride) 250 mls @ 250 mls/hr IV Q24HR ROEL; Protocol Ceftriaxone Sodium (Rocephin/Ns 2 Gm/100 Ml) 2 gm in 100 mls @ 200 mls/hr IV Q24HR ROEL; Protocol Nifedipine (Procardia Xl) 90 mg PO QDAY ROEL Potassium Chloride (K-Dur) 10 meq PO QDAY ROEL Review of Systems All systems: negative (Constitutional: no fever or chills. No anorexia or weight loss. HEENT: No sore throat or sinus drainage no hearing or vision impairment . Cardiovascular: See history of present illness. Respiratory: No cough, sputum, shortness of breath, hemoptysis or wheezing. Gastrointestinal: No nausea, vomiting, diarrhea, admits to abdominal discomfort, hematemesis or melena. Genitourinary: No frequency urgency dysuria or hematuria. Admits to decrease in urine output. Hematologic: No abnormal bleeding or bruising. Integumentary: no pruritus or rash. Neurological: Admits to headache which he attributes to nit roglycerin patch. To dizziness. No focal weakness or numbness, no syncope or seizures. Musculoskeletal: No joint pains no stiffness. Psychiatry: no anxiety or depression) Exam - Vital Signs Vital signs: Vital Signs Temp Pulse Resp BP Pulse Ox 98.1 F 85 18 261/134 98 09/13/20 16:05 09/13/20 16:05 09/13/20 16:05 09/13/20 16:05 09/13/20 16:05 - Physical Exam Narrative exam: Middle-aged -[place] female lying in bed in no acute distress HEENT: NCAT, pink oral mucous membrane Neck: Supple, no venous distention CVS: S1S2 RRR with no murmur, rub or gallop Chest: Clear to auscultation but diminished breath sounds in lower zones bilaterally Abdomen: Protuberant, soft, nontender, no organomegaly, bowel sounds are present Extremities: 1-2+ pitting edema Genitourinary deferred Skin warm and dry, no rash Neuro: Awake, alert no focal deficits Results - Lab Results 09/13/20 17:09 09/13/20 17:09 Most recent lab results Calcium 9.1 mg/dL (8.4-10.2) 09/13/20 17:09 Assessment and Plan - Patient Problems (1) Chronic kidney disease, stage 4 (severe) Current Visit: Yes Status: Acute Plan to address problem: Stage IV chronic kidney disease presumably secondary to diabetic nephropathy/hypertensive nephrosclerosis with superimposed chronic cardiorenal s yndrome. Kidney function is not significantly changed from her baseline. (2) Anemia of chronic renal failure, stage 4 (severe) Current Visit: Yes Status: Acute Plan to address problem: Follow-up hemoglobin. (3) Accelerated hypertension Current Visit: No Status: Acute Plan to address problem: Blood pressure has improved. Continue present treatment. Stressed importance of adherence to medications and diet on discharge (4) Hypertensive chronic kidney disease with stage 1 through stage 4 chronic kidney disease, or unspecified chronic kidney disease Current Visit: No Status: Acute Plan to address problem: Follow-up blood pressure on current medications (5) Type 2 diabetes mellitus with diabetic nephropathy Current Visit: No Status: Chronic Plan to address problem: Blood sugar control by primary attending.
--- NOTE | 2020-09-14 10:43 | Consultation ---
History of Present Illness Consult date: 09/14/20 Consult reason: congestive heart failure, elevated troponin History of present illness: This is a 60-year old woman who presents with shortness of breath, severe uncontrolled hypertension with a systolic blood pressure over 200. Of note, the patient has had several admissions to this hospital with similar presenting symptoms. Chest x-ray reports mild interstitial edema. ECG is sinus rhythm, LVH with repolarization abnormalities. Labs shows a chronic elevated troponin. Creatinine of 3.1. Patient has a history of coronary artery disease. In 2016, a cardiac catheterization at this hospital showed widely patent circumflex artery stent and nonobstructive disease of the right coronary artery. Left ventricular ejection fraction was 55%. More recently, just 6 months ago at this hospital she underwent a lexiscan thallium stress test that showed no ischemia. An echocardiogram reports an left ventricular ejection fraction 45-50%. Co-morbidit ies includes chronic kidney disease, anemia and diabetes. Past History Past Medical History: CAD, diabetes, heart failure, hypertension, hyperlipidemia, renal failure Past Surgical History: hysterectomy Social history: no significant social history Family history: no significant family history Medications and Allergies Allergies Allergy/AdvReac Type Severity Reaction Status Date / Time levofloxacin [From Levaquin] Allergy Angioedema Verified 05/04/18 10:33 Home Medications Medication Instructions Recorded Confirmed Last Taken Type Cholecalciferol (Vitamin D3) 50,000 unit PO 1XW 03/06/20 04/27/20 Unknown History [Vitamin D3 50,000UNIT CAP] Insulin Aspart (Nf) [NovoLOG 100 8 units SQ BID 03/06/20 04/27/20 Unknown History UNITS/ML VIAL] Insulin Detemir [Levemir VIAL] 20 unit SQ Q12HR 03/06/20 04/27/20 03/05/20 18:00 History Hyoscyamine Subl [Levsin Sl 0.125 0.125 mg SL Q6HR PRN #20 tab 05/26/20 Unknown Rx TAB] Ondansetron [Zofran Odt] 4 mg PO Q8HR #20 tab.rapdis 05/26/20 Unknown Rx Aspirin [Aspirin BABY CHEW TAB] 81 mg PO QDAY #30 07/09/20 Unknown Rx AtorvaSTATin [Lipitor] 40 mg PO QHS #30 tablet 07/09/20 Unknown Rx Cholecalciferol (Vitamin D3) 50,000 unit PO 1XW #4 07/09/20 Unknown Rx [Vitamin D3 50,000UNIT CAP] Furosemide [Lasix TAB] 40 mg PO QDAY #30 tablet 07/09/20 Unknown Rx Insulin Aspart (Nf) 8 units SQ BID #5 pen 07/09/20 Unknown Rx Insulin Detemir [Levemir VIAL] 20 unit SQ Q12HR 30 Days #5 pen 07/09/20 Unknown Rx NIFEdipine XL [Procardia Xl] 90 mg PO QDAY #30 tablet 07/09/20 Unknown Rx Potassium Chloride [K-Dur] 10 meq PO QDAY #30 tablet 07/09/20 Unknown Rx carvediloL [Coreg] 25 mg PO BID@0800,1700 #60 tablet 07/09/20 Unknown Rx hydrALAZINE [Apresoline TAB] 50 mg PO Q8HR #90 tablet 07/09/20 Unknown Rx traMADoL [Ultram 50 MG tab] 50 mg PO Q6H PRN #30 tablet 07/09/20 Unknown Rx Active Meds: Active Medications Acetaminophen (Tylenol) 650 mg PO Q4H PRN PRN Reason: Fever >101 Last Admin: 09/14/20 09:14 Dose: 650 mg Documented by: Albuterol (Proventil) 2.5 mg IH Q6HRT PRN PRN Reason: Shortness Of Breath Aspirin (Aspirin) 81 mg PO QDAY ROEL Atorvastatin Calcium (Lipitor) 40 mg PO QHS ROEL Carvedilol (Coreg) 12.5 mg PO BID ROEL Furosemide (Lasix) 40 mg IV QDAY [facility] Last Admin: 09/14/20 09:15 Dose: 40 mg Documented by: Heparin Sodium (Porcine) (Heparin) 5,000 unit SUB-Q Q12HR ROEL Hydralazine HCl (Apresoline) 50 mg PO Q8HR [facility] Azithromycin 500 mg/ Sodium (Chloride) 250 mls @ 250 mls/hr IV Q24HR ROEL; Protocol Ceftriaxone Sodium (Rocephin/Ns 2 Gm/100 Ml) 2 gm in 100 mls @ 200 mls/hr IV Q24HR ROEL; Protocol Nifedipine (Procardia Xl) 90 mg PO QDAY ROEL Potassium Chloride (K-Dur) 10 meq PO QDAY [facility] Review of Systems Cardiovascular: shortness of breath, high blood pressure, no chest pain, no palpitations, no edema, no leg edema Physical Examination Vital Signs Temp Pulse Resp BP Pulse Ox 98.1 F 85 18 261/134 98 09/13/20 16:05 09/13/20 16:05 09/13/20 16:05 09/13/20 16:05 09/13/20 16:05 General appearance: no acute distress HEENT: Positive: PERRL Neck: Positive: trachea midline Cardiac: Positive: Reg Rate and Rhythm Lungs: Positive: Decreased Breath Sounds Neuro: Positive: Grossly Intact Extremities: Absent: edema Results 09/13/20 17:09 09/13/20 17:09 Cardiac Enzymes 09/13/20 Range/Units 17:09 AST 17 (5-40) units/L Lipids 09/13/20 Range/Units 17:09 Triglycerides 174 H (2-149) mg/dL Cholesterol 227 H (50-199) mg/dL HDL Cholesterol 43 (40-59) mg/dL Cholesterol/HDL Ratio 5.27 % CBC 09/13/20 Range/Units 17:09 WBC 6.3 (4.5-11.0) K/mm3 RBC 3.51 L (3.65-5.03) M/mm3 Hgb 10.3 (10.1-14.3) gm/dl Hct 30.5 (30.3-42.9) % Plt Count 271 (140-440) K/mm3 Lymph # (Auto) 1.4 (1.2-5.4) K/mm3 [place] # (Auto) 0.3 (0.0-0.8) K/mm3 Eos # (Auto) 0.3 (0.0-0.4) K/mm3 Baso # (Auto) 0.0 (0.0-0.1) K/mm3 Comprehensive Metabolic Panel 09/13/20 Range/Units 17:09 Sodium 143 (137-145) mmol/L Potassium 4.0 (3.6-5.0) mmol/L Chloride 111.7 H (98-107) mmol/L Carbon Dioxide 20 L (22-30) mmol/L BUN 34 H (7-17) mg/dL Creatinine 3.1 H (0.6-1.2) mg/dL Glucose 117 H (65-100) mg/dL Calcium 9.1 (8.4-10.2) mg/dL AST 17 (5-40) units/L ALT 16 (7-56) units/L Alkaline Phosphatase 95 (35-129) units/L Total Protein 6.6 (6.3-8.2) g/dL Albumin 3.6 L (3.9-5) g/dL Assessment and Plan Fluid overload Uncontrolled hypertension Renal insufficiency Hx of CAD Normal lexiscan MPI 02/2020 LVEF 45-50% by echo 02/2020LHC: patent Cx stent with borderline disease in the RCA recommended for medical therapy s/p PCI to Cx with TED 05/2015 Diabetes Mellitus, poorly controlled Recommendations: Low sodium diet. Optimal BP management. Medical therapy for coronary artery disease and heart failure with a preserved ejection fraction.
[2020-09-14] MEDS: NIFEdipine XL 90 MG TAB PO SCH (11:26)
[2020-09-14] MEDS: cefTRIAXone/NS 2 GM/100 ML 2 GM/100 ML BAG IV SCH (11:26)
[2020-09-14] MEDS: ASPIRIN 81 MG TAB CHEW PO SCH (11:26)
[2020-09-14] MEDS: POTASSIUM CHLORIDE ER 10 MEQ TAB PO SCH (11:26)
[2020-09-14] MEDS: HEPARIN 5,000 UNIT/1 ML VIAL SUB-Q SCH ×2 (11:27→22:37)
[2020-09-14] MEDS: carvediloL 12.5 MG TAB PO SCH ×2 (11:34→22:36)
[2020-09-14 15:37] LABS: Creatine Kinase MB 3.4 ng/mL (0.0-4.0)
--- NOTE | 2020-09-14 15:44 | Event Note ---
Date: 09/14/20 Patient seen and examined Continue CHF protocol, follow BMP Monitor daily weights, ins and O's, IV diuretics If renal function continues to get worse would consult renal
[2020-09-14] MEDS: hydrALAZINE 25 MG TAB PO SCH ×2 (17:14→22:36)
[2020-09-14 21:34] LABS: Calcium 8.5 mg/dL (8.4-10.2)
[2020-09-14] MEDS: INSULIN REGULAR, HUMAN 100 UNIT/ML 3ML VIAL SUB-Q SCH (22:43)
[2020-09-15] MEDS: hydrALAZINE 25 MG TAB PO SCH (05:04)
[2020-09-15 05:44] LABS: Calcium 8.5 mg/dL (8.4-10.2)
[2020-09-15] MEDS: INSULIN REGULAR, HUMAN 100 UNIT/ML 3ML VIAL SUB-Q SCH ×3 (09:08→17:36)
[2020-09-15] MEDS: ASPIRIN 81 MG TAB CHEW PO SCH (09:09)
[2020-09-15] MEDS: POTASSIUM CHLORIDE ER 10 MEQ TAB PO SCH (09:09)
[2020-09-15] MEDS: NIFEdipine XL 90 MG TAB PO SCH (09:09)
[2020-09-15] MEDS: HEPARIN 5,000 UNIT/1 ML VIAL SUB-Q SCH (09:10)
[2020-09-15] MEDS: FUROSEMIDE 40 MG/4 ML INJ IV SCH (09:10)
[2020-09-15] MEDS: cefTRIAXone/NS 2 GM/100 ML 2 GM/100 ML BAG IV SCH (09:11)
--- NOTE | 2020-09-15 09:11 | Progress Note ---
Assessment and Plan Fluid overload Heart failure with a preserved ejection fraction Uncontrolled hypertension Chronic renal insufficiency Hx of CAD Normal lexiscan MPI 02/2020 LVEF 45-50% by echo 02/2020LHC: patent Cx stent with borderline disease in the RCA recommended for medical therapy s/p PCI to Cx with TED 05/2015 Diabetes Mellitus, poorly controlled Recommendations: Low sodium diet. Will add Cardura 2 mg twice daily, in addition, for optimal BP management. Medical therapy for coronary artery disease and heart failure with a preserved ejection fraction. Subjective Date of service: 09/15/20 Interval history: Blood pressure is elevated, 188 systolic. Patient remains asymptomatic, denies dizziness and denies headaches. Objective Vital Signs Temp Pulse Resp BP Pulse Ox 09/15/20 07:54 98.8 F 86 18 188/97 96 09/15/20 05:04 84 189/92 09/15/20 04:35 98.0 F 84 18 189/92 98 09/14/20 23:35 98.0 F 82 18 150/80 100 09/14/20 22:36 83 144/75 09/14/20 20:05 84 09/14/20 19:40 98.0 F 18 144/75 09/14/20 18:00 83 09/14/20 16:06 98.2 F 83 18 163/84 99 09/14/20 10:00 87 - Physical Examination General: No Apparent Distress HEENT: Positive: PERRL Neck: Positive: trachea midline Cardiac: Positive: Reg Rate and Rhythm Lungs: Positive: Decreased Breath Sounds Neuro: Positive: Grossly Intact Extremities: Absent: edema - Labs and Meds Cardiac Enzymes 09/14/20 09/14/20 Range/Units 09:31 14:18 CK-MB (CK-2) 4.0 3.4 (0.0-4.0) ng/mL Comprehensive Metabolic Panel 09/14/20 09/15/20 Range/Units 20:19 04:47 Sodium 141 144 (137-145) mmol/L Potassium 3.8 3.8 (3.6-5.0) mmol/L Chloride 108.1 H 112.5 H (98-107) mmol/L Carbon Dioxide 22 21 L (22-30) mmol/L BUN 33 H 35 H (7-17) mg/dL Creatinine 3.3 H 3.2 H (0.6-1.2) mg/dL Glucose 214 H 206 H (65-100) mg/dL Calcium 8.5 8.5 (8.4-10.2) mg/dL
[2020-09-15] MEDS ORDERED: AZITHROMYCIN 250 MG TAB PO SCH (10:00)
[2020-09-15] MEDS ORDERED: carvediloL 25 MG TAB PO SCH (10:00)
[2020-09-15] MEDS ORDERED: hydrALAZINE 25 MG TAB PO SCH (10:10)
[2020-09-15] MEDS: hydrALAZINE 100 MG TAB PO SCH ×2 (11:22→17:35)
[2020-09-15 13:05] VITALS: BP 148/79
--- NOTE | 2020-09-15 13:56 | Discharge Summary ---
Providers - Providers Date of Admission: 09/15/20 09:40 Date of discharge: 09/15/20 Attending physician: JUAREZ FRASER 09/14/20 04:56 Consult to Physician [CONS] Routine Comment: Consulting Provider: AZIZA REECE Physician Instructions: Reason For Exam: CKD 09/14/20 06:00 Consult to Physician [CONS] Routine Comment: Consulting Provider: HAIDER MARI Physician Instructions: Reason For Exam: CHF EXACERBATION WITH ELEVATED TROPONIN LEVEL Primary care physician: CHARLI PAYNE Hospitalization Condition: Stable Pertinent studies: Normal lexiscan MPI 02/2020 LVEF 45-50% by echo 02/2020LHC: patent Cx stent with borderline disease in the RCA recommended for medical therapy. s/p PCI to Cx with TED 05/2015 Hospital course: Discharge Diagnosis: Volume overload, due to CHF and CKD CHF with a preserved ejection fraction, acute on chronic Uncontrolled hypertension, stable on d/c Chronic renal disease, stage 4 Hx of CAD, stable Diabetes Mellitus, poorly controlled Anemia of CD, h/h stable Disposition: [id number] HOME UNDER HOME [facility] Time spent for discharge: 34 minutes Core Measure Documentation - Palliative Care Palliative Care/ Comfort Measures: Not Applicable - Core Measures Any of the following diagnoses?: none Exam - Constitutional Vitals: Temp Pulse Resp BP Pulse Ox 99.0 F 84 19 148/79 97 09/15/20 12:51 09/15/20 12:51 09/15/20 12:51 09/15/20 12:51 09/15/20 12:51 Plan Activity: advance as tolerated Weight Bearing Status: Weight Bear as Tolerated Diet: low fat, low salt, diabetic Special Instructions: record daily weights, record daily BP diary, record blood sugar diary Follow up with: CHARLI PAYNE DO [Primary Care Provider] - 3-5 Days Prescriptions: hydrALAZINE [Apresoline TAB] 100 mg PO Q8HR #90 tab Doxazosin [Cardura] 2 mg PO Q12HR #60 tablet
--- NOTE | 2020-09-15 21:43 | Progress Note ---
Assessment and Plan - Patient Problems (1) Chronic kidney disease, stage 4 (severe) Status: Acute Plan to address problem: Stage IV chronic kidney disease presumably secondary to diabetic nephropathy/hypertensive nephrosclerosis with superimposed chronic cardiorenal syndrome. Kidney function is not significantly changed from her baseline.okay to discharge from renal standpoint. Patient instructed to schedule follow-up with Dr. Sepulveda in the next couple of weeks. (2) Anemia of chronic renal failure, stage 4 (severe) Status: Acute Plan to address problem: Follow-up hemoglobin. (3) Accelerated hypertension Status: Acute Plan to address problem: Blood pressure has improved. Continue present treatment. Stressed importance of adherence to medications and diet on discharge (4) Hypertensive chronic kidney disease with stage 1 through stage 4 chronic kidney disease, or unspecified chronic kidney disease Status: Acute Plan to address problem: Follow-up blood pressure on current medications (5) Type 2 diabetes mellitus with diabetic nephropathy Status: Chronic Plan to address problem: Blood sugar control by primary attending. Subjective Date of service: 09/15/20 Principal diagnosis: chronic kidney disease stage IV Interval history: patient seen lying in bed this morning. She has no complaints this morning. She feels better Objective - Exam Narrative Exam: Middle-aged -[place] female lying in bed in no acute distress HEENT: NCAT, pink oral mucous membrane Neck: Supple, no venous distention CVS: S1S2 RRR with no murmur, rub or gallop Chest: Clear to auscultation but diminished breath sounds in lower zones bilaterally Abdomen: Protuberant, soft, nontender, no organomegaly, bowel sounds are present Extremities: mild pitting edema Genitourinary deferred Skin warm and dry, no rash Neuro: Awake, alert no focal deficits - Vital Signs Vital signs: Vital Signs - 12hr 09/15/20 09/15/20 10:00 12:51 Temperature 99.0 F Pulse Rate 91 H 84 Respiratory 18 19 Rate Blood Pressure 148/79 O2 Sat by Pulse 97 Oximetry - Lab 09/13/20 17:09 09/15/20 04:47 Most recent lab results Calcium 8.5 mg/dL (8.4-10.2) 09/15/20 04:47 Medications & Allergies - Medications Allergies/Adverse Reactions: Allergies levofloxacin [From Levaquin] Allergy (Verified 05/04/18 10:33) Angioedema Home Medications: Home Medications Medication Instructions Recorded Confirmed Last Taken Type Cholecalciferol (Vitamin D3) 50,000 unit PO 1XW 03/06/20 04/27/20 Unknown History [Vitamin D3 50,000UNIT CAP] Hyoscyamine Subl [Levsin Sl 0.125 0.125 mg SL Q6HR PRN #20 tab 05/26/20 Unknown Rx TAB] Ondansetron [Zofran ODT TAB] 4 mg PO Q8HR #20 tab.rapdis 05/26/20 Unknown Rx Aspirin [Aspirin BABY CHEW TAB] 81 mg PO QDAY #30 07/09/20 Unknown Rx AtorvaSTATin [Lipitor] 40 mg PO QHS #30 tablet 07/09/20 Unknown Rx Cholecalciferol (Vitamin D3) 50,000 unit PO 1XW #4 07/09/20 Unknown Rx [Vitamin D3 50,000UNIT CAP] Furosemide [Lasix TAB] 40 mg PO QDAY #30 tablet 07/09/20 Unknown Rx Insulin Aspart (Nf) 8 units SQ BID #5 pen 07/09/20 Unknown Rx Insulin Detemir [Levemir VIAL] 20 unit SQ Q12HR 30 Days #5 pen 07/09/20 Unknown Rx NIFEdipine XL [Procardia Xl] 90 mg PO QDAY #30 tablet 07/09/20 Unknown Rx Potassium Chloride [K-Dur] 10 meq PO QDAY #30 tablet 07/09/20 Unknown Rx carvediloL [Coreg] 25 mg PO BID@0800,1700 #60 tablet 07/09/20 Unknown Rx traMADoL [Ultram 50 MG tab] 50 mg PO Q6H PRN #30 tablet 07/09/20 Unknown Rx Doxazosin [Cardura] 2 mg PO Q12HR #60 tablet 09/15/20 Unknown Rx hydrALAZINE [Apresoline TAB] 100 mg PO Q8HR #90 tab 09/15/20 Unknown Rx
[2020-09-15] MEDS ORDERED: DOXAZOSIN 1 MG TAB PO SCH (22:00)
== END 2020-09-15 18:31 | disposition home or self-care (01) ==
LOC: ED 15:51 → 4A 09-14 04:49 → INTOOBSV 09-14 04:49 → OBSVTOIN 09-15 09:40
PROVIDERS: ADMIT Internal Medicine; ATTEND Internal Medicine
DX: I13.0 Hypertensive heart and chronic kidney disease with heart failure and stage 1 through stage 4 chronic kidney disease, or unspecified chronic kidney disease (principal); I50.23 Acute on chronic systolic (congestive) heart failure; N18.4 Chronic kidney disease, stage 4 (severe); J18.9 Pneumonia, unspecified organism; I25.10 Atherosclerotic heart disease of native coronary artery without angina pectoris; E87.70 Fluid overload, unspecified; E78.5 Hyperlipidemia, unspecified; E11.21 Type 2 diabetes mellitus with diabetic nephropathy; D63.1 Anemia in chronic kidney disease; R74.8 Abnormal levels of other serum enzymes; M19.90 Unspecified osteoarthritis, unspecified site; E78.00 Pure hypercholesterolemia, unspecified; Z90.710 Acquired absence of both cervix and uterus; Z95.1 Presence of aortocoronary bypass graft; Z79.4 Long term (current) use of insulin; Z79.82 Long term (current) use of aspirin; Z87.442 Personal history of urinary calculi; Z98.890 Other specified postprocedural states
CPT/HCPCS: 36415; 71046; 80048; 80053; 80061; 82550; 82553; 82962; 83880; 84484; 85025; 93005; 96365; 96366; 96368; 96372; 96375; 96376; 99285; A9270; G0378; J0360; J0456; J0696; J1644; J1940; J7050; 96374; J1815

== ENCOUNTER 2020-10-14 11:28 | Outpatient (CLI) | payer OTHER ==
--- NOTE | 2020-10-14 13:19 | XRay Report ---
CHEST 2 VIEWS INDICATION: DYSPNEA. COMPARISON: 09/13/2020 FINDINGS: Support devices: None. Heart: Within normal limits. Lungs/pleura: No acute air space or interstitial disease. No pneumothorax. Subtle bilateral pulmonar y opacities and small pleural effusions have resolved. Additional findings: None. IMPRESSION: Unremarkable chest films. Signer Name: Michael Lagunas Jr, MD Signed: 10/14/2020 1:14 PM Workstation Name: [id number]
== END 2020-10-14 11:29 | disposition home or self-care (01) ==
LOC: XRAY 11:28
PROVIDERS: ATTEND Internal Medicine Hematology & Oncology
DX: R06.02 Shortness of breath (principal); R06.00 Dyspnea, unspecified
CPT/HCPCS: 71046